=== PATIENT | female | born 1960 | race Hispanic/Latino ===

== ENCOUNTER 2016-12-01 14:06 | Observation (INO) | payer BC ==
[2016-12-01 14:13] VITALS: BMI 23.7
[2016-12-01] MEDS ORDERED: Sodium Chloride 0.9% 1,000 ML IV STA (14:37)
[2016-12-01 15:42] LABS: ADD MANUAL DIFF? NO
--- NOTE | 2016-12-01 15:46 | ED PDOC ---
Arrival/HPI - General Chief Complaint: Abdominal Pain Time Seen by Provider: 12/01/16 14:20 Historian: Patient - History of Present Illness Narrative History of Present Illness (Text): 12/01/16 14: 40 Renetta Elkins, a 56 year old female, whose past medical history includes microcytic anemia, hypertension, chronic gastritis, presents to the emergency department complaining of abdominal pain since yesterday. She also reports she has a decreased appetite and had episodes of vomiting after having Ensure. Patient states she has nausea, vomiting, diarrhea, heart burn but denies any fever or any other complaints at this time. Time/Duration: 24 hours Symptom Onset: Gradual Symptom Course: Unchanged Activities at Onset: Rest Modifying Factors (Text): none Context: Home Associated Symptoms (Text): nausea, vomiting, diarrhea Past Medical History - Provider Review Nursing Documentation Reviewed: Yes - Infectious Disease Hx of Infectious Diseases: None - Tetanus Immunization Tetanus Immunization: Unknown - Cardiac Hx Cardiac Disorders: Yes Hx Heart Murmur: Yes Hx Hypertension: Yes - Pulmonary Hx Respiratory Disorders: No - Neurological Hx Neurological Disorder: No - HEENT Hx HEENT Disorder: No - Renal Hx Renal Disorder: No - Endocrine/Metabolic Hx Endocrine Disorders: No - Hematological/Oncological Hx Blood Disorders: Yes Hx Anemia: Yes Other/Comment: hx blood transfusion - Integumentary Hx Dermatological Disorder: Yes - Musculoskeletal/Rheumatological Hx Falls: No - Gastrointestinal Hx Gastrointestinal Disorders: Yes (gastritis, fatty liver,GASTROPARESIS) Hx Gall Bladder Disease: Yes Hx Gastroesophageal Reflux: Yes Other/Comment: portal htn hepatomegaly, hemorrhoids - Genitourinary/Gynecological Hx Genitourinary Disorders: Yes Hx Urinary Tract Infection: Yes Other/Comment: total vag hysterectomy, bladder sling, ant and post rectal repair 06/14 - Psychiatric Hx Psychophysiologic Disorder: No Hx Emotional Abuse: No Hx Physical Abuse: No Hx Substance Use: No - Surgical History Hx Hysterectomy: Yes Hx Musculoskeletal Surgery: Yes Hx Orthopedic Surgery: Yes (x2) Other/Comment: laminectomy x4 - Anesthesia Hx Anesthesia: Yes Hx Anesthesia Reactions: No Hx Malignant Hyperthermia: No - Suicidal Assessment Feels Threatened In Home Enviroment: No Family/Social History - Physician Review Nursing Documentation Reviewed: Yes Family/Social History: No Known Family HX Smoking Status: Former Smoker Hx Alcohol Use: No Hx Substance Use: No Hx Substance Use Treatment: No Allergies/Home Meds Allergies/Adverse Reactions: Allergies gluten Adverse Reaction (Verified 12/01/16 14:13) PAIN methylprednisolone Adverse Reaction (Verified 12/01/16 14:13) VOMITING Home Medications: Home Meds Medication Instructions Recorded Confirmed HYDROmorphone [Dilaudid] 8 mg PO Q4 PRN 03/08/16 12/01/16 Gabapentin [Neurontin] 0 mg PO DAILY 12/01/16 12/01/16 Metoclopramide HCl [Reglan] 10 mg PO PRN PRN 12/01/16 12/01/16 Review of Systems - Physician Review All systems were reviewed & negative as marked: Yes - Review of Systems Constitutional: absent: Fevers Cardiovascular: absent: Chest Pain Gastrointestinal: Abdominal Pain, Diarrhea, Nausea, Vomiting, Appetite Changes ( decreased) Physical Exam Vital Signs Reviewed: Yes Vital Signs Temp Pulse Resp BP Pulse Ox 12/01/16 19:35 98.4 F 60 16 125/71 97 12/01/16 17:26 67 18 118/75 98 12/01/16 15:38 69 18 121/79 98 12/01/16 14:13 98.4 F 73 16 120/83 98 Temperature: Afebrile Blood Pressure: Normal Pulse: Regular Respiratory Rate: Normal Appearance: Positive for: Well-Appearing, Non-Toxic, Comfortable Pain Distress: None Mental Status: Positive for: Alert and Oriented X 3 - Systems Exam Head: Present: Atraumatic, Normocephalic Pupils: Present: PERRL Extroacular Muscles: Present: EOMI Conjunctiva: Present: Normal Mouth: Present: Moist Mucous Membranes Neck: Present: Normal Range of Motion Respiratory/Chest: Present: Clear to Auscultation, Good Air Exchange. No: Respiratory Distress, Accessory Muscle Use Cardiovascular: Present: Regular Rate and Rhythm, Normal S1, S2. No: Murmurs Abdomen: Present: Tenderness (mild epigastric), Distention (mild), Normal Bowel Sounds. No: Peritoneal Signs Upper Extremity: Present: Normal Inspection. No: Cyanosis, Edema Lower Extremity: Present: Normal Inspection. No: Edema Neurological: Present: GCS=15, CN II-XII Intact, Speech Normal Skin: Present: Warm, Dry, Normal Color. No: Rashes Psychiatric: Present: Alert, Oriented x 3, Normal Insight, Normal Concentration Medical Decision Making ED Course and Treatment: 12/01/16 14:45 Impression: 56 year old female with epigastric abdominal pain. Differential Diagnosis included but are not limited to: gastritis vs. nonspecific abdominal pain Plan: -- CT Abd/Pelvis -- Labs -- Urinalysis -- IV fluids, Toradol, Zofran and Pepcid -- Reassess and disposition Prior Visits: Notes and results from previous visits were reviewed. Patient was reported to the emergency room on 09/09/16 for evaluation of abdominal cramping, diarrhea and vomiting. Progress Notes: CT Abdomen/Pelvis Software Recruiter: Dr. Faheem Omer MD IMPRESSION: No acute findings in the abdomen or pelvis. - Lab Interpretations Lab Results: 12/01/16 15:40 12/01/16 15:40 Lab Results 12/01/16 15:40: WBC 6.6, RBC 4.36, Hgb 9.7 L, Hct 31.2 L, MCV 71.6 L, MCH 22.2 L , MCHC 31.1, RDW 17.7 H, Plt Count 358, MPV 8.4, Gran % 73.6 H, Lymph % (Auto) 17.7 L, Butts % (Auto) 6.0, Eos % (Auto) 2.1, Baso % (Auto) 0.6, Gran # 4.82, Lymph # 1.2, Butts # 0.4, Eos # 0.1, Baso # 0.04, PT 11.1, INR 1.03, APTT 27.6, Sodium 134, Potassium 4.2, Chloride 95 L, Carbon Dioxide 31, Anion Gap 12, BUN 15, Creatinine 0.8, Est GFR ( Amer) > 60, Est GFR (Non-Af Amer) > 60, Random Glucose 98, Calcium 9.7, Total Bilirubin 0.5, AST 36, ALT 25, Alkaline Phosphatase 93, Total Protein 9.5 H, Albumin 3.9, Globulin 5.6, Albumin/ Globulin Ratio 0.7 L, Lipase 34 I have reviewed the lab results: Yes - RAD Interpretation Radiology Orders: 12/01/16 16:07 ABD & PELVIS IV CONTRAST ONLY [CT] Stat - Medication Orders Current Medication Orders: Sodium Chloride (Sodium Chloride 0.9%) 1,000 mls @ 125 mls/hr IV .Q8H [place] Last Admin: 12/01/16 19:15 Dose: 125 MLS/HR eMAR Start Stop Document 12/01/16 19:15 SZA (Rec: 12/01/16 19:46 SZA [id number]) Intravenous Solution Start Date 12/01/16 Start Time 19:15 Ondansetron HCl (Zofran Inj) 4 mg IVP Q4H PRN PRN Reason: Nausea/Vomiting Pantoprazole Sodium (Protonix Inj) 40 mg IVP DAILY [place] Discontinued Medications Famotidine (Pepcid) 20 mg IVP STAT STA Stop: 12/01/16 15:57 Last Admin: 12/01/16 16:26 Dose: 20 MG IVP Administration Document 12/01/16 16:26 EQ (Rec: 12/01/16 16:26 EQ [id number]) Charges for Administration # of IVP Administrations 1 Sodium Chloride (Sodium Chloride 0.9%) 1,000 mls @ 1,000 mls/hr IV .Q1H [place]A Stop: 12/01/16 15:36 Last Admin: 12/01/16 15:02 Dose: 1,000 MLS/HR eMAR Start Stop Document 12/01/16 15:02 EQ (Rec: 12/01/16 15:02 EQ [id number]) Intravenous Solution Start Date 12/01/16 Start Time 15:02 Iohexol (Omnipaque 350 100 Ml) Confirm Administered Dose 350 mg .ROUTE .STK-MED ONE Stop: 12/01/16 16:22 Ketorolac Tromethamine (Toradol) 30 mg IVP STAT STA Stop: 12/01/16 14:38 Last Admin: 12/01/16 15:02 Dose: 30 MG IVP Administration Document 12/01/16 15:02 EQ (Rec: 12/01/16 15:02 EQ [id number]) Charges for Administration # of IVP Administrations 1 Ondansetron HCl (Zofran Inj) 4 mg IVP STAT STA Stop: 12/01/16 14:38 Last Admin: 12/01/16 15:02 Dose: 4 MG IVP Administration Document 12/01/16 15:02 EQ (Rec: 12/01/16 15:02 EQ [id number]) Charges for Administration # of IVP Administrations 1 - Scribe Statement The provider has reviewed the documentation as recorded by the Esteban Altamirano training under Tomy Montelongo All medical record entries made by the Scribe were at my direction and personally dictated by me. I have reviewed the chart and agree that the record accurately reflects my personal performance of the history, physical exam, medical decision making, and the department course for this patient. I have also personally directed, reviewed, and agree with the discharge instructions and disposition. Disposition/Present on Arrival - Present on Arrival Any Indicators Present on Arrival: No History of DVT/PE: No History of Uncontrolled Diabetes: No Urinary Catheter: No History of Decub. Ulcer: No History Surgical Site Infection Following: None - Disposition Have Diagnosis and Disposition been Completed?: Yes Diagnosis: Intractable abdominal pain Disposition: HOSPITALIZED Disposition Time: 07:00 Patient Problems: Current Active Problems Problem Status Diagnosed Anemia Acute Celiac disease/sprue Acute Colitis Acute Enterocolitis Acute Gastroenteritis Acute Hematochezia Acute Intractable abdominal pain Acute Intractable pain Acute Nondiabetic gastroparesis Acute UTI (urinary tract infection) Acute Condition: STABLE
[2016-12-01 15:52] LABS: BASO # 0.04 K/mm3 (0.0-2.0); BASO % 0.6 % (0.0-3.0); EOS # 0.1 (0.0-0.7); EOS % 2.1 % (1.5-5.0); GRAN # 4.82 (1.4-6.5); GRAN % 73.6 % (50.0-68.0); HEMATOCRIT 31.2 % (36.0-48.0); LYMPH # 1.2 (1.2-3.4); LYMPH % 17.7 % (22.0-35.0); MEAN CELL VOLUME 71.6 fL (80.0-105.0); MEAN CORPUSCULAR HEMOGLOBIN 22.2 pg (25.0-35.0); MEAN CORPUSCULAR HGB CONC 31.1 g/dl (31.0-37.0); MEAN PLATELET VOLUME 8.4 fl (7.0-11.0); MONO # 0.4 (0.1-0.6); PLATELET COUNT 358 10^3/uL (120.0-450.0); RED CELL DISTRIBUTION WIDTH 17.7 % (11.5-14.5); WHITE BLOOD COUNT 6.6 10^3/ul (4.5-11.0)
[2016-12-01 15:57] LABS: ALB/GLOB RATIO 0.7 (1.1-1.8); ALKALINE PHOSPHATASE 93 U/L (38-133); ALT/SGPT 25 U/L (7-56); AST/SGOT 36 U/L (15-39); BILIRUBIN,TOTAL 0.5 mg/dL (0.2-1.3); BLOOD UREA NITROGEN 15 mg/dL (7-21); CALCIUM 9.7 mg/dL (8.4-10.5); CARBON DIOXIDE 31 mmol/L (21-33); CHLORIDE 95 mmol/L (98-107); GFR AFRICAN-AMERICAN > 60; GLUCOSE,RANDOM 98 mg/dL (70-110); LIPASE 34 U/L (23-300); POTASSIUM 4.2 mmol/L (3.6-5.0); SODIUM 134 mmol/L (132-148); TOTAL PROTEIN 9.5 g/dL (5.8-8.3)
[2016-12-01 16:05] LABS: INR 1.03 (0.93-1.08); PARTIAL THROMBOPLASTIN TIME 27.6 Seconds (23.7-30.8)
[2016-12-01] MEDS ORDERED: Iohexol 350 MG/100 ML VIAL ONE (16:21)
--- NOTE | 2016-12-01 17:46 | CT ---
PROCEDURE: CT Abdomen and Pelvis with contrast HISTORY: abd pain/distention COMPARISON: 09/09/2016. TECHNIQUE: Contrast dose: 100 cc of Omnipaque Radiation dose: Total exam DLP = 820 mGy-cm. This CT exam was performed using one or more of the following dose reduction techniques: Automated exposure control, adjustment of the mA and/or kV according to patient size, and/or use of iterative reconstruction technique. FINDINGS: LOWER THORAX: Unremarkable. LIVER: Unremarkable. No gross lesion or ductal dilatation. GALLBLADDER AND BILE DUCTS: Cholecystectomy. PANCREAS: Unremarkable. No gross lesion or ductal dilatation. SPLEEN: Unremarkable. ADRENALS: Unremarkable. No mass. KIDNEYS AND URETERS: Unremarkable. No hydronephrosis. No solid mass. VASCULATURE: Unremarkable. No aortic aneurysm. BOWEL: Unremarkable. No obstruction. No gross mural thickening. APPENDIX: Normal appendix. PERITONEUM: Unremarkable. No free fluid. No free air. LYMPH NODES: Unremarkable. No enlarged lymph nodes. BLADDER: Unremarkable. REPRODUCTIVE: Hysterectomy. BONES: No acute fracture. Status post multilevel lumbar surgery. OTHER FINDINGS: None. IMPRESSION: No acute findings in the abdomen or pelvis.
[2016-12-01] MEDS: Sodium Chloride 0.9% 1,000 ML IV SCH (19:15)
--- NOTE | 2016-12-01 19:30 | CP.PCM.HP ---
History of Present Illness - History of Present Illness History of Present Illness: CC: abdominal pain, nausea, vomiting, diarrhea This is a 56 y/o female with hx of Celiac disease, HTN, chronic gastritis, microcytic anemia, chronic back pain s/p multiple spinal fusion, hepatic steatosis who presents with symptoms of nausea, vomiting, and diarrhea. The patient says she developed nausea and abdominal bloating and distention two days prior. She also reports three episodes of non-bloody diarrhea. Starting yesterday and today the patient reports multiple episodes of yellow vomiting without blood. She is also reporting concentrated, foul smelling urine but denies dysuria or vaginal discharge. She also reports active GERD, and chronic back pain at this time. Despite decreased PO intake the patient is hemodynamically stable and without distress. She denies chest pain, SOB, fever, chills or palpitations. PMH: HTN, systolic heart murmur, chronic gastritis, hepatic steatosis, GERD, narcotic gastroparesis, Celiac disease, chronic microcytic anemia, chronic back pain PSH: spinal fusion L3-L4, L5-S1, total vaginal hysterectomy, bladder sling, anterior and posterior rectal repair Fhx: non-contributory Social Hx: former tobacco use, occasional alcohol use. Denies illicit drug use Medications: the following is as confirmed by [facility] in [facility]: exalgo 16 mg PO TID, dilaudid 8 mg po q4 prn, neurontin 300 mg po qd, movantik 12.5 mg PO qd. allergies: gluten, methyprednisone (vomiting) Present on Admission - Present on Admission Any Indicators Present on Admission: No Review of Systems - Review of Systems All systems: reviewed and no additional remarkable complaints except - Constitutional Constitutional: absent: Chills, Fever - EENT Nose/Mouth/Throat: absent: Sore Throat - Cardiovascular Cardiovascular: absent: Chest Pain, Dyspnea - Gastrointestinal Gastrointestinal: Abdominal Pain, Diarrhea - Genitourinary Genitourinary: absent: Dysuria, Hematuria Past Patient History - Infectious Disease Hx of Infectious Diseases: None - Tetanus Immunizations Tetanus Immunization: Unknown - Past Social History Smoking Status: Former Smoker - CARDIAC Hx Cardiac Disorders: Yes Hx Heart Murmur: Yes Hx Hypertension: Yes - PULMONARY Hx Respiratory Disorders: No - NEUROLOGICAL Hx Neurological Disorder: No - HEENT Hx HEENT Problems: No - RENAL Hx Chronic Kidney Disease: No - ENDOCRINE/METABOLIC Hx Endocrine Disorders: No - HEMATOLOGICAL/ONCOLOGICAL Hx Blood Disorders: Yes Hx Anemia: Yes Other/Comment: hx blood transfusion - INTEGUMENTARY Hx Dermatological Problems: Yes - MUSCULOSKELETAL/RHEUMATOLOGICAL Hx Falls: No - GASTROINTESTINAL Hx Gastrointestinal Disorders: Yes (gastritis, fatty liver,GASTROPARESIS) Hx Gall Bladder Disease: Yes Hx Gastroesophageal Reflux: Yes Other/Comment: portal htn hepatomegaly, hemorrhoids - GENITOURINARY/GYNECOLOGICAL Hx Genitourinary Disorders: Yes Hx Urinary Tract Infection: Yes Other/Comment: total vag hysterectomy, bladder sling, ant and post rectal repair 06/14 - PSYCHIATRIC Hx Psychophysiologic Disorder: No Hx Emotional Abuse: No Hx Physical Abuse: No Hx Substance Use: No - SURGICAL HISTORY Hx Hysterectomy: Yes Hx Musculoskeletal Surgery: Yes Hx Orthopedic Surgery: Yes (x2) Other/Comment: laminectomy x4 - ANESTHESIA Hx Anesthesia: Yes Hx Anesthesia Reactions: No Hx Malignant Hyperthermia: No Meds Allergies/Adverse Reactions: Allergies Allergy/AdvReac Type Severity Reaction Status Date / Time gluten AdvReac PAIN Verified 12/01/16 14:13 methylprednisolone AdvReac VOMITING Verified 12/01/16 14:13 Physical Exam - Constitutional Appears: Non-toxic, No Acute Distress - Head Exam Head Exam: ATRAUMATIC, NORMOCEPHALIC - Eye Exam Eye Exam: EOMI, Normal appearance - ENT Exam ENT Exam: Mucous Membranes Moist, Normal External Ear Exam - Respiratory Exam Respiratory Exam: Clear to Auscultation Bilateral, NORMAL BREATHING PATTERN - Cardiovascular Exam Cardiovascular Exam: +S1, +S2, Systolic Murmur - GI/Abdominal Exam GI & Abdominal Exam: Soft, Tenderness Additional comments: negative mcburney's. Tenderness diffusely in abdomen. Distended. - Exam External exam: absent: Ecchymosis, Erythema - Extremities Exam Extremities exam: Positive for: pedal pulses present. Negative for: tenderness - Back Exam Back exam: absent: CVA tenderness (L), CVA tenderness (R) - Neurological Exam Neurological exam: Alert, Oriented x3 - Skin Skin Exam: Dry, Intact Results - Vital Signs Recent Vital Signs: Last Vital Signs Temp 98.4 F 12/01/16 14:13 Pulse 67 12/01/16 17:26 Resp 18 12/01/16 17:26 BP 118/75 12/01/16 17:26 Pulse Ox 98 12/01/16 17:26 - Labs Result Diagrams: 12/01/16 15:40 12/01/16 15:40 Labs: Laboratory Results - last 24 hr 12/01/16 15:40 WBC 6.6 RBC 4.36 Hgb 9.7 L Hct 31.2 L MCV 71.6 L MCH 22.2 L MCHC 31.1 RDW 17.7 H Plt Count 358 MPV 8.4 Gran % 73.6 H Lymph % (Auto) 17.7 L [place] % (Auto) 6.0 Eos % (Auto) 2.1 Baso % (Auto) 0.6 Gran # 4.82 Lymph # 1.2 [place] # 0.4 Eos # 0.1 Baso # 0.04 PT 11.1 INR 1.03 APTT 27.6 Sodium 134 Potassium 4.2 Chloride 95 L Carbon Dioxide 31 Anion Gap 12 BUN 15 Creatinine 0.8 Est GFR ( Amer) > 60 Est GFR (Non-Af Amer) > 60 Random Glucose 98 Calcium 9.7 Total Bilirubin 0.5 AST 36 ALT 25 Alkaline Phosphatase 93 Total Protein 9.5 H Albumin 3.9 Globulin 5.6 Albumin/Globulin Ratio 0.7 L Lipase 34 Assessment & Plan - Assessment and Plan (Free Text) Plan: 56 y/o female with hx celiac disease, HTN, chronic microcytic anemia, chronic back pain, chronic gastritis, hepatic steatosis presenting with abdominal pain, nausea, intractable vomiting and diarrhea. CT abd/pelvis with contrast is negative for positive acute findings. IV fluids started. Abdominal pain with n/v/ with abdominal distension: - NS@125 - zofran 4q4 prn - protonix 40mg IV daily foul smelling urine - UA f/u chronic back pain - Tylenol 650 q6 for mild pain -dilaudid IV 2mg q4h prn for severe pain -neurotin 300mg po QD from home medications microcytic anemia - Fe, TIBC, Ferritin pending - monitor H/H HTN - currently not hypertensive, monitor - home medications do not include anti-hypertensives hepatic steatosis - managed as outpatient - advised to avoid alcohol and avoid fatty foods Prophylaxis - protonix 40mg IV daily - SCD pt d/w Dr. Raines
[2016-12-01] MEDS ORDERED: HYDROmorphone 2 mg/ml ISec IVP PRN ×2 (20:57→21:02)
[2016-12-01 21:40] LABS: IRON 37 ug/dL (45-180)
[2016-12-02 06:16] LABS: ADD MANUAL DIFF? NO
[2016-12-02 06:22] LABS: BASO # 0.06 K/mm3 (0.0-2.0); BASO % 1.3 % (0.0-3.0); EOS # 0.2 (0.0-0.7); EOS % 5.1 % (1.5-5.0); GRAN # 2.83 (1.4-6.5); GRAN % 59.7 % (50.0-68.0); HEMATOCRIT 29.3 % (36.0-48.0); LYMPH # 1.2 (1.2-3.4); LYMPH % 25.5 % (22.0-35.0); MEAN CELL VOLUME 72.3 fL (80.0-105.0); MEAN CORPUSCULAR HEMOGLOBIN 22.5 pg (25.0-35.0); MEAN CORPUSCULAR HGB CONC 31.1 g/dl (31.0-37.0); MEAN PLATELET VOLUME 8.4 fl (7.0-11.0); MONO # 0.4 (0.1-0.6); MONO % 8.4 % (1.0-6.0); PLATELET COUNT 247 10^3/uL (120.0-450.0); RED CELL DISTRIBUTION WIDTH 17.7 % (11.5-14.5); WHITE BLOOD COUNT 4.7 10^3/ul (4.5-11.0)
[2016-12-02 06:37] LABS: ALB/GLOB RATIO 0.7 (1.1-1.8); ALKALINE PHOSPHATASE 72 U/L (38-133); ALT/SGPT 29 U/L (7-56); AST/SGOT 27 U/L (15-39); BILIRUBIN,TOTAL 0.4 mg/dL (0.2-1.3); BLOOD UREA NITROGEN 13 mg/dL (7-21); CALCIUM 8.6 mg/dL (8.4-10.5); CARBON DIOXIDE 28 mmol/L (21-33); CHLORIDE 103 mmol/L (98-107); GFR AFRICAN-AMERICAN > 60; GLUCOSE,RANDOM 93 mg/dL (70-110); POTASSIUM 4.4 mmol/L (3.6-5.0); SODIUM 138 mmol/L (132-148); TOTAL PROTEIN 7.9 g/dL (5.8-8.3)
[2016-12-02] MEDS: Sodium Chloride 0.9% 1,000 ML IV SCH ×2 (06:49→12:13)
[2016-12-02] MEDS ORDERED: Alum-Mag Hydrox-Simethicone Susp (30 mL) PO PRN (09:51)
--- NOTE | 2016-12-02 09:57 | CP.PCM.PN ---
<DellsindhuNabeel - Last Filed: 12/02/16 10:25> Subjective - Date & Time of Evaluation Date of Evaluation: 12/02/16 Time of Evaluation: 09:56 - Subjective Subjective: Medicine progress note - Nabeel Wasserman PGY1 Patient seen and examined at bedside this morning. No acute overnight events or new complaints. She reported one episode of vomiting overnight, however no diarrhea or nausea/vomiting this morning. Discussed with patient the plan for this morning including current results. Denies chest pain, palpitations, SOB. Objective - Vital Signs/Intake and Output Vital Signs (last 24 hours): Temp Pulse Resp BP Pulse Ox 97.7 F 55 L 20 119/76 98 12/02/16 07:31 12/02/16 07:31 12/02/16 07:31 12/02/16 07:31 12/02/16 07:31 Intake and Output: 12/02/16 12/02/16 06:59 18:59 Intake Total 1 Balance 1 - Medications Medications: Current Medications Acetaminophen (Tylenol 650 Mg Supp) 650 mg RC Q6H PRN PRN Reason: Fever >100.4 F Al Hydrox/Mg Hydrox/Simethicone (Maalox Plus 30 Ml) 30 ml PO Q6H PRN PRN Reason: Indigestion / Heartburn Gabapentin (Neurontin) 300 mg PO DAILY [place] PRN Reason: Protocol Hydromorphone HCl (Dilaudid) 3 mg IVP Q3 PRN PRN Reason: SEVERE PAIN [8-10] Last Admin: 12/02/16 07:51 Dose: 3 mg Sodium Chloride (Sodium Chloride 0.9%) 1,000 mls @ 125 mls/hr IV .Q8H [place] Last Admin: 12/02/16 06:49 Dose: 125 mls/hr Ondansetron HCl (Zofran Inj) 4 mg IVP Q4H PRN PRN Reason: Nausea/Vomiting Last Admin: 12/02/16 07:41 Dose: 4 mg Pantoprazole Sodium (Protonix Inj) 40 mg IVP DAILY [facility] - Labs Labs: 12/02/16 05:30 12/02/16 05:30 PT 11.1 Seconds (9.9-11.8) 12/01/16 15:40 INR 1.03 (0.93-1.08) 12/01/16 15:40 APTT 27.6 Seconds (23.7-30.8) 12/01/16 15:40 - Constitutional Appears: Well, Non-toxic, No Acute Distress - Head Exam Head Exam: ATRAUMATIC, NORMAL INSPECTION, NORMOCEPHALIC - Eye Exam Eye Exam: EOMI, PERRL. absent: Conjunctival injection, Scleral icterus - ENT Exam ENT Exam: Mucous Membranes Moist - Neck Exam Neck Exam: Normal Inspection - Respiratory Exam Respiratory Exam: Clear to Ausculation Bilateral. absent: Rales, Rhonchi, Wheezes - Cardiovascular Exam Cardiovascular Exam: RRR, +S1, +S2. absent: Bradycardia, Tachycardia, Diastolic murmur, Gallop, JVD, Rubs, Murmur - GI/Abdominal Exam GI & Abdominal Exam: Soft, Tenderness (mild epigastric), Normal Bowel Sounds. absent: Distended, Firm, Guarding, Rigid, Rebound - Extremities Exam Extremities Exam: Normal Inspection. absent: Pedal Edema - Neurological Exam Neurological Exam: Alert, Awake, CN II-XII Intact, Oriented x3 - Psychiatric Exam Psychiatric exam: Normal Affect, Normal Mood - Skin Skin Exam: Dry, Intact, Normal Color, Warm Assessment and Plan - Assessment and Plan (Free Text) Assessment: 56yo female with history of celiac disease, hypertension, iron deficiency anemia , chronic back pain, chronic gastritis and hepatic steatosis presents c/o abdominal pain associated with nausea, vomiting and diarrhea for 2-3 days prior to presentation. Plan: 1. Abdominal pain/nausea/vomiting/diarrhea -Afebrile, no leukocytosis -CT abd/pelvis reviewed; no acute findings -IVF hydration with NS @ 125cc/hr -Zofran PRN for nausea/vomiting -Protonix 40mg IV qD -Pending: Cdiff toxin/antigen, stool culture, fecal leukocytes, ova/parasites -NPO -GI consulted - Dr. Thao 2. chronic back pain -dilaudid IV 3mg q3h prn for severe pain -continue home med neurotin 300mg po QD 3. 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 Quintero 4. History of celiac disease -Dietary counseling -GI consulted - Dr. Thao 5. Prophylaxis -Protonix/SCD's Patient seen and case discussed with attending, Dr. Angulo <Landen Angulo - Last Filed: 12/29/16 10:55> Objective - Vital Signs/Intake and Output Vital Signs (last 24 hours): Temp Pulse Resp BP Pulse Ox 98.2 F 55 L 20 116/67 100 12/04/16 07:30 12/04/16 07:30 12/04/16 07:30 12/04/16 07:30 12/04/16 07:30 - Labs Labs: 12/04/16 07:00 12/04/16 07:00 PT 11.1 Seconds (9.9-11.8) 12/01/16 15:40 INR 1.03 (0.93-1.08) 12/01/16 15:40 APTT 27.6 Seconds (23.7-30.8) 12/01/16 15:40 Attending/Attestation - Attestation I have personally seen and examined this patient.: Yes I have fully participated in the care of the patient.: Yes I have reviewed all pertinent clinical information, including history, physical exam and plan: Yes Notes (Text): 12/29/16 10:55 Medial record note done by resident after patient personally seen and examined by me. I have reviewed the chart and agree that the record accurately reflects my personal evaluation, data review, and course for the patient.
--- NOTE | 2016-12-02 11:36 | CON ---
DATE: 12/02/2016 REASON FOR CONSULTATION: Anemia. The patient is a 56-year-old female well known to me from the past, but has not followed up in over 2 years, who now presents with symptoms of nausea, vomiting , as well as diarrhea; once again noted to be anemic. She was getting IV iron as an outpatient for known iron deficiency secondary to celiac disease, but has been noncompliant. She also had dysfunctional uterine bleeding at that point, which has now subsided. She is once again here for her GI symptoms, which are being managed by gastroenterology. She also complains of fatigue, also has some shortness of breath upon exertion. No other complaints. PAST MEDICAL HISTORY: As above, known for hypertension, chronic gastritis, hepatic steatosis, GERD, narcotic abuse, gastroparesis with celiac disease, chronic back pain. PAST SURGICAL HISTORY: Significant for spinal fusion of L3-L4, as well as L5- S1. Total vaginal abdominal hysterectomy, anterior and posterior rectal repair. She is currently on Exalgo (Dilaudid), Neurontin, as well as Movantik. KNOWN ALLERGIES TO PREDNISONE, WELL GLUTEN. SOCIAL HISTORY: Positive for smoking in the past. Occasional alcohol use. Denies any illicit drug use. FAMILY HISTORY: Noncontributory. REVIEW OF SYSTEMS: As per the HPI. VITALS: Reveal a temperature of 97.7, pulse of 55, respiratory rate of 20, and a blood pressure of 119/76. In general, the patient is a middle-aged female, lying in bed in no acute distress. HEAD AND NECK: Normocephalic, atraumatic. EYES: Pupils equal, round, reactive to light and accommodation. Extraocular muscles are intact. There is pallor. No icterus is noted. NECK: Supple with no adenopathy, no JVD, no thyromegaly. LUNGS: Clear to auscultation bilaterally with no rales or rhonchi. CARDIOVASCULAR: S1, S2 is heard. ABDOMINAL EXAMINATION: Distended abdomen with mild, diffuse tenderness, but no rebound or guarding. Good bowel sounds. EXTREMITIES: There is no edema. Her labs reveal a white count of 4.7, hemoglobin of 9.1, hematocrit of 29.3, MCV of 72.3, and RDW of 17.7, and a platelet count of 247. Chemistries are within normal limits. Her urine studies are also within normal limits. ASSESSMENT AND PLAN: Middle-aged female with microcytic anemia, admitted with gastrointestinal symptoms once again; currently undergoing a complete gastrointestinal workup. Start IV iron on this patient. No need for transfusion at this point. I have discussed with the patient that she will need ongoing iron therapy, as she continues to be chronically iron deficient, likely secondary to malabsorption. Will also check the patient's B12 as well as folic acid levels. May also need supplementation for those as well. She is agreeable. Thank you for the consult. We will follow. Calvin Quintero MD cc: [id number] TT: 12/02/2016 11:35:34 Confirmation # [id number] Dictation # [id number] MTDD
--- NOTE | 2016-12-02 16:12 | CON ---
DATE: 12/02/2016 The patient was seen and examined earlier today. The chart was reviewed. REQUEST FOR CONSULT: For rule out colitis. HISTORY OF PRESENT ILLNESS: This is a 56-year-old female with a past medical history of hypertension , gastroesophageal reflux disease, chronic gastritis, celiac disease, chronic anemia and gastroparesi s, who comes to the Emergency Room with complaints of nausea, vomiting, and diarrhea. The patient re ports that her symptoms started 2 days ago with complaints of abdominal bloating and distention. She denies any contributing foods; states this has been watching what she is eating. Denies any recent travel or any antibiotic use. She does complain of heartburn as well. Unable to tolerate any oral i ntake. She has not had any recent diarrheal episodes on admission and no current vomiting, but she d id have yesterday multiple episodes of yellow vomitus but no blood. Denies any dysuria. No fever or chills, shortness of breath or chest pain. The patient is well known to our service. On admission, she had a CT scan of abdomen and pelvis with contrast which was negative for any acute abdominal or pelvic findings. The patient did have a celiac panel done in 04/2016 which was negative ____. PAST MEDICAL HISTORY: As stated above is hypertension, chronic gastritis, GERD, microcytic anemia, c hronic back pain with history of multiple spinal fusions, hepatic steatosis, celiac disease, gastropa resis. PAST SURGICAL HISTORY: She had a cholecystectomy, multiple back surgeries including spinal fusion. She had a bladder sling, anterior and posterior rectal repair and hysterectomy. Her most recent endo scopy was in 05/2016 for odynophagia; found to have gastroparesis and monilial esophagitis. Brushing s were done which were negative for malignant cells but did show [place]. SOCIAL HISTORY: Former smoker, drinks alcohol socially. Denies any recreational drugs. ALLERGIES: GLUTEN, METHYLPREDNISOLONE. MEDICATIONS: Reviewed as per MAR. FAMILY HISTORY: Noncontributory at this time. REVIEW OF SYSTEMS: Systems reviewed with positive findings, see HPI. VITAL SIGNS: Temperature is 97.7, blood pressure is 119/76, pulse rate is 55, respirations are 20, 9 8 on room air. LABORATORY DATA: Today, WBC is 4.7, hemoglobin is 9.1, hematocrit is 29.3, platelets of 247. PT 11 .1, INR is 1.03, PTT 27.6. Sodium 138, K 4.4, BUN is 13, creatinine is 0.9. LFTs are within normal limits. She had a ferritin level done; it was 134. Her iron is low at 37 and TIBC is 305. Lipase i s 34. Urine hCG is negative. CT scan of abdomen and pelvis report was reviewed. No acute findings. PHYSICAL EXAMINATION: HEENT: Sclerae are anicteric. NECK: Suppler. CARDIAC: S1, S2. LUNGS: Sounds are clear. ABDOMEN: With bowel sounds. Softly distended with diffuse tenderness to mid abdomen. No rebound or guarding. No organomegaly. EXTREMITIES: Positive pulses, no edema. NEUROLOGIC: Awake, alert, and oriented. ASSESSMENT: This is a 56-year-old female with past medical history of celiac disease with negative s erology and endoscopic biopsy, has history of microcytic anemia, comes with complaints of nausea, vom iting, and diarrhea, rule out any gastroenteritis, could this be a history of gastroparesis, chronic back pain, hypertension. PLAN: Start patient on clear liquids. Can consider advancing as tolerated. Pending stool studies f or C. diff, culture, ova and parasites. Continue Protonix daily, Zofran p.r.n. She is also on IV fl uids for hydration and is getting Dilaudid for pain. Also is being followed by hematology who has st arted patient on IV iron. Thank you for this consult and for allowing us to participate in your patient's care. Will make furt her recommendations based upon patient's clinical course. The patient was seen and case discussed [facility] Dr. Thao. Lea VARGAS cc: [id number] TT: 12/02/2016 15:59:47 Confirmation # [id number] Dictation # [id number] mn
[2016-12-02 17:21] LABS: FOLATE > 20.0 ng/mL
[2016-12-03] MEDS: Sodium Chloride 0.9% 1,000 ML IV SCH (02:21)
--- NOTE | 2016-12-03 05:24 | CON ---
DATE: 12/02/2016 ADDENDUM This is an addendum to the GI consultation report dictated by Lea Mahmood APN. The patient was seen and evaluated earlier. This 56-year-old patient . Well-known to our servi ce in view of the previous multiple admissions. She does have a history of significant gastroparesis , now admitted with nausea, vomiting, and episodes of loose bowel movements. The patient also has a history of iron-deficiency anemia, a questionable history of celiac. The patient had follow up studi es done including serology and also was also negative. The patient is being followed by Dr. Jose M randall for iron-deficiency anemia. Last endoscopy she had was in 05/2015 also duodenal biopsies negative. The patient also had negative , except monilial esophagitis and gastroparesis. The p atient does have gastroparesis and episodes of vomiting. On examination, she has some mild tendernes s in the epigastric area. IMPRESSION: The differential diagnosis for the nausea, vomiting, and abdominal discomfort should include gastroen teritis secondary to the gastroparesis. The patient has also intermittent episodes of taking Reglan on and off for her gastroparesis, and the plan is to start her on a clear liquid diet and slowly adva nce as tolerating. If the patient is not able to keep the food down, then we may have to electively consider endoscopy evaluation. We will continue to closely follow up her care and suggest further ma nagement based on the clinical course. Thank you very much for allowing us to participate in the care of the patient. We will continue to c losely follow up her care and suggest further management based on the clinical course. Corrie Thao MD cc: [id number] TT: 12/03/2016 05:23:59 Confirmation # [id number] Dictation # [id number] tn
[2016-12-03 06:13] LABS: ADD MANUAL DIFF? NO
[2016-12-03 06:14] LABS: BASO # 0.04 K/mm3 (0.0-2.0); BASO % 0.9 % (0.0-3.0); EOS # 0.3 (0.0-0.7); EOS % 5.6 % (1.5-5.0); GRAN # 2.41 (1.4-6.5); GRAN % 53.6 % (50.0-68.0); LYMPH # 1.4 (1.2-3.4); LYMPH % 30.5 % (22.0-35.0); MEAN CELL VOLUME 72.3 fL (80.0-105.0); MEAN CORPUSCULAR HEMOGLOBIN 22.4 pg (25.0-35.0); MEAN PLATELET VOLUME 8.6 fl (7.0-11.0); MONO # 0.4 (0.1-0.6); MONO % 9.4 % (1.0-6.0); PLATELET COUNT 232 10^3/uL (120.0-450.0); RED CELL DISTRIBUTION WIDTH 17.7 % (11.5-14.5); WHITE BLOOD COUNT 4.5 10^3/ul (4.5-11.0)
[2016-12-03 06:26] LABS: ALB/GLOB RATIO 0.7 (1.1-1.8); ALKALINE PHOSPHATASE 68 U/L (38-133); ALT/SGPT 29 U/L (7-56); AST/SGOT 24 U/L (15-39); BILIRUBIN,TOTAL 0.4 mg/dL (0.2-1.3); BLOOD UREA NITROGEN 9 mg/dL (7-21); CALCIUM 8.7 mg/dL (8.4-10.5); CARBON DIOXIDE 25 mmol/L (21-33); CHLORIDE 107 mmol/L (98-107); GFR AFRICAN-AMERICAN > 60; GLUCOSE,RANDOM 86 mg/dL (70-110); POTASSIUM 4.1 mmol/L (3.6-5.0); SODIUM 138 mmol/L (132-148); TOTAL PROTEIN 7.6 g/dL (5.8-8.3)
--- NOTE | 2016-12-03 11:06 | CP.PCM.PN ---
<Nabeel Wasserman - Last Filed: 12/03/16 11:15> Subjective - Date & Time of Evaluation Date of Evaluation: 12/03/16 Time of Evaluation: 11:02 - Subjective Subjective: Medicine progress note - Nabeel Sharpesindhu PGY1 Patient seen and examined at bedside this morning. Patient reports continued abdominal pain and nausea, however no vomiting. States that her abdomen feels less distended and she has slowly been able to tolerate liquids. Will advance diet slowly and see if patient is able to tolerate. Otherwise, denies chest pain , palpitations, SOB. Objective - Vital Signs/Intake and Output Vital Signs (last 24 hours): Temp Pulse Resp BP Pulse Ox 97.5 F L 55 L 16 118/75 100 12/03/16 08:00 12/03/16 08:00 12/03/16 08:00 12/03/16 08:00 12/03/16 08:00 Intake and Output: 12/03/16 12/03/16 06:59 18:59 Intake Total 540 Balance 540 - Medications Medications: Current Medications Acetaminophen (Tylenol 650 Mg Supp) 650 mg RC Q6H PRN PRN Reason: Fever >100.4 F Al Hydrox/Mg Hydrox/Simethicone (Maalox Plus 30 Ml) 30 ml PO Q6H PRN PRN Reason: Indigestion / Heartburn Last Admin: 12/02/16 10:17 Dose: 30 ml Gabapentin (Neurontin) 300 mg PO DAILY [place] PRN Reason: Protocol Last Admin: 12/03/16 09:54 Dose: Not Given Hydromorphone HCl (Dilaudid) 3 mg IVP Q3 PRN PRN Reason: SEVERE PAIN [8-10] Last Admin: 12/03/16 08:11 Dose: 3 mg Sodium Chloride (Sodium Chloride 0.9%) 1,000 mls @ 125 mls/hr IV .Q8H [place] Last Admin: 12/03/16 02:21 Dose: 125 mls/hr Iron Sucrose 100 mg/ Sodium (Chloride) 105 mls @ 210 mls/hr IV DAILY [facility] Stop: 12/07/16 10:46 Last Admin: 12/03/16 09:35 Dose: 210 mls/hr Metoclopramide HCl (Reglan) 10 mg IVP [facility] Pantoprazole Sodium (Protonix Inj) 40 mg IVP DAILY [facility] Last Admin: 12/03/16 09:35 Dose: 40 mg - Labs Labs: 12/03/16 05:10 12/03/16 05:10 PT 11.1 Seconds (9.9-11.8) 12/01/16 15:40 INR 1.03 (0.93-1.08) 12/01/16 15:40 APTT 27.6 Seconds (23.7-30.8) 12/01/16 15:40 - Constitutional Appears: Well, Non-toxic, No Acute Distress - Head Exam Head Exam: ATRAUMATIC, NORMAL INSPECTION, NORMOCEPHALIC - Eye Exam Eye Exam: EOMI, PERRL - ENT Exam ENT Exam: Mucous Membranes Moist - Neck Exam Neck Exam: Normal Inspection - Respiratory Exam Respiratory Exam: Clear to Ausculation Bilateral. absent: Rales, Rhonchi, Wheezes - Cardiovascular Exam Cardiovascular Exam: RRR, +S1, +S2. absent: Tachycardia, Diastolic murmur, Gallop, JVD, Rubs, Murmur - GI/Abdominal Exam GI & Abdominal Exam: Soft, Tenderness (mild epigastric tenderness), Normal Bowel Sounds. absent: Firm, Guarding, Rigid - Neurological Exam Neurological Exam: Alert, Awake, CN II-XII Intact, Normal Gait, Oriented x3 - Psychiatric Exam Psychiatric exam: Normal Affect, Normal Mood - Skin Skin Exam: Dry, Intact, Normal Color, Warm Assessment and Plan - Assessment and Plan (Free Text) Assessment: 56yo female with history of questionable celiac disease, hypertension, iron deficiency anemia, chronic back pain, chronic gastritis and hepatic steatosis presents c/o abdominal pain associated with nausea, vomiting and diarrhea for 2- 3 days prior to presentation. Plan: 1. Abdominal pain/nausea/vomiting/diarrhea -Afebrile, no leukocytosis -CT abd/pelvis reviewed; no acute findings -IVF hydration with NS @ 125cc/hr -Reglan 10mg AC -Protonix 40mg IV qD -Pending: Cdiff toxin/antigen, stool culture, fecal leukocytes, ova/parasites -Liquid diet, will advance as tolerated as per GI recommendations -GI consulted - Dr. Thao 2. chronic back pain -dilaudid IV 3mg q3h prn for severe pain -continue home med neurotin 300mg po QD 3. 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 Quintero 4. History of questionable celiac disease -GI workup for celiac disease in the past reviewed with GI team -Inconclusive for celiac disease; further investigation as per GI recommendations 5. Prophylaxis -Protonix/SCD's Patient seen and case discussed with attending, Dr. Angulo <Landen Angulo - Last Filed: 12/29/16 10:56> Objective - Vital Signs/Intake and Output Vital Signs (last 24 hours): Temp Pulse Resp BP Pulse Ox 98.2 F 55 L 20 116/67 100 12/04/16 07:30 12/04/16 07:30 12/04/16 07:30 12/04/16 07:30 12/04/16 07:30 - Labs Labs: 12/04/16 07:00 12/04/16 07:00 PT 11.1 Seconds (9.9-11.8) 12/01/16 15:40 INR 1.03 (0.93-1.08) 12/01/16 15:40 APTT 27.6 Seconds (23.7-30.8) 12/01/16 15:40 Attending/Attestation - Attestation I have personally seen and examined this patient.: Yes I have fully participated in the care of the patient.: Yes I have reviewed all pertinent clinical information, including history, physical exam and plan: Yes Notes (Text): 12/29/16 10:55 Medial record note done by resident after patient personally seen and examined by me. I have reviewed the chart and agree that the record accurately reflects my personal evaluation, data review, and course for the patient.
--- NOTE | 2016-12-03 16:12 | PN ---
DATE: 12/03/2016 Seen and examined at the bedside earlier today. The patient complains of abdominal distention which has improved, it seems less distended. She does get some nausea, but no episodes of vomiting. No reports of any further diarrhea, no fever, chills, shortness of breath or chest pain. So far she has been able to tolerate clear liquid diet. VITAL SIGNS: Temperature is 97.5, blood pressure is 118/75, pulse 55, respirations 16, and 100% on room air. LABORATORY DATA: WBC is 4.5, H and H is 9.0, AST 29.0, platelets of 232. Sodium is 138, K 4.1, BUN is 9, creatinine 0.8. LFTs are within normal limits. PHYSICAL EXAMINATION: HEENT: Sclerae anicteric. NECK: Supple. CARDIAC: S1, S2. LUNGS: Sounds clear. ABDOMEN: With bowel sounds, soft, less distended, not really appreciate any tenderness, no rebound or guarding. ASSESSMENT: Intractable nausea, vomiting, and abdominal bloating may be secondary to gastroparesis and consider gastroenteritis. The patient has questionable history of celiac disease. The patient has had serology done in the past which was negative. The patient as noted, has history of iron deficiency anemia and is being evaluated by Dr. Quintero for iron deficiency anemia. PLAN: Stool studies pending. She has not had any episodes of diarrhea. We will advance her diet and see how she tolerates that. She is going to be started on her Reglan. She is on gastrointestinal prophylaxis of Protonix. She did have a recent endoscopy done on 05/2016 for odynophagia, found to have monilial esophagitis and gastroparesis. If patient remains symptomatic, we can consider elective endoscopy, but we will see how she tolerates her oral intake. The patient states the last thing she ate was sushi and thinks that may be the rice may have not been gluten-free. We will follow up. Case was also discussed with Dr. Angulo and biomedical equipment technician. The patient was seen and case discussed with Dr. Thao. Lea VARGAS cc: [id number] TT: 12/03/2016 16:11:47 Confirmation # [id number] Dictation # [id number] MTDD
[2016-12-04 07:31] LABS: ADD MANUAL DIFF? NO
[2016-12-04 07:35] VITALS: BP 116/67; PULSE 55; RESP 20; TEMP 98.2; O2SAT 100
[2016-12-04] MEDS: Sodium Chloride 0.9% 1,000 ML IV SCH ×2 (07:37→11:58)
[2016-12-04 07:43] LABS: BASO # 0.04 K/mm3 (0.0-2.0); BASO % 0.8 % (0.0-3.0); EOS # 0.2 (0.0-0.7); EOS % 3.9 % (1.5-5.0); GRAN # 2.84 (1.4-6.5); GRAN % 58.9 % (50.0-68.0); HEMATOCRIT 30.7 % (36.0-48.0); LYMPH # 1.3 (1.2-3.4); LYMPH % 27.3 % (22.0-35.0); MEAN CELL VOLUME 72.4 fL (80.0-105.0); MEAN CORPUSCULAR HEMOGLOBIN 22.4 pg (25.0-35.0); MEAN CORPUSCULAR HGB CONC 30.9 g/dl (31.0-37.0); MEAN PLATELET VOLUME 8.5 fl (7.0-11.0); MONO # 0.4 (0.1-0.6); MONO % 9.1 % (1.0-6.0); PLATELET COUNT 248 10^3/uL (120.0-450.0); RED CELL DISTRIBUTION WIDTH 17.8 % (11.5-14.5); WHITE BLOOD COUNT 4.8 10^3/ul (4.5-11.0)
[2016-12-04 07:49] LABS: ALB/GLOB RATIO 0.7 (1.1-1.8); ALKALINE PHOSPHATASE 67 U/L (38-133); ALT/SGPT 25 U/L (7-56); AST/SGOT 35 U/L (15-39); BILIRUBIN,TOTAL 0.4 mg/dL (0.2-1.3); BLOOD UREA NITROGEN 7 mg/dL (7-21); CALCIUM 9.3 mg/dL (8.4-10.5); CARBON DIOXIDE 29 mmol/L (21-33); CHLORIDE 104 mmol/L (95-110); GFR AFRICAN-AMERICAN > 60; GLUCOSE,RANDOM 90 mg/dL (70-110); POTASSIUM 4.8 mmol/L (3.6-5.0); SODIUM 142 mmol/L (132-148); TOTAL PROTEIN 7.9 g/dL (5.8-8.3)
--- NOTE | 2016-12-04 08:52 | CP.PCM.DIS ---
<Nabeel Wasserman - Last Filed: 12/06/16 12:58> Provider - Provider Date of Admission: 12/03/16 14:01 Attending physician: Landen Angulo MD Primary care physician: Kelvin Chavis MD Consults: Gastroenterology - Dr. Thao Time Spent in preparation of Discharge (in minutes): 30 Hospital Course - Lab Results Lab Results: Most Recent Lab Values WBC 4.8 10^3/ul (4.5-11.0) 12/04/16 07:00 RBC 4.24 10^6/uL (3.5-6.1) 12/04/16 07:00 Hgb 9.5 gm/dL (12.0-16.0) L 12/04/16 07:00 Hct 30.7 % (36.0-48.0) L 12/04/16 07:00 MCV 72.4 fL (80.0-105.0) L 12/04/16 07:00 MCH 22.4 pg (25.0-35.0) L 12/04/16 07:00 MCHC 30.9 g/dl (31.0-37.0) L 12/04/16 07:00 RDW 17.8 % (11.5-14.5) H 12/04/16 07:00 Plt Count 248 10^3/uL (120.0-450.0) 12/04/16 07:00 MPV 8.5 fl (7.0-11.0) 12/04/16 07:00 Gran % 58.9 % (50.0-68.0) 12/04/16 07:00 Lymph % (Auto) 27.3 % (22.0-35.0) 12/04/16 07:00 [place] % (Auto) 9.1 % (1.0-6.0) H 12/04/16 07:00 Eos % (Auto) 3.9 % (1.5-5.0) 12/04/16 07:00 Baso % (Auto) 0.8 % (0.0-3.0) 12/04/16 07:00 Gran # 2.84 (1.4-6.5) 12/04/16 07:00 Lymph # 1.3 (1.2-3.4) 12/04/16 07:00 [place] # 0.4 (0.1-0.6) 12/04/16 07:00 Eos # 0.2 (0.0-0.7) 12/04/16 07:00 Baso # 0.04 K/mm3 (0.0-2.0) 12/04/16 07:00 PT 11.1 Seconds (9.9-11.8) 12/01/16 15:40 INR 1.03 (0.93-1.08) 12/01/16 15:40 APTT 27.6 Seconds (23.7-30.8) 12/01/16 15:40 Sodium 142 mmol/L (132-148) 12/04/16 07:00 Potassium 4.8 mmol/L (3.6-5.0) 12/04/16 07:00 Chloride 104 mmol/L (95-110) 12/04/16 07:00 Carbon Dioxide 29 mmol/L (21-33) 12/04/16 07:00 Anion Gap 14 (10-20) 12/04/16 07:00 BUN 7 mg/dL (7-21) 12/04/16 07:00 Creatinine 0.9 mg/dL (0.5-1.4) 12/04/16 07:00 Est GFR ( Amer) > 60 12/04/16 07:00 Est GFR (Non-Af Amer) > 60 12/04/16 07:00 Random Glucose 90 mg/dL (70-110) 12/04/16 07:00 Calcium 9.3 mg/dL (8.4-10.5) 12/04/16 07:00 Iron 37 ug/dL (45-180) L 12/01/16 15:40 TIBC 305 ug/dL (265-497) 12/01/16 15:40 % Saturation 12 % (20-55) L 12/01/16 15:40 Ferritin 134.0 ng/mL 12/01/16 15:40 Total Bilirubin 0.4 mg/dL (0.2-1.3) 12/04/16 07:00 AST 35 U/L (15-39) 12/04/16 07:00 ALT 25 U/L (7-56) 12/04/16 07:00 Alkaline Phosphatase 67 U/L (38-133) 12/04/16 07:00 Total Protein 7.9 g/dL (5.8-8.3) 12/04/16 07:00 Albumin 3.3 g/dL (3.0-4.8) 12/04/16 07:00 Globulin 4.6 gm/dL 12/04/16 07:00 Albumin/Globulin Ratio 0.7 (1.1-1.8) L 12/04/16 07:00 Lipase 34 U/L (23-300) 12/01/16 15:40 Vitamin B12 529 pg/mL (239-931) 12/02/16 07:30 Folate > 20.0 ng/mL 12/02/16 07:30 Urine HCG, Qual Negative (NEGATIVE) 12/02/16 08:36 - Hospital Course Hospital Course: Patient is a 56yo female with questionable history of Celiac disease, HTN, chronic gastritis, microcytic anemia, chronic back pain s/p multiple spinal fusion, hepatic steatosis and opiod dependence who presented c/o nausea, vomiting, diarrhea for 2 days prior to presentation. The patient reported that her nausea/vomiting and abdominal distention started 2 days prior when she had eaten some sushi rice out of hunger despite being sensitive to gluten. She subsequently reported 3 episodes of non-bloody diarrhea and an inability to tolerate PO. She denied chest pain, palpitations, SOB, fever, chills, cough, focal weakness, numbness, tingling. The following workup/results were obtained during the patient's hospital course: 1. Abdominal pain/nausea/vomiting/diarrhea -Afebrile, no leukocytosis -CT abd/pelvis reviewed; no acute findings -IVF hydration with NS @ 125cc/hr -Reglan 10mg AC -Protonix 40mg IV qD -Liquid diet was started and advanced to soft low fat diet as tolerated as per GI recommendations -GI consulted - Dr. Thao 2. chronic back pain -dilaudid IV 3mg q3h prn for severe pain -continue home med neurotin 300mg po QD 3. 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 Quintero 4. History of questionable celiac disease -GI workup for celiac disease in the past reviewed with GI team -Inconclusive for celiac disease; further investigation as per GI recommendations 5. Prophylaxis -Protonix/SCD's Disposition: Throughout the patient's hospital course, her symptoms resolved gradually and she was able to tolerate soft diet without nausea, vomiting or abdominal pain. Her abdominal distention improved and she was eager to return home. The results of her hospital course were communicated to her and she was instructed to follow up with her plastic and reconstructive surgeon and primary care doctor within 1-2 weeks of discharge. She communicated understanding of the instructions and was agreeable to discharge with follow up. She was instructed to return to the emergency room should her symptoms worsen or change in quality/ severity. Discharge Exam - Head Exam Head Exam: ATRAUMATIC, NORMAL INSPECTION, NORMOCEPHALIC - Eye Exam Eye Exam: EOMI, PERRL - ENT Exam ENT Exam: Mucous Membranes Moist, Normal Exam - Neck Exam Neck exam: Normal Inspection - Respiratory Exam Respiratory Exam: Clear to PA & Lateral. absent: Rales, Rhonchi, Wheezes - Cardiovascular Exam Cardiovascular Exam: RRR, +S1, +S2. absent: Bradycardia, Tachycardia, Diastolic murmur, Gallop, JVD, Rubs, Systolic Murmur - GI/Abdominal Exam GI & Abdominal Exam: Hypoactive Bowel Sounds, Normal Bowel Sounds, Soft. absent : Distended, Firm, Guarding, Rebound, Tenderness - Extremities Exam Extremities exam: normal inspection - Neurological Exam Neurological exam: Alert, CN II-XII Intact, Normal Gait, Oriented x3 - Psychiatric Exam Psychiatric exam: Normal Affect, Normal Mood - Skin Skin Exam: Dry, Intact, Normal Color, Warm Discharge Plan - Discharge Medications Prescriptions: Metronidazole [Flagyl] 500 mg PO TID #21 tablet - Follow Up Plan Condition: STABLE Disposition: HOME/ ROUTINE Instructions: Chronic Pain (DC), Acute Nausea and Vomiting (DC), Acute Abdominal Pain (DC), Abdominal Pain (ED), Anemia (DC) Additional Instructions: 1. Follow up with your primary doctor, Dr. Chavis within 1-2 weeks of discharge. 2. Follow up with your plastic and reconstructive surgeon within 1-2 weeks of discharge. 3. Return to the emergency room should your condition worsen or change in severity/quality. Referrals: Kelvin Chavis MD [Primary Care Provider] - <Kelvin Chavis - Last Filed: 05/05/17 09:17> Provider - Provider Date of Admission: 12/01/16 17:45 Attending physician: Landen Angulo MD Primary care physician: Kelvin Chavis MD Hospital Course - Lab Results Lab Results: Most Recent Lab Values WBC 4.8 10^3/ul (4.5-11.0) 12/04/16 07:00 RBC 4.24 10^6/uL (3.5-6.1) 12/04/16 07:00 Hgb 9.5 gm/dL (12.0-16.0) L 12/04/16 07:00 Hct 30.7 % (36.0-48.0) L 12/04/16 07:00 MCV 72.4 fL (80.0-105.0) L 12/04/16 07:00 MCH 22.4 pg (25.0-35.0) L 12/04/16 07:00 MCHC 30.9 g/dl (31.0-37.0) L 12/04/16 07:00 RDW 17.8 % (11.5-14.5) H 12/04/16 07:00 Plt Count 248 10^3/uL (120.0-450.0) 12/04/16 07:00 MPV 8.5 fl (7.0-11.0) 12/04/16 07:00 Gran % 58.9 % (50.0-68.0) 12/04/16 07:00 Lymph % (Auto) 27.3 % (22.0-35.0) 12/04/16 07:00 [place] % (Auto) 9.1 % (1.0-6.0) H 12/04/16 07:00 Eos % (Auto) 3.9 % (1.5-5.0) 12/04/16 07:00 Baso % (Auto) 0.8 % (0.0-3.0) 12/04/16 07:00 Gran # 2.84 (1.4-6.5) 12/04/16 07:00 Lymph # 1.3 (1.2-3.4) 12/04/16 07:00 [place] # 0.4 (0.1-0.6) 12/04/16 07:00 Eos # 0.2 (0.0-0.7) 12/04/16 07:00 Baso # 0.04 K/mm3 (0.0-2.0) 12/04/16 07:00 PT 11.1 Seconds (9.9-11.8) 12/01/16 15:40 INR 1.03 (0.93-1.08) 12/01/16 15:40 APTT 27.6 Seconds (23.7-30.8) 12/01/16 15:40 Sodium 142 mmol/L (132-148) 12/04/16 07:00 Potassium 4.8 mmol/L (3.6-5.0) 12/04/16 07:00 Chloride 104 mmol/L (95-110) 12/04/16 07:00 Carbon Dioxide 29 mmol/L (21-33) 12/04/16 07:00 Anion Gap 14 (10-20) 12/04/16 07:00 BUN 7 mg/dL (7-21) 12/04/16 07:00 Creatinine 0.9 mg/dL (0.5-1.4) 12/04/16 07:00 Est GFR ( Amer) > 60 12/04/16 07:00 Est GFR (Non-Af Amer) > 60 12/04/16 07:00 Random Glucose 90 mg/dL (70-110) 12/04/16 07:00 Calcium 9.3 mg/dL (8.4-10.5) 12/04/16 07:00 Iron 37 ug/dL (45-180) L 12/01/16 15:40 TIBC 305 ug/dL (265-497) 12/01/16 15:40 % Saturation 12 % (20-55) L 12/01/16 15:40 Ferritin 134.0 ng/mL 12/01/16 15:40 Total Bilirubin 0.4 mg/dL (0.2-1.3) 12/04/16 07:00 AST 35 U/L (15-39) 12/04/16 07:00 ALT 25 U/L (7-56) 12/04/16 07:00 Alkaline Phosphatase 67 U/L (38-133) 12/04/16 07:00 Total Protein 7.9 g/dL (5.8-8.3) 12/04/16 07:00 Albumin 3.3 g/dL (3.0-4.8) 12/04/16 07:00 Globulin 4.6 gm/dL 12/04/16 07:00 Albumin/Globulin Ratio 0.7 (1.1-1.8) L 12/04/16 07:00 Lipase 34 U/L (23-300) 12/01/16 15:40 Vitamin B12 529 pg/mL (239-931) 12/02/16 07:30 Folate > 20.0 ng/mL 12/02/16 07:30 Urine HCG, Qual Negative (NEGATIVE) 12/02/16 08:36 Attending/Attestation - Attestation I have personally seen and examined this patient.: Yes I have fully participated in the care of the patient.: Yes I have reviewed all pertinent clinical information, including history, physical exam and plan: Yes Notes (Text): 12/24/16 09:17 Medical record note made by the resident after discussion with my direction and input after the patient was personally seen and examined by me. I have reviewed the chart and agree that the record accurately reflects by personal performance of the history, physical exam, data review, and medical decision-making, in the course for the patient. I have also personally directed the plan of care.
--- NOTE | 2016-12-04 16:33 | PN ---
DATE: 12/03/2016 ADDENDUM This is an addendum to the GI progress report dictated by Lea Mahmood NP. This patient was tolerati ng the diet. No complaints of any abdominal symptoms, significantly improved. The patient clearly g khoi a history of gluten intolerance before. The workup so far has been not decisive regarding the c eliac. We are in the process of retrieving still the HLA typing test done in the past. Also, we heaven l follow up the previous GI workup. The patient was strongly advised to follow up with Dr. Leon christy also regarding the anemia and also follow up in our office. The patient did have multiple hospital izations before. PHYSICAL EXAMINATION: ABDOMEN: Soft. There is no tenderness now at the present time. Thank you very much for allowing us to participate in the care of the patient. Corrie Thao MD cc: [id number] TT: 12/04/2016 16:32:44 Confirmation # [id number] Dictation # [id number] casandra
== END 2016-12-04 15:35 | disposition home or self-care (01) ==
LOC: ED 14:06 → ERH 17:45 → 5RNO 19:51 → INTOOBSV 12-03 14:01 → OBSVTOIN 12-03 14:01
PROVIDERS: ADMIT Internal Medicine; ATTEND Internal Medicine
DX: K52.9 Noninfective gastroenteritis and colitis, unspecified (principal); D50.9 Iron deficiency anemia, unspecified; K31.84 Gastroparesis; I10 Essential (primary) hypertension; K29.50 Unspecified chronic gastritis without bleeding; K76.0 Fatty (change of) liver, not elsewhere classified; K21.9 Gastro-esophageal reflux disease without esophagitis; K90.0 Celiac disease; R10.9 Unspecified abdominal pain; R11.2 Nausea with vomiting, unspecified; Z87.891 Personal history of nicotine dependence
CPT/HCPCS: 36415; 74177; 80053; 82607; 82728; 82746; 83540; 83550; 83690; 84703; 85025; 85610; 85730; 96361; 96365; 96366; 96375; 96376; 99285; C9113; G0378; J1170; J1756; J1885; J2405; J2765; J7040; Q9967

== ENCOUNTER 2017-06-30 19:14 | Observation (INO) | payer BC ==
[2017-06-30] MEDS ORDERED: Sodium Chloride 0.9% 1,000 ML IV STA (19:27)
[2017-06-30] MEDS ORDERED: HYDROmorphone 1 mg/ml ISec IVP STA (19:29)
--- NOTE | 2017-06-30 19:47 | ED PDOC ---
Arrival/HPI - General Time Seen by Provider: 06/30/17 19:19 Historian: Patient - History of Present Illness Narrative History of Present Illness (Text): 06/30/17 19:27 A 57 year old female, whose past medical history includes hypertension, anemia, gastritis, celiac and spinal fusion, presents to the emergency department complaining of chronic abdominal pain back pain since yesterday afternoon. Patient notes associated nausea, non-bilious non-bloody vomiting and 2 episodes of watery diarrhea. Patient denies any fever, chills, chest pain, shortness of breath or any other complaints. patient notes sick contact at work. PMD: Dr. Chavis Launch Leader: Dr. Thao Time/Duration: Other (yesterday) Symptom Course: Unchanged Quality: Other Context: Home, Work Past Medical History - Provider Review Nursing Documentation Reviewed: Yes - Infectious Disease Hx of Infectious Diseases: None - Tetanus Immunization Tetanus Immunization: Unknown - Cardiac Hx Cardiac Disorders: Yes Hx Heart Murmur: Yes Hx Hypertension: Yes - Pulmonary Hx Respiratory Disorders: No - Neurological Hx Neurological Disorder: No - HEENT Hx HEENT Disorder: No - Renal Hx Renal Disorder: No - Endocrine/Metabolic Hx Endocrine Disorders: No - Hematological/Oncological Hx Blood Disorders: Yes Hx Anemia: Yes Other/Comment: hx blood transfusion - Integumentary Hx Dermatological Disorder: Yes - Musculoskeletal/Rheumatological Hx Falls: No - Gastrointestinal Hx Gastrointestinal Disorders: Yes (gastritis,GASTROPARESIS) Hx Gall Bladder Disease: Yes Hx Gastroesophageal Reflux: Yes Other/Comment: portal htn hepatomegaly, hemorrhoids, pt denies fatty liver disease - Genitourinary/Gynecological Hx Genitourinary Disorders: Yes Hx Urinary Tract Infection: Yes Other/Comment: total vag hysterectomy, bladder sling, ant and post rectal repair 06/14 - Psychiatric Hx Psychophysiologic Disorder: No Hx Emotional Abuse: No Hx Physical Abuse: No Hx Substance Use: No - Surgical History Hx Hysterectomy: Yes Hx Musculoskeletal Surgery: Yes Hx Orthopedic Surgery: Yes (x2) Other/Comment: laminectomy x4, spinal fusion x 2 - Anesthesia Hx Anesthesia: Yes Hx Anesthesia Reactions: No Hx Malignant Hyperthermia: No - Suicidal Assessment Feels Threatened In Home Enviroment: No Family/Social History - Physician Review Nursing Documentation Reviewed: Yes Family/Social History: No Known Family HX Smoking Status: Former Smoker Hx Alcohol Use: No Hx Substance Use: No Hx Substance Use Treatment: No Allergies/Home Meds Allergies/Adverse Reactions: Allergies gluten Adverse Reaction (Verified 12/01/16 14:13) PAIN methylprednisolone Adverse Reaction (Verified 12/01/16 14:13) VOMITING Home Medications: Home Meds Medication Instructions Recorded Confirmed HYDROmorphone [Dilaudid] 8 mg PO Q4 PRN 03/08/16 12/01/16 Gabapentin [Neurontin] 0 mg PO DAILY 12/01/16 12/01/16 Metoclopramide HCl [Reglan] 10 mg PO PRN PRN 12/01/16 12/01/16 Review of Systems - Physician Review All systems were reviewed & negative as marked: Yes - Review of Systems Constitutional: absent: Fevers, Night Sweats Respiratory: absent: SOB Cardiovascular: absent: Chest Pain Gastrointestinal: Abdominal Pain, Diarrhea, Nausea, Vomiting Physical Exam Vital Signs Reviewed: Yes Vital Signs Temp Pulse Resp BP Pulse Ox 06/30/17 22:21 60 18 118/69 98 06/30/17 19:20 97.5 F L 82 18 134/84 98 Temperature: Afebrile Blood Pressure: Normal Pulse: Regular Respiratory Rate: Normal Appearance: Positive for: Ill-Appearing, Other (Actively vomiting in emergency room ) Pain Distress: None Mental Status: Positive for: Alert and Oriented X 3 - Systems Exam Head: Present: Atraumatic, Normocephalic Pupils: Present: PERRL Extroacular Muscles: Present: EOMI Conjunctiva: Present: Normal Mouth: Present: Moist Mucous Membranes. No: Normal Tounge (Dry tongue) Neck: Present: Normal Range of Motion Respiratory/Chest: Present: Clear to Auscultation, Good Air Exchange. No: Respiratory Distress, Accessory Muscle Use Cardiovascular: Present: Regular Rate and Rhythm, Normal S1, S2. No: Murmurs Abdomen: Present: Normal Bowel Sounds. No: Tenderness, Distention, Peritoneal Signs Back: Present: Paraspinal Tenderness (Lower paraspinal tenderness to palpation) Upper Extremity: Present: Normal Inspection, NORMAL PULSES. No: Cyanosis, Edema Lower Extremity: Present: Normal Inspection, NORMAL PULSES. No: Edema, CALF TENDERNESS Neurological: Present: GCS=15, CN II-XII Intact, Speech Normal Skin: Present: Warm, Dry, Normal Color. No: Rashes Psychiatric: Present: Alert, Oriented x 3, Normal Insight, Normal Concentration Medical Decision Making ED Course and Treatment: 06/30/17 19:27 Impression: A 57 year old female with chronic abdominal and back pain. Patient notes nausea , vomiting and diarrhea. Differential Diagnosis included but are not limited to: Acute on chronic abdominal pain, Chronic back pain, Dehydration Plan: -- EKG -- Labs -- Pepcid, Dilaudid, Zofran and IV fluids -- Reassess and disposition Progress Notes: EKG shows NSR at [address]-segment elevations, normal intervals, normal axis. Interpreted by me. 06/30/17 20:51 Patient improved with second dose of Dilaudid. I discussed the case with Dr. Angulo which is aware of patient's condition. Patient has been admitted to the hospital more than one for this exact presentation and she says they admit her because she can't tolerate PO fluids. She states at this point she can't tolerate PO fluids. Dr. Angulo agrees to admit to his service and Dr. Raines is covering. I made Dr. Raines aware of the case. I also handed the case over to Dr. Angulo's resident Dr. Bustamante. - Lab Interpretations Lab Results: 06/30/17 19:45 06/30/17 19:45 Lab Results 06/30/17 19:45: Sodium 141, Potassium 4.3, Chloride 100, Carbon Dioxide 32, Anion Gap 13, BUN 21, Creatinine 1.0, Est GFR ( Amer) > 60, Est GFR (Non- Af Amer) 57, Random Glucose 105, Calcium 10.8 H, Total Bilirubin 0.8, AST 33, ALT 17, Alkaline Phosphatase 93, Total Protein 10.0 H, Albumin 4.3, Globulin 5.8 , Albumin/Globulin Ratio 0.7 L, Lipase 56 06/30/17 19:45: PT 12.6 H, INR 1.15 H, APTT 29.6 06/30/17 19:45: WBC 7.7 D, RBC 4.62, Hgb 11.3 L, Hct 35.8 L, MCV 77.5 L, MCH 24.5 L, MCHC 31.6, RDW 16.4 H, Plt Count 265, MPV 8.8, Gran % 75.2 H, Lymph % ( Auto) 15.3 L, [place] % (Auto) 6.5 H, Eos % (Auto) 2.6, Baso % (Auto) 0.4, Gran # 5.81, Lymph # 1.2, [place] # 0.5, Eos # 0.2, Baso # 0.03 I have reviewed the lab results: Yes - Medication Orders Current Medication Orders: Gabapentin (Neurontin) 300 mg PO DAILY [place] PRN Reason: Protocol Hydromorphone HCl (Dilaudid) 3 mg IVP Q3 PRN PRN Reason: Pain, severe (8-10) Sodium Chloride (Sodium Chloride 0.9%) 1,000 mls @ 100 mls/hr IV .Q10H [place] Ondansetron HCl (Zofran Inj) 4 mg IVP Q4H PRN PRN Reason: Nausea/Vomiting Pantoprazole Sodium (Protonix Inj) 40 mg IVP DAILY [place] Discontinued Medications Famotidine (Pepcid) 20 mg IVP STAT STA Stop: 06/30/17 19:28 Last Admin: 06/30/17 19:49 Dose: 20 mg IVP Administration Document 06/30/17 19:49 RD (Rec: 06/30/17 19:52 RD [id number]) Charges for Administration # of IVP Administrations 1 Hydromorphone HCl (Dilaudid) 1 mg IVP STAT STA Stop: 06/30/17 19:30 Last Admin: 06/30/17 19:47 Dose: 1 mg MAR Pain Assessment Document 06/30/17 19:47 RD (Rec: 06/30/17 19:51 RD [id number]) Pain Reassessment Is this a pain reassessment? No Sleep Is patient sleeping during reassessment? No Presence of Pain Presence of Pain Yes IVP Administration Document 06/30/17 19:47 RD (Rec: 06/30/17 19:51 RD [id number]) Charges for Administration # of IVP Administrations 1 Hydromorphone HCl (Dilaudid) 2 mg IVP STAT STA Stop: 06/30/17 20:16 Last Admin: 06/30/17 20:29 Dose: 2 mg MAR Pain Assessment Document 06/30/17 20:29 RD (Rec: 06/30/17 20:30 RD [id number]) Pain Reassessment Is this a pain reassessment? Yes Sleep Is patient sleeping during reassessment? No Presence of Pain Presence of Pain Yes Description Pain Behavior Irritability IVP Administration Document 06/30/17 20:29 RD (Rec: 06/30/17 20:30 RD [id number]) Charges for Administration # of IVP Administrations 1 Sodium Chloride (Sodium Chloride 0.9%) 1,000 mls @ 1,000 mls/hr IV .Q1H STA Stop: 06/30/17 20:26 Last Admin: 06/30/17 19:52 Dose: 1,000 mls/hr eMAR Start Stop Document 06/30/17 19:52 RD (Rec: 06/30/17 19:52 RD [id number]) Intravenous Solution Start Date 06/30/17 Start Time 19:52 End Date 06/30/17 End time 20:52 Total Infusion Time 60 Ondansetron HCl (Zofran Inj) 4 mg IVP STAT STA Stop: 06/30/17 19:28 Last Admin: 06/30/17 19:45 Dose: 4 mg IVP Administration Document 06/30/17 19:45 RD (Rec: 06/30/17 19:50 RD [id number]) Charges for Administration # of IVP Administrations 1 - Scribe Statement The provider has reviewed the documentation as recorded by the Esteban Bella Provider Scribe Attestation: All medical record entries made by the Scribe were at my direction and personally dictated by me. I have reviewed the chart and agree that the record accurately reflects my personal performance of the history, physical exam, medical decision making, and the department course for this patient. I have also personally directed, reviewed, and agree with the discharge instructions and disposition. Disposition/Present on Arrival - Present on Arrival Any Indicators Present on Arrival: No History of DVT/PE: No History of Uncontrolled Diabetes: No Urinary Catheter: No History Surgical Site Infection Following: None - Disposition Have Diagnosis and Disposition been Completed?: Yes Diagnosis: Opiate dependence, Vomiting, Intractable abdominal pain Disposition: HOSPITALIZED Disposition Time: 20:51 Patient Plan: Observation Condition: [facility]
[2017-06-30 20:02] LABS: BASO # 0.03 K/mm3 (0.0-2.0); BASO % 0.4 % (0.0-3.0); EOS # 0.2 (0.0-0.7); EOS % 2.6 % (1.5-5.0); GRAN # 5.81 (1.4-6.5); GRAN % 75.2 % (50.0-68.0); HEMATOCRIT 35.8 % (36.0-48.0); LYMPH # 1.2 (1.2-3.4); LYMPH % 15.3 % (22.0-35.0); MEAN CELL VOLUME 77.5 fl (80.0-105.0); MEAN CORPUSCULAR HEMOGLOBIN 24.5 pg (25.0-35.0); MEAN CORPUSCULAR HGB CONC 31.6 g/dl (31.0-37.0); MEAN PLATELET VOLUME 8.8 fl (7.0-11.0); MONO # 0.5 (0.1-0.6); MONO % 6.5 % (1.0-6.0); RED CELL DISTRIBUTION WIDTH 16.4 % (11.5-14.5); WHITE BLOOD COUNT 7.7 10^3/ul (4.5-11.0)
[2017-06-30 20:04] LABS: ALB/GLOB RATIO 0.7 (1.1-1.8); ALKALINE PHOSPHATASE 93 U/L (38-126); ALT/SGPT 17 U/L (7-56); AST/SGOT 33 U/L (14-36); BILIRUBIN,TOTAL 0.8 mg/dL (0.2-1.3); BLOOD UREA NITROGEN 21 mg/dL (7-21); CALCIUM 10.8 mg/dL (8.4-10.5); CARBON DIOXIDE 32 mmol/L (21-33); CHLORIDE 100 mmol/L (98-107); GFR AFRICAN-AMERICAN > 60; GLUCOSE,RANDOM 105 mg/dL (70-110); LIPASE 56 U/L (23-300); POTASSIUM 4.3 mmol/L (3.6-5.0); SODIUM 141 mmol/L (132-148)
[2017-06-30 20:11] LABS: INR 1.15 (0.93-1.08); PARTIAL THROMBOPLASTIN TIME 29.6 Seconds (25.1-36.5)
[2017-06-30] MEDS ORDERED: HYDROmorphone 2 mg/ml ISec IVP STA (20:15)
[2017-06-30] MEDS: Sodium Chloride 0.9% 1,000 ML IV SCH (22:29)
--- NOTE | 2017-06-30 22:42 | CP.PCM.HP ---
History of Present Illness - History of Present Illness History of Present Illness: Patient is a 57 year old female with past medical history of chronic back pain s /p spinal fusion and laminectomy, celiac disease, chronic gastritis presents to the ED for intractable nausea and NBNB vomiting that started yesterday with chronic abdominal/back pain. Patient states that symptoms started after leaving work and she has been unable to keep food down since then. Also states that she had two episodes of watery diarrhea today. Denies eating anything out of the ordinary recently. Admits to having sick contacts at work. Patient last vomited prior to arrival, however states that she has been retching. States that nausea and vomiting is accompanied by a headache that she describes as constant in nature and is located behind both eyes. Offers no other complaints at this time. Denies dizziness, fevers, chills, cp, palpitations, sob, urinary symptoms. 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 Family Hx: Non-contributory Present on Admission - Present on Admission Any Indicators Present on Admission: No Review of Systems - Review of Systems All systems: reviewed and no additional remarkable complaints except - Constitutional Constitutional: absent: Chills, Fever - EENT Eyes: absent: Blurred Vision Ears: absent: Dizziness Nose/Mouth/Throat: absent: Nasal Congestion - Cardiovascular Cardiovascular: absent: Chest Pain, Dyspnea, Lightheadedness, Palpitations - Respiratory Respiratory: absent: Cough, Dyspnea, Wheezing - Gastrointestinal Gastrointestinal: Abdominal Pain, Diarrhea, Nausea, Vomiting. absent: Constipation, Hematemesis - Genitourinary Genitourinary: absent: Dysuria, Hematuria - Musculoskeletal Musculoskeletal: Back Pain. absent: Numbness, Tingling - Neurological Neurological: Headaches. absent: Dizziness, Numbness, Tingling, Weakness Past Patient History - Infectious Disease Hx of Infectious Diseases: None - Tetanus Immunizations Tetanus Immunization: Unknown - Past Social History Smoking Status: Former Smoker - CARDIAC Hx Cardiac Disorders: Yes Hx Heart Murmur: Yes Hx Hypertension: Yes - PULMONARY Hx Respiratory Disorders: No - NEUROLOGICAL Hx Neurological Disorder: No - HEENT Hx HEENT Problems: No - RENAL Hx Chronic Kidney Disease: No - ENDOCRINE/METABOLIC Hx Endocrine Disorders: No - HEMATOLOGICAL/ONCOLOGICAL Hx Blood Disorders: Yes Hx Anemia: Yes Other/Comment: hx blood transfusion - INTEGUMENTARY Hx Dermatological Problems: Yes - MUSCULOSKELETAL/RHEUMATOLOGICAL Hx Falls: No - GASTROINTESTINAL Hx Gastrointestinal Disorders: Yes (gastritis,GASTROPARESIS) Hx Gall Bladder Disease: Yes Hx Gastroesophageal Reflux: Yes Other/Comment: portal htn hepatomegaly, hemorrhoids, pt denies fatty liver disease - GENITOURINARY/GYNECOLOGICAL Hx Genitourinary Disorders: Yes Hx Urinary Tract Infection: Yes Other/Comment: total vag hysterectomy, bladder sling, ant and post rectal repair 06/14 - PSYCHIATRIC Hx Psychophysiologic Disorder: No Hx Emotional Abuse: No Hx Physical Abuse: No Hx Substance Use: No - SURGICAL HISTORY Hx Hysterectomy: Yes Hx Musculoskeletal Surgery: Yes Hx Orthopedic Surgery: Yes (x2) Other/Comment: laminectomy x4, spinal fusion x 2 - ANESTHESIA Hx Anesthesia: Yes Hx Anesthesia Reactions: No Hx Malignant Hyperthermia: No Meds Allergies/Adverse Reactions: Allergies Allergy/AdvReac Type Severity Reaction Status Date / Time gluten AdvReac PAIN Verified 12/01/16 14:13 methylprednisolone AdvReac VOMITING Verified 12/01/16 14:13 Physical Exam - Constitutional Appears: Toxic, No Acute Distress - Head Exam Head Exam: ATRAUMATIC, NORMAL INSPECTION - Eye Exam Eye Exam: EOMI, Normal appearance Pupil Exam: NORMAL ACCOMODATION - ENT Exam ENT Exam: Mucous Membranes Moist - Neck Exam Neck exam: Positive for: Full Rom - Respiratory Exam Respiratory Exam: Clear to Auscultation Bilateral, NORMAL BREATHING PATTERN. absent: Rales, Rhonchi, Wheezes - Cardiovascular Exam Cardiovascular Exam: REGULAR RHYTHM, +S1, +S2 - GI/Abdominal Exam GI & Abdominal Exam: Normal Bowel Sounds, Soft, Tenderness (Epigastric tenderness). absent: Guarding, Rebound, Rigid - Extremities Exam Extremities exam: Positive for: full ROM, normal inspection, pedal pulses present. Negative for: calf tenderness - Back Exam Back exam: vertebral tenderness. absent: CVA tenderness (L), CVA tenderness (R) - Neurological Exam Neurological exam: Alert, Oriented x3 - Psychiatric Exam Psychiatric exam: Normal Affect, Normal Mood - Skin Skin Exam: Dry, Normal Color, Warm Results - Vital Signs Recent Vital Signs: Last Vital Signs Temp 97.5 F L 06/30/17 19:20 Pulse 60 06/30/17 22:21 Resp 18 06/30/17 22:21 BP 118/69 06/30/17 22:21 Pulse Ox 98 06/30/17 22:21 - Labs Result Diagrams: 06/30/17 19:45 06/30/17 19:45 Assessment & Plan - Assessment and Plan (Free Text) Assessment: 57 year old female with past medical history of spinal fusion, celiac disease, gastritis presents to the ED for intractable nausea and NBNB vomiting that started yesterday. Plan: 1. Chronic Abdominal pain with nausea/vomiting and diarrhea -Stable, afebrile -CT abd/pelvis ordered -Stool studies ordered -Diet: NPO except medications -NS @ 100 cc/hr -Zofran prn nausea -Protonix 40mg IV daily -GI on consult, f/u recommendations 2. Chronic back pain -Tylenol 650 q6H for mild pain -Dilaudid IV 3mg q3h prn severe pain -Gabapentin 300mg po QD from home medications 3. Headache -Denies any history of migraine -Pain control as needed -Continue to monitor 4. History of Hypertension -Currently not hypertensive, monitor -Home medications do not include anti-hypertensives GI/DVT Prophylaxis -Protonix 40mg IV daily -SCD
[2017-07-01 04:58] VITALS: BMI 24.3
[2017-07-01] MEDS ORDERED: Barium Sulfate Susp 2.1% w/v, 2.0% w/w 450 mL Bottle PO ONE (07:24)
[2017-07-01 07:41] LABS: BASO # 0.03 K/mm3 (0.0-2.0); BASO % 0.5 % (0.0-3.0); EOS # 0.3 (0.0-0.7); EOS % 3.9 % (1.5-5.0); GRAN # 4.53 (1.4-6.5); HEMATOCRIT 30.4 % (36.0-48.0); LYMPH # 1.2 (1.2-3.4); LYMPH % 18.8 % (22.0-35.0); MEAN CELL VOLUME 78.1 fl (80.0-105.0); MEAN CORPUSCULAR HEMOGLOBIN 24.4 pg (25.0-35.0); MEAN CORPUSCULAR HGB CONC 31.3 g/dl (31.0-37.0); MEAN PLATELET VOLUME 8.6 fl (7.0-11.0); MONO # 0.4 (0.1-0.6); MONO % 5.8 % (1.0-6.0); RED CELL DISTRIBUTION WIDTH 16.3 % (11.5-14.5); WHITE BLOOD COUNT 6.4 10^3/ul (4.5-11.0)
[2017-07-01 07:54] LABS: ALB/GLOB RATIO 0.8 (1.1-1.8); ALKALINE PHOSPHATASE 71 U/L (38-126); ALT/SGPT 22 U/L (7-56); AST/SGOT 30 U/L (14-36); BILIRUBIN,TOTAL 0.7 mg/dL (0.2-1.3); BLOOD UREA NITROGEN 17 mg/dL (7-21); CALCIUM 9.3 mg/dL (8.4-10.5); CARBON DIOXIDE 28 mmol/L (21-33); CHLORIDE 107 mmol/L (98-107); GFR AFRICAN-AMERICAN > 60; GLUCOSE,RANDOM 98 mg/dL (70-110); MAGNESIUM 1.9 mg/dL (1.7-2.2); PHOSPHOROUS 3.3 mg/dL (2.5-4.5); POTASSIUM 3.9 mmol/L (3.6-5.0); SODIUM 140 mmol/L (132-148); TOTAL PROTEIN 8.2 g/dL (5.8-8.3)
[2017-07-01] MEDS: Sodium Chloride 0.9% 1,000 ML IV SCH ×2 (09:55→20:30)
[2017-07-01 11:27] LABS: PH,URINE 6.5 (4.7-8.0); URINE BILIRUBIN NEGATIVE (NEGATIVE); URINE BLOOD NEGATIVE (NEGATIVE); URINE GLUCOSE (UA) NEGATIVE (NEGATIVE); URINE KETONE NEGATIVE (NEGATIVE); URINE LEUKOCYTE ESTERASE SMALL Leu/uL (NEGATIVE); URINE PROTEIN TRACE mg/dL (<30 mg/dL); URINE UROBILINOGEN 0.2 E.U./dL (<1 E.U./dL)
[2017-07-01 11:30] LABS: URINE APPEARANCE CLEAR (CLEAR); URINE COLOR YELLOW (YELLOW)
[2017-07-01 11:33] LABS: URINE EPITHELIAL CELLS MANY /hpf (0-5); URINE RBC 0 - 2 /hpf (0-2)
[2017-07-01 11:34] LABS: URINE AMORPHOUS SEDIMENT FEW; URINE BACTERIA MANY (NEG)
--- NOTE | 2017-07-01 11:39 | CT ---
PROCEDURE: CT Abdomen and Pelvis without intravenous contrast HISTORY: Abdominal pain with N/V COMPARISON: 12/01/2016 TECHNIQUE: Without contrast.. Contrast Dose: Radiation dose: Total exam DLP = 451 mGy-cm. This CT exam was performed using one or more of the following dose reduction techniques: Automated exposure control, adjustment of the mA and/or kV according to patient size, and/or use of iterative reconstruction technique. FINDINGS: LOWER THORAX: Unremarkable. LIVER: There is hepatomegaly. The tip of the liver extends to the iliac crest. Liver measures 23.6 cm in height and 17.7 cm transversely. This is unchanged. There are no focal lesions. GALLBLADDER AND BILE DUCTS: Unremarkable. PANCREAS: Unremarkable. No gross lesion or ductal dilatation. SPLEEN: Unremarkable. ADRENALS: Unremarkable. No mass. KIDNEYS AND URETERS: Unremarkable. No hydronephrosis. No solid mass. VASCULATURE: Unremarkable. No aortic aneurysm. BOWEL: Unremarkable. No obstruction. No gross mural thickening. APPENDIX: Unremarkable. Normal appendix. PERITONEUM: Unremarkable. No free fluid. No free air. LYMPH NODES: There is bilateral inguinal adenopathy. This is unchanged. BLADDER: Unremarkable. REPRODUCTIVE: Unremarkable. BONES: No acute fracture. OTHER FINDINGS: None. IMPRESSION: No acute findings. Hepatomegaly. Inguinal adenopathy unchanged
--- NOTE | 2017-07-01 15:15 | CP.PCM.PN ---
Subjective - Date & Time of Evaluation Date of Evaluation: 07/01/17 Time of Evaluation: 07:00 - Subjective Subjective: Patient was seen and examined at bedside with no acute complaints at the moment. Patient admitted to nausea throughout the night but states that she wasn 't nauseated at the time due to recently receiving zofran. Patient states that she currently doesn't tolerate PO. Denies any episodes of diarrhea or vomiting overnight. Admits to abdominal pain and back pain. Denies headache, dizziness, shortness of breath, chest pain, weakness, fevers, chills. Objective - Vital Signs/Intake and Output Vital Signs (last 24 hours): Temp Pulse Resp BP Pulse Ox 98.1 F 66 18 100/69 97 07/01/17 08:58 07/01/17 08:58 07/01/17 08:58 07/01/17 08:58 07/01/17 08:58 Intake and Output: 07/01/17 07/01/17 06:59 18:59 Intake Total 0 Balance 0 - Medications Medications: Current Medications Acetaminophen (Tylenol 325mg Tab) 650 mg PO Q6H PRN PRN Reason: Pain, Mild (1-3) Gabapentin (Neurontin) 300 mg PO DAILY [facility] PRN Reason: Protocol Last Admin: 07/01/17 09:50 Dose: 300 mg Hydromorphone HCl (Dilaudid) 3 mg IVP Q3 PRN PRN Reason: Pain, severe (8-10) Last Admin: 07/01/17 12:11 Dose: 3 mg Sodium Chloride (Sodium Chloride 0.9%) 1,000 mls @ 100 mls/hr IV .Q10H [facility] Last Admin: 07/01/17 09:55 Dose: 100 mls/hr Metronidazole (Flagyl) 500 mg PO TID [facility] PRN Reason: Protocol Ondansetron HCl (Zofran Inj) 4 mg IVP Q4H PRN PRN Reason: Nausea/Vomiting Last Admin: 07/01/17 09:53 Dose: 4 mg Pantoprazole Sodium (Protonix Inj) 40 mg IVP DAILY [facility] Last Admin: 07/01/17 09:49 Dose: 40 mg - Labs Labs: 07/01/17 07:30 07/01/17 07:30 PT 12.6 SECONDS (9.4-12.5) H 06/30/17 19:45 INR 1.15 (0.93-1.08) H 06/30/17 19:45 APTT 29.6 Seconds (25.1-36.5) 06/30/17 19:45 - Constitutional Appears: Non-toxic, No Acute Distress - Head Exam Head Exam: ATRAUMATIC, NORMAL INSPECTION, NORMOCEPHALIC - Eye Exam Eye Exam: EOMI, Normal appearance - ENT Exam ENT Exam: Mucous Membranes Dry, Normal Exam - Neck Exam Neck Exam: Full ROM, Normal Inspection - Respiratory Exam Respiratory Exam: Clear to Ausculation Bilateral, NORMAL BREATHING PATTERN. absent: Rales, Rhonchi, Wheezes - Cardiovascular Exam Cardiovascular Exam: REGULAR RHYTHM, +S1, +S2. absent: Clicks, Gallop, Murmur - GI/Abdominal Exam GI & Abdominal Exam: Soft, Tenderness, Hypoactive Bowel Sounds. absent: Distended, Firm, Guarding, Rigid, Mass - Extremities Exam Extremities Exam: absent: Calf Tenderness, Pedal Edema, Tenderness - Back Exam Back Exam: absent: muscle spasm, rash noted - Neurological Exam Neurological Exam: Alert, Awake, CN II-XII Intact, Oriented x3 - Psychiatric Exam Psychiatric exam: Normal Affect, Normal Mood - Skin Skin Exam: Intact, Normal Color, Warm Assessment and Plan - Assessment and Plan (Free Text) Assessment: 57 year old female with past medical history of spinal fusion, celiac disease, gastritis presents to the ED for intractable nausea and NBNB vomiting that started yesterday. Plan: 1. Chronic Abdominal pain with nausea/vomiting and diarrhea -Stable, afebrile -CT abd/pelvis ordered; no changes since previous CT -Stool studies ordered; C. diff antigen positive, toxin negative -Diet: NPO except medications -NS @ 100 cc/hr -Zofran prn, Reglan daysi for nausea -Protonix 40mg IV daily 2. Chronic back pain -Tylenol 650 q6H for mild pain -Dilaudid IV 3mg q3h prn severe pain -Gabapentin 300mg po QD from home medications 3. Headache -Pain control as needed -Continue to monitor 4. C. diff antigen positive - Flagyl started - ID consulted GI/DVT Prophylaxis -Protonix 40mg IV daily -SCD
--- NOTE | 2017-07-01 16:04 | CARD ---
APPROVED REPORT EKG Measurement Heart [id number] <Conclusion> Normal sinus rhythm Low voltage QRS Borderline ECG
[2017-07-01] MEDS: Vancomycin 25 MG/ML PO SCH (23:52)
--- NOTE | 2017-07-02 05:34 | CON ---
DATE: HISTORY OF PRESENT ILLNESS: This 57-year-old patient well known to our service who had multiple admissions with a history of gastroparesis, history of iron deficiency anemia, questionable history of celiac disease, with extensive workup negative for celiac, presented at this time with nausea, vomiting, and abdominal pain. She stated this started acutely, she said few of the colleagues at work have the same problem, which started yesterday. No history of bleeding per rectum. No vomiting. No fever. OTHER PAST MEDICAL HISTORY: As above. The patient's last endoscopy was in 05/2015. Duodenal biopsy is negative. History of gastroparesis, history of C. difficile colitis before, a questionable history of celiac disease, but the patient got an extensive workup done did not prove that including HLA typing, not conclusive. History of chronic back pain, failed back surgery, chronic pain medication; status post hysterectomy; bladder surgery; also status post cholecystectomy. SOCIAL HISTORY: Ex-smoker, alcohol occasionally, socially. ALLERGIES: TO COUMADIN AND METHYLPREDNISOLONE. REVIEW OF SYSTEMS: Positive as above. PHYSICAL EXAMINATION GENERAL: The patient is lying on the bed, not in acute distress. VITAL SIGNS: Temperature 98.1, pulse 66, blood pressure 100/69, respirations 18, and O2 saturation 97%. HEENT: Atraumatic, normocephalic. NECK: Supple. HEART: S1 and S2 heard. LUNGS: Bilateral air entry present. ABDOMEN: Soft. There is no mass palpable. No tenderness. EXTREMITIES: No edema. No cyanosis. NEUROLOGIC: Alert and oriented. Moves all the extremities. LABORATORY DATA: Hemoglobin is 9.5, hematocrit is 30.4, WBC is 6.4, and platelets 216. Chemistry is essentially unremarkable. CT scan of the abdomen and pelvis was done. The patient was not able to take oral contrast, only it was done without p.o. and IV contrast, limited study. It was reported right inguinal adenopathy unchanged. Otherwise unremarkable. Stool for antigen positive and toxin negative. IMPRESSION: This is a 57-year-old patient with multiple medical issues, chronic pain medications and narcotics, history of gastroparesis, admitted with acute onset of diarrhea, vomiting and abdominal pain, clinically more suggestive of gastroenteritis, stool for Clostridium difficile antigen was positive, toxin negative. Other past medical history is significant as above. RECOMMENDATIONS: 1. Follow up of the stool studies. 2. Start on the clear liquid diet, slowly advance the diet. 3. Presently, the patient on p.o. Flagyl, continue that, if there is no significant response, we will start the patient on vancomycin. Thank you very much for allowing us to participate in the care of the patient. Corrie Thao MD
[2017-07-02 06:42] VITALS: O2SAT 98
[2017-07-02 07:28] VITALS: RESP 20
[2017-07-02] MEDS: Vancomycin 25 MG/ML PO SCH ×4 (09:35→21:18)
[2017-07-02 10:16] LABS: BASO # 0.02 K/mm3 (0.0-2.0); BASO % 0.4 % (0.0-3.0); EOS # 0.1 (0.0-0.7); EOS % 2.3 % (1.5-5.0); GRAN # 3.92 (1.4-6.5); GRAN % 74.3 % (50.0-68.0); HEMATOCRIT 32.1 % (36.0-48.0); LYMPH % 18.6 % (22.0-35.0); MEAN CELL VOLUME 77.9 fl (80.0-105.0); MEAN CORPUSCULAR HEMOGLOBIN 24.3 pg (25.0-35.0); MEAN CORPUSCULAR HGB CONC 31.2 g/dl (31.0-37.0); MONO # 0.2 (0.1-0.6); MONO % 4.4 % (1.0-6.0); RED CELL DISTRIBUTION WIDTH 15.8 % (11.5-14.5); WHITE BLOOD COUNT 5.3 10^3/ul (4.5-11.0)
[2017-07-02 10:31] LABS: ALB/GLOB RATIO 0.8 (1.1-1.8); ALKALINE PHOSPHATASE 74 U/L (38-126); ALT/SGPT 24 U/L (7-56); AST/SGOT 29 U/L (14-36); BILIRUBIN,TOTAL 0.7 mg/dL (0.2-1.3); BLOOD UREA NITROGEN 14 mg/dL (7-21); CALCIUM 9.6 mg/dL (8.4-10.5); CARBON DIOXIDE 23 mmol/L (21-33); CHLORIDE 108 mmol/L (98-107); GFR AFRICAN-AMERICAN > 60; GLUCOSE,RANDOM 90 mg/dL (70-110); SODIUM 140 mmol/L (132-148); TOTAL PROTEIN 8.5 g/dL (5.8-8.3)
[2017-07-02] MEDS: Sodium Chloride 0.9% 1,000 ML IV SCH (17:07)
[2017-07-02 17:24] VITALS: BP 111/69; PULSE 70; TEMP 98.6
--- NOTE | 2017-07-02 17:38 | CP.PCM.PN ---
Subjective - Date & Time of Evaluation Date of Evaluation: 07/02/17 Time of Evaluation: 09:20 - Subjective Subjective: Patient was seen and examined at bedside with no acute complaints. States her abdominal cramps have improved. Admits to one episode of diarrhea. Still doesn' t not have an appetite. Denies fevers, chills, shortness of breath, chest pain, dizziness, weakness, headache. Objective - Vital Signs/Intake and Output Vital Signs (last 24 hours): Temp Pulse Resp BP Pulse Ox 98.6 F 70 20 111/69 98 07/02/17 17:24 07/02/17 17:24 07/02/17 17:24 07/02/17 17:24 07/02/17 17:24 Intake and Output: 07/02/17 07/02/17 06:59 18:59 Intake Total 1200 700 Balance 1200 700 - Medications Medications: Current Medications Acetaminophen (Tylenol 325mg Tab) 650 mg PO Q6H PRN PRN Reason: Pain, Mild (1-3) Gabapentin (Neurontin) 300 mg PO DAILY [facility] PRN Reason: Protocol Last Admin: 07/02/17 09:31 Dose: 300 mg Hydromorphone HCl (Dilaudid) 3 mg IVP Q3 PRN PRN Reason: Pain, severe (8-10) Last Admin: 07/02/17 17:05 Dose: 3 mg Sodium Chloride (Sodium Chloride 0.9%) 1,000 mls @ 100 mls/hr IV .Q10H [facility] Last Admin: 07/02/17 17:07 Dose: 100 mls/hr Metoclopramide HCl (Reglan) 5 mg IVP ACHS [facility] Last Admin: 07/02/17 17:06 Dose: 5 mg Metronidazole (Flagyl) 500 mg PO TID [facility] PRN Reason: Protocol Last Admin: 07/02/17 17:06 Dose: 500 mg Ondansetron HCl (Zofran Inj) 4 mg IVP Q4H PRN PRN Reason: Nausea/Vomiting Last Admin: 07/01/17 09:53 Dose: 4 mg Pantoprazole Sodium (Protonix Inj) 40 mg IVP DAILY [facility] Last Admin: 07/02/17 09:31 Dose: 40 mg Vancomycin HCl (Vancocin 25 Mg/Ml (Oral Use)) 125 mg PO QID [facility] PRN Reason: Protocol Last Admin: 07/02/17 17:08 Dose: 125 mg - Labs Labs: 07/02/17 09:50 07/02/17 09:50 PT 12.6 SECONDS (9.4-12.5) H 06/30/17 19:45 INR 1.15 (0.93-1.08) H 06/30/17 19:45 APTT 29.6 Seconds (25.1-36.5) 06/30/17 19:45 - Constitutional Appears: Non-toxic, No Acute Distress - Head Exam Head Exam: ATRAUMATIC, NORMAL INSPECTION, NORMOCEPHALIC - Eye Exam Eye Exam: EOMI, Normal appearance Pupil Exam: NORMAL ACCOMODATION - ENT Exam ENT Exam: Mucous Membranes Dry - Neck Exam Neck Exam: Full ROM, Normal Inspection - Respiratory Exam Respiratory Exam: Clear to Ausculation Bilateral, NORMAL BREATHING PATTERN. absent: Decreased Breath Sounds, Wheezes, Respiratory Distress, Stridor - Cardiovascular Exam Cardiovascular Exam: REGULAR RHYTHM, +S1, +S2 - GI/Abdominal Exam GI & Abdominal Exam: Soft, Normal Bowel Sounds - Extremities Exam Extremities Exam: Full ROM, Normal Inspection - Back Exam Back Exam: NORMAL INSPECTION - Neurological Exam Neurological Exam: Alert, Awake, Oriented x3 - Psychiatric Exam Psychiatric exam: Normal Affect, Normal Mood - Skin Skin Exam: Normal Color, Warm Assessment and Plan - Assessment and Plan (Free Text) Assessment: 57 year old female with past medical history of spinal fusion, celiac disease, gastritis presents to the ED for intractable nausea and NBNB vomiting that started yesterday. Plan: 1. Chronic Abdominal pain with nausea/vomiting and diarrhea -Stable, afebrile -Diet: advanced from NPO to solids; patient experienced diarrhea -NS @ 100 cc/hr -Zofran prn, Reglan daysi for nausea -Protonix 40mg IV daily 2. Chronic back pain -Tylenol 650 q6H for mild pain -Continue with Dilaudid -Continue with Gabapentin 3. Headache -Pain control as needed 4. C. diff antigen positive - Flagyl started, Vancomycin added on - ID on board GI/DVT Prophylaxis -Protonix 40mg IV daily -SCD
--- NOTE | 2017-07-02 18:26 | CP.PCM.CON ---
History of Present Illness - History of Present Illness History of Present Illness: 57 year old female with PMH of celiac disease, chronic back pain with history of spinal surgery and laminectomy, HTN, GERD, History of gallbladder disease, S/ P vaginal hysterectomy came in to [facility] because of abdominal pain associated with nausea and vomiting. She denied having eaten anything unusual but did have some food at work. She was also having loose bowel movement which started about 2-3 days ago. She denies having fever or chills, no headache or dizziness no chest pain, no SOB, no dysphagia, no sore throat, no cough or colds, no dysuria. Stool for C. diff was done during this admission was positive antigen. Infectious Diseases consult is requested to further evaluate and manage. Review of Systems - Review of Systems All systems: reviewed and no additional remarkable complaints except (as per HPI ) Past Patient History - Infectious Disease Hx of Infectious Diseases: None - Tetanus Immunizations Tetanus Immunization: Unknown - Past Social History Smoking Status: Former Smoker - CARDIAC Hx Cardiac Disorders: Yes Hx Heart Murmur: Yes Hx Hypertension: Yes - PULMONARY Hx Respiratory Disorders: No - NEUROLOGICAL Hx Neurological Disorder: No - HEENT Hx HEENT Problems: No - RENAL Hx Chronic Kidney Disease: No - ENDOCRINE/METABOLIC Hx Endocrine Disorders: No - HEMATOLOGICAL/ONCOLOGICAL Hx Blood Disorders: Yes Hx Anemia: Yes Other/Comment: hx blood transfusion - INTEGUMENTARY Hx Dermatological Problems: Yes - MUSCULOSKELETAL/RHEUMATOLOGICAL Hx Musculoskeletal Disorders: Yes (extremity weakness) Hx Arthritis: Yes Hx Degenerative Joint Disease: Yes Hx Falls: No Hx Herniated Disk: Yes Hx Unsteady Gait: Yes (uses cane sometime) Other/Comment: back pain. orthopedic surgery x2 - GASTROINTESTINAL Hx Gastrointestinal Disorders: Yes (gastritis,GASTROPARESIS) Hx Gall Bladder Disease: Yes Hx Gastroesophageal Reflux: Yes Other/Comment: portal htn hepatomegaly, hemorrhoids, pt denies fatty liver disease - GENITOURINARY/GYNECOLOGICAL Hx Genitourinary Disorders: Yes Hx Urinary Tract Infection: Yes - PSYCHIATRIC Hx Substance Use: No - SURGICAL HISTORY Hx Hysterectomy: Yes - ANESTHESIA Hx Anesthesia: Yes Hx Anesthesia Reactions: No Hx Malignant Hyperthermia: No Meds Allergies/Adverse Reactions: Allergies Allergy/AdvReac Type Severity Reaction Status Date / Time gluten AdvReac PAIN Verified 12/01/16 14:13 methylprednisolone AdvReac VOMITING Verified 12/01/16 14:13 - Medications Medications: Current Medications Acetaminophen (Tylenol 325mg Tab) 650 mg PO Q6H PRN PRN Reason: Pain, Mild (1-3) Gabapentin (Neurontin) 300 mg PO DAILY [place] PRN Reason: Protocol Last Admin: 07/01/17 09:50 Dose: 300 mg Hydromorphone HCl (Dilaudid) 3 mg IVP Q3 PRN PRN Reason: Pain, severe (8-10) Last Admin: 07/01/17 21:29 Dose: 3 mg Sodium Chloride (Sodium Chloride 0.9%) 1,000 mls @ 100 mls/hr IV .Q10H [facility] Last Admin: 07/01/17 09:55 Dose: 100 mls/hr Metoclopramide HCl (Reglan) 5 mg IVP ACHS [facility] Last Admin: 07/01/17 21:25 Dose: 5 mg Metronidazole (Flagyl) 500 mg PO TID [facility] PRN Reason: Protocol Last Admin: 07/01/17 17:36 Dose: 500 mg Ondansetron HCl (Zofran Inj) 4 mg IVP Q4H PRN PRN Reason: Nausea/Vomiting Last Admin: 07/01/17 09:53 Dose: 4 mg Pantoprazole Sodium (Protonix Inj) 40 mg IVP DAILY [facility] Last Admin: 07/01/17 09:49 Dose: 40 mg Physical Exam - Constitutional Appears: Non-toxic, No Acute Distress - Head Exam Head Exam: NORMAL INSPECTION - ENT Exam ENT Exam: Mucous Membranes Moist - Neck Exam Neck exam: Negative for: Meningismus - Respiratory Exam Respiratory Exam: Decreased Breath Sounds - Cardiovascular Exam Cardiovascular Exam: +S1, +S2 - GI/Abdominal Exam GI & Abdominal Exam: Soft. absent: Tenderness Results - Vital Signs Recent Vital Signs: Last Vital Signs Temp 98.2 F 07/01/17 16:00 Pulse 62 07/01/17 16:00 Resp 20 07/01/17 16:00 BP 117/74 07/01/17 16:00 Pulse Ox 99 07/01/17 16:00 - Labs Result Diagrams: 07/02/17 09:50 07/02/17 09:50 Labs: Laboratory Results - last 24 hr 07/01/17 07/01/17 07/01/17 07:30 07:30 11:15 WBC 6.4 RBC 3.89 Hgb 9.5 L Hct 30.4 L MCV 78.1 L MCH 24.4 L MCHC 31.3 RDW 16.3 H Plt Count 216 MPV 8.6 Gran % 71.0 H Lymph % (Auto) 18.8 L [place] % (Auto) 5.8 Eos % (Auto) 3.9 Baso % (Auto) 0.5 Gran # 4.53 Lymph # 1.2 [place] # 0.4 Eos # 0.3 Baso # 0.03 Sodium 140 Potassium 3.9 Chloride 107 Carbon Dioxide 28 Anion Gap 9 L BUN 17 Creatinine 0.9 Est GFR ( Amer) > 60 Est GFR (Non-Af Amer) > 60 Random Glucose 98 Calcium 9.3 Phosphorus 3.3 Magnesium 1.9 Total Bilirubin 0.7 AST 30 ALT 22 Alkaline Phosphatase 71 Total Protein 8.2 Albumin 3.5 Globulin 4.6 Albumin/Globulin Ratio 0.8 L Urine Color Urine Appearance Urine pH Ur Specific [place] Urine Protein Urine Glucose (UA) Urine Ketones Urine Blood Urine Nitrate Urine Bilirubin Urine Urobilinogen Ur Leukocyte Esterase Urine RBC Urine WBC Ur Epithelial Cells Amorphous Sediment Urine Bacteria Urine Other Stool Leukocytes, Qual Negative 07/01/17 11:15 WBC RBC Hgb Hct MCV MCH MCHC RDW Plt Count MPV Gran % Lymph % (Auto) [place] % (Auto) Eos % (Auto) Baso % (Auto) Gran # Lymph # [place] # Eos # Baso # Sodium Potassium Chloride Carbon Dioxide Anion Gap BUN Creatinine Est GFR ( Amer) Est GFR (Non-Af Amer) Random Glucose Calcium Phosphorus Magnesium Total Bilirubin AST ALT Alkaline Phosphatase Total Protein Albumin Globulin Albumin/Globulin Ratio Urine Color Yellow Urine Appearance Clear Urine pH 6.5 Ur Specific [place] 1.020 Urine Protein Trace H Urine Glucose (UA) Negative Urine Ketones Negative Urine Blood Negative Urine Nitrate Negative Urine Bilirubin Negative Urine Urobilinogen 0.2 Ur Leukocyte Esterase Small H Urine RBC 0 - 2 Urine WBC 5 - 10 Ur Epithelial Cells Many Amorphous Sediment Few Urine Bacteria Many Urine Other Uyeast Stool Leukocytes, Qual Assessment & Plan - Assessment and Plan (Free Text) Plan: Assessment consider acute Gastroenteritis and C. diff. associated diarrhea Celiac disease chronic back pain with history of spinal surgery and laminectomy HTN GERD History of gallbladder disease S/P vaginal hysterectomy Plan started patient on PO Vancomycin; monitor clinical response GI following as well
--- NOTE | 2017-07-02 19:33 | PN ---
DATE: 07/02/2017 SUBJECTIVE: This patient was seen and evaluated earlier today. The patient is feeling much better now. Her diarrhea has slowed down and she is able to eat. Nausea is less. No vomiting. The patient feels hungry, wants to eat food. PHYSICAL EXAMINATION VITAL SIGNS: Temperature 98.1, pulse 61, blood pressure 109/74. HEENT: Atraumatic. Anicteric. NECK: Supple. HEART: S1 and S2 heard. LUNGS: Bilateral air entry present. ABDOMEN: Soft. There is no mass palpable. There is minimal tenderness present in the epigastric area. EXTREMITIES: No cyanosis. No clubbing. NEUROLOGIC: Alert, oriented. Moves all the extremities. LABORATORY DATA: Hemoglobin 10, hematocrit 32.1, WBC 5.3, platelets 211. Chemistry is essentially unremarkable. IMPRESSION: This 57-year-old patient with chronic back pain, on pain medication, gastroparesis, history of questionable celiac disease, status post complicated postop recovery from the surgery for [employer] surgery, history of chronic inguinal lymphadenopathy, admitted with nausea, vomiting, diarrhea. Clinically suspected to be like a gastroenteritis and the patient has stool for Clostridium difficile positive, antigen positive, toxin negative, but the patient is on p.o. vancomycin, clinically improving, would recommend: 1. To advance the diet. 2. Continue the p.o. Flagyl and complete the course. Regarding the lymphadenopathy, I will also discuss with the Dr. Quintero who has been following the patient for a long time for her anemia. The patient had a last endoscopy was in 06/2015. The patient had colonoscopy. We will review her previous gastrointestinal workup again, would benefit from the repeating elective colonoscopic evaluation as her last colonoscopy was a few years ago if the symptoms persists. Thank you very much for allowing us to participate in the care of the patient. Corrie Thao MD
[2017-07-03] MEDS: Sodium Chloride 0.9% 1,000 ML IV SCH (02:34)
[2017-07-03 07:01] LABS: ALB/GLOB RATIO 0.8 (1.1-1.8); ALKALINE PHOSPHATASE 63 U/L (38-126); ALT/SGPT 32 U/L (7-56); AST/SGOT 36 U/L (14-36); BILIRUBIN,TOTAL 0.4 mg/dL (0.2-1.3); BLOOD UREA NITROGEN 13 mg/dL (7-21); CALCIUM 9.1 mg/dL (8.4-10.5); CARBON DIOXIDE 25 mmol/L (21-33); CHLORIDE 110 mmol/L (95-110); GFR AFRICAN-AMERICAN > 60; GLUCOSE,RANDOM 95 mg/dL (70-110); POTASSIUM 3.7 mmol/L (3.6-5.0); SODIUM 140 mmol/L (132-148); TOTAL PROTEIN 7.5 g/dL (5.8-8.3)
[2017-07-03 07:12] LABS: BASO # 0.03 K/mm3 (0.0-2.0); BASO % 0.6 % (0.0-3.0); EOS # 0.2 (0.0-0.7); EOS % 4.5 % (1.5-5.0); GRAN # 3.48 (1.4-6.5); GRAN % 65.7 % (50.0-68.0); HEMATOCRIT 29.6 % (36.0-48.0); LYMPH # 1.3 (1.2-3.4); LYMPH % 24.5 % (22.0-35.0); MEAN CELL VOLUME 77.9 fl (80.0-105.0); MEAN CORPUSCULAR HEMOGLOBIN 23.9 pg (25.0-35.0); MEAN CORPUSCULAR HGB CONC 30.7 g/dl (31.0-37.0); MEAN PLATELET VOLUME 9.3 fl (7.0-11.0); MONO # 0.3 (0.1-0.6); MONO % 4.7 % (1.0-6.0); WHITE BLOOD COUNT 5.3 10^3/ul (4.5-11.0)
[2017-07-03] MEDS: Vancomycin 25 MG/ML PO SCH (09:57)
--- NOTE | 2017-07-03 13:53 | CP.PCM.PN ---
Subjective - Date & Time of Evaluation Date of Evaluation: 07/03/17 Time of Evaluation: 10:25 - Subjective Subjective: Comfortable, improved abdominal pain and diarrhea. No fevers overnight. Objective - Vital Signs/Intake and Output Vital Signs (last 24 hours): Temp Pulse Resp BP Pulse Ox 98.6 F 70 20 111/69 98 07/02/17 17:24 07/02/17 17:24 07/02/17 17:24 07/02/17 17:24 07/02/17 17:24 Intake and Output: 07/03/17 07/03/17 06:59 18:59 Intake Total 600 Output Total 0 Balance 600 - Medications Medications: Current Medications Acetaminophen (Tylenol 325mg Tab) 650 mg PO Q6H PRN PRN Reason: Pain, Mild (1-3) Gabapentin (Neurontin) 300 mg PO DAILY [place] PRN Reason: Protocol Last Admin: 07/02/17 09:31 Dose: 300 mg Hydromorphone HCl (Dilaudid) 3 mg IVP Q3 PRN PRN Reason: Pain, severe (8-10) Last Admin: 07/03/17 08:29 Dose: 3 mg Sodium Chloride (Sodium Chloride 0.9%) 1,000 mls @ 100 mls/hr IV .Q10H [facility] Last Admin: 07/03/17 02:34 Dose: 100 mls/hr Metronidazole (Flagyl) 500 mg in 100 mls @ 100 mls/hr IVPB Q8 [place] PRN Reason: Protocol Metoclopramide HCl (Reglan) 5 mg IVP ACHS [facility] Last Admin: 07/03/17 08:30 Dose: 5 mg Ondansetron HCl (Zofran Inj) 4 mg IVP Q4H PRN PRN Reason: Nausea/Vomiting Last Admin: 07/01/17 09:53 Dose: 4 mg Pantoprazole Sodium (Protonix Inj) 40 mg IVP DAILY [facility] Last Admin: 07/02/17 09:31 Dose: 40 mg Vancomycin HCl (Vancocin 25 Mg/Ml (Oral Use)) 125 mg PO QID [place] PRN Reason: Protocol Last Admin: 07/02/17 21:18 Dose: 125 mg - Labs Labs: 07/03/17 06:00 07/03/17 06:00 PT 12.6 SECONDS (9.4-12.5) H 06/30/17 19:45 INR 1.15 (0.93-1.08) H 06/30/17 19:45 APTT 29.6 Seconds (25.1-36.5) 06/30/17 19:45 - Constitutional Appears: Non-toxic, No Acute Distress - Head Exam Head Exam: NORMAL INSPECTION - ENT Exam ENT Exam: Mucous Membranes Moist - Neck Exam Neck Exam: absent: Meningismus - Respiratory Exam Respiratory Exam: Decreased Breath Sounds - Cardiovascular Exam Cardiovascular Exam: +S1, +S2 - GI/Abdominal Exam GI & Abdominal Exam: Soft. absent: Tenderness Assessment and Plan - Assessment and Plan (Free Text) Plan: Assessment consider acute Gastroenteritis and C. diff. associated diarrhea Celiac disease chronic back pain with history of spinal surgery and laminectomy HTN GERD History of gallbladder disease S/P vaginal hysterectomy Plan continue PO Vancomycin to complete 10 days of therapy GI following as well
[2017-07-03] MEDS ORDERED: metroNIDAZOLE IV 500 mg/100 ml 500 MG/100 ML BAG IVPB SCH (14:00)
--- NOTE | 2017-07-05 04:17 | CP.PCM.DIS ---
Provider - Provider Date of Admission: 06/30/17 20:51 Attending physician: Landen Angulo MD Primary care physician: Dr. Chavis Consults: Infectious disease: Dr. Allen Gastroenterology: Dr. Thao Time Spent in preparation of Discharge (in minutes): 45 Diagnosis - Discharge Diagnosis (1) Gastroenteritis Status: Acute Priority: High (2) Anemia Status: Chronic Priority: Medium (3) Colitis Status: Acute Priority: Medium (4) Intractable abdominal pain Status: Acute Priority: High (5) Intractable vomiting Status: Acute Priority: High (6) Nondiabetic gastroparesis Status: Acute Priority: High Hospital Course - Lab Results Lab Results: Micro Results 07/01/17 11:15 Stool Stool Culture - Final NO SALMONELLA, SHIGELLA OR CAMPYLOBACTER ISOLATED. 07/01/17 11:15 Stool Ova and Parasite Concentrate Exam - Final 07/01/17 11:15 Stool C. difficile Antigen & Toxin A,B (M - Final Most Recent Lab Values WBC 5.3 10^3/ul (4.5-11.0) 07/03/17 06:00 RBC 3.80 10^6/uL (3.5-6.1) 07/03/17 06:00 Hgb 9.1 g/dL (12.0-16.0) L 07/03/17 06:00 Hct 29.6 % (36.0-48.0) L 07/03/17 06:00 MCV 77.9 fl (80.0-105.0) L 07/03/17 06:00 MCH 23.9 pg (25.0-35.0) L 07/03/17 06:00 MCHC 30.7 g/dl (31.0-37.0) L 07/03/17 06:00 RDW 16.0 % (11.5-14.5) H 07/03/17 06:00 Plt Count 213 10^3/uL (120.0-450.0) 07/03/17 06:00 MPV 9.3 fl (7.0-11.0) 07/03/17 06:00 Gran % 65.7 % (50.0-68.0) 07/03/17 06:00 Lymph % (Auto) 24.5 % (22.0-35.0) 07/03/17 06:00 [place] % (Auto) 4.7 % (1.0-6.0) 07/03/17 06:00 Eos % (Auto) 4.5 % (1.5-5.0) 07/03/17 06:00 Baso % (Auto) 0.6 % (0.0-3.0) 07/03/17 06:00 Gran # 3.48 (1.4-6.5) 07/03/17 06:00 Lymph # 1.3 (1.2-3.4) 07/03/17 06:00 [place] # 0.3 (0.1-0.6) 07/03/17 06:00 Eos # 0.2 (0.0-0.7) 07/03/17 06:00 Baso # 0.03 K/mm3 (0.0-2.0) 07/03/17 06:00 PT 12.6 SECONDS (9.4-12.5) H 06/30/17 19:45 INR 1.15 (0.93-1.08) H 06/30/17 19:45 APTT 29.6 Seconds (25.1-36.5) 06/30/17 19:45 Sodium 140 mmol/L (132-148) 07/03/17 06:00 Potassium 3.7 mmol/L (3.6-5.0) 07/03/17 06:00 Chloride 110 mmol/L (95-110) 07/03/17 06:00 Carbon Dioxide 25 mmol/L (21-33) 07/03/17 06:00 Anion Gap 9 (10-20) L 07/03/17 06:00 BUN 13 mg/dL (7-21) 07/03/17 06:00 Creatinine 0.9 mg/dL (0.7-1.2) 07/03/17 06:00 Est GFR ( Amer) > 60 07/03/17 06:00 Est GFR (Non-Af Amer) > 60 07/03/17 06:00 Random Glucose 95 mg/dL (70-110) 07/03/17 06:00 Calcium 9.1 mg/dL (8.4-10.5) 07/03/17 06:00 Phosphorus 3.3 mg/dL (2.5-4.5) 07/01/17 07:30 Magnesium 1.9 mg/dL (1.7-2.2) 07/01/17 07:30 Total Bilirubin 0.4 mg/dL (0.2-1.3) 07/03/17 06:00 AST 36 U/L (14-36) D 07/03/17 06:00 ALT 32 U/L (7-56) 07/03/17 06:00 Alkaline Phosphatase 63 U/L (38-126) 07/03/17 06:00 Total Protein 7.5 g/dL (5.8-8.3) 07/03/17 06:00 Albumin 3.3 g/dL (3.0-4.8) 07/03/17 06:00 Globulin 4.2 gm/dL 07/03/17 06:00 Albumin/Globulin Ratio 0.8 (1.1-1.8) L 07/03/17 06:00 Lipase 56 U/L (23-300) 06/30/17 19:45 Urine Color Yellow (YELLOW) 07/01/17 11:15 Urine Appearance Clear (CLEAR) 07/01/17 11:15 Urine pH 6.5 (4.7-8.0) 07/01/17 11:15 Ur Specific [place] 1.020 (1.005-1.035) 07/01/17 11:15 Urine Protein Trace mg/dL (<30 mg/dL) H 07/01/17 11:15 Urine Glucose (UA) Negative mg/dL (NEGATIVE) 07/01/17 11:15 Urine Ketones Negative mg/dL (NEGATIVE) 07/01/17 11:15 Urine Blood Negative (NEGATIVE) 07/01/17 11:15 Urine Nitrate Negative (NEGATIVE) 07/01/17 11:15 Urine Bilirubin Negative (NEGATIVE) 07/01/17 11:15 Urine Urobilinogen 0.2 E.U./dL (<1 E.U./dL) 07/01/17 11:15 Ur Leukocyte Esterase Small [place]/uL (NEGATIVE) H 07/01/17 11:15 Urine RBC 0 - 2 /hpf (0-2) 07/01/17 11:15 Urine WBC 5 - 10 /hpf (0-6) 07/01/17 11:15 Ur Epithelial Cells Many /hpf (0-5) 07/01/17 11:15 Amorphous Sediment Few 07/01/17 11:15 Urine Bacteria Many (NEG) 07/01/17 11:15 Urine Other Uyeast 07/01/17 11:15 Stool Leukocytes, Qual Negative (NEGATIVE) 07/01/17 11:15 - Hospital Course Hospital Course: Patient is a 57 year old female with a past medical history of chronic back pain s/p spinal fusion and laminectomy, celiac disease, chronic gastritis who was admitted to [facility] for intractable nausea and vomiting. During course of hospital visit imaging was done which revealed findings that were unchanged when compared to previous imaging. Labs showed patient still had an underlying anemia for which gastroenterology was consulted. From a gastroentrology standpoint it was suggested to patient that she follow up outpatient for an elective colonoscopy. Infectious disease was consulted due to patient's stool cultures testing positive for clostridium difficile antigen; patient was started on appropriate antibiotic regimen. During hospital visit patient was also given the appropriate medical treatment for chronic pain, and intractable nausea. Patient continued to clinically improve and was cleared for discharge. Plan for discharge which included prescriptions for antibiotics to treat patient 's c. diff infection as well as nausea was discussed between attending resident and patient. Patient agreed to plan and was then discharged. Discharge Exam - Head Exam Head Exam: NORMAL INSPECTION - Eye Exam Eye Exam: EOMI, Normal appearance Pupil Exam: NORMAL ACCOMODATION - ENT Exam ENT Exam: Mucous Membranes Moist, Normal Exam - Neck Exam Neck exam: Normal Inspection - Respiratory Exam Respiratory Exam: NORMAL BREATHING PATTERN, UNREMARKABLE - Cardiovascular Exam Cardiovascular Exam: REGULAR RHYTHM, +S1, +S2 - GI/Abdominal Exam GI & Abdominal Exam: Normal Bowel Sounds, Unremarkable - Back Exam Back exam: FULL ROM - Neurological Exam Neurological exam: Alert, CN II-XII Intact, Oriented x3 - Psychiatric Exam Psychiatric exam: Normal Affect, Normal Mood - Skin Skin Exam: Normal Color, Warm Discharge Plan - Discharge Medications Prescriptions: Ciprofloxacin [Cipro] 500 mg PO Q12 7 Days #14 tab Metoclopramide HCl [Reglan] 10 mg PO TID 5 Days #15 tablet Metronidazole [Flagyl] 500 mg PO TID 8 Days #24 tab - Follow Up Plan Condition: FAIR Disposition: HOME/ ROUTINE Instructions: Chronic Pain (DC), Acute Nausea and Vomiting (DC), Acute Abdominal Pain (DC) Additional Instructions: Mrs. Elkins, thank you for letting us take care of you today. You were treated for gastritis and clostridium difficile colitis. The medical care you received aga your hospital visit was directed at your acute symptoms. If you were prescribed any medication, please fill it and take as directed. It may take several days for your symptoms to resolve. Return to the Emergency Department if your symptoms worsen, do not improve, or if you have any other problems. Please contact your primary care physician Dr. Chavis for your follow up appointment within one week. Thank you for allowing the [facility] team to be part of your care today.
== END 2017-07-03 13:14 | disposition home or self-care (01) ==
LOC: ED 19:14 → ERH 20:51 → 3RSO 22:41
PROVIDERS: ADMIT Internal Medicine; ATTEND Internal Medicine
DX: A04.72 Enterocolitis due to Clostridium difficile, not specified as recurrent (principal); G89.29 Other chronic pain; F11.20 Opioid dependence, uncomplicated; M54.9 Dorsalgia, unspecified; I10 Essential (primary) hypertension; D64.9 Anemia, unspecified; K29.50 Unspecified chronic gastritis without bleeding; K90.0 Celiac disease; K76.0 Fatty (change of) liver, not elsewhere classified; K31.84 Gastroparesis; K21.9 Gastro-esophageal reflux disease without esophagitis; R59.1 Generalized enlarged lymph nodes; K76.6 Portal hypertension; R51 Headache; Z90.710 Acquired absence of both cervix and uterus; Z98.1 Arthrodesis status; Z87.891 Personal history of nicotine dependence; Z87.440 Personal history of urinary (tract) infections; Z90.49 Acquired absence of other specified parts of digestive tract
CPT/HCPCS: 36415; 74176; 80053; 81001; 83690; 83735; 84100; 85025; 85610; 85730; 87045; 87177; 87209; 87324; 89055; 93005; 96361; 96374; 96375; 96376; 99284; C9113; G0378; J1170; J2405; J2765; J7040

== ENCOUNTER 2017-10-25 20:25 | Inpatient (IN) | payer BC ==
[2017-10-25 20:54] VITALS: BMI 24.7
--- NOTE | 2017-10-25 20:55 | ED PDOC ---
Arrival/HPI - General Time Seen by Provider: 10/25/17 20:27 Historian: Patient - History of Present Illness Narrative History of Present Illness (Text): 10/25/17 20:55 Renetta Elkins is a 57 year old female, whose past medical history includes chronic back pain s/p spinal fusion on Dilaudid, opiate dependence, chronic gastritis, gastroparesis, hypertension, anemia, questionable celiac disease, and GERD, who presents to the ED complaining of abdominal pain. Patient states or the last 2 days she has been experiencing diffuse abdominal pain with associated nausea, vomiting, and watery diarrhea. Patient reports she has been unable to her medication down and decreased PO intake secondary to vomiting. Patient denies any fever, chills, chest pain, shortness of breath, or any other complaints. Time/Duration: < week (2 days) Symptom Onset: Gradual Symptom Course: Unchanged Activities at Onset: Light Context: Home Past Medical History - Provider Review Nursing Documentation Reviewed: Yes - Infectious Disease Hx of Infectious Diseases: None - Tetanus Immunization Tetanus Immunization: Unknown - Cardiac Hx Cardiac Disorders: Yes Hx Heart Murmur: Yes Hx Hypertension: Yes - Pulmonary Hx Respiratory Disorders: No - Neurological Hx Neurological Disorder: No - HEENT Hx HEENT Disorder: No - Renal Hx Renal Disorder: No - Endocrine/Metabolic Hx Endocrine Disorders: No - Hematological/Oncological Hx Blood Disorders: Yes Hx Anemia: Yes Other/Comment: hx blood transfusion - Integumentary Hx Dermatological Disorder: Yes - Musculoskeletal/Rheumatological Hx Musculoskeletal Disorders: Yes (extremity weakness) Hx Arthritis: Yes Hx Degenerative Joint Disease: Yes Hx Falls: No Hx Herniated Disk: Yes Hx Unsteady Gait: Yes (uses cane sometime) Other/Comment: back pain. orthopedic surgery x2 - Gastrointestinal Hx Gastrointestinal Disorders: Yes (gastritis,GASTROPARESIS) Hx Gall Bladder Disease: Yes Hx Gastroesophageal Reflux: Yes Other/Comment: portal htn hepatomegaly, hemorrhoids, pt denies fatty liver disease - Genitourinary/Gynecological Hx Genitourinary Disorders: Yes Hx Urinary Tract Infection: Yes - Psychiatric Hx Substance Use: No - Surgical History Hx Hysterectomy: Yes - Anesthesia Hx Anesthesia: Yes Hx Anesthesia Reactions: No Hx Malignant Hyperthermia: No - Suicidal Assessment Feels Threatened In Home Enviroment: No Family/Social History - Physician Review Nursing Documentation Reviewed: Yes Family/Social History: Unknown Family HX Smoking Status: Former Smoker Hx Alcohol Use: No Hx Substance Use: No Hx Substance Use Treatment: No Allergies/Home Meds Allergies/Adverse Reactions: Allergies hydromorphone [From [facility]] Allergy (Verified 10/25/17 21:20) ITCHING gluten Adverse Reaction (Verified 10/25/17 21:07) PAIN methylprednisolone Adverse Reaction (Verified 10/26/17 02:50) VOMITING patient states that the reaction cam from running/pushing the medication too fast. Home Medications: Home Meds Medication Instructions Recorded Confirmed HYDROmorphone [Dilaudid] 8 mg PO Q4 PRN 03/08/16 10/25/17 Furosemide [Lasix] 40 mg PO QOTHERDAY 10/25/17 10/25/17 Valsartan [Diovan] 80 mg PO DAILY 10/25/17 10/25/17 Review of Systems - Physician Review All systems were reviewed & negative as marked: Yes - Review of Systems Constitutional: Normal. absent: Fevers Eyes: Normal ENT: Normal Respiratory: Normal. absent: SOB, Cough Cardiovascular: Normal. absent: Chest Pain Gastrointestinal: Abdominal Pain, Diarrhea, Nausea, Vomiting, Appetite Changes ( +decreased PO intake) Genitourinary Female: Normal. absent: Dysuria, Frequency, Hematuria, Urine Output Changes Musculoskeletal: Normal. absent: Back Pain, Neck Pain Skin: Normal. absent: Rash Neurological: Normal. absent: Headache, Dizziness Endocrine: Normal Hemo/Lymphatic: Normal Psychiatric: Normal Physical Exam Vital Signs Reviewed: Yes Vital Signs Temp Pulse Resp BP Pulse Ox 10/26/17 01:00 97.9 F 63 16 115/69 97 10/25/17 23:26 97.9 F 61 18 108/71 99 10/25/17 20:45 97.6 F 91 H 18 133/93 H 100 Temperature: Afebrile Blood Pressure: Normal Pulse: Regular Respiratory Rate: Normal Appearance: Positive for: Well-Appearing, Non-Toxic, Comfortable Pain Distress: None Mental Status: Positive for: Alert and Oriented X 3 - Systems Exam Head: Present: Atraumatic, Normocephalic Pupils: Present: PERRL Extroacular Muscles: Present: EOMI Conjunctiva: Present: Normal Mouth: Present: Dry Neck: Present: Normal Range of Motion. No: Meningeal Signs, MIDLINE TENDERNESS , Paraspinal Tenderness Respiratory/Chest: Present: Clear to Auscultation, Good Air Exchange. No: Respiratory Distress, Accessory Muscle Use Cardiovascular: Present: Regular Rate and Rhythm, Normal S1, S2. No: Murmurs Abdomen: Present: Tenderness (Mild diffuse abdominal tenderness), Normal Bowel Sounds. No: Distention, Peritoneal Signs Back: Present: Normal Inspection. No: CVA Tenderness, Midline Tenderness, Paraspinal Tenderness Upper Extremity: Present: Normal Inspection. No: Cyanosis, Edema Lower Extremity: Present: Normal Inspection. No: Edema Neurological: Present: GCS=15, CN II-XII Intact, Speech Normal Skin: Present: Warm, Dry, Normal Color. No: Rashes Psychiatric: Present: Alert, Oriented x 3, Normal Insight, Normal Concentration Medical Decision Making ED Course and Treatment: 10/25/17 20:55 Impression: 57 year old female complaining of diffuse abdominal pain, nausea, vomiting, diarrhea, and decreased PO intake for 2 days. Plan: -- Labs, lipase -- Urinalysis -- IV fluids -- Zofran -- Pepcid -- Dilaudid -- Reassess and disposition Prior Visits: Notes and results from previous visits were reviewed. On 06/30/2017, pt was seen in the Emergency department for chronic abdominal pain with nausea, vomiting, and watery diarrhea. Pt was admitted to the hospital for further evaluation. Progress Notes: 10/25/17 23:21 Case discussed with medical advisor front desk administrator, who is aware and agrees with plan. 10/25/17 23:[address] Khan, who is aware and agrees with plan. Accepts pt in to the hospitalist service. [facility] go to [facility] observation for gastroparesis, intractable vomiting, and dehydration. - Lab Interpretations Lab Results: 10/25/17 21:20 10/25/17 21:20 Lab Results 10/25/17 21:20: WBC 7.9 D, RBC 5.21, Hgb 12.8 D, Hct 40.6, MCV 77.9 L, MCH 24.6 L, MCHC 31.5, RDW 21.1 H, Plt Count 330, MPV 8.7 10/25/17 21:20: Sodium 139, Potassium 3.8, Chloride 99, Carbon Dioxide 22, Anion Gap 22 H, BUN 30 H, Creatinine 0.8, Est GFR ( Amer) > 60, Est GFR ( Non-Af Amer) > 60, Random Glucose 106, Calcium 11.4 H, Total Bilirubin 0.8, AST 37 H, ALT 34, Alkaline Phosphatase 97, Total Protein 10.2 H, Albumin 4.7, Globulin 5.5, Albumin/Globulin Ratio 0.9 L, Lipase 175 I have reviewed the lab results: Yes - Medication Orders Current Medication Orders: Hydromorphone HCl (Dilaudid) 3 mg IVP Q4H PRN PRN Reason: Pain, severe (8-10) Last Admin: 10/27/17 09:05 Dose: 3 mg MAR Pain Assessment Document 10/27/17 09:05 MCV (Rec: 10/27/17 09:07 MCV [id number]) Pain Reassessment Is this a pain reassessment? No Presence of Pain Presence of Pain Yes Pain Scale Used Pain Scale Used Numeric Location Pain Location Body Site Abdomen Description Description Intermittent Intensity of Pain at present 8 Pain Behavior Restlessness Aggravating Factors Changing Position Alleviating Factors/Management Medication Techniques Alleviating Factors Medication IVP Administration Document 10/27/17 09:05 MCV (Rec: 10/27/17 09:07 MCV [id number]) Charges for Administration # of IVP Administrations 1 Sodium Chloride (Sodium Chloride 0.9%) 1,000 mls @ 125 mls/hr IV .Q8H [place] Last Admin: 10/27/17 01:02 Dose: Losartan Potassium (Cozaar) 50 mg PO DAILY [place] Last Admin: 10/27/17 11:00 Dose: Not Given Non-Admin Reason: Patient Refused Ondansetron HCl (Zofran Inj) 4 mg IVP Q4H PRN PRN Reason: Nausea/Vomiting Last Admin: 10/27/17 05:08 Dose: 4 mg IVP Administration Document 10/27/17 05:08 BN (Rec: 10/27/17 05:08 BN [id number]) Charges for Administration # of IVP Administrations 1 Pantoprazole Sodium (Protonix Ec Tab) 40 mg PO ACB [place] Discontinued Medications Acetaminophen (Tylenol 325mg Tab) 650 mg PO STAT STA Stop: 10/25/17 22:51 Last Admin: 10/25/17 23:08 Dose: 650 mg MAR Pain/Vitals Document 10/25/17 23:08 OCS (Rec: 10/25/17 23:08 OCS [id number]) Pain Reassessment Is This A Pain ReAssessment? Yes Sleep Is patient sleeping during reassessment? No Presence of Pain Presence of Pain Yes Pain Scale Used Pain Scale Used Numeric Location Pain Location Body Moving Worker Description Constant Intensity 5 Scale Used Numeric Aggravating Factors ADL's Famotidine (Pepcid) 20 mg IVP STAT STA Stop: 10/25/17 21:04 Last Admin: 10/25/17 21:37 Dose: 20 mg IVP Administration Document 10/25/17 21:37 OCS (Rec: 10/25/17 21:37 OCS [id number]) Charges for Administration # of IVP Administrations 1 Hydromorphone HCl (Dilaudid) 2 mg IVP STAT STA Stop: 10/25/17 21:04 Last Admin: 10/25/17 21:35 Dose: 2 mg MAR Pain Assessment Document 10/25/17 21:35 OCS (Rec: 10/25/17 21:37 OCS [id number]) Pain Reassessment Is this a pain reassessment? No Sleep Is patient sleeping during reassessment? No Presence of Pain Presence of Pain Yes Pain Scale Used Pain Scale Used Numeric Location Pain Location Body Site Abdomen Back Description Description Constant Intensity of Pain at present 8 Pain Behavior Moaning Rubbing Site Aggravating Factors ADL's IVP Administration Document 10/25/17 21:35 OCS (Rec: 10/25/17 21:37 OCS [id number]) Charges for Administration # of IVP Administrations 1 Hydromorphone HCl (Dilaudid) 3 mg IVP Q4H PRN PRN Reason: Pain, severe (8-10) Last Admin: 10/26/17 00:22 Dose: 3 mg MAR Pain Assessment Document 10/26/17 00:22 AB (Rec: 10/26/17 00:22 AB [id number]) Pain Reassessment Is this a pain reassessment? Yes Sleep Is patient sleeping during reassessment? No Presence of Pain Presence of Pain Yes Pain Scale Used Pain Scale Used Numeric Location Pain Location Body Site Abdomen Description Description Intermittent Pain Behavior Guarding Aggravating Factors ADL's Changing Position Alleviating Factors/Management Medication Techniques Alleviating Factors Medication IVP Administration Document 10/26/17 00:22 AB (Rec: 10/26/17 00:22 AB [id number]) Charges for Administration # of IVP Administrations 1 Re-Assess: MAR Pain Assessment Document 10/26/17 01:22 BN (Rec: 10/26/17 03:40 BN [id number]) Pain Reassessment Is this a pain reassessment? Yes Presence of Pain Presence of Pain No Sodium Chloride (Sodium Chloride 0.9%) 1,000 mls @ 999 mls/hr IV .Q1H1M STA Stop: 10/25/17 22:03 Last Admin: 10/25/17 21:37 Dose: 999 mls/hr eMAR Start Stop Document 10/25/17 21:37 OCS (Rec: 10/25/17 21:38 OCS [id number]) Intravenous Solution Start Date 10/25/17 Start Time 21:38 End Date 10/25/17 End time 22:39 Total Infusion Time 61 Ondansetron HCl (Zofran Inj) 4 mg IVP ONCE ONE Stop: 10/25/17 21:04 Last Admin: 10/25/17 21:38 Dose: 4 mg IVP Administration Document 10/25/17 21:38 OCS (Rec: 10/25/17 21:38 OCS [id number]) Charges for Administration # of IVP Administrations 1 Pantoprazole Sodium (Protonix Inj) 40 mg IVP DAILY [facility] Last Admin: 10/27/17 10:56 Dose: 40 mg IVP Administration Document 10/27/17 10:56 MCV (Rec: 10/27/17 10:56 MCV [id number]) Charges for Administration # of IVP Administrations 1 - Scribe Statement The provider has reviewed the documentation as recorded by the Scribkenan Christianson All medical record entries made by the Scribkenan were at my direction and personally dictated by me. I have reviewed the chart and agree that the record accurately reflects my personal performance of the history, physical exam, medical decision making, and the department course for this patient. I have also personally directed, reviewed, and agree with the discharge instructions and disposition. Disposition/Present on Arrival - Present on Arrival Any Indicators Present on Arrival: No History of DVT/PE: No History of Uncontrolled Diabetes: No Urinary Catheter: No History Surgical Site Infection Following: None - Disposition Have Diagnosis and Disposition been Completed?: Yes Diagnosis: Intractable vomiting, Dehydration, Gastroparesis Disposition: HOSPITALIZED Disposition Time: 00:25 Condition: STABLE
[2017-10-25] MEDS ORDERED: HYDROmorphone 2 mg/ml ISec IVP STA (21:03)
[2017-10-25] MEDS ORDERED: Sodium Chloride 0.9% 1,000 ML IV STA (21:03)
[2017-10-25 21:42] LABS: HEMOGLOBIN 12.8 g/dL (12.0-16.0); MEAN CELL VOLUME 77.9 fl (80.0-105.0); MEAN CORPUSCULAR HEMOGLOBIN 24.6 pg (25.0-35.0); MEAN CORPUSCULAR HGB CONC 31.5 g/dl (31.0-37.0); MEAN PLATELET VOLUME 8.7 fl (7.0-11.0); RBC 5.21 10^6/uL (3.5-6.1); RED CELL DISTRIBUTION WIDTH 21.1 % (11.5-14.5); WHITE BLOOD COUNT 7.9 10^3/ul (4.5-11.0)
[2017-10-25 21:59] LABS: ALB/GLOB RATIO 0.9 (1.1-1.8); ALBUMIN 4.7 g/dL (3.0-4.8); ALT/SGPT 34 U/L (7-56); AST/SGOT 37 U/L (14-36); BLOOD UREA NITROGEN 30 mg/dL (7-21); CALCIUM 11.4 mg/dL (8.4-10.5); GFR AFRICAN-AMERICAN > 60; GFR NON-AFRICAN AMERICAN > 60; LIPASE 175 U/L (23-300)
--- NOTE | 2017-10-25 23:32 | CP.PCM.HP ---
<Luis E Hooker - Last Filed: 10/26/17 06:06> History of Present Illness - History of Present Illness History of Present Illness: CC: Abdominal pain HPI: 57 year old female, whose past medical history includes chronic back pain s /p spinal fusion on Dilaudid, opiate dependence, chronic gastritis, gastroparesis, hypertension, anemia, questionable celiac disease, and GERD, who presents to the ED complaining of abdominal pain. Patient reports 2 day history of abdominal pain associated with nausea and vomitting. Patient indicates she has vomtted non bilious, biliary emesis x 10 in the past 24 hours. Patient denies any blood or mucous associated with emesis. Patient inidcates her abdominal pain is mignon-umbilical and right upper quadrant discomfort. Patient indicates she takes 2 tabs of 8mg dilaudid for pain control associated with her lumbar spine and continues to express discomfort of her abdomen. She reports pain is crampy, dull pain. Reports watery, non bloody, non mucous diarrhea over the past 24 hours. Patient reports prior history of c. diff positive testing. Patient reports nausea and poor oral intake over the past 48 hours. She reports being able to occasionally tolerate liquid but unable to tolerate solids. Patient denies headache, change in vision, chest pain, shortness of breath, dysuria, hematuria, pain with defecation, sick contacts, fever and chills. 12 point ROS otherwise mentioned in HPI is benign. 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 Angulo Present on Admission - Present on Admission Any Indicators Present on Admission: No Review of Systems - Review of Systems All systems: reviewed and no additional remarkable complaints except (otherwise mentioned in HPI) Past Patient History - Infectious Disease Hx of Infectious Diseases: None - Tetanus Immunizations Tetanus Immunization: Unknown - Past Social History Smoking Status: Former Smoker Alcohol: None Drugs: Denies - CARDIAC Hx Cardiac Disorders: Yes Hx Heart Murmur: Yes Hx Hypertension: Yes - PULMONARY Hx Respiratory Disorders: No - NEUROLOGICAL Hx Neurological Disorder: No - HEENT Hx HEENT Problems: No - RENAL Hx Chronic Kidney Disease: No - ENDOCRINE/METABOLIC Hx Endocrine Disorders: No - HEMATOLOGICAL/ONCOLOGICAL Hx Blood Disorders: Yes Hx Anemia: Yes Other/Comment: hx blood transfusion - INTEGUMENTARY Hx Dermatological Problems: Yes - MUSCULOSKELETAL/RHEUMATOLOGICAL Hx Musculoskeletal Disorders: Yes (extremity weakness) Hx Arthritis: Yes Hx Degenerative Joint Disease: Yes Hx Falls: No Hx Herniated Disk: Yes Hx Unsteady Gait: Yes (uses cane sometime) Other/Comment: back pain. orthopedic surgery x2 - GASTROINTESTINAL Hx Gastrointestinal Disorders: Yes (gastritis,GASTROPARESIS) Hx Gall Bladder Disease: Yes Hx Gastroesophageal Reflux: Yes Other/Comment: portal htn hepatomegaly, hemorrhoids, pt denies fatty liver disease - GENITOURINARY/GYNECOLOGICAL Hx Genitourinary Disorders: Yes Hx Urinary Tract Infection: Yes - PSYCHIATRIC Hx Substance Use: No - SURGICAL HISTORY Hx Hysterectomy: Yes - ANESTHESIA Hx Anesthesia: Yes Hx Anesthesia Reactions: No Hx Malignant Hyperthermia: No Meds Allergies/Adverse Reactions: Allergies Allergy/AdvReac Type Severity Reaction Status Date / Time hydromorphone Allergy ITCHING Verified 10/25/17 21:20 [From Exalgo ER] gluten AdvReac PAIN Verified 10/25/17 21:07 methylprednisolone AdvReac VOMITING Verified 10/26/17 02:50 Physical Exam - Constitutional Appears: Non-toxic, No Acute Distress - Head Exam Head Exam: ATRAUMATIC, NORMAL INSPECTION, NORMOCEPHALIC - Eye Exam Eye Exam: EOMI, PERRL - ENT Exam ENT Exam: Mucous Membranes Moist, Normal Exam - Neck Exam Neck exam: Positive for: Normal Inspection. Negative for: Lymphadenopathy - Respiratory Exam Respiratory Exam: Clear to Auscultation Bilateral, NORMAL BREATHING PATTERN. absent: Rales, Rhonchi, Wheezes - Cardiovascular Exam Cardiovascular Exam: REGULAR RHYTHM, +S1, +S2. absent: Clicks, JVD, Systolic Murmur - GI/Abdominal Exam GI & Abdominal Exam: Hypoactive Bowel Sounds, Soft, Tenderness (mignon-umbilical, right upper quadrant). absent: Distended, Firm, Hernia, Rigid - Extremities Exam Extremities exam: Positive for: calf tenderness, normal inspection - Back Exam Back exam: NORMAL INSPECTION. absent: CVA tenderness (L), CVA tenderness (R), paraspinal tenderness - Neurological Exam Neurological exam: Alert, CN II-XII Intact, Normal Gait, Oriented x3 - Psychiatric Exam Psychiatric exam: Normal Affect, Normal Mood - Skin Skin Exam: Dry, Normal Color, Warm Results - Vital Signs Recent Vital Signs: Last Vital Signs Temp 97.9 F 10/25/17 23:26 Pulse 61 10/25/17 23:26 Resp 18 10/25/17 23:26 BP 108/71 10/25/17 23:26 Pulse Ox 99 10/25/17 23:26 - Labs Result Diagrams: 10/25/17 21:20 10/25/17 21:20 Labs: Laboratory Results - last 24 hr 10/25/17 10/25/17 21:20 21:20 WBC 7.9 D RBC 5.21 Hgb 12.8 D Hct 40.6 MCV 77.9 L MCH 24.6 L MCHC 31.5 RDW 21.1 H Plt Count 330 MPV 8.7 Sodium 139 Potassium 3.8 Chloride 99 Carbon Dioxide 22 Anion Gap 22 H BUN 30 H Creatinine 0.8 Est GFR ( Amer) > 60 Est GFR (Non-Af Amer) > 60 Random Glucose 106 Calcium 11.4 H Total Bilirubin 0.8 AST 37 H ALT 34 Alkaline Phosphatase 97 Total Protein 10.2 H Albumin 4.7 Globulin 5.5 Albumin/Globulin Ratio 0.9 L Lipase 175 Assessment & Plan - Assessment and Plan (Free Text) Assessment: 57 year old female, whose past medical history includes chronic back pain s/p spinal fusion on Dilaudid, opiate dependence, chronic gastritis, gastroparesis, hypertension, anemia, questionable celiac disease, and GERD, who presents to the ED complaining of 2 day history of abdominal pain. Pt evaluated in ED and found to have intractable abdominal pain with nausea and vomiting. Patient admitted for further medical evaluation and medical management. Plan: 1. Chronic abdominal pain with nausea/vomiting and diarrhea - 2 day history of abdominal pain, afebrile, no leukocytosis - RUQ US - Fecal leukocytes, C. diff stool, stool culture - Zofran - Clear liquid diet - Pain management with IV Dilaudid 3 mg Q4h - Pain management doctor [place] consulted appreciate recs 2. HTN - BP stable in ED - Losartan 50mg Daily 3. Chronic back pain - IV Dilaudid 3mg Q4H - Pain management consult - Pt reports at home takes 2 tab 8mg dilaudid BID GI/DVT ppx -pt mobile, SCD prn -Protonix 40mg IV daily Case and plan discussed with attending - Date & Time Date: 10/26/17 Time: 05:50 <Christal Khan - Last Filed: 10/26/17 07:42> Results - Vital Signs Recent Vital Signs: Last Vital Signs Temp 98.3 F 10/26/17 02:25 Pulse 64 10/26/17 02:25 Resp 20 10/26/17 02:25 BP 122/83 10/26/17 02:25 Pulse Ox 100 10/26/17 01:57 - Labs Result Diagrams: 10/25/17 21:20 10/25/17 21:20 Attending/Attestation - Attestation I have personally seen and examined this patient.: Yes I have fully participated in the care of the patient.: Yes I have reviewed all pertinent clinical information: Yes Notes (Text): 10/26/17 07:42 Agree with documentation and orders placed
[2017-10-26] MEDS ORDERED: HYDROmorphone 2 mg/ml ISec IVP PRN (00:07)
[2017-10-26] MEDS: Sodium Chloride 0.9% 1,000 ML IV SCH ×2 (02:00→21:00)
[2017-10-26 02:43] VITALS: RESP 20
[2017-10-26] MEDS: HYDROmorphone 1 mg/ml ISec IVP PRN ×5 (04:38→21:00)
--- NOTE | 2017-10-26 09:04 | US ---
HISTORY: Right upper quadrant US, evaluate COMPARISON: 06/03/2014 abdominal ultrasound TECHNIQUE: Sonographic evaluation of the abdomen. FINDINGS: LIVER: Measures 19.9 cm. Patent portal vein. Portal venous flow: Hepatopetal. Unremarkeable echogenicity of the liver parenchyma. No mass. No intrahepatic bile duct dilatation. GALLBLADDER: Status post cholecystectomy. No abnormality is seen in the gallbladder fossa. COMMON BILE DUCT: Measures 6.5 mm. No stones. No dilatation. PANCREAS: Unremarkable as visualized. No mass. No ductal dilatation. RIGHT KIDNEY: Measures 3.8 x 9.2cm. Normal echogenicity. No calculus, mass, or hydronephrosis. LEFT KIDNEY: Measures 4.7 x 9.3cm. Normal echogenicity. No calculus, mass, or hydronephrosis. SPLEEN: Normal in size and contour. No mass. AORTA: No aneurysmal dilatation. IVC: Unremarkable. OTHER FINDINGS: None. IMPRESSION: No significant or acute findings to account for/ related to the clinical presentation. No significant interval change compared to the prior examination(s).
--- NOTE | 2017-10-26 09:34 | CP.PCM.PN ---
<Robby Cullen - Last Filed: 10/26/17 09:38> Subjective - Date & Time of Evaluation Date of Evaluation: 10/26/17 Time of Evaluation: 06:00 - Subjective Subjective: Patient seen and evaluated bedside. No acute issues overnight. Patient still has some pain located in right upper and lower quadrant. Has not had diarrhea since admission, still feel nauseas. Patient denies any chest pain, nausea, vomiting, or any other complaints at this time. Objective - Vital Signs/Intake and Output Vital Signs (last 24 hours): Temp Pulse Resp BP Pulse Ox 98.4 F 103 H 20 103/71 98 10/26/17 07:48 10/26/17 07:48 10/26/17 07:48 10/26/17 07:48 10/26/17 07:48 Intake and Output: 10/26/17 10/26/17 06:59 18:59 Intake Total 620 Balance 620 - Medications Medications: Current Medications Hydromorphone HCl (Dilaudid) 3 mg IVP Q4H PRN PRN Reason: Pain, severe (8-10) Last Admin: 10/26/17 08:42 Dose: 3 mg Sodium Chloride (Sodium Chloride 0.9%) 1,000 mls @ 125 mls/hr IV .Q8H [place] Last Admin: 10/26/17 02:00 Dose: 125 mls/hr Losartan Potassium (Cozaar) 50 mg PO DAILY [facility] Ondansetron HCl (Zofran Inj) 4 mg IVP Q4H PRN PRN Reason: Nausea/Vomiting Last Admin: 10/26/17 08:41 Dose: 4 mg Pantoprazole Sodium (Protonix Inj) 40 mg IVP DAILY [facility] - Constitutional Appears: Non-toxic, No Acute Distress - Head Exam Head Exam: ATRAUMATIC, NORMAL INSPECTION, NORMOCEPHALIC - Eye Exam Eye Exam: Normal appearance - ENT Exam ENT Exam: Mucous Membranes Moist - Respiratory Exam Respiratory Exam: Clear to Ausculation Bilateral, NORMAL BREATHING PATTERN - Cardiovascular Exam Cardiovascular Exam: REGULAR RHYTHM - GI/Abdominal Exam GI & Abdominal Exam: Soft, Tenderness - Extremities Exam Extremities Exam: absent: Pedal Edema - Neurological Exam Neurological Exam: Alert, Awake, Oriented x3 Assessment and Plan - Assessment and Plan (Free Text) Assessment: 57 year old female, whose past medical history includes chronic back pain s/p spinal fusion on Dilaudid, opiate dependence, chronic gastritis, gastroparesis, hypertension, anemia, questionable celiac disease, and GERD, who presents to the ED complaining of 2 day history of abdominal pain. Pt evaluated in ED and found to have intractable abdominal pain with nausea and vomiting. Patient admitted for further medical evaluation and medical management. Plan: 1. Chronic abdominal pain with nausea/vomiting and diarrhea - 2 day history of abdominal pain, afebrile, no leukocytosis - RUQ US negative for acute pathology - Fecal leukocytes, C. diff stool, stool cultures pending will follow up - Zofran - Clear liquid diet - Pain management with IV Dilaudid 3 mg Q4h - Pain management doctor [place] consulted appreciate recs -GI consulted, buddy Thao recs 2. HTN - BP stable - Losartan 50mg Daily 3. Chronic back pain - IV Dilaudid 3mg Q4H - Pain management consult - Pt reports at home takes 2 tab 8mg dilaudid BID GI/DVT ppx -pt mobile, SCD prn -Protonix 40mg IV daily <Brittney Rice - Last Filed: 10/27/17 13:51> Objective - Vital Signs/Intake and Output Vital Signs (last 24 hours): Temp Pulse Resp BP Pulse Ox 98.4 F 69 20 106/64 96 10/27/17 07:30 10/27/17 07:30 10/27/17 07:30 10/27/17 07:30 10/27/17 07:30 - Medications Medications: Current Medications Hydromorphone HCl (Dilaudid) 3 mg IVP Q4H PRN PRN Reason: Pain, severe (8-10) Last Admin: 10/27/17 13:11 Dose: 3 mg Sodium Chloride (Sodium Chloride 0.9%) 1,000 mls @ 125 mls/hr IV .Q8H [facility] Last Admin: 10/27/17 01:02 Dose: Not Given Losartan Potassium (Cozaar) 50 mg PO DAILY [facility] Last Admin: 10/27/17 11:00 Dose: Not Given Ondansetron HCl (Zofran Inj) 4 mg IVP Q4H PRN PRN Reason: Nausea/Vomiting Last Admin: 10/27/17 05:08 Dose: 4 mg Pantoprazole Sodium (Protonix Ec Tab) 40 mg PO ACB [place] Petrolatum (Desitin Maximum Strength Topical 40% Oint) 1 gm TOP Q4H PRN PRN Reason: Rash Vancomycin HCl (Vancocin 25 Mg/Ml (Oral Use)) 250 mg PO QID [place] PRN Reason: Protocol - Labs Labs: PT 10.6 SECONDS (9.4-12.5) 10/27/17 06:45 INR 0.92 (0.93-1.08) L 10/27/17 06:45 Attending/Attestation - Attestation I have personally seen and examined this patient.: Yes I have fully participated in the care of the patient.: Yes I have reviewed all pertinent clinical information, including history, physical exam and plan: Yes Notes (Text): 10/27/17 13:27 Attending note ; Patient seen and examined with resident . Patient is a 57 year old female, whose past medical history includes chronic back pain s/p spinal fusion on Dilaudid, opiate dependence, chronic gastritis, gastroparesis, hypertension, anemia, celiac disease, and GERD is admitted with abdominal pain. Patient is currently on clear liquid diet. Complaining of epigastric right upper quadrant discomfort. Denies any fevers, chills. Abdominal ultrasound ordered. We will follow up with GI Dr. Thao. Advance diet as tolerated. Monitor for diarrhea. Continue pain management per . Upon discharge the patient will follow up with PMD . 10/27/17 13:49
[2017-10-26 12:57] LABS: URINE BILIRUBIN NEGATIVE (NEGATIVE); URINE BLOOD NEGATIVE (NEGATIVE); URINE GLUCOSE (UA) NEGATIVE (NEGATIVE); URINE LEUKOCYTE ESTERASE TRACE Leu/uL (NEGATIVE); URINE PROTEIN NEGATIVE mg/dL (<30 mg/dL); URINE UROBILINOGEN 0.2 E.U./dL (<1 E.U./dL)
[2017-10-26 13:02] LABS: URINE APPEARANCE CLEAR (CLEAR); URINE COLOR YELLOW (YELLOW)
[2017-10-26 13:23] LABS: URINE RBC 0 - 2 /hpf (0-2)
[2017-10-26 13:24] LABS: URINE AMORPHOUS SEDIMENT FEW; URINE BACTERIA MANY (NEG)
--- NOTE | 2017-10-26 22:58 | CP.PCM.CON ---
<Smith Montero - Last Filed: 10/26/17 23:00> History of Present Illness - History of Present Illness History of Present Illness: GI Consult Note - Dr. Thao 57 F with a PMHx of chronic back pain s/p spinal fusion, opiate dependence, chronic gastritis, gastroparesis, hypertension, anemia, and GERD that presented to [facility] with complaints of abdominal pain and diarrhea. Pt states that symptoms exacerbated approximately 3 days ago where she expereinced back pain that exacerbated her diffuse abdominal pain. Pt experienced an episoe of NBNB emesis. Pt noted 3-4 episodes of diarrhea no signs of bleeding. She reports pain is crampy, dull pain. Patient reports prior history of c. diff positive testing. Patient reports nausea and poor oral intake. Patient denies headache, fever, chills, chest pain, shortness of breath, dysuria, hematuria, pain with defecation, sick contacts, fever and chills. 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 Allergies: Gluten, methylprednisolone - vomiting Medications: Gabapentin 300mg daily, Dilaudid 2 tab 8mg BID prn, Exalgo 16mg TID Review of Systems - Review of Systems Review of Systems: as per HPI otherwise negative Past Patient History - Infectious Disease Hx of Infectious Diseases: None - Tetanus Immunizations Tetanus Immunization: Unknown - Past Social History Smoking Status: Former Smoker Alcohol: None Drugs: Denies - CARDIAC Hx Cardiac Disorders: Yes Hx Heart Murmur: Yes Hx Hypertension: Yes - PULMONARY Hx Respiratory Disorders: No - NEUROLOGICAL Hx Neurological Disorder: No - HEENT Hx HEENT Problems: No - RENAL Hx Chronic Kidney Disease: No - ENDOCRINE/METABOLIC Hx Endocrine Disorders: No - HEMATOLOGICAL/ONCOLOGICAL Hx Blood Disorders: Yes Hx Anemia: Yes Other/Comment: hx blood transfusion - INTEGUMENTARY Hx Dermatological Problems: Yes - MUSCULOSKELETAL/RHEUMATOLOGICAL Hx Musculoskeletal Disorders: Yes (extremity weakness) Hx Arthritis: Yes Hx Degenerative Joint Disease: Yes Hx Falls: No Hx Herniated Disk: Yes Hx Unsteady Gait: Yes (uses cane sometime) Other/Comment: back pain. orthopedic surgery x2 - GASTROINTESTINAL Hx Gastrointestinal Disorders: Yes (gastritis,GASTROPARESIS) Hx Gall Bladder Disease: Yes Hx Gastroesophageal Reflux: Yes Other/Comment: portal htn hepatomegaly, hemorrhoids, pt denies fatty liver disease - GENITOURINARY/GYNECOLOGICAL Hx Genitourinary Disorders: Yes Hx Urinary Tract Infection: Yes - PSYCHIATRIC Hx Substance Use: No - SURGICAL HISTORY Hx Hysterectomy: Yes - ANESTHESIA Hx Anesthesia: Yes Hx Anesthesia Reactions: No Hx Malignant Hyperthermia: No Meds Home Medications: Home Medication List Medication Instructions Recorded Confirmed Type Vancomycin HCl [Vancocin 125 MG 125 mg PO QID #48 capsule 10/28/17 Rx Cap] Allergies/Adverse Reactions: Allergies Allergy/AdvReac Type Severity Reaction Status Date / Time hydromorphone Allergy ITCHING Verified 10/25/17 21:20 [From Exalgo ER] gluten AdvReac PAIN Verified 10/25/17 21:07 methylprednisolone AdvReac VOMITING Verified 10/26/17 02:50 - Medications Medications: Current Medications Hydromorphone HCl (Dilaudid) 3 mg IVP Q4H PRN PRN Reason: Pain, severe (8-10) Last Admin: 10/26/17 21:00 Dose: 3 mg Sodium Chloride (Sodium Chloride 0.9%) 1,000 mls @ 125 mls/hr IV .Q8H [facility] Last Admin: 10/26/17 21:00 Dose: 125 mls/hr Losartan Potassium (Cozaar) 50 mg PO DAILY [facility] Last Admin: 10/26/17 11:00 Dose: Not Given Ondansetron HCl (Zofran Inj) 4 mg IVP Q4H PRN PRN Reason: Nausea/Vomiting Last Admin: 10/26/17 17:06 Dose: 4 mg Pantoprazole Sodium (Protonix Inj) 40 mg IVP DAILY [facility] Last Admin: 10/26/17 10:52 Dose: 40 mg Physical Exam - Constitutional Appears: No Acute Distress - Head Exam Head Exam: ATRAUMATIC, NORMAL INSPECTION, NORMOCEPHALIC - Eye Exam Eye Exam: EOMI, Normal appearance, PERRL - ENT Exam ENT Exam: Mucous Membranes Moist, Normal Exam - Respiratory Exam Respiratory Exam: Clear to Auscultation Bilateral, NORMAL BREATHING PATTERN - Cardiovascular Exam Cardiovascular Exam: REGULAR RHYTHM, +S1, +S2 - GI/Abdominal Exam GI & Abdominal Exam: Normal Bowel Sounds, Soft, Tenderness (LLQ) - Extremities Exam Extremities exam: Positive for: normal inspection - Back Exam Back exam: vertebral tenderness (thoracic spine) - Neurological Exam Neurological exam: Alert, CN II-XII Intact, Normal Gait, Oriented x3, Reflexes Normal - Psychiatric Exam Psychiatric exam: Normal Affect, Normal Mood - Skin Skin Exam: Dry, Intact, Normal Color, Warm Results - Vital Signs Recent Vital Signs: Last Vital Signs Temp 98.5 F 10/26/17 15:06 Pulse 74 10/26/17 15:06 Resp 20 10/26/17 15:06 BP 112/78 10/26/17 15:06 Pulse Ox 98 10/26/17 15:06 - Labs Result Diagrams: 10/25/17 21:20 10/25/17 21:20 Labs: Laboratory Results - last 24 hr 10/26/17 12:00 Urine Color Yellow Urine Appearance Clear Urine pH 7.0 Ur Specific [place] 1.020 Urine Protein Negative Urine Glucose (UA) Negative Urine Ketones Negative Urine Blood Negative Urine Nitrate Negative Urine Bilirubin Negative Urine Urobilinogen 0.2 Ur Leukocyte Esterase Trace H Urine RBC 0 - 2 Urine WBC 2 - 5 Ur Epithelial Cells 6 - 8 Amorphous Sediment Few Urine Bacteria Many Urine Other [facility] Assessment & Plan - Assessment and Plan (Free Text) Assessment: chronic back pain s/p spinal fusion on Dilaudid opiate dependence chronic gastritis gastroparesis hypertension anemia GERD Plan: RUQ US negative no signs of infx FU Fecal leukocytes, C. diff stool, stool cultures Zofran PRN Clear liquid diet, Advance diet as tolerated, abdomen benign on exam Pain management with IV Dilaudid 3 mg Q4h, Dr. Gibson fu continue medical management for HTN and chronic back pain GI/DVT ppx reviewed, SCDs, Protonix Discussed with Dr. Thao <Corrie Thao V - Last Filed: 10/29/17 22:42> Meds - Medications Medications: Current Medications Hydromorphone HCl (Dilaudid) 3 mg IVP Q4H PRN PRN Reason: Pain, severe (8-10) Last Admin: 10/26/17 21:00 Dose: 3 mg Sodium Chloride (Sodium Chloride 0.9%) 1,000 mls @ 125 mls/hr IV .Q8H [place] Last Admin: 10/26/17 21:00 Dose: 125 mls/hr Losartan Potassium (Cozaar) 50 mg PO DAILY [facility] Last Admin: 10/26/17 11:00 Dose: Not Given Ondansetron HCl (Zofran Inj) 4 mg IVP Q4H PRN PRN Reason: Nausea/Vomiting Last Admin: 10/26/17 17:06 Dose: 4 mg Pantoprazole Sodium (Protonix Inj) 40 mg IVP DAILY [facility] Last Admin: 10/26/17 10:52 Dose: 40 mg Results - Vital Signs Recent Vital Signs: Last Vital Signs Temp 98.5 F 10/26/17 15:06 Pulse 74 10/26/17 15:06 Resp 20 10/26/17 15:06 BP 112/78 10/26/17 15:06 Pulse Ox 98 10/26/17 15:06 - Labs Result Diagrams: 10/28/17 06:00 10/28/17 06:00 Labs: Laboratory Results - last 24 hr 10/26/17 12:00 Urine Color Yellow Urine Appearance Clear Urine pH 7.0 Ur Specific [place] 1.020 Urine Protein Negative Urine Glucose (UA) Negative Urine Ketones Negative Urine Blood Negative Urine Nitrate Negative Urine Bilirubin Negative Urine Urobilinogen 0.2 Ur Leukocyte Esterase Trace H Urine RBC 0 - 2 Urine WBC 2 - 5 Ur Epithelial Cells 6 - 8 Amorphous Sediment Few Urine Bacteria Many Urine Other [place] Attending/Attestation - Attestation I have personally seen and examined this patient.: Yes I have fully participated in the care of the patient.: Yes I have reviewed all pertinent clinical information: Yes Notes (Text): This is an addendum to GI consult report dictated by the Japanese Interpreter.The patient was seen and examined earlier. Medical records, lab studies, imagings were reviewed. Last 24 hours events reviewed. Agreed with the above treatment plan as outlined in Japanese Interpreter 's notes the with the addition of the following Admitted with episodes of vomiting diarrhea abdominal pain History of gastroparesis History of C. difficile in the past Status post cholecystectomy Sonogram reviewed normal CBD Previous GI workup reviewed On examination abdomen soft mild tenderness present [place] for stool for C. difficile 10/27/17 00:03 10/29/17 22:41
[2017-10-27] MEDS: HYDROmorphone 1 mg/ml ISec IVP PRN ×6 (01:01→21:16)
[2017-10-27] MEDS: Sodium Chloride 0.9% 1,000 ML IV SCH ×3 (01:02→14:28)
[2017-10-27 07:40] LABS: INR 0.92 (0.93-1.08); PROTHROMBIN TIME 10.6 SECONDS (9.4-12.5)
[2017-10-27 07:52] LABS: ALB/GLOB RATIO 0.9 (1.1-1.8); ALBUMIN 3.4 g/dL (3.0-4.8); ALT/SGPT 22 U/L (7-56); AST/SGOT 24 U/L (14-36); BLOOD UREA NITROGEN 25 mg/dL (7-21); CALCIUM 9.5 mg/dL (8.4-10.5); GFR AFRICAN-AMERICAN > 60; GFR NON-AFRICAN AMERICAN > 60
[2017-10-27 08:27] LABS: BASO # 0.07 K/mm3 (0.0-2.0); BASO % 1.5 % (0.0-3.0); EOS # 0.3 (0.0-0.7); EOS % 5.3 % (1.5-5.0); GRAN # 2.45 (1.4-6.5); LYMPH # 1.6 (1.2-3.4); LYMPH % 32.9 % (22.0-35.0); MEAN CELL VOLUME 82.4 fl (80.0-105.0); MEAN CORPUSCULAR HEMOGLOBIN 24.3 pg (25.0-35.0); MEAN CORPUSCULAR HGB CONC 29.5 g/dl (31.0-37.0); MEAN PLATELET VOLUME 9.2 fl (7.0-11.0); MONO # 0.4 (0.1-0.6); MONO % 8.3 % (1.0-6.0); RBC 4.03 10^6/uL (3.5-6.1); RED CELL DISTRIBUTION WIDTH 21.2 % (11.5-14.5); WHITE BLOOD COUNT 4.7 10^3/ul (4.5-11.0)
[2017-10-27 08:31] LABS: HEMOGLOBIN 9.8 g/dL (12.0-16.0)
--- NOTE | 2017-10-27 12:34 | CP.PCM.PN ---
<Robby Cullen - Last Filed: 10/27/17 12:48> Subjective - Date & Time of Evaluation Date of Evaluation: 10/27/17 Time of Evaluation: 06:00 - Subjective Subjective: Patient seen and evaluated bedside. No acute issues overnight, patient states she wants to advance her diet, she still has some abdominal pain. She denies any nausea or vomiting, no additional complaints at this time. Objective - Vital Signs/Intake and Output Vital Signs (last 24 hours): Temp Pulse Resp BP Pulse Ox 98.4 F 69 20 106/64 96 10/27/17 07:30 10/27/17 07:30 10/27/17 07:30 10/27/17 07:30 10/27/17 07:30 - Medications Medications: Current Medications Hydromorphone HCl (Dilaudid) 3 mg IVP Q4H PRN PRN Reason: Pain, severe (8-10) Last Admin: 10/27/17 09:05 Dose: 3 mg Sodium Chloride (Sodium Chloride 0.9%) 1,000 mls @ 125 mls/hr IV .Q8H [facility] Last Admin: 10/27/17 01:02 Dose: Not Given Losartan Potassium (Cozaar) 50 mg PO DAILY [facility] Last Admin: 10/27/17 11:00 Dose: Not Given Ondansetron HCl (Zofran Inj) 4 mg IVP Q4H PRN PRN Reason: Nausea/Vomiting Last Admin: 10/27/17 05:08 Dose: 4 mg Pantoprazole Sodium (Protonix Ec Tab) 40 mg PO ACB [facility] - Labs Labs: PT 10.6 SECONDS (9.4-12.5) 10/27/17 06:45 INR 0.92 (0.93-1.08) L 10/27/17 06:45 - Constitutional Appears: Non-toxic, No Acute Distress - Head Exam Head Exam: NORMAL INSPECTION, NORMOCEPHALIC - Eye Exam Eye Exam: EOMI - ENT Exam ENT Exam: Mucous Membranes Moist - Neck Exam Neck Exam: absent: Lymphadenopathy - Respiratory Exam Respiratory Exam: Clear to Ausculation Bilateral, NORMAL BREATHING PATTERN - Cardiovascular Exam Cardiovascular Exam: REGULAR RHYTHM - GI/Abdominal Exam GI & Abdominal Exam: Soft. absent: Tenderness - Extremities Exam Extremities Exam: absent: Pedal Edema - Neurological Exam Neurological Exam: Alert, Awake, Oriented x3 Assessment and Plan - Assessment and Plan (Free Text) Plan: 1. Chronic abdominal pain with nausea/vomiting and diarrhea - afebrile, no leukocytosis - RUQ US negative for acute pathology - Fecal leukocytes, C. diff stool, stool cultures pending will follow up - Zofran - diet advanced as tolerated - Pain management with IV Dilaudid 3 mg Q4h - Pain management doctor [place] consulted appreciate recs - GI consulted, Keesha, follow recs 2. HTN - BP stable - Losartan 50mg Daily 3. Chronic back pain - IV Dilaudid 3mg Q4H - Pain management consult - Pt reports at home takes 2 tab 8mg dilaudid BID GI/DVT ppx -pt mobile, SCD prn -Protonix 40mg IV daily <Brittney Rice - Last Filed: 10/27/17 13:58> Objective - Vital Signs/Intake and Output Vital Signs (last 24 hours): Temp Pulse Resp BP Pulse Ox 98.4 F 69 20 106/64 96 10/27/17 07:30 10/27/17 07:30 10/27/17 07:30 10/27/17 07:30 10/27/17 07:30 - Medications Medications: Current Medications Hydromorphone HCl (Dilaudid) 3 mg IVP Q4H PRN PRN Reason: Pain, severe (8-10) Last Admin: 10/27/17 13:11 Dose: 3 mg Sodium Chloride (Sodium Chloride 0.9%) 1,000 mls @ 125 mls/hr IV .Q8H [facility] Last Admin: 10/27/17 01:02 Dose: Not Given Losartan Potassium (Cozaar) 50 mg PO DAILY [facility] Last Admin: 10/27/17 11:00 Dose: Not Given Ondansetron HCl (Zofran Inj) 4 mg IVP Q4H PRN PRN Reason: Nausea/Vomiting Last Admin: 10/27/17 05:08 Dose: 4 mg Pantoprazole Sodium (Protonix Ec Tab) 40 mg PO ACB [facility] Petrolatum (Desitin Maximum Strength Topical 40% Oint) 1 gm TOP Q4H PRN PRN Reason: Rash Vancomycin HCl (Vancocin 25 Mg/Ml (Oral Use)) 250 mg PO QID [place] PRN Reason: Protocol - Labs Labs: PT 10.6 SECONDS (9.4-12.5) 10/27/17 06:45 INR 0.92 (0.93-1.08) L 10/27/17 06:45 Attending/Attestation - Attestation I have personally seen and examined this patient.: Yes I have fully participated in the care of the patient.: Yes I have reviewed all pertinent clinical information, including history, physical exam and plan: Yes Notes (Text): 10/27/17 13:56 Attending note; Patient seen and examined with resident . Patient is a 57 year old female, whose past medical history includes chronic back pain s/p spinal fusion on Dilaudid, opiate dependence, chronic gastritis, gastroparesis, hypertension, anemia, celiac disease, and GERD is admitted with abdominal pain. Abdominal pain is improving slowly. Complaining of diarrhea/loose stool this morning. Stool for C. difficile antigen is positive on toxin is negative. Started on by mouth vancomycin. Case discussed with GI in detail. Patient is currently on clear liquid diet. Advance as tolerated . Anemia; chronic. Admission hemoglobin was elevated secondary to dehydration. Denies any fevers, chills. Abdominal ultrasound is negative for any acute findings. LFTs normal. Monitor for diarrhea. Continue pain management per . Upon discharge the patient will follow up with PMD .
[2017-10-27] MEDS ORDERED: Zinc Oxide Topical 40% Oint (Desitin) TOP PRN (12:47)
[2017-10-27] MEDS: Vancomycin 25 MG/ML PO SCH ×3 (14:24→21:17)
[2017-10-28 01:06] VITALS: PULSE 69
[2017-10-28] MEDS: HYDROmorphone 1 mg/ml ISec IVP PRN ×3 (01:19→09:10)
[2017-10-28] MEDS: Sodium Chloride 0.9% 1,000 ML IV SCH (04:22)
--- NOTE | 2017-10-28 04:49 | PN ---
DATE: 10/27/2017 SUBJECTIVE: This patient was seen and evaluated earlier today. Feels better now. The diarrhea has slowed down and the abdominal discomfort has slightly improved. Patient is tolerating the diet. PHYSICAL EXAMINATION: VITAL SIGNS: Temperature is 98.4, blood pressure 106/64, respirations 20, O2 saturation 96%. HEENT: Atraumatic. Anicteric. NECK: Supple. HEART: S1 and S2 heard. LUNGS: Bilateral air entry present. ABDOMEN: Soft. There is no mass palpable. There is mild tenderness present in the epigastric area and also in the left lower quadrant area. EXTREMITIES: No cyanosis. No clubbing. NEUROLOGIC: Alert, oriented. Moves all the extremities. LABORATORY DATA: Hemoglobin 9.8, hematocrit 33.2, WBC 4.7, platelets 202. Chemistry showed albumin has come down to 3.4 from 4.7. IMPRESSION: 1. This 57-year-old patient is admitted with abdominal pain, diarrhea clinically, no vomiting. Patient has a history of stool for Clostridium difficile is antigen positive. Patient is now started on vancomycin. 2. She has a history of gastroparesis. 3. She has anemia, drop in blood count. This could be dilutional. There is also a drop in albumin present. RECOMMENDATIONS: Would recommend, 1. Repeat the CBC, most likely the cause for the drop in hemoglobin is probably due to dilutional. We will repeat the CBC in the a.m. Will discontinue the IV fluids. 2. Continue the p.o. vancomycin. 3. History of chronic back pain. Part of the symptom, the right-sided discomfort srback could be due to radiculopathy. Patient is on chronic pain medication. 4. Advance the diet. 5 Complete the p.o. vancomycin for 10 to 14 days. 6. Patient would benefit from elective colonoscopy evaluation. The same was discussed with the patient at length, understood. Thank you very much for allowing us to participate in the care of the patient. Corrie Thao MD [facility]
[2017-10-28 06:44] LABS: BASO # 0.03 K/mm3 (0.0-2.0); BASO % 0.6 % (0.0-3.0); EOS # 0.2 (0.0-0.7); EOS % 4.5 % (1.5-5.0); GRAN # 3.31 (1.4-6.5); HEMOGLOBIN 9.7 g/dL (12.0-16.0); LYMPH # 1.4 (1.2-3.4); LYMPH % 26.1 % (22.0-35.0); MEAN CELL VOLUME 81.7 fl (80.0-105.0); MEAN CORPUSCULAR HGB CONC 29.3 g/dl (31.0-37.0); MEAN PLATELET VOLUME 8.7 fl (7.0-11.0); MONO # 0.4 (0.1-0.6); MONO % 6.8 % (1.0-6.0); RBC 4.05 10^6/uL (3.5-6.1); RED CELL DISTRIBUTION WIDTH 20.4 % (11.5-14.5); WHITE BLOOD COUNT 5.3 10^3/ul (4.5-11.0)
[2017-10-28 07:12] LABS: ALB/GLOB RATIO 0.8 (1.1-1.8); ALBUMIN 3.6 g/dL (3.0-4.8); ALT/SGPT 24 U/L (7-56); AST/SGOT 31 U/L (14-36); BLOOD UREA NITROGEN 24 mg/dL (7-21); CALCIUM 9.8 mg/dL (8.4-10.5); GFR AFRICAN-AMERICAN > 60; GFR NON-AFRICAN AMERICAN 57
[2017-10-28] MEDS ORDERED: Pantoprazole 40 mg EC Tab PO SCH (07:30)
[2017-10-28 08:01] VITALS: BP 119/80; TEMP 98.6; O2SAT 100
--- NOTE | 2017-10-28 08:46 | CP.PCM.DIS ---
<AlyseRobby - Last Filed: 10/30/17 14:20> Provider - Provider Date of Admission: 10/27/17 11:38 Attending physician: Brittney Rice MD Primary care physician: Landen Angulo MD Consults: GI: Keesha Pain Management: Paige Time Spent in preparation of Discharge (in minutes): 75 Hospital Course - Lab Results Lab Results: Most Recent Lab Values WBC 5.3 10^3/ul (4.5-11.0) 10/28/17 06:00 RBC 4.05 10^6/uL (3.5-6.1) 10/28/17 06:00 Hgb 9.7 g/dL (12.0-16.0) L 10/28/17 06:00 Hct 33.1 % (36.0-48.0) L 10/28/17 06:00 MCV 81.7 fl (80.0-105.0) 10/28/17 06:00 MCH 24.0 pg (25.0-35.0) L 10/28/17 06:00 MCHC 29.3 g/dl (31.0-37.0) L 10/28/17 06:00 RDW 20.4 % (11.5-14.5) H 10/28/17 06:00 Plt Count 214 10^3/uL (120.0-450.0) 10/28/17 06:00 MPV 8.7 fl (7.0-11.0) 10/28/17 06:00 Gran % 62.0 % (50.0-68.0) 10/28/17 06:00 Lymph % (Auto) 26.1 % (22.0-35.0) 10/28/17 06:00 Hendricks % (Auto) 6.8 % (1.0-6.0) H 10/28/17 06:00 Eos % (Auto) 4.5 % (1.5-5.0) 10/28/17 06:00 Baso % (Auto) 0.6 % (0.0-3.0) 10/28/17 06:00 Gran # 3.31 (1.4-6.5) 10/28/17 06:00 Lymph # (Auto) 1.4 (1.2-3.4) 10/28/17 06:00 Hendricks # (Auto) 0.4 (0.1-0.6) 10/28/17 06:00 Eos # (Auto) 0.2 (0.0-0.7) 10/28/17 06:00 Baso # (Auto) 0.03 K/mm3 (0.0-2.0) 10/28/17 06:00 PT 10.6 SECONDS (9.4-12.5) 10/27/17 06:45 INR 0.92 (0.93-1.08) L 10/27/17 06:45 Sodium 139 mmol/L (132-148) 10/28/17 06:00 Potassium 4.3 mmol/L (3.6-5.0) 10/28/17 06:00 Chloride 107 mmol/L (98-107) 10/28/17 06:00 Carbon Dioxide 24 mmol/L (21-33) 10/28/17 06:00 Anion Gap 13 (10-20) 10/28/17 06:00 BUN 24 mg/dL (7-21) H 10/28/17 06:00 Creatinine 1.0 mg/dl (0.7-1.2) 10/28/17 06:00 Est GFR ( Amer) > 60 10/28/17 06:00 Est GFR (Non-Af Amer) 57 10/28/17 06:00 Random Glucose 136 mg/dL (70-110) H 10/28/17 06:00 Calcium 9.8 mg/dL (8.4-10.5) 10/28/17 06:00 Total Bilirubin 0.2 mg/dL (0.2-1.3) 10/28/17 06:00 AST 31 U/L (14-36) 10/28/17 06:00 ALT 24 U/L (7-56) 10/28/17 06:00 Alkaline Phosphatase 94 U/L (38-126) 10/28/17 06:00 Total Protein 7.8 g/dL (5.8-8.3) 10/28/17 06:00 Albumin 3.6 g/dL (3.0-4.8) 10/28/17 06:00 Globulin 4.3 gm/dL 10/28/17 06:00 Albumin/Globulin Ratio 0.8 (1.1-1.8) L 10/28/17 06:00 Lipase 175 U/L (23-300) 10/25/17 21:20 Urine Color Yellow (YELLOW) 10/26/17 12:00 Urine Appearance Clear (CLEAR) 10/26/17 12:00 Urine pH 7.0 (4.7-8.0) 10/26/17 12:00 Ur Specific [place] 1.020 (1.005-1.035) 10/26/17 12:00 Urine Protein Negative mg/dL (<30 mg/dL) 10/26/17 12:00 Urine Glucose (UA) Negative mg/dL (NEGATIVE) 10/26/17 12:00 Urine Ketones Negative mg/dL (NEGATIVE) 10/26/17 12:00 Urine Blood Negative (NEGATIVE) 10/26/17 12:00 Urine Nitrate Negative (NEGATIVE) 10/26/17 12:00 Urine Bilirubin Negative (NEGATIVE) 10/26/17 12:00 Urine Urobilinogen 0.2 E.U./dL (<1 E.U./dL) 10/26/17 12:00 Ur Leukocyte Esterase Trace [place]/uL (NEGATIVE) H 10/26/17 12:00 Urine RBC 0 - 2 /hpf (0-2) 10/26/17 12:00 Urine WBC 2 - 5 /hpf (0-6) 10/26/17 12:00 Ur Epithelial Cells 6 - 8 /hpf (0-5) 10/26/17 12:00 Amorphous Sediment Few 10/26/17 12:00 Urine Bacteria Many (NEG) 10/26/17 12:00 Urine Other Uyeast 10/26/17 12:00 Stool Leukocytes, Qual Negative (NEGATIVE) 10/27/17 09:20 - Hospital Course Hospital Course: 57 year old female, whose past medical history includes chronic back pain s/p spinal fusion on Dilaudid, opiate dependence, chronic gastritis, gastroparesis, hypertension, anemia, questionable celiac disease, and GERD, presented to the ED complaining of 2 day history of abdominal pain. Pt evaluated in ED and found to have intractable abdominal pain with nausea and vomiting. Patient was admitted for further medical evaluation and medical management. Patient was found to be afebrile, no leukocytosis. RUQ was done and negative for acute pathology. Patient was started on Zofran, pain medication and GI was consulted. She was started on vancomycin for history of positive c diff antigen. C diff was repeated and patient was to continue the vancomycin. Her diet was advanced as tolerated and discharged home. She was told to follow up with GI as outpatient for possible colonoscopy and to continue the vancomycin for 14 days. Patient agreed and understood plan. Discharge Exam - Head Exam Head Exam: NORMAL INSPECTION, NORMOCEPHALIC - Eye Exam Eye Exam: Normal appearance - Respiratory Exam Respiratory Exam: Clear to PA & Lateral, NORMAL BREATHING PATTERN - Cardiovascular Exam Cardiovascular Exam: REGULAR RHYTHM - GI/Abdominal Exam GI & Abdominal Exam: Normal Bowel Sounds, Tenderness - Neurological Exam Neurological exam: Alert, CN II-XII Intact, Normal Gait, Oriented x3 Discharge Plan - Discharge Medications Prescriptions: Vancomycin HCl [Vancocin 125 MG Cap] 125 mg PO QID #48 capsule - Follow Up Plan Condition: STABLE Disposition: HOME/ ROUTINE Instructions: Antibiotic-Associated Diarrhea (C. difficile Infection) Referrals: Landen Angulo MD [Primary Care Provider] - <Brittney Rice - Last Filed: 10/30/17 18:21> Provider - Provider Date of Admission: 10/27/17 11:38 Attending physician: Brittney Rice MD Primary care physician: Landen Angulo MD Hospital Course - Lab Results Lab Results: Most Recent Lab Values WBC 5.3 10^3/ul (4.5-11.0) 10/28/17 06:00 RBC 4.05 10^6/uL (3.5-6.1) 10/28/17 06:00 Hgb 9.7 g/dL (12.0-16.0) L 10/28/17 06:00 Hct 33.1 % (36.0-48.0) L 10/28/17 06:00 MCV 81.7 fl (80.0-105.0) 10/28/17 06:00 MCH 24.0 pg (25.0-35.0) L 10/28/17 06:00 MCHC 29.3 g/dl (31.0-37.0) L 10/28/17 06:00 RDW 20.4 % (11.5-14.5) H 10/28/17 06:00 Plt Count 214 10^3/uL (120.0-450.0) 10/28/17 06:00 MPV 8.7 fl (7.0-11.0) 10/28/17 06:00 Gran % 62.0 % (50.0-68.0) 10/28/17 06:00 Lymph % (Auto) 26.1 % (22.0-35.0) 10/28/17 06:00 Hendricks % (Auto) 6.8 % (1.0-6.0) H 10/28/17 06:00 Eos % (Auto) 4.5 % (1.5-5.0) 10/28/17 06:00 Baso % (Auto) 0.6 % (0.0-3.0) 10/28/17 06:00 Gran # 3.31 (1.4-6.5) 10/28/17 06:00 Lymph # (Auto) 1.4 (1.2-3.4) 10/28/17 06:00 Hendricks # (Auto) 0.4 (0.1-0.6) 10/28/17 06:00 Eos # (Auto) 0.2 (0.0-0.7) 10/28/17 06:00 Baso # (Auto) 0.03 K/mm3 (0.0-2.0) 10/28/17 06:00 PT 10.6 SECONDS (9.4-12.5) 10/27/17 06:45 INR 0.92 (0.93-1.08) L 10/27/17 06:45 Sodium 139 mmol/L (132-148) 10/28/17 06:00 Potassium 4.3 mmol/L (3.6-5.0) 10/28/17 06:00 Chloride 107 mmol/L (98-107) 10/28/17 06:00 Carbon Dioxide 24 mmol/L (21-33) 10/28/17 06:00 Anion Gap 13 (10-20) 10/28/17 06:00 BUN 24 mg/dL (7-21) H 10/28/17 06:00 Creatinine 1.0 mg/dl (0.7-1.2) 10/28/17 06:00 Est GFR ( Amer) > 60 10/28/17 06:00 Est GFR (Non-Af Amer) 57 10/28/17 06:00 Random Glucose 136 mg/dL (70-110) H 10/28/17 06:00 Calcium 9.8 mg/dL (8.4-10.5) 10/28/17 06:00 Total Bilirubin 0.2 mg/dL (0.2-1.3) 10/28/17 06:00 AST 31 U/L (14-36) 10/28/17 06:00 ALT 24 U/L (7-56) 10/28/17 06:00 Alkaline Phosphatase 94 U/L (38-126) 10/28/17 06:00 Total Protein 7.8 g/dL (5.8-8.3) 10/28/17 06:00 Albumin 3.6 g/dL (3.0-4.8) 10/28/17 06:00 Globulin 4.3 gm/dL 10/28/17 06:00 Albumin/Globulin Ratio 0.8 (1.1-1.8) L 10/28/17 06:00 Lipase 175 U/L (23-300) 10/25/17 21:20 Urine Color Yellow (YELLOW) 10/26/17 12:00 Urine Appearance Clear (CLEAR) 10/26/17 12:00 Urine pH 7.0 (4.7-8.0) 10/26/17 12:00 Ur Specific [place] 1.020 (1.005-1.035) 10/26/17 12:00 Urine Protein Negative mg/dL (<30 mg/dL) 10/26/17 12:00 Urine Glucose (UA) Negative mg/dL (NEGATIVE) 10/26/17 12:00 Urine Ketones Negative mg/dL (NEGATIVE) 10/26/17 12:00 Urine Blood Negative (NEGATIVE) 10/26/17 12:00 Urine Nitrate Negative (NEGATIVE) 10/26/17 12:00 Urine Bilirubin Negative (NEGATIVE) 10/26/17 12:00 Urine Urobilinogen 0.2 E.U./dL (<1 E.U./dL) 10/26/17 12:00 Ur Leukocyte Esterase Trace [place]/uL (NEGATIVE) H 10/26/17 12:00 Urine RBC 0 - 2 /hpf (0-2) 10/26/17 12:00 Urine WBC 2 - 5 /hpf (0-6) 10/26/17 12:00 Ur Epithelial Cells 6 - 8 /hpf (0-5) 10/26/17 12:00 Amorphous Sediment Few 10/26/17 12:00 Urine Bacteria Many (NEG) 10/26/17 12:00 Urine Other Uyeast 10/26/17 12:00 Stool Leukocytes, Qual Negative (NEGATIVE) 10/27/17 09:20 Attending/Attestation - Attestation I have personally seen and examined this patient.: Yes I have fully participated in the care of the patient.: Yes I have reviewed all pertinent clinical information, including history, physical exam and plan: Yes Notes (Text): 10/30/17 18:20 Attending note; Patient seen and examined with resident. Patient is a 57 year old female, whose past medical history includes chronic back pain s/p spinal fusion on Dilaudid, opiate dependence, chronic gastritis, gastroparesis, hypertension, anemia, celiac disease, and GERD is admitted with abdominal pain. Abdominal pain is improving slowly. Complaining of diarrhea/loose stool this morning. Stool for C. difficile antigen is positive on toxin is negative. Started on po vancomycin. Case discussed with GI in detail. Patient is currently on clear liquid diet. Advanced as tolerated Denies any fevers, chills. Abdominal ultrasound is negative for any acute findings. LFTs normal. Monitor for diarrhea. Continue pain management per . GI evaluation appreciated. Patient will be discharged home today with close follow up with PMD and GI. Upon discharge the patient will follow up with PMD .
[2017-10-28] MEDS: Vancomycin 25 MG/ML PO SCH (09:09)
== END 2017-10-28 10:13 | disposition home or self-care (01) | DRG 373 ==
LOC: ED 20:25 → ERH 10-26 00:23 → 5RNO 10-26 01:57 → OBSVTOIN 10-27 11:38
PROVIDERS: ADMIT Internal Medicine; ATTEND Internal Medicine
DX: A04.72 Enterocolitis due to Clostridium difficile, not specified as recurrent (principal); K31.84 Gastroparesis; K90.0 Celiac disease; D64.9 Anemia, unspecified; M54.10 Radiculopathy, site unspecified; E86.0 Dehydration; I10 Essential (primary) hypertension; K29.50 Unspecified chronic gastritis without bleeding; K21.9 Gastro-esophageal reflux disease without esophagitis; G89.29 Other chronic pain; Z87.891 Personal history of nicotine dependence; Z98.1 Arthrodesis status; Z79.891 Long term (current) use of opiate analgesic

== ENCOUNTER 2018-02-13 12:19 | Observation (INO) | payer BC ==
[2018-02-13 12:20] VITALS: BMI 24.7
[2018-02-13] MEDS ORDERED: HYDROmorphone 0.5 mg/0.5 ml ISec IVP STA ×2 (13:40→19:03)
--- NOTE | 2018-02-13 13:43 | ED PDOC ---
Arrival/HPI - General Chief Complaint: GI Problem Time Seen by Provider: 02/13/18 13:11 Historian: Patient - History of Present Illness Narrative History of Present Illness (Text): 02/13/18 13:41 58 year old female, with past medical history of chronic back pain s/p spinal fusion on Dilaudid, opiate dependence, chronic gastritis, gastroparesis, hypertension, anemia, questionable celiac disease, and GERD, presents to the Emergency department complaining of epigastric discomfort associated with nausea and vomiting since 2 days. Patient informs non-radiating pain rated 8/10 in severity associated with decreased appetite and 2 episodes of vomiting since onset. Additionally, patient informs feeling bloated, diarrhea and mild headache. Patient denies any fever, chills, hematemesis, dysuria, urinary output changes, changes in bowel movement, hematochezia, chest pain, shortness of breath or any other complaints. Time/Duration: < week (2 days) Symptom Onset: Gradual Symptom Course: Unchanged Quality: Aching Severity Level: 8 Activities at Onset: Light Context: Home Past Medical History - Provider Review Nursing Documentation Reviewed: Yes - Infectious Disease Hx of Infectious Diseases: None - Tetanus Immunization Tetanus Immunization: Unknown - Cardiac Hx Cardiac Disorders: Yes Hx Heart Murmur: Yes Hx Hypertension: Yes - Pulmonary Hx Respiratory Disorders: No - Neurological Hx Neurological Disorder: No - HEENT Hx HEENT Disorder: No - Renal Hx Renal Disorder: No - Endocrine/Metabolic Hx Endocrine Disorders: No - Hematological/Oncological Hx Blood Disorders: Yes Hx Anemia: Yes Other/Comment: hx blood transfusion - Integumentary Hx Dermatological Disorder: Yes - Musculoskeletal/Rheumatological Hx Musculoskeletal Disorders: Yes (extremity weakness) Hx Arthritis: Yes Hx Degenerative Joint Disease: Yes Hx Falls: No Hx Herniated Disk: Yes Hx Unsteady Gait: Yes (uses cane sometime) Other/Comment: back pain. orthopedic surgery x2 - Gastrointestinal Hx Gastrointestinal Disorders: Yes (gastritis,GASTROPARESIS) Hx Gall Bladder Disease: Yes Hx Gastroesophageal Reflux: Yes Other/Comment: portal htn hepatomegaly, hemorrhoids, pt denies fatty liver disease, celiac sensitivity - Genitourinary/Gynecological Hx Genitourinary Disorders: Yes Hx Urinary Tract Infection: Yes - Psychiatric Hx Psychophysiologic Disorder: No Hx Emotional Abuse: No Hx Physical Abuse: No Hx Substance Use: No - Surgical History Hx Cholecystectomy: Yes Hx Hysterectomy: Yes - Anesthesia Hx Anesthesia: Yes Hx Anesthesia Reactions: No Hx Malignant Hyperthermia: No - Suicidal Assessment Feels Threatened In Home Enviroment: No Family/Social History - Physician Review Nursing Documentation Reviewed: Yes Family/Social History: No Known Family HX Smoking Status: Former Smoker Hx Alcohol Use: No Hx Substance Use: No Hx Substance Use Treatment: No Allergies/Home Meds Allergies/Adverse Reactions: Allergies gluten Adverse Reaction (Verified 02/13/18 12:58) PAIN methylprednisolone Adverse Reaction (Verified 02/13/18 12:58) VOMITING patient states that the reaction cam from running/pushing the medication too fast. Home Medications: Home Meds Medication Instructions Recorded Confirmed HYDROmorphone [Dilaudid] 8 mg PO Q4 PRN 03/08/16 02/13/18 Valsartan [Diovan] 80 mg PO DAILY 10/25/17 02/13/18 Gabapentin [Neurontin] 300 mg PO DAILY 02/13/18 02/13/18 Hydromorphone HCl [Exalgo] 32 mg PO DAILY 02/13/18 02/13/18 Review of Systems - Physician Review All systems were reviewed & negative as marked: Yes - Review of Systems Constitutional: absent: Fevers Respiratory: absent: SOB Cardiovascular: absent: Chest Pain Gastrointestinal: Abdominal Pain, Diarrhea, Nausea, Vomiting, Appetite Changes. absent: Hematochezia, Hematemesis Genitourinary Female: absent: Dysuria, Urine Output Changes Neurological: Headache Physical Exam - Physical Exam Narrative Physical Exam (Text): 02/13/18 14:04 Gen: VS reviewed, alert, well developed, well nourished, nontoxic, mild to moderate distress secondary to nausea ENT: normal pharynx Eye: EOMI, PERRL Neck: no JVD, supple, no adenopathy CV: regular rate, regular rhythm, no rubs,no murmur, no gallops, S1, S2, pulses equal and strong Pulm: no distress, clear to auscultation, no wheeze, no rhonchi, breath sounds equal, no rales Abd: soft, epigastric tenderness with some guarding, no rebound, no rigidity, normal bowel sounds Ext: no edema Skin: good color, no rash, no cyanosis Psych: responds appropriately to questions, normal affect Neuro: oriented x3, CN2-12 intact grossly, motor intact, sensation intact Vital Signs Reviewed: Yes Vital Signs Temp Pulse Resp BP Pulse Ox 02/13/18 16:43 80 18 127/89 98 02/13/18 12:20 98.2 F 89 18 127/87 100 Temperature: Afebrile Blood Pressure: Normal Pulse: Regular Respiratory Rate: Normal Appearance: Positive for: Well-Appearing, Non-Toxic, Comfortable Pain Distress: Mild Mental Status: Positive for: Alert and Oriented X 3 Medical Decision Making ED Course and Treatment: 02/13/18 14:05 Impression: 58 year old female presents to the Emergency department for epigastric discomfort associated with nausea, vomiting, diarrhea and headache. Plan: -- CT of Abdomen/Pelvis -- IV Fluids -- Zofran -- Dilaudid -- Labs -- Reassess and disposition Prior Visits: Notes and results from previous visits were reviewed. Progress Notes: 02/13/18 15:45 CT of Abdomen/Pelvis reviewed by radiologist, shows: No Acute pathologies. 02/13/18 15:48 re-eval, CT unremarkable, patient states still in pain and is requesting further pain medication 02/13/18 16:20 Discussed case with hospitalist preschool paraprofessional, who is aware and agrees with Emergency department management, accepts patient for further observation of intractable pain, nausea, vomiting and dehydration. ddx including but not limited to opioid withdrawal, narcotic bowel syndrome 02/13/18 21:41 - Lab Interpretations Lab Results: 02/13/18 13:55 02/13/18 13:55 Lab Results 02/13/18 13:55: Sodium 140, Potassium 4.2, Chloride 103, Carbon Dioxide 27, Anion Gap 14, BUN 33 H, Creatinine 0.7, Est GFR ( Amer) > 60, Est GFR ( Non-Af Amer) > 60, Random Glucose 103, Calcium 9.7, Total Bilirubin 0.3, AST 43 H D, ALT 23, Alkaline Phosphatase 106, Total Protein 9.0 H, Albumin 4.0, Globulin 5.0, Albumin/Globulin Ratio 0.8 L, Lipase 32 02/13/18 13:55: WBC 10.1 D, RBC 3.75, Hgb 8.7 L, Hct 27.8 L, MCV 74.1 L D, MCH 23.2 L, MCHC 31.3, RDW 16.3 H, Plt Count 276, MPV 8.8, Gran % 86.9 H, Lymph % ( Auto) 8.4 L, [place] % (Auto) 3.7, Eos % (Auto) 0.8 L, Baso % (Auto) 0.2, Gran # 8.78 H, Lymph # (Auto) 0.9 L, [place] # (Auto) 0.4, Eos # (Auto) 0.1, Baso # (Auto ) 0.02 - RAD Interpretation Radiology Orders: 02/13/18 13:40 ABDOMEN & PELVIS [ABD & PELVIS IV CONTRAST ONLY] [CT] Stat - Medication Orders Current Medication Orders: Hydromorphone HCl (Dilaudid) 3 mg IVP Q3H PRN PRN Reason: Pain, severe (8-10) Sodium Chloride (Sodium Chloride 0.9%) 1,000 mls @ 150 mls/hr IV .Q6H40M [place] Last Admin: 02/13/18 17:18 Dose: 150 mls/hr eMAR Start Stop Document 02/13/18 17:18 GMD (Rec: 02/13/18 17:18 GMD [id number]) Intravenous Solution Start Date 02/13/18 Start Time 17:18 Metoclopramide HCl (Reglan) 10 mg IVP ACHS [place] Pantoprazole Sodium (Protonix Inj) 40 mg IVP DAILY [place] Discontinued Medications Hydromorphone HCl (Dilaudid) 1 mg IVP STAT STA Stop: 02/13/18 13:41 Last Admin: 02/13/18 13:58 Dose: 1 mg [place] Pain Assessment Document 02/13/18 13:58 GMD (Rec: 02/13/18 13:58 GMD [id number]) Pain Reassessment Is this a pain reassessment? No Presence of Pain Presence of Pain Yes IVP Administration Document 02/13/18 13:58 GMD (Rec: 02/13/18 13:58 GMD [id number]) Charges for Administration # of IVP Administrations 1 Hydromorphone HCl (Dilaudid) 1.5 mg IVP Q4 PRN PRN Reason: Pain, severe (8-10) Last Admin: 02/13/18 17:18 Dose: 1.5 mg MAR Pain Assessment Document 02/13/18 17:18 GMD (Rec: 02/13/18 17:18 GMD [id number]) Pain Reassessment Is this a pain reassessment? No IVP Administration Document 02/13/18 17:18 GMD (Rec: 02/13/18 17:18 GMD [id number]) Charges for Administration # of IVP Administrations 3 Hydromorphone HCl (Dilaudid) 1.5 mg IVP STAT [place]A Stop: 02/13/18 19:04 Last Admin: 02/13/18 19:20 Dose: 1.5 mg MAR Pain Assessment Document 02/13/18 19:20 EP (Rec: 02/13/18 19:20 EP [facility] [id number]) Pain Reassessment Is this a pain reassessment? No Sleep Is patient sleeping during reassessment? No Presence of Pain Presence of Pain Yes Pain Scale Used Pain Scale Used Numeric Location Pain Location Body Site Back Description Description Intermittent Intensity of Pain at present 10 IVP Administration Document 02/13/18 19:20 EP (Rec: 02/13/18 19:20 EP [facility] [id number]) Charges for Administration # of IVP Administrations 1 Re-Assess: MAR Pain Assessment Document 02/13/18 20:20 KP (Rec: 02/13/18 21:26 [id number] Pain Reassessment Is this a pain reassessment? Yes Sleep Is patient sleeping during reassessment? Yes Sodium Chloride (Sodium Chloride 0.9%) 1,000 mls @ 100 mls/hr IV .Q10H [place] Last Admin: 02/13/18 13:57 Dose: 100 mls/hr eMAR Start Stop Document 02/13/18 13:57 GMD (Rec: 02/13/18 13:57 GMD [id number]) Intravenous Solution Start Date 02/13/18 Start Time 13:57 Ketorolac Tromethamine (Toradol) 30 mg IVP STAT [place]A Stop: 02/13/18 15:48 Last Admin: 02/13/18 16:07 Dose: Not Given Non-Admin Reason: Patient Refused - Scribe Statement The provider has reviewed the documentation as recorded by the Scribe Laquita Whitmore. All medical record entries made by the Scribe were at my direction and personally dictated by me. I have reviewed the chart and agree that the record accurately reflects my personal performance of the history, physical exam, medical decision making, and the department course for this patient. I have also personally directed, reviewed, and agree with the discharge instructions and disposition. Disposition/Present on Arrival - Present on Arrival Any Indicators Present on Arrival: No History of DVT/PE: No History of Uncontrolled Diabetes: No Urinary Catheter: No History of Decub. Ulcer: No History Surgical Site Infection Following: None - Disposition Have Diagnosis and Disposition been Completed?: Yes Diagnosis: Intractable abdominal pain Disposition: HOSPITALIZED Disposition Time: 21:42 Condition: GOOD
[2018-02-13] MEDS ORDERED: Sodium Chloride 0.9% 1,000 ML IV SCH (13:45)
[2018-02-13 14:16] LABS: ALB/GLOB RATIO 0.8 (1.1-1.8); BLOOD UREA NITROGEN 33 mg/dL (7-21); CALCIUM 9.7 mg/dL (8.4-10.5); GFR AFRICAN-AMERICAN > 60; GFR NON-AFRICAN AMERICAN > 60
[2018-02-13 14:17] LABS: ALT/SGPT 23 U/L (7-56); AST/SGOT 43 U/L (14-36); BASO # 0.02 K/mm3 (0.0-2.0); BASO % 0.2 % (0.0-3.0); EOS # 0.1 (0.0-0.7); EOS % 0.8 % (1.5-5.0); GRAN # 8.78 (1.4-6.5); GRAN % 86.9 % (50.0-68.0); HEMOGLOBIN 8.7 g/dL (12.0-16.0); LIPASE 32 U/L (23-300); LYMPH # 0.9 (1.2-3.4); LYMPH % 8.4 % (22.0-35.0); MEAN CELL VOLUME 74.1 fl (80.0-105.0); MEAN CORPUSCULAR HEMOGLOBIN 23.2 pg (25.0-35.0); MEAN CORPUSCULAR HGB CONC 31.3 g/dl (31.0-37.0); MEAN PLATELET VOLUME 8.8 fl (7.0-11.0); MONO # 0.4 (0.1-0.6); MONO % 3.7 % (1.0-6.0); RBC 3.75 10^6/uL (3.5-6.1); RED CELL DISTRIBUTION WIDTH 16.3 % (11.5-14.5); WHITE BLOOD COUNT 10.1 10^3/ul (4.5-11.0)
[2018-02-13] MEDS ORDERED: Iohexol 350 MG/100 ML VIAL ONE (14:29)
--- NOTE | 2018-02-13 15:13 | CT ---
PROCEDURE: CT Abdomen and Pelvis without intravenous contrast HISTORY: diffuse pain COMPARISON: None. TECHNIQUE: Technique. Contrast dose: Radiation dose: Total exam DLP = mGy-cm. This CT exam was performed using one or more of the following dose reduction techniques: Automated exposure control, adjustment of the mA and/or kV according to patient size, and/or use of iterative reconstruction technique. FINDINGS: LOWER THORAX: Unremarkable. LIVER: Unremarkable. No gross lesion or ductal dilatation. GALLBLADDER AND BILE DUCTS: Unremarkable. PANCREAS: Unremarkable. No gross lesion or ductal dilatation. SPLEEN: Unremarkable. ADRENALS: Unremarkable. No mass. KIDNEYS AND URETERS: 2.2 centimeter left lower pole renal cyst. . No hydronephrosis. No solid mass. VASCULATURE: Unremarkable. No aortic aneurysm. BOWEL: Unremarkable. No obstruction. No gross mural thickening. APPENDIX: Unremarkable. Normal appendix. PERITONEUM: Unremarkable. No free fluid. No free air. LYMPH NODES: Unremarkable. No enlarged lymph nodes. BLADDER: Unremarkable. REPRODUCTIVE: Unremarkable. BONES: Status post lumbar surgery. OTHER FINDINGS: Fat containing umbilical hernia. IMPRESSION: No acute pathology.
--- NOTE | 2018-02-13 16:45 | CP.PCM.HP ---
<Luis E Hooker - Last Filed: 02/13/18 17:40> History of Present Illness - History of Present Illness History of Present Illness: H&P IM progress note for Hospitalist Service CC: intractable abdominal pain, nausea, vomiting HPI: 58 year old female, whose past medical history includes chronic back pain s /p spinal fusion on Dilaudid, opiate dependence, chronic gastritis, gastroparesis, hypertension, anemia, questionable celiac disease, and GERD, who presents to the ED complaining of abdominal pain for 2 days. Patient admits to nausea, vomiting and diarrhea for the past 24 hours Report non-billious non- bloody vomit x 2 in the past 24 hours and watery to loose diarrhea. Patient reports previous C.difficile infection and chronic positive testing to toxin. Patient indicates poor oral intake both liquids and solids for the past 2 days. She denies headache, chest pain, shortness of breath, focal deficit, dizziness, trauma. Associated symptoms include weakness and fatigue. ED course: Patient given IV dilaudid 1 mg IVP with some resolution of pain, IVF , Ab/Pelvis CT showing stool, left lower pole of kidney with simple cyst 2.2 cm , and fat containing umbilical hernia. Patient vitals noted to be stable while in ED. 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 Angulo Present on Admission - Present on Admission Any Indicators Present on Admission: No Review of Systems - Review of Systems All systems: reviewed and no additional remarkable complaints except (as mentioned in HPI) Past Patient History - Infectious Disease Hx of Infectious Diseases: None - Tetanus Immunizations Tetanus Immunization: Unknown - Past Social History Smoking Status: Former Smoker Alcohol: None Drugs: Denies - CARDIAC Hx Cardiac Disorders: Yes Hx Heart Murmur: Yes Hx Hypertension: Yes - PULMONARY Hx Respiratory Disorders: No - NEUROLOGICAL Hx Neurological Disorder: No - HEENT Hx HEENT Problems: No - RENAL Hx Chronic Kidney Disease: No - ENDOCRINE/METABOLIC Hx Endocrine Disorders: No - HEMATOLOGICAL/ONCOLOGICAL Hx Blood Disorders: Yes Hx Anemia: Yes Other/Comment: hx blood transfusion - INTEGUMENTARY Hx Dermatological Problems: Yes - MUSCULOSKELETAL/RHEUMATOLOGICAL Hx Musculoskeletal Disorders: Yes (extremity weakness) Hx Arthritis: Yes Hx Degenerative Joint Disease: Yes Hx Falls: No Hx Herniated Disk: Yes Hx Unsteady Gait: Yes (uses cane sometime) Other/Comment: back pain. orthopedic surgery x2 - GASTROINTESTINAL Hx Gastrointestinal Disorders: Yes (gastritis,GASTROPARESIS) Hx Gall Bladder Disease: Yes Hx Gastroesophageal Reflux: Yes Other/Comment: portal htn hepatomegaly, hemorrhoids, pt denies fatty liver disease, celiac sensitivity - GENITOURINARY/GYNECOLOGICAL Hx Genitourinary Disorders: Yes Hx Urinary Tract Infection: Yes - PSYCHIATRIC Hx Psychophysiologic Disorder: No Hx Emotional Abuse: No Hx Physical Abuse: No Hx Substance Use: No - SURGICAL HISTORY Hx Cholecystectomy: Yes Hx Hysterectomy: Yes - ANESTHESIA Hx Anesthesia: Yes Hx Anesthesia Reactions: No Hx Malignant Hyperthermia: No Meds Allergies/Adverse Reactions: Allergies Allergy/AdvReac Type Severity Reaction Status Date / Time gluten AdvReac PAIN Verified 02/13/18 12:58 methylprednisolone AdvReac VOMITING Verified 02/13/18 12:58 Physical Exam - Constitutional Appears: Non-toxic - Head Exam Head Exam: ATRAUMATIC, NORMAL INSPECTION, NORMOCEPHALIC - Eye Exam Eye Exam: EOMI, PERRL - ENT Exam ENT Exam: Mucous Membranes Dry - Neck Exam Neck exam: Positive for: Full Rom - Respiratory Exam Respiratory Exam: Clear to Auscultation Bilateral, NORMAL BREATHING PATTERN - Cardiovascular Exam Cardiovascular Exam: REGULAR RHYTHM, +S1, +S2 - GI/Abdominal Exam GI & Abdominal Exam: Distended, Guarding, Normal Bowel Sounds, Soft, Tenderness (mid epigastric, as well as RUQ and LUQ). absent: Diminished Bowel Sounds, Pulsatile Mass, Rebound, Rigid - Extremities Exam Extremities exam: Positive for: normal capillary refill, pedal pulses present. Negative for: calf tenderness - Back Exam Back exam: paraspinal tenderness - Neurological Exam Neurological exam: Alert, Oriented x3 Additional comments: Motor and sensory grossly intact, patient ambulates with assistance of cane - Psychiatric Exam Psychiatric exam: Normal Affect, Normal Mood - Skin Skin Exam: Dry, Warm Results - Vital Signs Recent Vital Signs: Last Vital Signs Temp 98.2 F 02/13/18 12:20 Pulse 80 02/13/18 16:43 Resp 18 02/13/18 16:43 BP 127/89 02/13/18 16:43 Pulse Ox 98 02/13/18 16:43 - Labs Result Diagrams: 02/13/18 13:55 02/13/18 13:55 Labs: Laboratory Results - last 24 hr 02/13/18 02/13/18 13:55 13:55 WBC 10.1 D RBC 3.75 Hgb 8.7 L Hct 27.8 L MCV 74.1 L D MCH 23.2 L MCHC 31.3 RDW 16.3 H Plt Count 276 MPV 8.8 Gran % 86.9 H Lymph % (Auto) 8.4 L [place] % (Auto) 3.7 Eos % (Auto) 0.8 L Baso % (Auto) 0.2 Gran # 8.78 H Lymph # (Auto) 0.9 L [place] # (Auto) 0.4 Eos # (Auto) 0.1 Baso # (Auto) 0.02 Sodium 140 Potassium 4.2 Chloride 103 Carbon Dioxide 27 Anion Gap 14 BUN 33 H Creatinine 0.7 Est GFR ( Amer) > 60 Est GFR (Non-Af Amer) > 60 Random Glucose 103 Calcium 9.7 Total Bilirubin 0.3 AST 43 H D ALT 23 Alkaline Phosphatase 106 Total Protein 9.0 H Albumin 4.0 Globulin 5.0 Albumin/Globulin Ratio 0.8 L Lipase 32 Assessment & Plan - Assessment and Plan (Free Text) Assessment: 57 year old female, whose past medical history includes chronic back pain s/p spinal fusion on Dilaudid, opiate dependence, chronic gastritis, gastroparesis, hypertension, anemia, questionable celiac disease, and GERD, who presented to the ED complaining of abdominal pain for 2 days. Patient to be admitted for intractable nausea/vomiting and abdominal pain. Plan: 1. Chronic abdominal pain with nausea/vomiting and diarrhea - 2 day history of abdominal pain, afebrile, no leukocytosis - ab/pelvis CT: Signs of stool, no active disease - Fecal leukocytes, C. diff stool, stool culture - Reglan - Clear liquid diet advance as tolerated - Pain management with IV Dilaudid 1.5 mg Q4h - Gastroenterology consulted, appreciate recs 2. Chronic back pain - IV Dilaudid 1.5mg Q4H - Pt reports at home takes 1 tab 8mg dilaudid Q4H - Gabapentin 300mg Daily GI/ DVT ppx Protonix Lovenox Case and plan discussed with attending - Date & Time Date: 02/13/18 Time: 17:40 <Michele Spencer - Last Filed: 02/16/18 17:02> Results - Vital Signs Recent Vital Signs: Last Vital Signs Temp 98 F 02/15/18 06:00 Pulse 75 02/15/18 06:00 Resp 18 02/15/18 06:00 BP 107/67 02/15/18 06:00 Pulse Ox 99 02/15/18 06:00 - Labs Result Diagrams: 02/15/18 06:30 02/15/18 06:30 Attending/Attestation - Attestation I have personally seen and examined this patient.: Yes I have fully participated in the care of the patient.: Yes I have reviewed all pertinent clinical information: Yes Notes (Text): 02/16/18 17:00 Medical record note made by the resident after discussion with my direction and input after the patient was personally seen and examined by me. I have reviewed the chart and agree that the record accurately reflects by personal performance of the history, physical exam, data review, and medical decision-making, in the course for the patient. I have also personally directed the plan of care. 58 year old female with a PMH of chronic back pain, s/p spinal fusion on Dilaudid, chronic gastritis, gastroparesis, Anemia, and questionable Celiac Disease, chronic abdominal pain on high dose of dilauded follow with was admitted with worsening abdominal pain,Abdominal examination is benign, has constipation on CT scan, we will start patient on liquid diet, laxative, . We will get GI evaluation.,
[2018-02-13] MEDS ORDERED: HYDROmorphone 1 mg/ml ISec IVP PRN (16:46)
[2018-02-13] MEDS ORDERED: HYDROmorphone 0.5 mg/0.5 ml ISec IVP PRN (16:56)
[2018-02-13] MEDS: Sodium Chloride 0.9% 1,000 ML IV SCH (17:18)
[2018-02-13] MEDS: HYDROmorphone 0.5 mg/0.5 ml ISec IVP PRN (22:22)
[2018-02-14] MEDS: HYDROmorphone 0.5 mg/0.5 ml ISec IVP PRN ×8 (01:26→23:03)
[2018-02-14] MEDS: Sodium Chloride 0.9% 1,000 ML IV SCH ×2 (03:12→06:13)
[2018-02-14 07:01] LABS: BASO # 0.02 K/mm3 (0.0-2.0); BASO % 0.3 % (0.0-3.0); EOS # 0.3 (0.0-0.7); EOS % 3.9 % (1.5-5.0); GRAN # 4.82 (1.4-6.5); GRAN % 75.4 % (50.0-68.0); HEMOGLOBIN 8.1 g/dL (12.0-16.0); MEAN CELL VOLUME 74.9 fl (80.0-105.0); MEAN CORPUSCULAR HEMOGLOBIN 22.6 pg (25.0-35.0); MEAN CORPUSCULAR HGB CONC 30.1 g/dl (31.0-37.0); MEAN PLATELET VOLUME 8.7 fl (7.0-11.0); MONO # 0.3 (0.1-0.6); MONO % 4.4 % (1.0-6.0); RBC 3.59 10^6/uL (3.5-6.1); RED CELL DISTRIBUTION WIDTH 16.6 % (11.5-14.5); WHITE BLOOD COUNT 6.4 10^3/ul (4.5-11.0)
[2018-02-14 07:08] LABS: ALB/GLOB RATIO 0.7 (1.1-1.8); ALBUMIN 3.4 g/dL (3.0-4.8); ALT/SGPT 20 U/L (7-56); AST/SGOT 28 U/L (14-36); BLOOD UREA NITROGEN 19 mg/dL (7-21); CALCIUM 8.9 mg/dL (8.4-10.5); GFR AFRICAN-AMERICAN > 60; GFR NON-AFRICAN AMERICAN > 60
--- NOTE | 2018-02-14 07:23 | CP.PCM.PN ---
<Ammon Cordoba - Last Filed: 02/14/18 14:56> Subjective - Date & Time of Evaluation Date of Evaluation: 02/14/18 Time of Evaluation: 07:18 - Subjective Subjective: Medicine Progress Note Patient seen and examined at bedside this AM. Abdominal pain, significantly improved. Distention as decreased. BM x3 after suppository. Denies chest pain, shortness of breath, nausea, vomiting, diarrhea. Objective - Vital Signs/Intake and Output Vital Signs (last 24 hours): Temp Pulse Resp BP Pulse Ox 97.9 F 75 18 112/74 99 02/13/18 22:46 02/13/18 22:46 02/13/18 22:46 02/13/18 22:46 02/13/18 22:46 Intake and Output: 02/14/18 02/14/18 06:59 18:59 Intake Total 0 Balance 0 - Medications Medications: Current Medications Hydromorphone HCl (Dilaudid) 3 mg IVP Q3H PRN PRN Reason: Pain, severe (8-10) Last Admin: 02/14/18 04:25 Dose: 3 mg Sodium Chloride (Sodium Chloride 0.9%) 1,000 mls @ 150 mls/hr IV .Q6H40M [facility] Last Admin: 02/14/18 06:13 Dose: 150 mls/hr Metoclopramide HCl (Reglan) 10 mg IVP ACHS [facility] Last Admin: 02/13/18 21:38 Dose: 10 mg Pantoprazole Sodium (Protonix Inj) 40 mg IVP DAILY [facility] - Labs Labs: 02/14/18 06:47 02/14/18 06:47 - Constitutional Appears: Non-toxic, No Acute Distress - Head Exam Head Exam: ATRAUMATIC - Eye Exam Eye Exam: EOMI. absent: Scleral icterus - ENT Exam ENT Exam: Mucous Membranes Moist - Respiratory Exam Respiratory Exam: NORMAL BREATHING PATTERN. absent: Accessory Muscle Use, Respiratory Distress - Cardiovascular Exam Cardiovascular Exam: +S1, +S2. absent: Bradycardia, Tachycardia - GI/Abdominal Exam GI & Abdominal Exam: Distended, Soft. absent: Firm, Guarding, Rigid, Tenderness - Neurological Exam Neurological Exam: Alert, Awake, Oriented x3 - Skin Skin Exam: Intact, Warm Assessment and Plan - Assessment and Plan (Free Text) Assessment: 57F pmhx of chronic back pain s/p spianl fusion, current on dilaudid, opiate dependence, chronic gastritis, gastroparesis, HTN, anema, GERD, ? celiac, admitted for severe abdominal pain w/ associated nasuea & vomiting for [address] of ABD&Pelvis shows no acute pathology. Rectum distended with stool Plan: Chronic abdominal pain with nausea/vomiting and diarrhea - 2 day history of abdominal pain, afebrile, no leukocytosis - ab/pelvis CT: Signs of stool, no active disease - Fecal leukocytes, C. diff stool, stool culture - Reglan - advance to gluten free diet - Pain management with IV Dilaudid 1.5 mg Q4h - Gastroenterology consulted, all appreciate recs - Relistor x1 - dulcolax suppository; large BM after administration Chronic back pain - IV Dilaudid 1.5mg Q4H - Pt reports at home takes 1 tab 8mg dilaudid Q4H - Gabapentin 300mg Daily PPX: Protonix Lovenox <Michele Spencer - Last Filed: 02/16/18 17:03> Objective - Vital Signs/Intake and Output Vital Signs (last 24 hours): Temp Pulse Resp BP Pulse Ox 98 F 75 18 107/67 99 02/15/18 06:00 02/15/18 06:00 02/15/18 06:00 02/15/18 06:00 02/15/18 06:00 - Labs Labs: 02/15/18 06:30 02/15/18 06:30 Attending/Attestation - Attestation I have personally seen and examined this patient.: Yes I have fully participated in the care of the patient.: Yes I have reviewed all pertinent clinical information, including history, physical exam and plan: Yes Notes (Text): 02/16/18 17:03 Medical record note made by the resident after discussion with my direction and input after the patient was personally seen and examined by me. I have reviewed the chart and agree that the record accurately reflects by personal performance of the history, physical exam, data review, and medical decision-making, in the course for the patient. I have also personally directed the plan of care.
--- NOTE | 2018-02-14 10:01 | CP.PCM.DIS ---
Provider - Provider Date of Admission: 02/13/18 18:11 Attending physician: Michele Spencer MD Primary care physician: Landen Angulo MD Time Spent in preparation of Discharge (in minutes): 45 Hospital Course - Lab Results Lab Results: Most Recent Lab Values WBC 6.4 10^3/ul (4.5-11.0) D 02/14/18 06:47 RBC 3.59 10^6/uL (3.5-6.1) 02/14/18 06:47 Hgb 8.1 g/dL (12.0-16.0) L 02/14/18 06:47 Hct 26.9 % (36.0-48.0) L 02/14/18 06:47 MCV 74.9 fl (80.0-105.0) L 02/14/18 06:47 MCH 22.6 pg (25.0-35.0) L 02/14/18 06:47 MCHC 30.1 g/dl (31.0-37.0) L 02/14/18 06:47 RDW 16.6 % (11.5-14.5) H 02/14/18 06:47 Plt Count 227 10^3/uL (120.0-450.0) 02/14/18 06:47 MPV 8.7 fl (7.0-11.0) 02/14/18 06:47 Gran % 75.4 % (50.0-68.0) H 02/14/18 06:47 Lymph % (Auto) 16.0 % (22.0-35.0) L 02/14/18 06:47 [place] % (Auto) 4.4 % (1.0-6.0) 02/14/18 06:47 Eos % (Auto) 3.9 % (1.5-5.0) 02/14/18 06:47 Baso % (Auto) 0.3 % (0.0-3.0) 02/14/18 06:47 Gran # 4.82 (1.4-6.5) 02/14/18 06:47 Lymph # (Auto) 1.0 (1.2-3.4) L 02/14/18 06:47 [place] # (Auto) 0.3 (0.1-0.6) 02/14/18 06:47 Eos # (Auto) 0.3 (0.0-0.7) 02/14/18 06:47 Baso # (Auto) 0.02 K/mm3 (0.0-2.0) 02/14/18 06:47 Sodium 142 mmol/L (132-148) 02/14/18 06:47 Potassium 4.3 mmol/L (3.6-5.0) 02/14/18 06:47 Chloride 106 mmol/L (98-107) 02/14/18 06:47 Carbon Dioxide 27 mmol/L (21-33) 02/14/18 06:47 Anion Gap 14 (10-20) 02/14/18 06:47 BUN 19 mg/dL (7-21) 02/14/18 06:47 Creatinine 0.7 mg/dl (0.7-1.2) 02/14/18 06:47 Est GFR ( Amer) > 60 02/14/18 06:47 Est GFR (Non-Af Amer) > 60 02/14/18 06:47 Random Glucose 99 mg/dL (70-110) 02/14/18 06:47 Calcium 8.9 mg/dL (8.4-10.5) 02/14/18 06:47 Total Bilirubin 0.3 mg/dL (0.2-1.3) 02/14/18 06:47 AST 28 U/L (14-36) 02/14/18 06:47 ALT 20 U/L (7-56) 02/14/18 06:47 Alkaline Phosphatase 87 U/L (38-126) 02/14/18 06:47 Total Protein 8.1 g/dL (5.8-8.3) 02/14/18 06:47 Albumin 3.4 g/dL (3.0-4.8) 02/14/18 06:47 Globulin 4.6 gm/dL 02/14/18 06:47 Albumin/Globulin Ratio 0.7 (1.1-1.8) L 02/14/18 06:47 Lipase 32 U/L (23-300) 02/13/18 13:55 - Hospital Course Hospital Course: 58 year old female, whose past medical history includes chronic back pain s/p spinal fusion on Dilaudid, opiate dependence, chronic gastritis, gastroparesis, hypertension, anemia, questionable celiac disease, and GERD, who presents to the ED complaining of abdominal pain for 2 days. Patient admits to nausea, vomiting and diarrhea for the past 24 hours Report non-billious non-bloody vomit x 2 in the past 24 hours and watery to loose diarrhea. Patient reports previous C.difficile infection and chronic positive testing to toxin. Patient indicates poor oral intake both liquids and solids for the past 2 days. During hospital course patient received CT scan of ABD and pelvis which showed now active pathologic diseases. Rectum is dilated with stool. Patient was started on bowel regiment and given dulcolax AL. Gastroenterology was consulted. As this this an ongoing disease process recommend follow up as an outpatient for colonoscopy. Discharge Exam - Head Exam Head Exam: ATRAUMATIC, NORMAL INSPECTION, NORMOCEPHALIC - Eye Exam Eye Exam: EOMI. absent: Scleral icterus - ENT Exam ENT Exam: Mucous Membranes Moist - Respiratory Exam Respiratory Exam: NORMAL BREATHING PATTERN. absent: Accessory Muscle Use, Respiratory Distress - Cardiovascular Exam Cardiovascular Exam: +S1, +S2. absent: Bradycardia, Tachycardia - GI/Abdominal Exam GI & Abdominal Exam: Distended, Soft. absent: Rigid, Tenderness - Extremities Exam Extremities exam: normal inspection - Neurological Exam Neurological exam: Alert, Oriented x3 - Skin Skin Exam: Intact, Warm Discharge Plan - Follow Up Plan Condition: GOOD Disposition: HOME/ ROUTINE Referrals: Landen Angulo MD [Primary Care Provider] - Corrie Thao MD [Medical Doctor] -
[2018-02-14] MEDS: POLYETHYLENE GLYCOL 3350 17 GM/Dose PACKET PO SCH (10:47)
--- NOTE | 2018-02-14 11:14 | CP.PCM.CON ---
<Lea Mahmood - Last Filed: 02/14/18 14:59> History of Present Illness - History of Present Illness History of Present Illness: Seen and examined at bedside, chart reviewed. Request for GI consult is for N/V/D HPI: This is a 58 year old female with a PMH of chronic back pain, s/p spinal fusion on Dilaudid, chronic gastritis, gastroparesis, Anemia, and questionable Celiac Disease, and hypertension came to the ER for complaints of abdominal pain for the past 2 days as well as nausea,vomiting, and bloating. Patient states that she did not have a BM for two days and when this occurs she start Reglan and takes suppositories. She was at work when she vomited, no hematemesis. She does c/o of bloating which is better today, no BM since admission, she complained of diarrhea, no reports of bleeding. She did have recent antibiotics for presumed cellulites on her left foot which is now appears to resolve, she completed Augmentin last week. On admission she had ct scan A&P with IV contrast that was negative for acute findings in the bowel but stool in rectum, see full report. Noted to have fat containing hernia. Patient on Gluten free diet, does not have big appetite, takes Ensure supplements, no weight loss, occasional acid reflux, and takes TUMS prn. PMH: HTN, heart murmur, chronic gastritis, hepatic steatosis, GERD, narcotic gastroparesis, celiac's disease as per patient, labs and BX negative, anemia, and chronic back pain, SHX: Cholecystectomy, Multiple Back Surgeries including spinal fusion, hysterectomy, bladder sling, ant and post rectal repair, EGD 05/2016 found to have a normal duodenal , ? gastroparesis, and monilial esophagitis Social history: Former smoker, drinks alcohol socially denies any recreational drugs Allergies: Coumadin and methylprednisolone, and Gluten Medications: reviewed as per OCT FHX: noncontributory at this time ROS: systems systems reviewed with positive finding see HPI Past Patient History - Infectious Disease Hx of Infectious Diseases: None - Tetanus Immunizations Tetanus Immunization: Unknown - Past Social History Smoking Status: Former Smoker - CARDIAC Hx Cardiac Disorders: Yes Hx Heart Murmur: Yes Hx Hypertension: Yes - PULMONARY Hx Respiratory Disorders: No - NEUROLOGICAL Hx Neurological Disorder: No - HEENT Hx HEENT Problems: No - RENAL Hx Chronic Kidney Disease: No - ENDOCRINE/METABOLIC Hx Endocrine Disorders: No - HEMATOLOGICAL/ONCOLOGICAL Hx Blood Disorders: Yes Hx Anemia: Yes Other/Comment: hx blood transfusion - INTEGUMENTARY Hx Dermatological Problems: Yes - MUSCULOSKELETAL/RHEUMATOLOGICAL Hx Musculoskeletal Disorders: Yes (extremity weakness) Hx Arthritis: Yes Hx Degenerative Joint Disease: Yes Hx Falls: No Hx Herniated Disk: Yes Hx Unsteady Gait: Yes (uses cane sometime) Other/Comment: back pain. orthopedic surgery x2 - GASTROINTESTINAL Hx Gastrointestinal Disorders: Yes (gastritis,GASTROPARESIS) Hx Gall Bladder Disease: Yes Hx Gastroesophageal Reflux: Yes Other/Comment: portal htn hepatomegaly, hemorrhoids, pt denies fatty liver disease, celiac sensitivity - GENITOURINARY/GYNECOLOGICAL Hx Genitourinary Disorders: Yes Hx Urinary Tract Infection: Yes - PSYCHIATRIC Hx Psychophysiologic Disorder: No Hx Emotional Abuse: No Hx Physical Abuse: No Hx Substance Use: No - SURGICAL HISTORY Hx Cholecystectomy: Yes Hx Hysterectomy: Yes - ANESTHESIA Hx Anesthesia: Yes Hx Anesthesia Reactions: No Hx Malignant Hyperthermia: No Meds Allergies/Adverse Reactions: Allergies Allergy/AdvReac Type Severity Reaction Status Date / Time gluten AdvReac PAIN Verified 02/13/18 12:58 methylprednisolone AdvReac VOMITING Verified 02/13/18 12:58 - Medications Medications: Current Medications Gabapentin (Neurontin) 300 mg PO DAILY [place] PRN Reason: Protocol Hydromorphone HCl (Dilaudid) 3 mg IVP Q3H PRN PRN Reason: Pain, severe (8-10) Last Admin: 02/14/18 07:43 Dose: 3 mg Sodium Chloride (Sodium Chloride 0.9%) 1,000 mls @ 150 mls/hr IV .Q6H40M [place] Last Admin: 02/14/18 06:13 Dose: 150 mls/hr Losartan Potassium (Cozaar) 50 mg PO DAILY [place] Metoclopramide HCl (Reglan) 10 mg IVP ACHS [facility] Last Admin: 02/14/18 07:42 Dose: 10 mg Pantoprazole Sodium (Protonix Inj) 40 mg IVP DAILY [facility] Polyethylene Glycol (Miralax) 17 gm PO BID [facility] Physical Exam - Constitutional Appears: No Acute Distress - Head Exam Head Exam: NORMOCEPHALIC - Eye Exam Eye Exam: Normal appearance. absent: Scleral icterus - ENT Exam ENT Exam: Mucous Membranes Moist - Neck Exam Neck exam: Positive for: Normal Inspection - Respiratory Exam Respiratory Exam: NORMAL BREATHING PATTERN. absent: Respiratory Distress - Cardiovascular Exam Cardiovascular Exam: +S1, +S2 - GI/Abdominal Exam GI & Abdominal Exam: Normal Bowel Sounds, Soft, Tenderness (epigastric but diffuse). absent: Guarding, Rebound - Extremities Exam Extremities exam: Positive for: pedal pulses present. Negative for: calf tenderness, pedal edema - Neurological Exam Neurological exam: Alert, Oriented x3 - Skin Skin Exam: Dry, Warm Results - Vital Signs Recent Vital Signs: Last Vital Signs Temp 98 F 02/14/18 06:00 Pulse 72 02/14/18 06:00 Resp 20 02/14/18 06:00 BP 104/68 02/14/18 06:00 Pulse Ox 100 02/14/18 06:00 - Labs Result Diagrams: 02/14/18 06:47 02/14/18 06:47 Labs: Laboratory Results - last 24 hr 02/14/18 02/14/18 06:47 06:47 WBC 6.4 D RBC 3.59 Hgb 8.1 L Hct 26.9 L MCV 74.9 L MCH 22.6 L MCHC 30.1 L RDW 16.6 H Plt Count 227 MPV 8.7 Gran % 75.4 H Lymph % (Auto) 16.0 L [place] % (Auto) 4.4 Eos % (Auto) 3.9 Baso % (Auto) 0.3 Gran # 4.82 Lymph # (Auto) 1.0 L [place] # (Auto) 0.3 Eos # (Auto) 0.3 Baso # (Auto) 0.02 Sodium 142 Potassium 4.3 Chloride 106 Carbon Dioxide 27 Anion Gap 14 BUN 19 Creatinine 0.7 Est GFR ( Amer) > 60 Est GFR (Non-Af Amer) > 60 Random Glucose 99 Calcium 8.9 Total Bilirubin 0.3 AST 28 ALT 20 Alkaline Phosphatase 87 Total Protein 8.1 Albumin 3.4 Globulin 4.6 Albumin/Globulin Ratio 0.7 L Assessment & Plan - Assessment and Plan (Free Text) Assessment: ASSESSMENT: Abdominal Pain Diarrhea, r/o Cdiff h/o antibiotcs use Constipation Chronic Back pain Celiac Disease Gastropatesis GERD Chronic Anemia PLAN: consider start clear liquid diet and advance as tolerated, gluten free PPI on Miralax pain mgt. continue PPI stool cdiff on Reglan, recommend short courses, extraprymidial effects monitor H/H Thank you for this consult and for allowing us to participate in your patient care, further recommendation based upon clinical course. Seen and examined with Dr. Thao. <Corrie Thao V - Last Filed: 02/14/18 23:37> Meds - Medications Medications: Current Medications Gabapentin (Neurontin) 300 mg PO DAILY [place] PRN Reason: Protocol Last Admin: 02/14/18 10:46 Dose: 300 mg Hydromorphone HCl (Dilaudid) 3 mg IVP Q3H PRN PRN Reason: Pain, severe (8-10) Last Admin: 02/14/18 23:03 Dose: 3 mg Sodium Chloride (Sodium Chloride 0.9%) 1,000 mls @ 150 mls/hr IV .Q6H40M [facility] Last Admin: 02/14/18 06:13 Dose: 150 mls/hr Losartan Potassium (Cozaar) 50 mg PO DAILY [facility] Last Admin: 02/14/18 10:46 Dose: 50 mg Metoclopramide HCl (Reglan) 10 mg IVP ACHS [facility] Last Admin: 02/14/18 21:56 Dose: 10 mg Pantoprazole Sodium (Protonix Inj) 40 mg IVP DAILY [facility] Last Admin: 02/14/18 10:46 Dose: 40 mg Polyethylene Glycol (Miralax) 17 gm PO BID [facility] Last Admin: 02/14/18 10:47 Dose: 17 gm Results - Vital Signs Recent Vital Signs: Last Vital Signs Temp 98.2 F 02/14/18 14:00 Pulse 75 02/14/18 14:00 Resp 20 02/14/18 14:00 BP 121/84 02/14/18 14:00 Pulse Ox 99 02/14/18 14:00 - Labs Result Diagrams: 02/14/18 06:47 02/14/18 06:47 Labs: Laboratory Results - last 24 hr 02/14/18 02/14/18 06:47 06:47 WBC 6.4 D RBC 3.59 Hgb 8.1 L Hct 26.9 L MCV 74.9 L MCH 22.6 L MCHC 30.1 L RDW 16.6 H Plt Count 227 MPV 8.7 Gran % 75.4 H Lymph % (Auto) 16.0 L [place] % (Auto) 4.4 Eos % (Auto) 3.9 Baso % (Auto) 0.3 Gran # 4.82 Lymph # (Auto) 1.0 L [place] # (Auto) 0.3 Eos # (Auto) 0.3 Baso # (Auto) 0.02 Sodium 142 Potassium 4.3 Chloride 106 Carbon Dioxide 27 Anion Gap 14 BUN 19 Creatinine 0.7 Est GFR ( Amer) > 60 Est GFR (Non-Af Amer) > 60 Random Glucose 99 Calcium 8.9 Total Bilirubin 0.3 AST 28 ALT 20 Alkaline Phosphatase 87 Total Protein 8.1 Albumin 3.4 Globulin 4.6 Albumin/Globulin Ratio 0.7 L Attending/Attestation - Attestation I have personally seen and examined this patient.: Yes I have fully participated in the care of the patient.: Yes I have reviewed all pertinent clinical information: Yes Notes (Text): This is an addendum to GI consult report dictated by the Copywriting Intern.The patient was seen and examined earlier. Medical records, lab studies, imagings were reviewed. Last 24 hours events reviewed. Agreed with the above treatment plan as outlined in Copywriting Intern 's notes the with the addition of the following 02/14/18 23:37
[2018-02-15] MEDS: Sodium Chloride 0.9% 1,000 ML IV SCH ×2 (00:07→01:57)
[2018-02-15] MEDS: HYDROmorphone 0.5 mg/0.5 ml ISec IVP PRN ×4 (02:13→11:16)
[2018-02-15 06:58] LABS: BASO # 0.03 K/mm3 (0.0-2.0); BASO % 0.4 % (0.0-3.0); EOS # 0.3 (0.0-0.7); EOS % 3.8 % (1.5-5.0); GRAN # 5.96 (1.4-6.5); GRAN % 74.9 % (50.0-68.0); HEMOGLOBIN 8.3 g/dL (12.0-16.0); LYMPH # 1.3 (1.2-3.4); MEAN CELL VOLUME 74.9 fl (80.0-105.0); MEAN CORPUSCULAR HEMOGLOBIN 22.4 pg (25.0-35.0); MEAN CORPUSCULAR HGB CONC 29.9 g/dl (31.0-37.0); MEAN PLATELET VOLUME 8.8 fl (7.0-11.0); MONO # 0.4 (0.1-0.6); MONO % 4.9 % (1.0-6.0); RBC 3.71 10^6/uL (3.5-6.1); RED CELL DISTRIBUTION WIDTH 16.4 % (11.5-14.5)
[2018-02-15 07:20] LABS: ALB/GLOB RATIO 0.7 (1.1-1.8); ALBUMIN 3.4 g/dL (3.0-4.8); ALT/SGPT 20 U/L (7-56); AST/SGOT 39 U/L (14-36); BLOOD UREA NITROGEN 16 mg/dL (7-21); CALCIUM 9.3 mg/dL (8.4-10.5); GFR AFRICAN-AMERICAN > 60; GFR NON-AFRICAN AMERICAN > 60
[2018-02-15 08:16] VITALS: BP 107/67; PULSE 75; RESP 18; TEMP 98; O2SAT 99
[2018-02-15] MEDS: POLYETHYLENE GLYCOL 3350 17 GM/Dose PACKET PO SCH (10:20)
--- NOTE | 2018-02-15 10:59 | CP.PCM.PN ---
Subjective - Date & Time of Evaluation Date of Evaluation: 02/15/18 Time of Evaluation: 09:25 - Subjective Subjective: S&E at bedside, chart reviewed. Reports feeling much better. Had 2 large BM, no bleeding and tolerating oral intake. No N/V, abdominal bloating better as well as abdominal pain. No new complaints. Objective - Vital Signs/Intake and Output Vital Signs (last 24 hours): Temp Pulse Resp BP Pulse Ox 98 F 75 18 107/67 99 02/15/18 06:00 02/15/18 06:00 02/15/18 06:00 02/15/18 06:00 02/15/18 06:00 Intake and Output: 02/15/18 02/15/18 06:59 18:59 Intake Total 720 720 Balance 720 720 - Medications Medications: Current Medications Gabapentin (Neurontin) 300 mg PO DAILY [facility] PRN Reason: Protocol Last Admin: 02/15/18 10:20 Dose: 300 mg Hydromorphone HCl (Dilaudid) 3 mg IVP Q3H PRN PRN Reason: Pain, severe (8-10) Last Admin: 02/15/18 08:17 Dose: 3 mg Sodium Chloride (Sodium Chloride 0.9%) 1,000 mls @ 150 mls/hr IV .Q6H40M [facility] Last Admin: 02/15/18 01:57 Dose: Not Given Losartan Potassium (Cozaar) 50 mg PO DAILY [facility] Last Admin: 02/15/18 10:20 Dose: 50 mg Metoclopramide HCl (Reglan) 10 mg IVP ACHS [facility] Last Admin: 02/15/18 08:17 Dose: 10 mg Pantoprazole Sodium (Protonix Inj) 40 mg IVP DAILY [facility] Last Admin: 02/15/18 10:20 Dose: 40 mg Polyethylene Glycol (Miralax) 17 gm PO BID [facility] Last Admin: 02/15/18 10:20 Dose: 17 gm - Labs Labs: 02/15/18 06:30 02/15/18 06:30 - Constitutional Appears: No Acute Distress - Head Exam Head Exam: NORMOCEPHALIC - Eye Exam Eye Exam: Normal appearance. absent: Scleral icterus - ENT Exam ENT Exam: Mucous Membranes Moist - Neck Exam Neck Exam: Normal Inspection - Respiratory Exam Respiratory Exam: NORMAL BREATHING PATTERN. absent: Respiratory Distress - Cardiovascular Exam Cardiovascular Exam: +S1, +S2 - GI/Abdominal Exam GI & Abdominal Exam: Soft, Normal Bowel Sounds. absent: Guarding, Tenderness, Organomegaly, Rebound - Extremities Exam Extremities Exam: Normal Capillary Refill. absent: Calf Tenderness, Pedal Edema - Neurological Exam Neurological Exam: Alert, Awake, Oriented x3 - Skin Skin Exam: Dry, Warm Assessment and Plan - Assessment and Plan (Free Text) Assessment: ASSESSMENT: Abdominal Pain, improved Resolved Diarrhea, r/o Cdiff h/o antibiotics use Resolved Constipation Chronic Back pain Celiac Disease Gastropatesis GERD Chronic Anemia PLAN: continue gluten free PPI on Miralax pain mgt. continue PPI stool cdiff on Reglan, recommend short courses,tardive dyskinesia monitor H/H Seen and examined with Dr. Thao.
--- NOTE | 2018-02-15 11:33 | CP.PCM.DIS ---
<Luis E Hooker - Last Filed: 02/15/18 13:07> Provider - Provider Date of Admission: 02/13/18 18:11 Attending physician: Michele Spencer MD Primary care physician: Landen Angulo MD Consults: GI: Dr. Thao Time Spent in preparation of Discharge (in minutes): 40 Diagnosis - Discharge Diagnosis (1) Intractable abdominal pain Status: Resolved Priority: High (2) Celiac disease/sprue Status: Chronic (3) Dehydration Status: Acute (4) Opiate dependence Status: Chronic Hospital Course - Lab Results Lab Results: Most Recent Lab Values WBC 8.0 10^3/ul (4.5-11.0) D 02/15/18 06:30 RBC 3.71 10^6/uL (3.5-6.1) 02/15/18 06:30 Hgb 8.3 g/dL (12.0-16.0) L 02/15/18 06:30 Hct 27.8 % (36.0-48.0) L 02/15/18 06:30 MCV 74.9 fl (80.0-105.0) L 02/15/18 06:30 MCH 22.4 pg (25.0-35.0) L 02/15/18 06:30 MCHC 29.9 g/dl (31.0-37.0) L 02/15/18 06:30 RDW 16.4 % (11.5-14.5) H 02/15/18 06:30 Plt Count 239 10^3/uL (120.0-450.0) 02/15/18 06:30 MPV 8.8 fl (7.0-11.0) 02/15/18 06:30 Gran % 74.9 % (50.0-68.0) H 02/15/18 06:30 Lymph % (Auto) 16.0 % (22.0-35.0) L 02/15/18 06:30 [place] % (Auto) 4.9 % (1.0-6.0) 02/15/18 06:30 Eos % (Auto) 3.8 % (1.5-5.0) 02/15/18 06:30 Baso % (Auto) 0.4 % (0.0-3.0) 02/15/18 06:30 Gran # 5.96 (1.4-6.5) 02/15/18 06:30 Lymph # (Auto) 1.3 (1.2-3.4) 02/15/18 06:30 [place] # (Auto) 0.4 (0.1-0.6) 02/15/18 06:30 Eos # (Auto) 0.3 (0.0-0.7) 02/15/18 06:30 Baso # (Auto) 0.03 K/mm3 (0.0-2.0) 02/15/18 06:30 Sodium 143 mmol/L (132-148) 02/15/18 06:30 Potassium 4.9 mmol/L (3.6-5.0) 02/15/18 06:30 Chloride 106 mmol/L (98-107) 02/15/18 06:30 Carbon Dioxide 26 mmol/L (21-33) 02/15/18 06:30 Anion Gap 15 (10-20) 02/15/18 06:30 BUN 16 mg/dL (7-21) 02/15/18 06:30 Creatinine 0.8 mg/dl (0.7-1.2) 02/15/18 06:30 Est GFR ( Amer) > 60 02/15/18 06:30 Est GFR (Non-Af Amer) > 60 02/15/18 06:30 Random Glucose 103 mg/dL (70-110) 02/15/18 06:30 Calcium 9.3 mg/dL (8.4-10.5) 02/15/18 06:30 Total Bilirubin 0.3 mg/dL (0.2-1.3) 02/15/18 06:30 AST 39 U/L (14-36) H D 02/15/18 06:30 ALT 20 U/L (7-56) 02/15/18 06:30 Alkaline Phosphatase 87 U/L (38-126) 02/15/18 06:30 Total Protein 7.9 g/dL (5.8-8.3) 02/15/18 06:30 Albumin 3.4 g/dL (3.0-4.8) 02/15/18 06:30 Globulin 4.5 gm/dL 02/15/18 06:30 Albumin/Globulin Ratio 0.7 (1.1-1.8) L 02/15/18 06:30 Lipase 32 U/L (23-300) 02/13/18 13:55 - Hospital Course Hospital Course: 58 year old female, whose past medical history includes chronic back pain s/p spinal fusion on Dilaudid, opiate dependence, chronic gastritis, gastroparesis, hypertension, anemia, questionable celiac disease, and GERD, who presented to the ED complaining of abdominal pain for 2 days. Patient was evaluate din ED with abdominal pelvis CT which showed no acute pathology but significant amounts of stool. Patient was placed on IV fluids, given IV anti-nausea medication, and placed on clear liquid diet as tolerated. Patient was placed on increased dose of IV narcotic medication for control of pain symptoms. GI was consulted and evalauted the patient with recommendations for short course of reglan, continue miralax. Patient was given colace suppository with successful bowel movements. Patient reported improved distention of abdomen as well as discomfort after bowel movements. Discharge planning including outpatient follow up, medication reconciliation and symptoms to monitor or be aware of were discussed with patient. Patient was in understanding, agreeable and able to comprehend instructions. For full details please see full chart. - Date & Time of H&P Date of H&P: 02/13/18 Time of H&P: 16:45 Discharge Exam - Head Exam Head Exam: ATRAUMATIC, NORMAL INSPECTION, NORMOCEPHALIC - Eye Exam Eye Exam: EOMI Pupil Exam: PERRL - Neck Exam Neck exam: Full Rom - Respiratory Exam Respiratory Exam: Clear to PA & Lateral, UNREMARKABLE - Cardiovascular Exam Cardiovascular Exam: REGULAR RHYTHM, +S1, +S2 - GI/Abdominal Exam GI & Abdominal Exam: Normal Bowel Sounds, Soft. absent: Tenderness - Extremities Exam Extremities exam: normal capillary refill, pedal pulses present - Neurological Exam Neurological exam: Alert, CN II-XII Intact, Normal Gait, Oriented x3 - Psychiatric Exam Psychiatric exam: Normal Affect, Normal Mood - Skin Skin Exam: Dry, Warm Discharge Plan - Follow Up Plan Condition: GOOD Disposition: HOME/ ROUTINE Instructions: Fecal Impaction, Constipation, Adult (DC), Acute Abdomen (Belly Pain), Adult (DC), Chronic Pain, Preventing Falls Additional Instructions: Follow up with Dr. Thao GI doctor after follow up visit. recommend daily colace while on opiate medications for back pain. Follow up with Pain management physician as an outpatient Referrals: Landen Angulo MD [Primary Care Provider] - Corrie Thao MD [Medical Doctor] - <Allan Burgos - Last Filed: 02/15/18 13:53> Provider - Provider Date of Admission: 02/13/18 18:11 Attending physician: Michele Spencer MD Primary care physician: Landen Angulo MD Hospital Course - Lab Results Lab Results: Most Recent Lab Values WBC 8.0 10^3/ul (4.5-11.0) D 02/15/18 06:30 RBC 3.71 10^6/uL (3.5-6.1) 02/15/18 06:30 Hgb 8.3 g/dL (12.0-16.0) L 02/15/18 06:30 Hct 27.8 % (36.0-48.0) L 02/15/18 06:30 MCV 74.9 fl (80.0-105.0) L 02/15/18 06:30 MCH 22.4 pg (25.0-35.0) L 02/15/18 06:30 MCHC 29.9 g/dl (31.0-37.0) L 02/15/18 06:30 RDW 16.4 % (11.5-14.5) H 02/15/18 06:30 Plt Count 239 10^3/uL (120.0-450.0) 02/15/18 06:30 MPV 8.8 fl (7.0-11.0) 02/15/18 06:30 Gran % 74.9 % (50.0-68.0) H 02/15/18 06:30 Lymph % (Auto) 16.0 % (22.0-35.0) L 02/15/18 06:30 [place] % (Auto) 4.9 % (1.0-6.0) 02/15/18 06:30 Eos % (Auto) 3.8 % (1.5-5.0) 02/15/18 06:30 Baso % (Auto) 0.4 % (0.0-3.0) 02/15/18 06:30 Gran # 5.96 (1.4-6.5) 02/15/18 06:30 Lymph # (Auto) 1.3 (1.2-3.4) 02/15/18 06:30 [place] # (Auto) 0.4 (0.1-0.6) 02/15/18 06:30 Eos # (Auto) 0.3 (0.0-0.7) 02/15/18 06:30 Baso # (Auto) 0.03 K/mm3 (0.0-2.0) 02/15/18 06:30 Sodium 143 mmol/L (132-148) 02/15/18 06:30 Potassium 4.9 mmol/L (3.6-5.0) 02/15/18 06:30 Chloride 106 mmol/L (98-107) 02/15/18 06:30 Carbon Dioxide 26 mmol/L (21-33) 02/15/18 06:30 Anion Gap 15 (10-20) 02/15/18 06:30 BUN 16 mg/dL (7-21) 02/15/18 06:30 Creatinine 0.8 mg/dl (0.7-1.2) 02/15/18 06:30 Est GFR ( Amer) > 60 02/15/18 06:30 Est GFR (Non-Af Amer) > 60 02/15/18 06:30 Random Glucose 103 mg/dL (70-110) 02/15/18 06:30 Calcium 9.3 mg/dL (8.4-10.5) 02/15/18 06:30 Total Bilirubin 0.3 mg/dL (0.2-1.3) 02/15/18 06:30 AST 39 U/L (14-36) H D 02/15/18 06:30 ALT 20 U/L (7-56) 02/15/18 06:30 Alkaline Phosphatase 87 U/L (38-126) 02/15/18 06:30 Total Protein 7.9 g/dL (5.8-8.3) 02/15/18 06:30 Albumin 3.4 g/dL (3.0-4.8) 02/15/18 06:30 Globulin 4.5 gm/dL 02/15/18 06:30 Albumin/Globulin Ratio 0.7 (1.1-1.8) L 02/15/18 06:30 Lipase 32 U/L (23-300) 02/13/18 13:55 Attending/Attestation - Attestation I have personally seen and examined this patient.: Yes I have fully participated in the care of the patient.: Yes I have reviewed all pertinent clinical information, including history, physical exam and plan: Yes Notes (Text): 02/15/18 13:49 58 year old female with past medical history of chronic back pain s/p spinal fusion on dilaudid, opiate dependence, gastroparesis, and hypertension who presented with complaint of abdominal pain, nausea and vomiting. CT abd/pelvis showed no acute findings except stool. She was started on iv fluids and antiemetics. Her diet was advanced as tolerated. She was seen by GI. She was given reglan, miralax and relistor. Her abdominal symptoms improved and she was having bowel movements. Patient is discharged home to follow up with her pmd. Follow up with GI and pain management. Allan Burgos MD Hospitalist.
[2018-02-16] MEDS ORDERED: Pantoprazole 40 mg EC Tab PO SCH (07:30)
== END 2018-02-15 14:26 | disposition home or self-care (01) ==
LOC: ED 12:19 → ERH 16:18 → UNDOADMOB 18:11 → 5RNO 18:35 → ERH 18:35 → UNDODISOB 02-15 14:26
PROVIDERS: ADMIT Internal Medicine; ATTEND Internal Medicine
DX: K90.0 Celiac disease (principal); K90.1 Tropical sprue; E86.0 Dehydration; F11.20 Opioid dependence, uncomplicated; B37.81 Candidal esophagitis; D64.9 Anemia, unspecified; G89.29 Other chronic pain; I10 Essential (primary) hypertension; K21.9 Gastro-esophageal reflux disease without esophagitis; K29.50 Unspecified chronic gastritis without bleeding; K31.84 Gastroparesis; K76.6 Portal hypertension; M54.9 Dorsalgia, unspecified; Z87.440 Personal history of urinary (tract) infections; Z87.891 Personal history of nicotine dependence; Z90.49 Acquired absence of other specified parts of digestive tract; Z90.710 Acquired absence of both cervix and uterus; Z98.1 Arthrodesis status; Z88.8 Allergy status to other drugs, medicaments and biological substances; Z91.018 Allergy to other foods; K76.0 Fatty (change of) liver, not elsewhere classified
CPT/HCPCS: 36415; 74177; 80053; 83690; 85025; 96374; 96375; 96376; 99285; C9113; G0378; J1170; J2765; J7030; Q9967

== ENCOUNTER 2018-03-15 10:33 | Inpatient (IN) | payer BC ==
--- NOTE | 2018-03-15 11:09 | ED PDOC ---
Arrival/HPI - General Time Seen by Provider: 03/15/18 10:46 Historian: Patient - History of Present Illness Narrative History of Present Illness (Text): 03/15/18 58 yo female with PMHx of chronic back pain s/p fusion, HTN, chronic gastritis, narcotic gastroparesis, anemia, celiac disease, hepatic steatosis, GERD, BIBA for evaluation of cold sx for past 3 days associated with nasal congestion, sore throat, bodyaches, chills, Pt admits, was seen byt PMD 3 days ago, received Rx: Augment " unable to swallow anything because my throat hurts". Pt reports, developed epigastric pain, few episodes of " mucous" vomiting since today AM. Otherwise, pt denies fever, chills, headache, dizziness, CP, SOB, dyspnea, diaphoresis, wheezing, palpitation, hematemesis, melena, diarrhea, back pain, UTI sx. AT the time of evaluation, appears in painful discomfort. 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 Past Medical History - Infectious Disease Hx of Infectious Diseases: None - Tetanus Immunization Tetanus Immunization: Unknown - Cardiac Hx Cardiac Disorders: Yes Hx Heart Murmur: Yes Hx Hypertension: Yes - Pulmonary Hx Respiratory Disorders: No - Neurological Hx Neurological Disorder: No - HEENT Hx HEENT Disorder: No - Renal Hx Renal Disorder: No - Endocrine/Metabolic Hx Endocrine Disorders: No - Hematological/Oncological Hx Blood Disorders: Yes Hx Anemia: Yes Other/Comment: hx blood transfusion - Integumentary Hx Dermatological Disorder: Yes - Musculoskeletal/Rheumatological Hx Musculoskeletal Disorders: Yes (extremity weakness) Hx Arthritis: Yes Hx Degenerative Joint Disease: Yes Hx Falls: No Hx Herniated Disk: Yes Hx Unsteady Gait: Yes (uses cane sometime) Other/Comment: back pain. orthopedic surgery x2 - Gastrointestinal Hx Gastrointestinal Disorders: Yes (gastritis,GASTROPARESIS) Hx Gall Bladder Disease: Yes Hx Gastroesophageal Reflux: Yes Other/Comment: portal htn hepatomegaly, hemorrhoids, pt denies fatty liver disease, celiac sensitivity - Genitourinary/Gynecological Hx Genitourinary Disorders: Yes Hx Urinary Tract Infection: Yes - Psychiatric Hx Psychophysiologic Disorder: No Hx Emotional Abuse: No Hx Physical Abuse: No Hx Substance Use: No - Surgical History Hx Cholecystectomy: Yes Hx Hysterectomy: Yes - Anesthesia Hx Anesthesia: Yes Hx Anesthesia Reactions: No Hx Malignant Hyperthermia: No - Suicidal Assessment Feels Threatened In Home Enviroment: No Family/Social History Family/Social History: No Known Family HX Smoking Status: Former Smoker Hx Alcohol Use: No Hx Substance Use: No Hx Substance Use Treatment: No Allergies/Home Meds Allergies/Adverse Reactions: Allergies gluten Adverse Reaction (Verified 03/15/18 14:33) PAIN Home Medications: Home Meds Medication Instructions Recorded Confirmed HYDROmorphone [Dilaudid] 8 mg PO Q4 PRN 03/08/16 03/15/18 Hydromorphone HCl [Exalgo] 16 mg PO TID 02/13/18 03/15/18 Amoxicillin/Clavulanate [Augmentin 1 tab PO BID 03/15/18 03/15/18 875 MG-125 MG Tab] Physical Exam Vital Signs Temp Pulse Resp BP Pulse Ox 03/15/18 14:18 98.2 F 84 19 100/58 L 100 03/15/18 14:09 98.2 F 87 18 97/58 L 100 03/15/18 12:50 98.2 F 82 18 94/54 L 100 03/15/18 10:33 98.3 F 90 18 100/58 L 99 Medical Decision Making ED Course and Treatment: 03/15/18 13:10 Ptw as OBS in ED for 3 hours and remained unchanged. Blood work review, abnormal. Case discussed with pt's PMD and admission arranged to hospitalist. - Lab Interpretations Lab Results: 03/15/18 12:00 03/15/18 12:00 Lab Results 03/15/18 13:00: Urine Opiates Screen Positive H, Urine Methadone Screen Negative , Ur Barbiturates Screen Negative, Ur Phencyclidine Scrn Negative, Ur Amphetamines Screen Negative, U Benzodiazepines Scrn Negative, U Oth Cocaine Metabols Negative, U Cannabinoids Screen Negative 03/15/18 13:00: Urine Color Yellow, Urine Appearance Clear, Urine pH 6.0, Ur Specific [place] 1.020, Urine Protein 30 H, Urine Glucose (UA) Negative, Urine Ketones 40 H, Urine Blood Negative, Urine Nitrate Negative, Urine Bilirubin Negative, Urine Urobilinogen 0.2, Ur Leukocyte Esterase Negative, Urine RBC 0 - 2, Urine WBC 0 - 2, Ur Epithelial Cells Many, Urine Bacteria Few, Urine Other Uyeast 03/15/18 12:00: Sodium 139, Potassium 3.4 L, Chloride 100, Carbon Dioxide 17 L, Anion Gap 26 H, BUN 42 H, Creatinine 1.1, Est GFR ( Amer) > 60, Est GFR ( Non-Af Amer) 51, Random Glucose 89, Calcium 9.7, Total Bilirubin 0.4, AST 70 H D , ALT 14, Alkaline Phosphatase 107, Lactate Dehydrogenase 348, Total Creatine Kinase 362 H, CK-MB (CK-2) 1.4, CK-MB (CK-2) % Cancelled, Troponin I < 0.01, Total Protein 8.5 H, Albumin 3.6, Globulin 5.0, Albumin/Globulin Ratio 0.7 L, Amylase 69, Lipase 62 03/15/18 12:00: PT 14.7 H, INR 1.27 H, APTT 31.4 03/15/18 12:00: WBC 18.8 H D, RBC 3.85, Hgb 8.6 L, Hct 27.5 L, MCV 71.4 L D, MCH 22.3 L, MCHC 31.3, RDW 16.8 H, Plt Count 355, MPV 8.0, Gran % 90.6 H, Lymph % (Auto) 5.2 L, [place] % (Auto) 3.7, Eos % (Auto) 0.3 L, Baso % (Auto) 0.2, Gran # 17.01 H, Lymph # (Auto) 1.0 L, [place] # (Auto) 0.7 H, Eos # (Auto) 0.1, Baso # ( Auto) 0.03, Neutrophils % (Manual) 87 H, Lymphocytes % (Manual) 7 L, Monocytes % (Manual) 5, Eosinophils % (Manual) 1 Interpretation: Abnormal lab values - EKG Interpretation EKG Interpretation (Text): 03/15/18 12:58 SR@96/min, NAD, prolong QT, no acute T wave or ST-T changes. Interpreted by ED Physician: Yes - Medication Orders Current Medication Orders: Discontinued Medications Sodium Chloride (Sodium Chloride 0.9%) 1,000 mls @ 999 mls/hr IV .Q1H1M STA Stop: 03/15/18 12:41 Last Admin: 03/15/18 11:52 Dose: 999 mls/hr eMAR Start Stop Document 03/15/18 11:52 LA (Rec: 03/15/18 11:52 LA [id number]) Intravenous Solution Start Date 03/15/18 Start Time 11:52 End Date 03/15/18 End time 12:53 Total Infusion Time 61 Ceftriaxone Sodium (Rocephin 2 Gm Ivpb) 2 gm in 100 mls @ 100 mls/hr IVPB STAT STA PRN Reason: Protocol Stop: 03/15/18 13:56 Last Admin: 03/15/18 13:29 Dose: 100 mls/hr eMAR Start Stop Document 03/15/18 13:29 LA (Rec: 03/15/18 13:29 LA [id number]) Intravenous Solution Start Date 03/15/18 Start Time 13:29 End Date 03/15/18 End time 14:29 Total Infusion Time 60 Sodium Chloride (Sodium Chloride 0.9%) 1,000 mls @ 999 mls/hr IV .Q1H1M STA Stop: 03/15/18 13:59 Last Admin: 03/15/18 13:18 Dose: 999 mls/hr eMAR Start Stop Document 03/15/18 13:18 LA (Rec: 03/15/18 13:18 LA [id number]) Intravenous Solution Start Date 03/15/18 Start Time 13:18 End Date 03/15/18 End time 14:19 Total Infusion Time 61 Methylprednisolone (Solu-Medrol) 80 mg IVP STAT STA Stop: 03/15/18 11:42 Last Admin: 03/15/18 11:53 Dose: 80 mg IVP Administration Document 03/15/18 11:53 LA (Rec: 03/15/18 11:53 LA [id number]) Charges for Administration # of IVP Administrations 1 Morphine Sulfate (Morphine) 4 mg IVP STAT STA Stop: 03/15/18 11:42 Last Admin: 03/15/18 11:52 Dose: 4 mg MAR Pain Assessment Document 03/15/18 11:52 LA (Rec: 03/15/18 11:53 LA [id number]) Pain Reassessment Is this a pain reassessment? No Sleep Is patient sleeping during reassessment? No Pain Scale Used Pain Scale Used Numeric Location Pain Location Body Site Generalized Description Description Constant Intensity of Pain at present 7 IVP Administration Document 03/15/18 11:52 LA (Rec: 03/15/18 11:53 LA [id number]) Charges for Administration # of IVP Administrations 1 Re-Assess: MAR Pain Assessment Document 03/15/18 12:52 LA (Rec: 03/15/18 13:29 LA [id number]) Pain Reassessment Is this a pain reassessment? Yes Sleep Is patient sleeping during reassessment? Yes Morphine Sulfate (Morphine) 4 mg IVP STAT STA Stop: 03/15/18 14:09 Last Admin: 03/15/18 14:12 Dose: 4 mg MAR Pain Assessment Document 03/15/18 14:12 LA (Rec: 03/15/18 14:13 LA [id number]) Pain Reassessment Is this a pain reassessment? No Sleep Is patient sleeping during reassessment? No Presence of Pain Presence of Pain Yes Location Pain Location Body Site Throat Generalized Description Intensity of Pain at present 6 Pain Behavior Guarding IVP Administration Document 03/15/18 14:12 LA (Rec: 03/15/18 14:13 LA [id number]) Charges for Administration # of IVP Administrations 1 Ondansetron HCl (Zofran Inj) 4 mg IVP STAT STA Stop: 03/15/18 11:42 Last Admin: 03/15/18 11:52 Dose: 4 mg IVP Administration Document 03/15/18 11:52 LA (Rec: 03/15/18 11:52 LA [id number]) Charges for Administration # of IVP Administrations 1 Disposition/Present on Arrival - Present on Arrival Any Indicators Present on Arrival: No History of DVT/PE: No History of Uncontrolled Diabetes: No Urinary Catheter: No History Surgical Site Infection Following: None - Disposition Have Diagnosis and Disposition been Completed?: Yes Diagnosis: Opiate dependence, Dehydration Disposition: HOSPITALIZED Disposition Time: 13:23 Patient Plan: Admission Patient Problems: Current Active Problems Problem Status Onset Opiate dependence Chronic Dehydration Acute Condition: STABLE
[2018-03-15] MEDS ORDERED: Morphine 4 mg/ml ISec IVP STA ×2 (11:41→14:08)
[2018-03-15] MEDS ORDERED: Sodium Chloride 0.9% 1,000 ML IV STA ×2 (11:41→12:59)
[2018-03-15 12:26] LABS: BASO # 0.03 K/mm3 (0.0-2.0); BASO % 0.2 % (0.0-3.0); EOS # 0.1 (0.0-0.7); EOS % 0.3 % (1.5-5.0); GRAN # 17.01 (1.4-6.5); GRAN % 90.6 % (50.0-68.0); HEMOGLOBIN 8.6 g/dL (12.0-16.0); LYMPH % 5.2 % (22.0-35.0); MEAN CELL VOLUME 71.4 fl (80.0-105.0); MEAN CORPUSCULAR HEMOGLOBIN 22.3 pg (25.0-35.0); MEAN CORPUSCULAR HGB CONC 31.3 g/dl (31.0-37.0); MONO # 0.7 (0.1-0.6); MONO % 3.7 % (1.0-6.0); PLATELET COUNT 355 10^3/uL (120.0-450.0); RBC 3.85 10^6/uL (3.5-6.1); RED CELL DISTRIBUTION WIDTH 16.8 % (11.5-14.5); WHITE BLOOD COUNT 18.8 10^3/ul (4.5-11.0)
[2018-03-15 12:31] LABS: INR 1.27 (0.93-1.08); PARTIAL THROMBOPLASTIN TIME 31.4 Seconds (25.1-36.5); PROTHROMBIN TIME 14.7 SECONDS (9.4-12.5)
[2018-03-15 12:36] LABS: ALB/GLOB RATIO 0.7 (1.1-1.8); ALBUMIN 3.6 g/dL (3.0-4.8); ALT/SGPT 14 U/L (7-56); AMYLASE 69 U/L (35-125); AST/SGOT 70 U/L (14-36); BLOOD UREA NITROGEN 42 mg/dL (7-21); CALCIUM 9.7 mg/dL (8.4-10.5); GFR AFRICAN-AMERICAN > 60; GFR NON-AFRICAN AMERICAN 51; LIPASE 62 U/L (23-300)
[2018-03-15 12:43] VITALS: BMI 23.7
[2018-03-15 12:43] LABS: TROPONIN I < 0.01 ng/mL
[2018-03-15 12:48] LABS: CK-MB 1.4 ng/mL (0.0-3.6)
[2018-03-15 12:56] LABS: EOSINOPHIL 1 % (0.0-3.0); LYMPHOCYTE 7 % (22.0-35.0); MONOCYTE 5 % (1.0-6.0); NEUTROPHIL 87 % (50.0-70.0)
[2018-03-15] MEDS ORDERED: cefTRIAXone 2 GM IN NS 2 GM/100 ML BAG IVPB STA (12:57)
[2018-03-15 13:24] LABS: URINE BILIRUBIN NEGATIVE (NEGATIVE); URINE BLOOD NEGATIVE (NEGATIVE); URINE GLUCOSE (UA) NEGATIVE (NEGATIVE); URINE LEUKOCYTE ESTERASE NEGATIVE Leu/uL (NEGATIVE); URINE PROTEIN 30 mg/dL (<30 mg/dL); URINE UROBILINOGEN 0.2 E.U./dL (<1 E.U./dL)
[2018-03-15 13:26] LABS: URINE APPEARANCE CLEAR (CLEAR); URINE COLOR YELLOW (YELLOW)
[2018-03-15 13:36] LABS: BARBITURATES, UR NEGATIVE (NEGATIVE); BENZODIAZEPINES, UR NEGATIVE (NEGATIVE); OPIATES, UR POSITIVE (NEGATIVE); PHENCYCLIDINE, UR NEGATIVE (NEGATIVE)
[2018-03-15 13:39] LABS: VENOUS BLOOD GAS BASE EXCESS -10.3 mmol/L (0.0-2.0); VENOUS BLOOD GAS PO2 55 mm/Hg (30-55); VENOUS BLOOD PH 7.27 (7.32-7.43)
[2018-03-15 13:40] LABS: URINE BACTERIA FEW (NEG); URINE EPITHELIAL CELLS MANY /hpf (0-5); URINE RBC 0 - 2 /hpf (0-2); URINE WBC 0 - 2 /hpf (0-6)
--- NOTE | 2018-03-15 15:58 | CP.PCM.HP ---
<Owen Rider - Last Filed: 03/15/18 17:16> History of Present Illness - History of Present Illness History of Present Illness: Owen Rider DO PGY 1, Academic Dean Medicine History and Physical 58-year-old female with a past medical history of chronic back pain status post lumbar fusion, hypertension, chronic gastritis, narcotic gastroparesis, anemia, celiac disease, hepatic steatosis, who was brought in by ambulance for complaints of a sore throat for the past 3 days. Patient states that she was eating some sushi and felt that it got stuck in the back of her throat and afterwards felt that she may have either breathing in or something else and had some pain in the throat. Patient saw her PMD and was given amoxicillin pills for the sore throat without much improvement. Patient states that she was not even able to swallow the pills for some days given the throat pain and then had multiple episodes of emesis which he attributes to not being able to take her medications which include hydromorphone for chronic pain. Patient at this time denies any fevers, chills, current nausea, recent vomiting, headache, or otherwise. Patient does admit to some chest discomfort. Patient has not had any productive sputum or other pulmonary complaints. Of note, patient does note that she has been around her son who has been sick with a sore throat also recently. PMD: Dr. 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 Present on Admission - Present on Admission Any Indicators Present on Admission: No Review of Systems - Constitutional Constitutional: As Per HPI, Anorexia, Fatigue, Malaise. absent: Chills, Daytime Sleepiness, Excessive Sweating, Fever, Frequent Falls, Headache, Increased Appetite, Lethargy, Night Sweats, Snoring, Sleep Apnea, Weight Gain, Weight Loss, Weakness, Other - EENT Eyes: absent: As Per HPI, Blind Spots, Blurred Vision, Change in Vision, Decreased Night Vision, Diplopia, Discharge, Dry Eye, Exophthalmos, Floaters, Irritation, Itchy Eyes, Loss of Peripheral Vision, Pain, Photophobia, Requires Corrective Lenses, Sees Flashes, Spots in Vision, Tunnel Vision, Other Visual Disturbances, Loss of Vision, Other Ears: absent: As Per HPI, Decreased Hearing, Ear Discharge, Ear Pain, Tinnitus, Abnormal Hearing, Disequilibrium, Dizziness, Other Nose/Mouth/Throat: Nasal Congestion, Nasal Discharge, Dry Mouth, Dysphagia, Sore Throat. absent: As Per HPI, Epistaxis, Nasal Obstruction, Nasal Trauma, Nose Pain, Post Nasal Drip, Sinus Pain, Sinus Pressure, Bleeding Gums, Change in Voice, Dental Pain, Halitosis, Hoarsness, Lip Swelling, Mouth Lesions, Mouth Pain, Odynophagia, Throat Swelling, Tongue Swelling, Facial Pain, Neck Pain, Neck Mass, Other - Respiratory Respiratory: absent: As Per HPI, Cough, Dyspnea, Hemoptysis, Dyspnea on Exertion , Wheezing, Snoring, Stridor, Pain on Inspiration, Chest Congestion, Excessive Mucous Production, Change in Mucous Color, Pain with Coughing, Other Past Patient History - Infectious Disease Hx of Infectious Diseases: None - Tetanus Immunizations Tetanus Immunization: Unknown - Past Social History Smoking Status: Former Smoker - CARDIAC Hx Cardiac Disorders: Yes Hx Heart Murmur: Yes Hx Hypertension: Yes - PULMONARY Hx Respiratory Disorders: No - NEUROLOGICAL Hx Neurological Disorder: No - HEENT Hx HEENT Problems: No - RENAL Hx Chronic Kidney Disease: No - ENDOCRINE/METABOLIC Hx Endocrine Disorders: No - HEMATOLOGICAL/ONCOLOGICAL Hx Blood Disorders: Yes Hx Anemia: Yes Other/Comment: hx blood transfusion - INTEGUMENTARY Hx Dermatological Problems: Yes - MUSCULOSKELETAL/RHEUMATOLOGICAL Hx Musculoskeletal Disorders: Yes (extremity weakness) Hx Arthritis: Yes Hx Degenerative Joint Disease: Yes Hx Falls: No Hx Herniated Disk: Yes Hx Unsteady Gait: Yes (uses cane sometime) Other/Comment: back pain. orthopedic surgery x2 - GASTROINTESTINAL Hx Gastrointestinal Disorders: Yes (gastritis,GASTROPARESIS) Hx Gall Bladder Disease: Yes Hx Gastroesophageal Reflux: Yes Other/Comment: portal htn hepatomegaly, hemorrhoids, pt denies fatty liver disease, celiac sensitivity - GENITOURINARY/GYNECOLOGICAL Hx Genitourinary Disorders: Yes Hx Urinary Tract Infection: Yes - PSYCHIATRIC Hx Psychophysiologic Disorder: No Hx Emotional Abuse: No Hx Physical Abuse: No Hx Substance Use: No - SURGICAL HISTORY Hx Cholecystectomy: Yes Hx Hysterectomy: Yes - ANESTHESIA Hx Anesthesia: Yes Hx Anesthesia Reactions: No Hx Malignant Hyperthermia: No Meds Allergies/Adverse Reactions: Allergies Allergy/AdvReac Type Severity Reaction Status Date / Time gluten AdvReac PAIN Verified 03/15/18 14:33 Physical Exam - Constitutional Appears: Non-toxic, No Acute Distress - Head Exam Head Exam: ATRAUMATIC, NORMAL INSPECTION, NORMOCEPHALIC - Eye Exam Eye Exam: EOMI, Normal appearance, PERRL - ENT Exam ENT Exam: Mucous Membranes Moist Additional comments: Erythematous throat, no exudates present - Neck Exam Neck exam: Positive for: Full Rom, Tenderness Additional comments: No lymphadenopathy, tenderness with palpation b/l in distribution of anterior scalenes, no thyromegaly - Respiratory Exam Respiratory Exam: Clear to Auscultation Bilateral, NORMAL BREATHING PATTERN - Cardiovascular Exam Cardiovascular Exam: REGULAR RHYTHM, +S1, +S2 - GI/Abdominal Exam GI & Abdominal Exam: Normal Bowel Sounds, Soft - Extremities Exam Extremities exam: Positive for: full ROM, normal capillary refill, normal inspection, pedal pulses present - Back Exam Back exam: FULL ROM, NORMAL INSPECTION - Neurological Exam Neurological exam: Alert, CN II-XII Intact, Oriented x3 - Psychiatric Exam Psychiatric exam: Normal Affect, Normal Mood - Skin Skin Exam: Dry, Intact, Normal Color, Warm Results - Vital Signs Recent Vital Signs: Last Vital Signs Temp 98.2 F 03/15/18 14:18 Pulse 84 03/15/18 14:18 Resp 19 03/15/18 14:18 BP 100/58 L 03/15/18 14:18 Pulse Ox 100 03/15/18 14:18 - Labs Result Diagrams: 03/15/18 12:00 03/15/18 12:00 Labs: Laboratory Results - last 24 hr 03/15/18 13:25 pO2 55 VBG pH 7.27 L VBG pCO2 34.0 L VBG HCO3 15.6 L VBG O2 Sat (Calc) 90.5 H VBG Base Excess -10.3 L Assessment & Plan - Assessment and Plan (Free Text) Assessment: 58-year-old female with a past medical history of chronic back pain status post lumbar fusion, hypertension, chronic gastritis, narcotic gastroparesis, anemia, celiac disease, hepatic steatosis, who was brought in by ambulance for complaints of a sore throat for the past 3 days. R/o infectious etiology. Plan: Odynophagia R/o infectious etiology Leukocytosis on admission, pt afebrile, vitals stable IVF NS @ 100 cc/hr S/p 2 g rocephin in ED Will start tomorrow 1 g rocephin IVPB daily Lidocaine 2% viscous q 6 h PRN sore throat CXR pending CT neck soft tissue ordered to r/o peritonsillar abscess Continue to monitor pt's clinical status Abnormal VBG/Low bicarb/Elevated anion gap Likely 2/2 dehydration, electrolyte abnormalities U/a showed protein and ketones on admission ABG pending Pt appears comfortable on exam, no respiratory distress Continue to monitor clinically Hx chronic pain Pt to c/w home meds, verified by pharmacy Dilaudid 1 mg q 4 h prn moderate pain Dilaudid 2 mg q 8 h prn severe pain Hx HTN C/w home med lasix 20 mg daily Pt seen, examined with, and plan discussed with Dr. Spencer, attending. Owen Rider DO PGY-1, Academic Dean <Michele Spencer - Last Filed: 03/17/18 08:01> Results - Vital Signs Recent Vital Signs: Last Vital Signs Temp 98 F 03/17/18 06:00 Pulse 69 03/17/18 06:00 Resp 20 03/17/18 06:00 BP 99/64 L 03/17/18 06:00 Pulse Ox 98 03/17/18 06:00 - Labs Result Diagrams: 03/17/18 06:30 03/17/18 06:30 Labs: Laboratory Results - last 24 hr 03/16/18 03/16/18 03/17/18 08:00 08:00 06:30 WBC 16.4 H 8.6 D RBC 3.83 3.30 L Hgb 8.3 L 7.3 L Hct 27.1 L 23.7 L MCV 70.8 L 71.8 L MCH 21.7 L 22.1 L MCHC 30.6 L 30.8 L RDW 16.9 H 17.2 H Plt Count 353 334 MPV 8.1 8.0 Gran % 88.3 H 82.6 H Lymph % (Auto) 7.3 L 12.7 L [place] % (Auto) 4.3 3.7 Eos % (Auto) 0.0 L 0.9 L Baso % (Auto) 0.1 0.1 Gran # 14.47 H 7.07 H Lymph # (Auto) 1.2 1.1 L [place] # (Auto) 0.7 H 0.3 Eos # (Auto) 0.0 0.1 Baso # (Auto) 0.01 0.01 Sodium 141 Potassium 3.5 L Chloride 108 H Carbon Dioxide 17 L Anion Gap 20 BUN 35 H Creatinine 0.9 Est GFR ( Amer) > 60 Est GFR (Non-Af Amer) > 60 Random Glucose 99 Calcium 9.3 Phosphorus 3.3 Magnesium 2.2 Total Bilirubin 0.3 AST 45 H D ALT 17 Alkaline Phosphatase 98 Total Protein 8.1 Albumin 3.3 Globulin 4.8 Albumin/Globulin Ratio 0.7 L 03/17/18 06:30 WBC RBC Hgb Hct MCV MCH MCHC RDW Plt Count MPV Gran % Lymph % (Auto) [place] % (Auto) Eos % (Auto) Baso % (Auto) Gran # Lymph # (Auto) [place] # (Auto) Eos # (Auto) Baso # (Auto) Sodium 142 Potassium 4.0 Chloride 112 H Carbon Dioxide 21 Anion Gap 13 BUN 29 H Creatinine 0.8 Est GFR ( Amer) > 60 Est GFR (Non-Af Amer) > 60 Random Glucose 92 Calcium 9.4 Phosphorus 1.8 L Magnesium 2.0 Total Bilirubin 0.1 L AST 37 H ALT 22 Alkaline Phosphatase 73 Total Protein 6.9 Albumin 2.7 L Globulin 4.2 Albumin/Globulin Ratio 0.6 L Attending/Attestation - Attestation I have personally seen and examined this patient.: Yes I have fully participated in the care of the patient.: Yes I have reviewed all pertinent clinical information: Yes Notes (Text): 03/17/18 07:55 Medical record note made by the resident after discussion with my direction and input after the patient was personally seen and examined by me. I have reviewed the chart and agree that the record accurately reflects by personal performance of the history, physical exam, data review, and medical decision-making, in the course for the patient. I have also personally directed the plan of care. 58 year old female with a PMH of chronic back pain, s/p spinal fusion , chronic gastritis, gastroparesis, Anemia, and questionable Celiac Disease, chronic abdominal pain on high dose of dilauded follow with is admitted with H/O difficulty in swallowing, odynophagia, decrease oral intake due to painful swallowing.Patient physical examination is unremarkable, there is no congestion of posterior pharangeal wall, the air way is patent.She does has leukocytosis. Due to neck pain, will get CT scan of neck, will continue IV hydration and IV Rocephin.We will follow cultures.We will start patient on clear liquid diet. Management plan was discussed in detail with patient. Education was provided.
[2018-03-15] MEDS ORDERED: Lidocaine 2% Viscous 100 ml PO PRN (16:22)
[2018-03-15] MEDS ORDERED: HYDROmorphone 2 mg/ml ISec IVP PRN (16:27)
[2018-03-15] MEDS ORDERED: HYDROmorphone 1 mg/ml ISec IVP PRN ×2 (16:28→21:07)
--- NOTE | 2018-03-15 17:36 | RAD ---
Date of service: 03/15/2018 HISTORY: odynophagia COMPARISON: Chest radiograph dated 09/09/2016. TECHNIQUE: Chest PA and lateral FINDINGS: LUNGS: No active pulmonary disease. PLEURA: No significant pleural effusion identified. No pneumothorax apparent. CARDIOVASCULAR: Cardiomediastinal silhouette stably enlarged. OSSEOUS STRUCTURES: Unchanged. VISUALIZED UPPER ABDOMEN: Normal. OTHER FINDINGS: None. IMPRESSION: No active disease.
--- NOTE | 2018-03-15 17:55 | CT ---
Date of service: 03/15/2018 PROCEDURE: CT NECK WITHOUT CONTRAST HISTORY: odynophagia COMPARISON: None. TECHNIQUE: CT of the neck without intravenous contrast. Coronal and sagittal reformats generated. Radiation dose: DLP 428.57 mGy-cm This CT exam was performed using one or more of the following dose reduction techniques: Automated exposure control, adjustment of the mA and/or kV according to patient size, and/or use of iterative reconstruction technique. FINDINGS: NASOPHARYNX: Within normal limits. SUPRAHYOID NECK: There is no radiopaque foreign body in the oropharynx, oral cavity, parapharyngeal space and retropharyngeal space. No prevertebral soft tissue thickening or fluid. No airway obstruction. INFRAHYOID NECK: The larynx, hypopharynx, and supraglottic space are grossly normal in appearance. Vocal cords intact. No airway obstruction MASS: No bulky mass. GLANDS: Parotid and submandibular glands unremarkable. Normal size thyroid gland, without nodule. LYMPH NODES: Normal. No lymphadenopathy. CERVICAL SPINE: No fracture or focal lesion. Mild degenerative disc disease at C5-6 and C6-7. OTHER FINDINGS: The visualized lungs are clear. There is a well-circumscribed low-attenuation nodule in the upper pole of the left thyroid lobe. IMPRESSION: 1. No evidence for radiopaque foreign body, airway obstruction or prevertebral soft tissue swelling/read toe pharyngeal fluid collection. 2. Solitary low-density nodule in the upper pole of the left thyroid lobe. A dedicated thyroid ultrasound on a nonemergent basis is recommended for complete evaluation of the thyroid gland.
--- NOTE | 2018-03-15 18:34 | CARD ---
APPROVED REPORT Date of service: 03/15/2018 EKG Measurement Heart [id number] <Conclusion> Normal sinus rhythm Nonspecific ST abnormality Prolonged QT Abnormal ECG
[2018-03-15] MEDS ORDERED: Pneumococcal 23-Valent Vaccine IM ONE (19:12)
[2018-03-15] MEDS: HYDROmorphone 2 mg/ml ISec IVP PRN (22:12)
[2018-03-16] MEDS: HYDROmorphone 2 mg/ml ISec IVP PRN ×8 (01:26→23:30)
[2018-03-16] MEDS: Sodium Chloride 0.9% 1,000 ML IV SCH ×3 (01:27→17:32)
[2018-03-16] MEDS ORDERED: Potassium Chloride 40 mEq/30 ml LIQ UD PO ONE (07:19)
[2018-03-16 08:23] LABS: BASO # 0.01 K/mm3 (0.0-2.0); BASO % 0.1 % (0.0-3.0); GRAN # 14.47 (1.4-6.5); GRAN % 88.3 % (50.0-68.0); HEMOGLOBIN 8.3 g/dL (12.0-16.0); LYMPH # 1.2 (1.2-3.4); LYMPH % 7.3 % (22.0-35.0); MEAN CELL VOLUME 70.8 fl (80.0-105.0); MEAN CORPUSCULAR HEMOGLOBIN 21.7 pg (25.0-35.0); MEAN CORPUSCULAR HGB CONC 30.6 g/dl (31.0-37.0); MEAN PLATELET VOLUME 8.1 fl (7.0-11.0); MONO # 0.7 (0.1-0.6); MONO % 4.3 % (1.0-6.0); RBC 3.83 10^6/uL (3.5-6.1); RED CELL DISTRIBUTION WIDTH 16.9 % (11.5-14.5); WHITE BLOOD COUNT 16.4 10^3/ul (4.5-11.0)
[2018-03-16 08:30] LABS: ALB/GLOB RATIO 0.7 (1.1-1.8); ALBUMIN 3.3 g/dL (3.0-4.8); ALT/SGPT 17 U/L (7-56); AST/SGOT 45 U/L (14-36); BLOOD UREA NITROGEN 35 mg/dL (7-21); CALCIUM 9.3 mg/dL (8.4-10.5); GFR AFRICAN-AMERICAN > 60; GFR NON-AFRICAN AMERICAN > 60
[2018-03-16] MEDS: cefTRIAXone 1 gm 1 GM/100 ML BAG IVPB SCH (09:57)
--- NOTE | 2018-03-16 14:09 | CP.PCM.PN ---
<Owen Rider - Last Filed: 03/16/18 15:05> Subjective - Date & Time of Evaluation Date of Evaluation: 03/16/18 Time of Evaluation: 09:45 - Subjective Subjective: Owen Rider DO PGY-1, [employer] Medicine Progress Note Pt seen and examined at bedside. States she is currently in pain all over her body. Pt states that the dilaudid doses she was prescribed overnight did not help, and per report, Dr. Angulo agreed to have pt on 2 mg dilaudid q 3 h for pain. Pt states that this changed dose overnight did not help her pain either, and states she wants more dilaudid. In terms of odynophagia, pt states that her throat still hurts, but she feels better from yesterday. She is still unable to swallow food and luqids including water, and states that the lidocaine washes do not help with her throat pain. Pt requested Cepacol lozenges to help with her throat pain. Objective - Vital Signs/Intake and Output Vital Signs (last 24 hours): Temp Pulse Resp BP Pulse Ox 97.8 F 72 20 95/58 L 96 03/16/18 06:00 03/16/18 06:00 03/16/18 06:00 03/16/18 06:00 03/16/18 06:00 Intake and Output: 03/16/18 03/16/18 06:59 18:59 Intake Total 180 Balance 180 - Medications Medications: Current Medications Benzocaine/Menthol (Cepacol Sore Throat) 1 jono MT Q2H PRN PRN Reason: Sore Throat Furosemide (Lasix) 20 mg IVP DAILY [facility] Last Admin: 03/16/18 09:57 Dose: Not Given Hydromorphone HCl (Dilaudid) 3 mg IVP Q3H PRN PRN Reason: Pain, moderate (4-7) Ceftriaxone Sodium (Rocephin 1 Gram Ivpb) 1 gm in 100 mls @ 100 mls/hr IVPB DAILY [facility] PRN Reason: Protocol Last Admin: 03/16/18 09:57 Dose: 100 mls/hr Sodium Chloride (Sodium Chloride 0.9%) 1,000 mls @ 150 mls/hr IV .Q6H40M [facility] - Labs Labs: 03/16/18 08:00 03/16/18 08:00 PT 14.7 SECONDS (9.4-12.5) H 03/15/18 12:00 INR 1.27 (0.93-1.08) H 03/15/18 12:00 APTT 31.4 Seconds (25.1-36.5) 03/15/18 12:00 - Constitutional Appears: Non-toxic, No Acute Distress - Head Exam Head Exam: ATRAUMATIC, NORMAL INSPECTION, NORMOCEPHALIC - Eye Exam Eye Exam: EOMI, Normal appearance, PERRL - ENT Exam ENT Exam: Mucous Membranes Moist, Normal Oropharynx Additional comments: No erythema appreciated - Neck Exam Neck Exam: Full ROM, Normal Inspection - Respiratory Exam Respiratory Exam: Clear to Ausculation Bilateral, NORMAL BREATHING PATTERN - Cardiovascular Exam Cardiovascular Exam: REGULAR RHYTHM, +S1, +S2 - GI/Abdominal Exam GI & Abdominal Exam: Soft, Normal Bowel Sounds - Extremities Exam Extremities Exam: Full ROM, Normal Capillary Refill, Normal Inspection - Back Exam Back Exam: NORMAL INSPECTION Additional comments: Full ROM limited due to pt's chronic condition - Neurological Exam Neurological Exam: Alert, Awake, CN II-XII Intact, Oriented x3 - Psychiatric Exam Psychiatric exam: Normal Affect, Normal Mood - Skin Skin Exam: Dry, Intact, Normal Color, Warm Assessment and Plan - Assessment and Plan (Free Text) Assessment: 58-year-old female with a past medical history of chronic back pain status post lumbar fusion, hypertension, chronic gastritis, narcotic gastroparesis, anemia, celiac disease, hepatic steatosis, who was brought in by ambulance for complaints of a sore throat for the past 3 days. R/o infectious etiology. R/o GI etiology for odynophagia. Plan: Odynophagia R/o infectious etiology Leukocytosis on admission trending down this am, pt afebrile, vitals stable IVF NS @ 100 cc/hr C/w rocephin 1 g IVPB daily (day #2) Cepacol prn for sore throat CXR: no evidence of acute pulmonary disease CT neck soft tissue: no evidence for radiopaque foreign body, airway obstruction , or prevertebral soft tissue swelling/read toe pharyngeal fluid collection; solitary low density nodule in upper pole of L thyroid lobe. Pt instructed to f/u with PCP as outpatient for thyroid ultrasound GI consulted, recs appreciated Continue to monitor pt's clinical status Anion-gap metabolic acidosis/metabolic acidosis Likely 2/2 dehydration, electrolyte abnormalities, opioid dependence U/a showed protein and ketones on admission Pt appears comfortable on exam, no respiratory distress Continue to monitor clinically, trend BMP Hx chronic pain 3 mg dilaudid q 3 h prn Pain management consulted, recs appreciated F/u PT recs Hx HTN C/w home med lasix 20 mg daily Pt seen, examined with, and plan discussed with Dr. Spencer, attending. Owen Rider DO PGY-1, [employer] Operator Pager #[phone] <Michele Spencer - Last Filed: 03/17/18 08:05> Objective - Vital Signs/Intake and Output Vital Signs (last 24 hours): Temp Pulse Resp BP Pulse Ox 98 F 69 20 99/64 L 98 03/17/18 06:00 03/17/18 06:00 03/17/18 06:00 03/17/18 06:00 03/17/18 06:00 Intake and Output: 03/17/18 03/17/18 06:59 18:59 Intake Total 600 Balance 600 - Medications Medications: Current Medications Benzocaine/Menthol (Cepacol Sore Throat) 1 jono MT Q2H PRN PRN Reason: Sore Throat Last Admin: 03/16/18 20:40 Dose: 1 jono Furosemide (Lasix) 20 mg IVP DAILY [facility] Last Admin: 03/16/18 09:57 Dose: Not Given Hydromorphone HCl (Dilaudid) 3 mg IVP Q3H PRN PRN Reason: Pain, moderate (4-7) Last Admin: 03/17/18 05:58 Dose: 3 mg Ceftriaxone Sodium (Rocephin 1 Gram Ivpb) 1 gm in 100 mls @ 100 mls/hr IVPB DAILY [facility] PRN Reason: Protocol Last Admin: 03/16/18 09:57 Dose: 100 mls/hr Sodium Chloride (Sodium Chloride 0.9%) 1,000 mls @ 150 mls/hr IV .Q6H40M [facility] Last Admin: 03/17/18 06:04 Dose: 150 mls/hr - Labs Labs: 03/17/18 06:30 03/17/18 06:30 PT 14.7 SECONDS (9.4-12.5) H 03/15/18 12:00 INR 1.27 (0.93-1.08) H 03/15/18 12:00 APTT 31.4 Seconds (25.1-36.5) 03/15/18 12:00 Attending/Attestation - Attestation I have personally seen and examined this patient.: Yes I have fully participated in the care of the patient.: Yes I have reviewed all pertinent clinical information, including history, physical exam and plan: Yes Notes (Text): 03/17/18 08:02 Medical record note made by the resident after discussion with my direction and input after the patient was personally seen and examined by me. I have reviewed the chart and agree that the record accurately reflects by personal performance of the history, physical exam, data review, and medical decision-making, in the course for the patient. I have also personally directed the plan of care. Patient is feeling better, still c/o difficulty in swallowing.CT scan of neck is unremarkable for acute pathology, has thyroid nodule, will need out patient thyroid USG. She is afebrile, Leukocytosis is improving.We will get GI evaluation.
[2018-03-16] MEDS: Benzocaine/Menthol (Cepacol) Lozenge MT PRN ×2 (17:35→20:40)
--- NOTE | 2018-03-16 18:58 | CARD ---
APPROVED REPORT Date of service: 03/16/2018 EKG Measurement Heart [id number] <Conclusion> Normal sinus rhythm with sinus arrhythmia Normal ECG
[2018-03-17] MEDS: HYDROmorphone 2 mg/ml ISec IVP PRN ×7 (02:37→21:34)
[2018-03-17] MEDS: Sodium Chloride 0.9% 1,000 ML IV SCH ×3 (06:04→18:35)
[2018-03-17 07:04] LABS: ALB/GLOB RATIO 0.6 (1.1-1.8); ALBUMIN 2.7 g/dL (3.0-4.8); ALT/SGPT 22 U/L (7-56); AST/SGOT 37 U/L (14-36); BLOOD UREA NITROGEN 29 mg/dL (7-21); CALCIUM 9.4 mg/dL (8.4-10.5); GFR AFRICAN-AMERICAN > 60; GFR NON-AFRICAN AMERICAN > 60
[2018-03-17 07:09] LABS: BASO # 0.01 K/mm3 (0.0-2.0); BASO % 0.1 % (0.0-3.0); EOS # 0.1 (0.0-0.7); EOS % 0.9 % (1.5-5.0); GRAN # 7.07 (1.4-6.5); GRAN % 82.6 % (50.0-68.0); HEMOGLOBIN 7.3 g/dL (12.0-16.0); LYMPH # 1.1 (1.2-3.4); LYMPH % 12.7 % (22.0-35.0); MEAN CELL VOLUME 71.8 fl (80.0-105.0); MEAN CORPUSCULAR HEMOGLOBIN 22.1 pg (25.0-35.0); MEAN CORPUSCULAR HGB CONC 30.8 g/dl (31.0-37.0); MONO # 0.3 (0.1-0.6); MONO % 3.7 % (1.0-6.0); RBC 3.3 10^6/uL (3.5-6.1); RED CELL DISTRIBUTION WIDTH 17.2 % (11.5-14.5); WHITE BLOOD COUNT 8.6 10^3/ul (4.5-11.0)
[2018-03-17] MEDS: cefTRIAXone 1 gm 1 GM/100 ML BAG IVPB SCH (09:23)
--- NOTE | 2018-03-17 10:20 | CP.PCM.CON ---
<Yonathan Figueroa - Last Filed: 03/17/18 14:10> History of Present Illness - History of Present Illness History of Present Illness: GI Consult Note for PEDRITO Jones PGY-3 This is a 58 yo F with PMH of chronic back pain status post lumbar fusion, hypertension, chronic gastritis, narcotic gastroparesis, anemia, celiac disease , and hepatic steatosis who presented to [facility] with 3 day complaint of odynophagia. GI consulted for the odynophagia. Reports initially started as sore throat, went to PMD and was given prescription for amoxicillin, but was unable to take due to the soreness. Now reports only able to tolerate thickened liquids, otherwise unable to tolerate food or liquids. Initially reported sensation of food stuck in chest, now unable to swallow at all. Remembers similar symptoms approx 2 yrs ago, at which time she underwent EGD and was found to have esophageal candidiasis; however, this time she denies any oral candidiasis, having intentionally looked for it. Denies any fevers, chills, nausea, emesis, diarrhea, melena, chest pain , shortness of breath, dysuria, hematuria. Primary complaint is sore throat. All other ROS in 12-system review negative. 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 Angulo Review of Systems - Review of Systems All systems: reviewed and no additional remarkable complaints except (as per HPI ) Past Patient History - Infectious Disease Hx of Infectious Diseases: None - Tetanus Immunizations Tetanus Immunization: Unknown - Past Social History Smoking Status: Former Smoker - CARDIAC Hx Cardiac Disorders: Yes Hx Heart Murmur: Yes Hx Hypertension: Yes - PULMONARY Hx Respiratory Disorders: Yes (USED TO SMOKE. QUIT 25 YRS AGO) - NEUROLOGICAL Hx Neurological Disorder: No - HEENT Hx HEENT Problems: No - RENAL Hx Chronic Kidney Disease: No - ENDOCRINE/METABOLIC Hx Endocrine Disorders: No - HEMATOLOGICAL/ONCOLOGICAL Hx Blood Disorders: Yes Hx Anemia: Yes Other/Comment: hx blood transfusion - INTEGUMENTARY Hx Dermatological Problems: Yes - MUSCULOSKELETAL/RHEUMATOLOGICAL Hx Musculoskeletal Disorders: Yes (extremity weakness) Hx Arthritis: Yes Hx Degenerative Joint Disease: Yes Hx Falls: No Hx Herniated Disk: Yes Hx Unsteady Gait: Yes (uses cane sometime) Other/Comment: back pain. orthopedic surgery x2 - GASTROINTESTINAL Hx Gastrointestinal Disorders: Yes (gastritis,GASTROPARESIS) Hx Gall Bladder Disease: Yes Hx Gastroesophageal Reflux: Yes Other/Comment: portal htn hepatomegaly, hemorrhoids, pt denies fatty liver disease, celiac sensitivity - GENITOURINARY/GYNECOLOGICAL Hx Genitourinary Disorders: Yes Hx Urinary Tract Infection: Yes - PSYCHIATRIC Hx Psychophysiologic Disorder: No Hx Emotional Abuse: No Hx Physical Abuse: No Hx Substance Use: Yes (OPIATE DEPENDENCE) - SURGICAL HISTORY Hx Cholecystectomy: Yes Hx Hysterectomy: Yes - ANESTHESIA Hx Anesthesia: Yes Hx Anesthesia Reactions: No Hx Malignant Hyperthermia: No Meds Allergies/Adverse Reactions: Allergies Allergy/AdvReac Type Severity Reaction Status Date / Time gluten AdvReac PAIN Verified 03/15/18 14:33 - Medications Medications: Current Medications Benzocaine/Menthol (Cepacol Sore Throat) 1 jono MT Q2H PRN PRN Reason: Sore Throat Last Admin: 03/16/18 20:40 Dose: 1 jono Furosemide (Lasix) 20 mg IVP DAILY [facility] Last Admin: 03/17/18 09:26 Dose: Not Given Hydromorphone HCl (Dilaudid) 3 mg IVP Q3H PRN PRN Reason: Pain, moderate (4-7) Last Admin: 03/17/18 09:24 Dose: 3 mg Ceftriaxone Sodium (Rocephin 1 Gram Ivpb) 1 gm in 100 mls @ 100 mls/hr IVPB DAILY [facility] PRN Reason: Protocol Last Admin: 03/17/18 09:23 Dose: 100 mls/hr Sodium Chloride (Sodium Chloride 0.9%) 1,000 mls @ 150 mls/hr IV .Q6H40M [facility] Last Admin: 03/17/18 09:26 Dose: 150 mls/hr Potassium Phos/Sodium Phos (Neutra-Phos) 1 pkt PO TID [facility] Physical Exam - Constitutional Appears: Non-toxic, No Acute Distress - Head Exam Head Exam: ATRAUMATIC, NORMAL INSPECTION, NORMOCEPHALIC - Eye Exam Eye Exam: EOMI, Normal appearance. absent: Conjunctival injection, Scleral icterus Pupil Exam: absent: Irregular - ENT Exam ENT Exam: Mucous Membranes Moist (but just was drinking thickened liquids prior to exam) - Neck Exam Neck exam: Positive for: Full Rom. Negative for: Lymphadenopathy, Thyromegaly - Respiratory Exam Respiratory Exam: Clear to Auscultation Bilateral, NORMAL BREATHING PATTERN. absent: Rales, Rhonchi, Wheezes - Cardiovascular Exam Cardiovascular Exam: REGULAR RHYTHM, RRR, +S1, +S2. absent: Bradycardia, Tachycardia, Irregular Rhythm, JVD, +S4 - GI/Abdominal Exam GI & Abdominal Exam: Normal Bowel Sounds, Soft. absent: Diminished Bowel Sounds , Distended, Firm, Hyperactive Bowel Sounds, Rigid, Tenderness - Extremities Exam Extremities exam: Positive for: normal inspection. Negative for: joint swelling , pedal edema - Neurological Exam Additional comments: awake and alert, following all commands appropriately, moving all extremities spontaneously - Psychiatric Exam Psychiatric exam: Normal Affect, Normal Mood - Skin Skin Exam: Dry, Intact, Normal Color, Warm Results - Vital Signs Recent Vital Signs: Last Vital Signs Temp 98 F 03/17/18 06:00 Pulse 69 03/17/18 06:00 Resp 20 03/17/18 06:00 BP 99/64 L 03/17/18 06:00 Pulse Ox 98 03/17/18 06:00 - Labs Result Diagrams: 03/17/18 11:25 03/17/18 06:30 Labs: Laboratory Results - last 24 hr 03/17/18 03/17/18 06:30 06:30 WBC 8.6 D RBC 3.30 L Hgb 7.3 L Hct 23.7 L MCV 71.8 L MCH 22.1 L MCHC 30.8 L RDW 17.2 H Plt Count 334 MPV 8.0 Gran % 82.6 H Lymph % (Auto) 12.7 L Luna % (Auto) 3.7 Eos % (Auto) 0.9 L Baso % (Auto) 0.1 Gran # 7.07 H Lymph # (Auto) 1.1 L Luna # (Auto) 0.3 Eos # (Auto) 0.1 Baso # (Auto) 0.01 Sodium 142 Potassium 4.0 Chloride 112 H Carbon Dioxide 21 Anion Gap 13 BUN 29 H Creatinine 0.8 Est GFR ( Amer) > 60 Est GFR (Non-Af Amer) > 60 Random Glucose 92 Calcium 9.4 Phosphorus 1.8 L Magnesium 2.0 Total Bilirubin 0.1 L AST 37 H ALT 22 Alkaline Phosphatase 73 Total Protein 6.9 Albumin 2.7 L Globulin 4.2 Albumin/Globulin Ratio 0.6 L Assessment & Plan - Assessment and Plan (Free Text) Assessment: This is a 58 yo F with PMH of chronic back pain status post lumbar fusion, hypertension, chronic gastritis, narcotic gastroparesis, anemia, celiac disease , and hepatic steatosis who presented to [facility] with 3 day complaint of odynophagia. GI consulted for the odynophagia. Plan: Ddx: odynophagia 2/2 sore throat, infectious causes vs structural, unlikely neurological -given acute onset, related to onset of sore throat, and lack of other gross neurological symptoms, less likely neuro in nature -primary team working up for infectious causes, throat culture ordered but still uncollected -CT neck/soft tissue negative for foreign body or soft-tissue swelling -Offered patient endoscopy to assess, especially in light of prior esophageal candidiasis, but patient refusing, will empirically cover with nystatin swish and swallow, liquid carafate, and Protonix IV BID -pt reports only being able to tolerate thickened liquids at time of exam, agree with pureed and thickened liquid diet -will continue to follow, can consider EGD if patient changes her mind Patient seen, reviewed, and discussed with attending, Dr. Thao. <Corrie Thao V - Last Filed: 03/18/18 00:45> Meds - Medications Medications: Current Medications Benzocaine/Menthol (Cepacol Sore Throat) 1 jono MT Q2H PRN PRN Reason: Sore Throat Last Admin: 03/17/18 18:25 Dose: 1 jono Furosemide (Lasix) 20 mg IVP DAILY [facility] Last Admin: 03/17/18 09:26 Dose: Not Given Hydromorphone HCl (Dilaudid) 3 mg IVP Q3H PRN PRN Reason: Pain, moderate (4-7) Last Admin: 03/18/18 00:25 Dose: 3 mg Ceftriaxone Sodium (Rocephin 1 Gram Ivpb) 1 gm in 100 mls @ 100 mls/hr IVPB DAILY [facility] PRN Reason: Protocol Last Admin: 03/17/18 09:23 Dose: 100 mls/hr Sodium Chloride (Sodium Chloride 0.9%) 1,000 mls @ 150 mls/hr IV .Q6H40M [facility] Last Admin: 03/17/18 18:35 Dose: Not Given Nystatin (Nystatin Oral Susp) 5 ml PO QID [facility] Last Admin: 03/17/18 21:37 Dose: 5 ml Pantoprazole Sodium (Protonix Inj) 40 mg IVP Q12 [facility] Last Admin: 03/17/18 21:37 Dose: 40 mg Potassium Phos/Sodium Phos (Neutra-Phos) 1 pkt PO TID [facility] Last Admin: 03/17/18 18:26 Dose: 1 pkt Sucralfate (Carafate Oral Susp) 1 gm PO QID [facility] Last Admin: 03/17/18 21:34 Dose: 1 gm Results - Vital Signs Recent Vital Signs: Last Vital Signs Temp 98.6 F 03/17/18 22:00 Pulse 84 03/17/18 22:00 Resp 20 03/17/18 22:00 BP 118/73 03/17/18 22:00 Pulse Ox 99 03/17/18 22:00 - Labs Result Diagrams: 03/17/18 11:25 03/17/18 06:30 Labs: Laboratory Results - last 24 hr 03/17/18 03/17/18 03/17/18 06:30 06:30 11:25 WBC 8.6 D 9.8 RBC 3.30 L 3.59 Hgb 7.3 L 7.9 L Hct 23.7 L 25.7 L MCV 71.8 L 71.6 L MCH 22.1 L 22.0 L MCHC 30.8 L 30.7 L RDW 17.2 H 16.9 H Plt Count 334 317 MPV 8.0 7.8 Gran % 82.6 H 83.0 H Lymph % (Auto) 12.7 L 11.6 L Luna % (Auto) 3.7 4.1 Eos % (Auto) 0.9 L 1.2 L Baso % (Auto) 0.1 0.1 Gran # 7.07 H 8.16 H Lymph # (Auto) 1.1 L 1.1 L Luna # (Auto) 0.3 0.4 Eos # (Auto) 0.1 0.1 Baso # (Auto) 0.01 0.01 Sodium 142 Potassium 4.0 Chloride 112 H Carbon Dioxide 21 Anion Gap 13 BUN 29 H Creatinine 0.8 Est GFR ( Amer) > 60 Est GFR (Non-Af Amer) > 60 Random Glucose 92 Calcium 9.4 Phosphorus 1.8 L Magnesium 2.0 Total Bilirubin 0.1 L AST 37 H ALT 22 Alkaline Phosphatase 73 Total Protein 6.9 Albumin 2.7 L Globulin 4.2 Albumin/Globulin Ratio 0.6 L Attending/Attestation - Attestation I have personally seen and examined this patient.: Yes I have fully participated in the care of the patient.: Yes I have reviewed all pertinent clinical information: Yes Notes (Text): This is an addendum to GI consult report dictated by the Fishing Game Warden.The patient was seen and examined earlier. Medical records, lab studies, imagings were reviewed. Last 24 hours events reviewed. Agreed with the above treatment plan as outlined in Fishing Game Warden 's notes the with the addition of the following 03/18/18 00:44
[2018-03-17 11:38] LABS: BASO # 0.01 K/mm3 (0.0-2.0); BASO % 0.1 % (0.0-3.0); EOS # 0.1 (0.0-0.7); EOS % 1.2 % (1.5-5.0); GRAN # 8.16 (1.4-6.5); HEMOGLOBIN 7.9 g/dL (12.0-16.0); LYMPH # 1.1 (1.2-3.4); LYMPH % 11.6 % (22.0-35.0); MEAN CELL VOLUME 71.6 fl (80.0-105.0); MEAN CORPUSCULAR HGB CONC 30.7 g/dl (31.0-37.0); MEAN PLATELET VOLUME 7.8 fl (7.0-11.0); MONO # 0.4 (0.1-0.6); MONO % 4.1 % (1.0-6.0); RBC 3.59 10^6/uL (3.5-6.1); RED CELL DISTRIBUTION WIDTH 16.9 % (11.5-14.5); WHITE BLOOD COUNT 9.8 10^3/ul (4.5-11.0)
[2018-03-17] MEDS: Potassium & Sodium Phosphate PO SCH ×3 (12:26→18:26)
--- NOTE | 2018-03-17 13:34 | CP.PCM.PN ---
<Rahul Lind - Last Filed: 03/17/18 13:28> Subjective - Date & Time of Evaluation Date of Evaluation: 03/17/18 Time of Evaluation: 07:30 - Subjective Subjective: Medicine progress note for Dr. Tj Lind, PGY - 2, IM Patient seen and examined at bedside. No acute overnight events. Patient's pain is now well controlled, and she states her odynophagia improving. Objective - Vital Signs/Intake and Output Vital Signs (last 24 hours): Temp Pulse Resp BP Pulse Ox 98 F 69 20 99/64 L 98 03/17/18 06:00 03/17/18 06:00 03/17/18 06:00 03/17/18 06:00 03/17/18 06:00 Intake and Output: 03/17/18 03/17/18 06:59 18:59 Intake Total 600 Balance 600 - Medications Medications: Current Medications Benzocaine/Menthol (Cepacol Sore Throat) 1 jono MT Q2H PRN PRN Reason: Sore Throat Last Admin: 03/16/18 20:40 Dose: 1 jono Furosemide (Lasix) 20 mg IVP DAILY [facility] Last Admin: 03/17/18 09:26 Dose: Not Given Hydromorphone HCl (Dilaudid) 3 mg IVP Q3H PRN PRN Reason: Pain, moderate (4-7) Last Admin: 03/17/18 12:26 Dose: 3 mg Ceftriaxone Sodium (Rocephin 1 Gram Ivpb) 1 gm in 100 mls @ 100 mls/hr IVPB DAILY [facility] PRN Reason: Protocol Last Admin: 03/17/18 09:23 Dose: 100 mls/hr Sodium Chloride (Sodium Chloride 0.9%) 1,000 mls @ 150 mls/hr IV .Q6H40M [facility] Last Admin: 03/17/18 09:26 Dose: 150 mls/hr Nystatin (Nystatin Oral Susp) 5 ml PO QID [facility] Potassium Phos/Sodium Phos (Neutra-Phos) 1 pkt PO TID [facility] Last Admin: 03/17/18 12:26 Dose: 1 pkt - Labs Labs: 03/17/18 11:25 03/17/18 06:30 PT 14.7 SECONDS (9.4-12.5) H 03/15/18 12:00 INR 1.27 (0.93-1.08) H 03/15/18 12:00 APTT 31.4 Seconds (25.1-36.5) 03/15/18 12:00 - Constitutional Appears: Well - Head Exam Head Exam: ATRAUMATIC, NORMAL INSPECTION, NORMOCEPHALIC - Eye Exam Eye Exam: EOMI, Normal appearance, PERRL Pupil Exam: NORMAL ACCOMODATION, PERRL - ENT Exam ENT Exam: Mucous Membranes Moist, Normal Exam - Neck Exam Neck Exam: Full ROM, Normal Inspection. absent: Lymphadenopathy - Respiratory Exam Respiratory Exam: Clear to Ausculation Bilateral, NORMAL BREATHING PATTERN - Cardiovascular Exam Cardiovascular Exam: REGULAR RHYTHM, +S1, +S2. absent: Murmur - GI/Abdominal Exam GI & Abdominal Exam: Soft, Normal Bowel Sounds. absent: Tenderness - Extremities Exam Extremities Exam: Full ROM, Normal Capillary Refill, Normal Inspection. absent : Joint Swelling, Pedal Edema - Back Exam Back Exam: NORMAL INSPECTION - Neurological Exam Neurological Exam: Alert, Awake, CN II-XII Intact, Normal Gait, Oriented x3 - Psychiatric Exam Psychiatric exam: Normal Affect, Normal Mood - Skin Skin Exam: Dry, Intact, Normal Color, Warm Assessment and Plan - Assessment and Plan (Free Text) Assessment: 58-year-old female with a pertinent medical history of chronic back pain status post lumbar fusion, hypertension, celiac disease, who was brought in by ambulance for complaints of a sore throat for the past 3 days. Leukocytosis on admission has resolved, vitals are stable with no SIRS criteria. CT neck soft tissue showed no etiology for acute odynophagia, but showed low density nodule in thyroid. Odynophagia IVF NS @ 100 cc/hr C/w rocephin 1 g IVPB daily (day #3) Cepacol prn for sore throat GI consulted - recommended EGD, but patient vehemently refusing Advance diet to soft Anion-gap metabolic acidosis/metabolic acidosis Likely 2/2 dehydration, electrolyte abnormalities, opioid dependence U/a showed protein and ketones on admission Pt appears comfortable on exam, no respiratory distress Continue to monitor clinically, trend BMP Hx Anemia, likely 2/2 ACD VS Nutrition Deficiency 2/2 Celiac Dz - Acute drop in hgb has resolved with recent CBC - Patient should get outpatient work up for Thalassemia given iron studies Hx chronic pain 3 mg dilaudid q 3 h prn Pain management consulted, recs appreciated F/u PT recs Hx Celiac Dz - Gluten free diet Hx HTN C/w home med lasix 20 mg daily Pt seen, examined with, and plan discussed with Dr. Spencer, attending. <Michele Spencer - Last Filed: 03/18/18 14:08> Objective - Vital Signs/Intake and Output Vital Signs (last 24 hours): Temp Pulse Resp BP Pulse Ox 98.2 F 84 18 114/70 97 03/18/18 06:00 03/18/18 06:00 03/18/18 06:00 03/18/18 06:00 03/18/18 06:00 Intake and Output: 03/18/18 03/18/18 06:59 18:59 Intake Total 720 Balance 720 - Labs Labs: 03/18/18 06:30 03/18/18 06:30 PT 14.7 SECONDS (9.4-12.5) H 03/15/18 12:00 INR 1.27 (0.93-1.08) H 03/15/18 12:00 APTT 31.4 Seconds (25.1-36.5) 03/15/18 12:00 Attending/Attestation - Attestation I have personally seen and examined this patient.: Yes I have fully participated in the care of the patient.: Yes I have reviewed all pertinent clinical information, including history, physical exam and plan: Yes Notes (Text): 03/18/18 14:05 Medical record note made by the resident after discussion with my direction and input after the patient was personally seen and examined by me. I have reviewed the chart and agree that the record accurately reflects by personal performance of the history, physical exam, data review, and medical decision-making, in the course for the patient. I have also personally directed the plan of care. 58 year old female with a PMH of chronic back pain, s/p spinal fusion , chronic gastritis, gastroparesis, Anemia, and questionable Celiac Disease, chronic abdominal pain on high dose of dilauded follow with was admitted with H/O difficulty in swallowing, odynophagia, decrease oral intake due to painful swallowing.Patient physical examination is unremarkable, there is no congestion of posterior pharyngeal wall, the air way is patent.CT scan of neck is unremarkable.Patient has refused EGD.Symptoms are improving.WBC is back to normal.She is tolerating clear liquid diet.We will advance to full liquid diet. Microcytic hyochromic anemia is chronic, heaven start on iron . Management plan was discussed in detail with patient. Education was provided. 03/18/18 14:08
[2018-03-17] MEDS: Nystatin 100,000 Units/ml Oral Susp 5 ml UD PO SCH ×3 (15:19→21:37)
[2018-03-17] MEDS: Benzocaine/Menthol (Cepacol) Lozenge MT PRN (18:25)
[2018-03-17] MEDS: Sucralfate 1 gm/10 ml Oral Susp UD PO SCH ×2 (18:26→21:34)
[2018-03-17 22:07] VITALS: PULSE 84
[2018-03-18] MEDS: HYDROmorphone 2 mg/ml ISec IVP PRN ×5 (00:25→12:35)
[2018-03-18 07:24] LABS: BASO # 0.02 K/mm3 (0.0-2.0); BASO % 0.2 % (0.0-3.0); EOS # 0.2 (0.0-0.7); EOS % 2.2 % (1.5-5.0); GRAN # 7.55 (1.4-6.5); HEMOGLOBIN 7.9 g/dL (12.0-16.0); LYMPH % 11.3 % (22.0-35.0); MEAN CELL VOLUME 71.2 fl (80.0-105.0); MEAN CORPUSCULAR HEMOGLOBIN 21.7 pg (25.0-35.0); MEAN CORPUSCULAR HGB CONC 30.5 g/dl (31.0-37.0); MEAN PLATELET VOLUME 8.4 fl (7.0-11.0); MONO # 0.3 (0.1-0.6); MONO % 3.3 % (1.0-6.0); RBC 3.64 10^6/uL (3.5-6.1); WHITE BLOOD COUNT 9.1 10^3/ul (4.5-11.0)
[2018-03-18 07:45] LABS: ALB/GLOB RATIO 0.7 (1.1-1.8); ALBUMIN 2.8 g/dL (3.0-4.8); ALT/SGPT 23 U/L (7-56); AST/SGOT 32 U/L (14-36); BLOOD UREA NITROGEN 15 mg/dL (7-21); CALCIUM 8.9 mg/dL (8.4-10.5); GFR AFRICAN-AMERICAN > 60; GFR NON-AFRICAN AMERICAN > 60
[2018-03-18 08:04] VITALS: BP 114/70; RESP 18; TEMP 98.2; O2SAT 97
[2018-03-18] MEDS: Sucralfate 1 gm/10 ml Oral Susp UD PO SCH (09:34)
[2018-03-18] MEDS: Potassium & Sodium Phosphate PO SCH (09:34)
[2018-03-18] MEDS: cefTRIAXone 1 gm 1 GM/100 ML BAG IVPB SCH (09:35)
[2018-03-18] MEDS: Nystatin 100,000 Units/ml Oral Susp 5 ml UD PO SCH (09:48)
[2018-03-18] MEDS ORDERED: Potassium Chloride 40 mEq/30 ml LIQ UD PO ONE ×2 (13:07→14:07)
--- NOTE | 2018-03-18 13:31 | CP.PCM.PN ---
<Sonny Nick - Last Filed: 03/18/18 13:32> Subjective - Date & Time of Evaluation Date of Evaluation: 03/18/18 Time of Evaluation: 07:40 - Subjective Subjective: PGY5 GI Follow-up Pt seen and examined bedside Denies any abd pain throat pain improved Denies any fever, chills or diaphoresis ROS: 12 point ROS conducted, neg other than above Objective - Vital Signs/Intake and Output Vital Signs (last 24 hours): Temp Pulse Resp BP Pulse Ox 98.2 F 84 18 114/70 97 03/18/18 06:00 03/18/18 06:00 03/18/18 06:00 03/18/18 06:00 03/18/18 06:00 Intake and Output: 03/18/18 03/18/18 06:59 18:59 Intake Total 720 Balance 720 - Medications Medications: Current Medications Benzocaine/Menthol (Cepacol Sore Throat) 1 jono MT Q2H PRN PRN Reason: Sore Throat Last Admin: 03/17/18 18:25 Dose: 1 jono Furosemide (Lasix) 20 mg IVP DAILY [facility] Last Admin: 03/18/18 09:49 Dose: Not Given Sodium Chloride (Sodium Chloride 0.9%) 1,000 mls @ 150 mls/hr IV .Q6H40M [facility] Last Admin: 03/17/18 18:35 Dose: Not Given Nystatin (Nystatin Oral Susp) 5 ml PO QID [facility] Last Admin: 03/18/18 09:48 Dose: 5 ml Pantoprazole Sodium (Protonix Inj) 40 mg IVP Q12 [facility] Last Admin: 03/18/18 09:35 Dose: 40 mg Potassium Chloride (Potassium Chloride Oral Soln) 40 meq PO ONCE ONE Stop: 03/18/18 14:08 Potassium Phos/Sodium Phos (Neutra-Phos) 1 pkt PO TID [facility] Last Admin: 03/18/18 09:34 Dose: 1 pkt Sucralfate (Carafate Oral Susp) 1 gm PO QID [facility] Last Admin: 03/18/18 09:34 Dose: 1 gm - Labs Labs: 03/18/18 06:30 03/18/18 06:30 PT 14.7 SECONDS (9.4-12.5) H 03/15/18 12:00 INR 1.27 (0.93-1.08) H 03/15/18 12:00 APTT 31.4 Seconds (25.1-36.5) 03/15/18 12:00 - Constitutional Appears: Well, No Acute Distress - Head Exam Head Exam: ATRAUMATIC, NORMOCEPHALIC - Eye Exam Eye Exam: Normal appearance Pupil Exam: NORMAL ACCOMODATION - ENT Exam ENT Exam: Mucous Membranes Moist, Normal Exam - Neck Exam Neck Exam: Normal Inspection - Respiratory Exam Respiratory Exam: Clear to Ausculation Bilateral, NORMAL BREATHING PATTERN. absent: Rales, Rhonchi, Wheezes, Respiratory Distress - Cardiovascular Exam Cardiovascular Exam: REGULAR RHYTHM, +S1, +S2 - GI/Abdominal Exam GI & Abdominal Exam: Soft, Normal Bowel Sounds. absent: Firm, Guarding, Rigid, Tenderness, Mass, Organomegaly, Rebound - Extremities Exam Extremities Exam: absent: Joint Swelling, Pedal Edema - Neurological Exam Neurological Exam: Alert, Awake, Oriented x3 - Psychiatric Exam Psychiatric exam: Normal Affect, Normal Mood - Skin Skin Exam: Dry, Intact, Normal Color, Warm Assessment and Plan - Assessment and Plan (Free Text) Assessment: This is a 58 yo F with PMH of chronic back pain status post lumbar fusion, hypertension, chronic gastritis, narcotic gastroparesis, anemia, celiac disease , and hepatic steatosis who presented to [facility] with 3 day complaint of odynophagia. Odynophagia 2/2 pharyngitis Microcytic anemia likely 2/2 iron def Plan: -given acute onset, related to onset of sore throat, -CT neck/soft tissue negative for foreign body or soft-tissue swelling -Offered patient endoscopy to assess, especially in light of prior esophageal candidiasis, but patient refusing, will empirically cover with nystatin swish and swallow, liquid carafate, and Protonix IV BID -advance diet as tolerated -recommend colonoscopy and EGD for anemia, but pt refused -recommend outpt endoscoptic eval -continue IV venofer Patient seen, reviewed, and discussed with attending, Dr. Thao. <Corrie Thao V - Last Filed: 03/18/18 21:41> Objective - Vital Signs/Intake and Output Vital Signs (last 24 hours): Temp Pulse Resp BP Pulse Ox 98.2 F 84 18 114/70 97 03/18/18 06:00 03/18/18 06:00 03/18/18 06:00 03/18/18 06:00 03/18/18 06:00 - Labs Labs: 03/18/18 06:30 03/18/18 06:30 PT 14.7 SECONDS (9.4-12.5) H 03/15/18 12:00 INR 1.27 (0.93-1.08) H 03/15/18 12:00 APTT 31.4 Seconds (25.1-36.5) 03/15/18 12:00 Attending/Attestation - Attestation I have personally seen and examined this patient.: Yes I have fully participated in the care of the patient.: Yes I have reviewed all pertinent clinical information, including history, physical exam and plan: Yes Notes (Text): This is an addendum to GI progress report dictated by the GI Fellow.The patient was seen and examined earlier. Medical records, lab studies, imagings were reviewed. Last 24 hours events reviewed. Agreed with the above treatment plan as outlined in GI Fellow 's notes the with the addition of the following patient was tolerating liquid diet points out mainly discomfort in the throat No complaints of retroster History of iron deficiency anemia and recent drop in blood co hemoglobin stable Supplement potassium Need EGD and colonoscopy to further evaluate discussed with the patient at length but refused endoscopy now Advised to follow up for the outpatient evaluation advised to follow-up with her store protection specialist 03/18/18 21:37
--- NOTE | 2018-03-18 16:19 | CP.PCM.DIS ---
<Owen Rider - Last Filed: 03/18/18 16:12> Provider - Provider Date of Admission: 03/15/18 13:20 Attending physician: Michele Spencer MD Primary care physician: Landen Angulo MD Consults: VASYL Thao Time Spent in preparation of Discharge (in minutes): 45 Hospital Course - Lab Results Lab Results: Micro Results 03/15/18 13:25 Blood Blood Culture - Preliminary NO GROWTH AFTER 3 DAYS Most Recent Lab Values WBC 9.1 10^3/ul (4.5-11.0) 03/18/18 06:30 RBC 3.64 10^6/uL (3.5-6.1) 03/18/18 06:30 Hgb 7.9 g/dL (12.0-16.0) L 03/18/18 06:30 Hct 25.9 % (36.0-48.0) L 03/18/18 06:30 MCV 71.2 fl (80.0-105.0) L 03/18/18 06:30 MCH 21.7 pg (25.0-35.0) L 03/18/18 06:30 MCHC 30.5 g/dl (31.0-37.0) L 03/18/18 06:30 RDW 17.0 % (11.5-14.5) H 03/18/18 06:30 Plt Count 329 10^3/uL (120.0-450.0) 03/18/18 06:30 MPV 8.4 fl (7.0-11.0) 03/18/18 06:30 Gran % 83.0 % (50.0-68.0) H 03/18/18 06:30 Lymph % (Auto) 11.3 % (22.0-35.0) L 03/18/18 06:30 [place] % (Auto) 3.3 % (1.0-6.0) 03/18/18 06:30 Eos % (Auto) 2.2 % (1.5-5.0) 03/18/18 06:30 Baso % (Auto) 0.2 % (0.0-3.0) 03/18/18 06:30 Gran # 7.55 (1.4-6.5) H 03/18/18 06:30 Lymph # (Auto) 1.0 (1.2-3.4) L 03/18/18 06:30 [place] # (Auto) 0.3 (0.1-0.6) 03/18/18 06:30 Eos # (Auto) 0.2 (0.0-0.7) 03/18/18 06:30 Baso # (Auto) 0.02 K/mm3 (0.0-2.0) 03/18/18 06:30 Neutrophils % (Manual) 87 % (50.0-70.0) H 03/15/18 12:00 Lymphocytes % (Manual) 7 % (22.0-35.0) L 03/15/18 12:00 Monocytes % (Manual) 5 % (1.0-6.0) 03/15/18 12:00 Eosinophils % (Manual) 1 % (0.0-3.0) 03/15/18 12:00 PT 14.7 SECONDS (9.4-12.5) H 03/15/18 12:00 INR 1.27 (0.93-1.08) H 03/15/18 12:00 APTT 31.4 Seconds (25.1-36.5) 03/15/18 12:00 pO2 55 mm/Hg (30-55) 03/15/18 13:25 VBG pH 7.27 (7.32-7.43) L 03/15/18 13:25 VBG pCO2 34.0 (40-60) L 03/15/18 13:25 VBG HCO3 15.6 mmol/l (21-28) L 03/15/18 13:25 VBG O2 Sat (Calc) 90.5 % (40-65) H 03/15/18 13:25 VBG Base Excess -10.3 mmol/L (0.0-2.0) L 03/15/18 13:25 Sodium 139 mmol/L (132-148) 03/18/18 06:30 Potassium 3.0 mmol/L (3.6-5.0) L 03/18/18 06:30 Chloride 108 mmol/L (98-107) H 03/18/18 06:30 Carbon Dioxide 22 mmol/L (21-33) 03/18/18 06:30 Anion Gap 12 (10-20) 03/18/18 06:30 BUN 15 mg/dL (7-21) 03/18/18 06:30 Creatinine 0.7 mg/dl (0.7-1.2) 03/18/18 06:30 Est GFR ( Amer) > 60 03/18/18 06:30 Est GFR (Non-Af Amer) > 60 03/18/18 06:30 Random Glucose 92 mg/dL (70-110) 03/18/18 06:30 Calcium 8.9 mg/dL (8.4-10.5) 03/18/18 06:30 Phosphorus 2.2 mg/dL (2.5-4.5) L 03/18/18 06:30 Magnesium 1.7 mg/dL (1.7-2.2) 03/18/18 06:30 Total Bilirubin 0.4 mg/dL (0.2-1.3) 03/18/18 06:30 AST 32 U/L (14-36) 03/18/18 06:30 ALT 23 U/L (7-56) 03/18/18 06:30 Alkaline Phosphatase 72 U/L (38-126) 03/18/18 06:30 Lactate Dehydrogenase 348 U/L (333-699) 03/15/18 12:00 Total Creatine Kinase 362 U/L (35-230) H 03/15/18 12:00 CK-MB (CK-2) 1.4 ng/mL (0.0-3.6) 03/15/18 12:00 CK-MB (CK-2) % Cancelled 03/15/18 12:00 Troponin I < 0.01 ng/mL 03/15/18 12:00 Total Protein 6.9 g/dL (5.8-8.3) 03/18/18 06:30 Albumin 2.8 g/dL (3.0-4.8) L 03/18/18 06:30 Globulin 4.1 gm/dL 03/18/18 06:30 Albumin/Globulin Ratio 0.7 (1.1-1.8) L 03/18/18 06:30 Amylase 69 U/L (35-125) 03/15/18 12:00 Lipase 62 U/L (23-300) 03/15/18 12:00 Urine Color Yellow (YELLOW) 03/15/18 13:00 Urine Appearance Clear (CLEAR) 03/15/18 13:00 Urine pH 6.0 (4.7-8.0) 03/15/18 13:00 Ur Specific [place] 1.020 (1.005-1.035) 03/15/18 13:00 Urine Protein 30 mg/dL (<30 mg/dL) H 03/15/18 13:00 Urine Glucose (UA) Negative mg/dL (NEGATIVE) 03/15/18 13:00 Urine Ketones 40 mg/dL (NEGATIVE) H 03/15/18 13:00 Urine Blood Negative (NEGATIVE) 03/15/18 13:00 Urine Nitrate Negative (NEGATIVE) 03/15/18 13:00 Urine Bilirubin Negative (NEGATIVE) 03/15/18 13:00 Urine Urobilinogen 0.2 E.U./dL (<1 E.U./dL) 03/15/18 13:00 Ur Leukocyte Esterase Negative Kiana/uL (NEGATIVE) 03/15/18 13:00 Urine RBC 0 - 2 /hpf (0-2) 03/15/18 13:00 Urine WBC 0 - 2 /hpf (0-6) 03/15/18 13:00 Ur Epithelial Cells Many /hpf (0-5) 03/15/18 13:00 Urine Bacteria Few (NEG) 03/15/18 13:00 Urine Other Uyeast 03/15/18 13:00 Urine Opiates Screen Positive (NEGATIVE) H 03/15/18 13:00 Urine Methadone Screen Negative (NEGATIVE) 03/15/18 13:00 Ur Barbiturates Screen Negative (NEGATIVE) 03/15/18 13:00 Ur Phencyclidine Scrn Negative (NEGATIVE) 03/15/18 13:00 Ur Amphetamines Screen Negative (NEGATIVE) 03/15/18 13:00 U Benzodiazepines Scrn Negative (NEGATIVE) 03/15/18 13:00 U Oth Cocaine Metabols Negative (NEGATIVE) 03/15/18 13:00 U Cannabinoids Screen Negative (NEGATIVE) 03/15/18 13:00 - Hospital Course Hospital Course: Owen Rider DO PGY-1, Forest Fire Specialist Supervisor Medicine Discharge Summary This is a 58-year-old female with a past medical history of chronic back pain status post lumbar fusion, hypertension, chronic gastritis, narcotic gastroparesis, anemia, celiac disease, hepatic steatosis, who was brought in by ambulance on 03/16/18 for complaints of a sore throat for the past 3 days. Patient stated that she was eating some sushi and felt that it got stuck in the back of her throat and afterwards felt that she may have either breathing in or something else and had some pain in the throat. Patient saw her PMD and was given amoxicillin pills for the sore throat without much improvement. Patient stated that she was not even able to swallow the pills for some days given the throat pain and then had multiple episodes of emesis which he attributes to not being able to take her medications which include hydromorphone for chronic pain. Patient at that time time denied any fevers, chills, current nausea, recent vomiting, headache, or otherwise. Patient did admit to some chest discomfort. Patient had not had any productive sputum or other pulmonary complaints. Of note, patient did note that she has been around her son who has been sick with a sore throat also recently. In ED, pt was given IVF, started on rocephin daily for broad spectrum coverage. Lab work revealed leukocytosis, elevated anion-gap metabolic acidosis/metabolic alkalosis (likely 2/2 dehydration and opioid dependence). CT soft tissue neck demonstrated no abscess , but revealed thyroid nodule; pt was instructed to follow-up outpatient with thyroid ultrasound. CXR demonstrated no consolidation. Pt was placed on home pain medications for management of chronic back pain s/p lumbar fusion. GI was consulted (Dr. Thao), who recommended endoscopy for further eval of odynophagia, but pt refused. Pt was advanced to liquid diet, tolerated well, and instructed on day of discharge (03/18/18) to start soft diet on Tuesday. Pt was discharged on protonix and nystatin byron'n as per GI, and also was instructed to resume her home medications, and to follow-up with Dr. Thao within 1-2 weeks of discharge. Pt also had normocytic, normochromic anemia on lab work-up, likely chronic in comparison to prior hospital visits, and was instructed to follow up with her primary Heme/Onc Dr. Quintero within 1-2 weeks of discharge. Pt was also instructed to follow-up with her pain management doctor, and follow-up with Dr. Angulo, her PCP. All questions and concerns were addressed with pt, and she is agreeable to plan. Discharge Exam - Head Exam Head Exam: ATRAUMATIC, NORMOCEPHALIC - Eye Exam Eye Exam: EOMI, Normal appearance, PERRL - ENT Exam ENT Exam: Mucous Membranes Moist, Normal Oropharynx - Neck Exam Neck exam: Full Rom, Normal Inspection - Respiratory Exam Respiratory Exam: Clear to PA & Lateral, NORMAL BREATHING PATTERN, UNREMARKABLE - Cardiovascular Exam Cardiovascular Exam: REGULAR RHYTHM, +S1, +S2 - GI/Abdominal Exam GI & Abdominal Exam: Normal Bowel Sounds, Soft, Unremarkable - Extremities Exam Extremities exam: full ROM, normal inspection, pedal pulses present - Back Exam Back exam: NORMAL INSPECTION - Neurological Exam Neurological exam: Alert, CN II-XII Intact, Normal Gait, Oriented x3, Reflexes Normal - Psychiatric Exam Psychiatric exam: Normal Affect, Normal Mood - Skin Skin Exam: Dry, Intact, Normal Color, Warm Discharge Plan - Discharge Medications Prescriptions: Docusate Sodium [Colace] 100 mg PO BID 7 Days #14 capsule Ferrous Sulfate 325 mg PO BID 14 Days #28 tablet Furosemide [Lasix] 20 mg PO DAILY 14 Days #14 tablet Nystatin [Nystatin Oral Susp] 5 ml PO QID 7 Days #28 dada Pantoprazole Sodium [Protonix] 40 mg PO DAILY 14 Days #14 tab - Follow Up Plan Condition: STABLE Disposition: HOME/ ROUTINE Instructions: Dysphagia, Prescription Drug Misuse, Normocytic Normochromic Anemia, Dehydration (DC), Dehydration (GEN) Additional Instructions: Please follow up with your PMD (Dr. Angulo) within 3-5 days of discharge. Please follow up with Dr. Quintero (Heme/Onc) within 1-2 weeks of discharge. Please follow up with Dr. Thao (GI) within 1-2 weeks of discharge. Please follow up with you pain management doctor within 1 week of discharge. Please follow up with an outpatient ultrasound of your thyroid gland within 2 weeks. Please take new medications as prescribed: Ferrous sulfate, Colace, Nystatin, Protonix Please resume your home medications as prescribed. Continue with liquid diet; resume soft diet this Tuesday03/20/18. Should symptoms recur or worsen, please call your primary care physician or report to your nearest emergency department. Referrals: Landen Angulo MD [Primary Care Provider] - Calvin Quintero MD [Staff Provider] - Corrie Thao MD [Medical Doctor] - <Michele Spencer - Last Filed: 03/19/18 11:25> Provider - Provider Date of Admission: 03/15/18 13:20 Attending physician: Michele Spencer MD Primary care physician: Landen Angulo MD Hospital Course - Lab Results Lab Results: Micro Results 03/15/18 13:25 Blood Blood Culture - Preliminary NO GROWTH AFTER 3 DAYS Most Recent Lab Values WBC 9.1 10^3/ul (4.5-11.0) 03/18/18 06:30 RBC 3.64 10^6/uL (3.5-6.1) 03/18/18 06:30 Hgb 7.9 g/dL (12.0-16.0) L 03/18/18 06:30 Hct 25.9 % (36.0-48.0) L 03/18/18 06:30 MCV 71.2 fl (80.0-105.0) L 03/18/18 06:30 MCH 21.7 pg (25.0-35.0) L 03/18/18 06:30 MCHC 30.5 g/dl (31.0-37.0) L 03/18/18 06:30 RDW 17.0 % (11.5-14.5) H 03/18/18 06:30 Plt Count 329 10^3/uL (120.0-450.0) 03/18/18 06:30 MPV 8.4 fl (7.0-11.0) 03/18/18 06:30 Gran % 83.0 % (50.0-68.0) H 03/18/18 06:30 Lymph % (Auto) 11.3 % (22.0-35.0) L 03/18/18 06:30 [place] % (Auto) 3.3 % (1.0-6.0) 03/18/18 06:30 Eos % (Auto) 2.2 % (1.5-5.0) 03/18/18 06:30 Baso % (Auto) 0.2 % (0.0-3.0) 03/18/18 06:30 Gran # 7.55 (1.4-6.5) H 03/18/18 06:30 Lymph # (Auto) 1.0 (1.2-3.4) L 03/18/18 06:30 [place] # (Auto) 0.3 (0.1-0.6) 03/18/18 06:30 Eos # (Auto) 0.2 (0.0-0.7) 03/18/18 06:30 Baso # (Auto) 0.02 K/mm3 (0.0-2.0) 03/18/18 06:30 Neutrophils % (Manual) 87 % (50.0-70.0) H 03/15/18 12:00 Lymphocytes % (Manual) 7 % (22.0-35.0) L 03/15/18 12:00 Monocytes % (Manual) 5 % (1.0-6.0) 03/15/18 12:00 Eosinophils % (Manual) 1 % (0.0-3.0) 03/15/18 12:00 PT 14.7 SECONDS (9.4-12.5) H 03/15/18 12:00 INR 1.27 (0.93-1.08) H 03/15/18 12:00 APTT 31.4 Seconds (25.1-36.5) 03/15/18 12:00 pO2 55 mm/Hg (30-55) 03/15/18 13:25 VBG pH 7.27 (7.32-7.43) L 03/15/18 13:25 VBG pCO2 34.0 (40-60) L 03/15/18 13:25 VBG HCO3 15.6 mmol/l (21-28) L 03/15/18 13:25 VBG O2 Sat (Calc) 90.5 % (40-65) H 03/15/18 13:25 VBG Base Excess -10.3 mmol/L (0.0-2.0) L 03/15/18 13:25 Sodium 139 mmol/L (132-148) 03/18/18 06:30 Potassium 3.0 mmol/L (3.6-5.0) L 03/18/18 06:30 Chloride 108 mmol/L (98-107) H 03/18/18 06:30 Carbon Dioxide 22 mmol/L (21-33) 03/18/18 06:30 Anion Gap 12 (10-20) 03/18/18 06:30 BUN 15 mg/dL (7-21) 03/18/18 06:30 Creatinine 0.7 mg/dl (0.7-1.2) 03/18/18 06:30 Est GFR ( Amer) > 60 03/18/18 06:30 Est GFR (Non-Af Amer) > 60 03/18/18 06:30 Random Glucose 92 mg/dL (70-110) 03/18/18 06:30 Calcium 8.9 mg/dL (8.4-10.5) 03/18/18 06:30 Phosphorus 2.2 mg/dL (2.5-4.5) L 03/18/18 06:30 Magnesium 1.7 mg/dL (1.7-2.2) 03/18/18 06:30 Total Bilirubin 0.4 mg/dL (0.2-1.3) 03/18/18 06:30 AST 32 U/L (14-36) 03/18/18 06:30 ALT 23 U/L (7-56) 03/18/18 06:30 Alkaline Phosphatase 72 U/L (38-126) 03/18/18 06:30 Lactate Dehydrogenase 348 U/L (333-699) 03/15/18 12:00 Total Creatine Kinase 362 U/L (35-230) H 03/15/18 12:00 CK-MB (CK-2) 1.4 ng/mL (0.0-3.6) 03/15/18 12:00 CK-MB (CK-2) % Cancelled 03/15/18 12:00 Troponin I < 0.01 ng/mL 03/15/18 12:00 Total Protein 6.9 g/dL (5.8-8.3) 03/18/18 06:30 Albumin 2.8 g/dL (3.0-4.8) L 03/18/18 06:30 Globulin 4.1 gm/dL 03/18/18 06:30 Albumin/Globulin Ratio 0.7 (1.1-1.8) L 03/18/18 06:30 Amylase 69 U/L (35-125) 03/15/18 12:00 Lipase 62 U/L (23-300) 03/15/18 12:00 Urine Color Yellow (YELLOW) 03/15/18 13:00 Urine Appearance Clear (CLEAR) 03/15/18 13:00 Urine pH 6.0 (4.7-8.0) 03/15/18 13:00 Ur Specific [place] 1.020 (1.005-1.035) 03/15/18 13:00 Urine Protein 30 mg/dL (<30 mg/dL) H 03/15/18 13:00 Urine Glucose (UA) Negative mg/dL (NEGATIVE) 03/15/18 13:00 Urine Ketones 40 mg/dL (NEGATIVE) H 03/15/18 13:00 Urine Blood Negative (NEGATIVE) 03/15/18 13:00 Urine Nitrate Negative (NEGATIVE) 03/15/18 13:00 Urine Bilirubin Negative (NEGATIVE) 03/15/18 13:00 Urine Urobilinogen 0.2 E.U./dL (<1 E.U./dL) 03/15/18 13:00 Ur Leukocyte Esterase Negative Kiana/uL (NEGATIVE) 03/15/18 13:00 Urine RBC 0 - 2 /hpf (0-2) 03/15/18 13:00 Urine WBC 0 - 2 /hpf (0-6) 03/15/18 13:00 Ur Epithelial Cells Many /hpf (0-5) 03/15/18 13:00 Urine Bacteria Few (NEG) 03/15/18 13:00 Urine Other Uyeast 03/15/18 13:00 Urine Opiates Screen Positive (NEGATIVE) H 03/15/18 13:00 Urine Methadone Screen Negative (NEGATIVE) 03/15/18 13:00 Ur Barbiturates Screen Negative (NEGATIVE) 03/15/18 13:00 Ur Phencyclidine Scrn Negative (NEGATIVE) 03/15/18 13:00 Ur Amphetamines Screen Negative (NEGATIVE) 03/15/18 13:00 U Benzodiazepines Scrn Negative (NEGATIVE) 03/15/18 13:00 U Oth Cocaine Metabols Negative (NEGATIVE) 03/15/18 13:00 U Cannabinoids Screen Negative (NEGATIVE) 03/15/18 13:00 Attending/Attestation - Attestation I have personally seen and examined this patient.: Yes I have fully participated in the care of the patient.: Yes I have reviewed all pertinent clinical information, including history, physical exam and plan: Yes Notes (Text): 03/19/18 11:22 Medical record note made by the resident after discussion with my direction and input after the patient was personally seen and examined by me. I have reviewed the chart and agree that the record accurately reflects by personal performance of the history, physical exam, data review, and medical decision-making, in the course for the patient. I have also personally directed the plan of care. 58 year old female with a PMH of chronic back pain, s/p spinal fusion , chronic gastritis, gastroparesis, Anemia, and questionable Celiac Disease, chronic abdominal pain on high dose of dilauded follow with was admitted with H/O difficulty in swallowing, odynophagia, decrease oral intake due to painful swallowing.Patient physical examination was unremarkable, there was no congestion of posterior pharyngeal wall. CT scan of neck is unremarkable.Patient has refused EGD.Symptoms are improving.WBC is back to normal.She is tolerating liquid diet. Microcytic hyochromic anemia is chronic,on iron supplement, will need EGD and Colonoscopy as out patient. Patient will follow up with GI and Hematology. Management plan was discussed in detail with patient. Education was provided.
== END 2018-03-18 13:51 | disposition home or self-care (01) | DRG 641 ==
LOC: ED 10:33 → ERH 13:20 → 5RNO 16:02
PROVIDERS: ADMIT Internal Medicine; ATTEND Internal Medicine
DX: E86.0 Dehydration (principal); F11.20 Opioid dependence, uncomplicated; K76.6 Portal hypertension; J02.9 Acute pharyngitis, unspecified; R13.10 Dysphagia, unspecified; K31.84 Gastroparesis; K29.50 Unspecified chronic gastritis without bleeding; D50.9 Iron deficiency anemia, unspecified; M54.9 Dorsalgia, unspecified; E04.1 Nontoxic single thyroid nodule; E87.4 Mixed disorder of acid-base balance; K90.0 Celiac disease; G89.29 Other chronic pain; I10 Essential (primary) hypertension; K21.9 Gastro-esophageal reflux disease without esophagitis; M19.90 Unspecified osteoarthritis, unspecified site; K76.0 Fatty (change of) liver, not elsewhere classified; Z98.1 Arthrodesis status; Z87.891 Personal history of nicotine dependence; Z87.440 Personal history of urinary (tract) infections

== ENCOUNTER 2018-06-12 00:17 | Observation (INO) | payer BC ==
--- NOTE | 2018-06-12 00:32 | ED PDOC ---
Arrival/HPI - General Chief Complaint: Abdominal Pain Time Seen by Provider: 06/12/18 00:18 Historian: Patient - History of Present Illness Narrative History of Present Illness (Text): 06/12/18 00:28 Renetta Elkins is a 58 year old female, whose past medical history includes chronic back pain s/p spinal fusion, opiate dependence, chronic gastritis, gastroparesis, hypertension, anemia, questionable celiac disease, and GERD, who presents to the ED complaining of abdominal pain. Patient states she has been experiencing abdominal cramping with associated nausea, multiple episodes of vomiting, and diarrhea for the past 3 days. Patient denies any fever, chills, chest pain, shortness of breath, urinary symptoms, back pain, neck pain, headache, dizziness, or any other complaints. Time/Duration: < week Symptom Onset: Gradual Symptom Course: Unchanged Quality: Cramping Activities at Onset: Light Context: Home Past Medical History - Provider Review Nursing Documentation Reviewed: Yes - Infectious Disease Hx of Infectious Diseases: None - Tetanus Immunization Tetanus Immunization: Unknown - Cardiac Hx Cardiac Disorders: Yes Hx Heart Murmur: Yes Hx Hypertension: Yes - Pulmonary Hx Respiratory Disorders: Yes (USED TO SMOKE. QUIT 25 YRS AGO) - Neurological Hx Neurological Disorder: No - HEENT Hx HEENT Disorder: No - Renal Hx Renal Disorder: No - Endocrine/Metabolic Hx Endocrine Disorders: No - Hematological/Oncological Hx Blood Disorders: Yes Hx Anemia: Yes Other/Comment: hx blood transfusion - Integumentary Hx Dermatological Disorder: Yes - Musculoskeletal/Rheumatological Hx Musculoskeletal Disorders: Yes (extremity weakness) Hx Arthritis: Yes Hx Degenerative Joint Disease: Yes Hx Falls: No Hx Herniated Disk: Yes Hx Unsteady Gait: Yes (uses cane sometime) Other/Comment: back pain. orthopedic surgery x2 - Gastrointestinal Hx Gastrointestinal Disorders: Yes (gastritis,GASTROPARESIS) Hx Gall Bladder Disease: Yes Hx Gastroesophageal Reflux: Yes Other/Comment: portal htn hepatomegaly, hemorrhoids, pt denies fatty liver disease, celiac sensitivity - Genitourinary/Gynecological Hx Genitourinary Disorders: Yes Hx Urinary Tract Infection: Yes - Psychiatric Hx Psychophysiologic Disorder: No Hx Emotional Abuse: No Hx Physical Abuse: No Hx Substance Use: Yes (OPIATE DEPENDENCE) - Surgical History Hx Cholecystectomy: Yes Hx Hysterectomy: Yes - Anesthesia Hx Anesthesia: Yes Hx Anesthesia Reactions: No Hx Malignant Hyperthermia: No - Suicidal Assessment Feels Threatened In Home Enviroment: No Family/Social History - Physician Review Nursing Documentation Reviewed: Yes Family/Social History: Unknown Family HX Smoking Status: Former Smoker Hx Alcohol Use: No Hx Substance Use: Yes (OPIATE DEPENDENCE) Hx Substance Use Treatment: No Allergies/Home Meds Allergies/Adverse Reactions: Allergies gluten Adverse Reaction (Verified 06/12/18 00:23) PAIN Home Medications: Home Meds Medication Instructions Recorded Confirmed HYDROmorphone [Dilaudid] 8 mg PO Q4 PRN 03/08/16 03/15/18 Hydromorphone HCl [Exalgo] 16 mg PO TID 02/13/18 03/15/18 Review of Systems - Physician Review All systems were reviewed & negative as marked: Yes - Review of Systems Constitutional: Other (+chills). absent: Fevers Eyes: Normal ENT: Normal Respiratory: Normal. absent: SOB, Cough Cardiovascular: Normal. absent: Chest Pain Gastrointestinal: Abdominal Pain, Diarrhea, Nausea, Vomiting Genitourinary Female: Normal. absent: Dysuria, Frequency, Hematuria, Urine Output Changes Musculoskeletal: Normal. absent: Back Pain, Neck Pain Skin: Normal. absent: Rash Neurological: Normal. absent: Headache, Dizziness Endocrine: Normal Hemo/Lymphatic: Normal Psychiatric: Normal Physical Exam Vital Signs Reviewed: Yes Vital Signs Pulse Resp BP Pulse Ox 06/12/18 00:25 88 18 136/112 H 100 Temperature: Afebrile Blood Pressure: Normal Pulse: Regular Respiratory Rate: Normal Appearance: Positive for: Well-Appearing, Non-Toxic, Comfortable Pain Distress: None Mental Status: Positive for: Alert and Oriented X 3 - Systems Exam Head: Present: Atraumatic, Normocephalic Pupils: Present: PERRL Extroacular Muscles: Present: EOMI Conjunctiva: Present: Normal Mouth: Present: Moist Mucous Membranes Neck: Present: Normal Range of Motion Respiratory/Chest: Present: Clear to Auscultation, Good Air Exchange. No: Respiratory Distress, Accessory Muscle Use Cardiovascular: Present: Regular Rate and Rhythm, Normal S1, S2. No: Murmurs Abdomen: No: Tenderness, Distention, Peritoneal Signs Back: Present: Normal Inspection Upper Extremity: Present: Normal Inspection. No: Cyanosis, Edema Lower Extremity: Present: Normal Inspection. No: Edema Neurological: Present: GCS=15, CN II-XII Intact, Speech Normal Skin: Present: Warm, Dry, Normal Color. No: Rashes Psychiatric: Present: Alert, Oriented x 3, Normal Insight, Normal Concentration Medical Decision Making ED Course and Treatment: 06/12/18 00:28 Impression: 58 year old female c/o abdominal cramping, nausea, vomiting, and diarrhea for 3 days. Plan: -- EKG -- Chest X-ray -- Labs, lipase -- Morphine -- Zofran -- Pepcid -- Reassess and disposition Prior Visits: Notes and results from previous visits were reviewed. On 03/15/2018, pt was seen in the Emergency department for sore throat, body aches, chills, and epigastric pain. Pt was admitted to the hospital for further evaluation. Progress Notes: Reviewed EKG, NSR at 84 bpm. Non-specific ST/T wave changes. 06/12/18 01:37 Chest X-ray reviewed, shows no acute processes. 06/12/18 03:36 CT Abdomen and Pelvis reviewed, shows: The liver is moderately enlarged without mass or defect. There is mild biliary ductal dilatation. The spleen is moderately enlarged. The gallbladder is surgically absent. The pancreas is of normal contour and attenuation characteristics. There is no evidence of adrenal mass. Both kidneys demonstrate prompt and equal nephrograms. The kidneys are normal in size, shape and configuration. There is no evidence of renal or ureteral mass. No renal or ureteral calculi are identified. There is no hydroureter or hydronephrosis. No evidence for appendicitis. There is no bowel wall thickening. No evidence for small or large bowel obstruction. There is no evidence of abdominal ascites or lymphadenopathy. There is no evidence of intrinsic or extrinsic bladder mass. There is no pelvic ascites or lymphadenopathy. Images of the lung bases show no evidence of pleural or parenchymal mass. There are no pleural effusions. The bony structures are free of lytic or blastic lesions. Prior laminectomies. Unchanged. Subcutaneous fat thickening and stranding with multifocal small pockets of them containing air densities more on the right. IMPRESSION: Moderate constipation. Associated ileus. Bilateral subcutaneous fat stranding. Bilateral subcutaneous free fluid of the proximal thighs laterally. Associated fluid/gas containing pockets. Findings can be secondary to recent intervention and/or infection. Thank you for your kind referral of this patient. Electronically signed on Jun 12, 2018 3:34:41 AM EDT by: José Luis Fuenz M.D., Certified by ABR, MSK, Neuroradiology 06/12/18 03:39 Case discussed with medical investigator computer system validation specialist, who is aware and agrees with plan. 06/12/18 03:[address] Flynn, who is aware and agrees with plan. Accepts pt in to hospitalist service. Pt will go to [facility] observation for abdominal pain, intractable vomiting, and gastroparesis. - Lab Interpretations I have reviewed the lab results: Yes - RAD Interpretation Rib Trim Separator: ED Physician, Radiologist - EKG Interpretation Interpreted by ED Physician: Yes Type: 12 lead EKG - Scribe Statement The provider has reviewed the documentation as recorded by the Scribkenan Christianson Provider Scribe Attestation: All medical record entries made by the Scribe were at my direction and personally dictated by me. I have reviewed the chart and agree that the record accurately reflects my personal performance of the history, physical exam, medical decision making, and the department course for this patient. I have also personally directed, reviewed, and agree with the discharge instructions and disposition. Disposition/Present on Arrival - Present on Arrival Any Indicators Present on Arrival: No History of DVT/PE: No History of Uncontrolled Diabetes: No Urinary Catheter: No History of Decub. Ulcer: No History Surgical Site Infection Following: None - Disposition Have Diagnosis and Disposition been Completed?: Yes Diagnosis: Intractable vomiting, Gastroparesis, Intractable pain Disposition: HOSPITALIZED Disposition Time: 03:39 Patient Problems: Current Active Problems Problem Status Onset Gastroparesis Acute Intractable pain Acute Intractable vomiting Acute Condition: STABLE Referrals: Landen Angulo MD [Primary Care Provider] - Follow up with primary Forms: [employer] (Kyr[place]z)
[2018-06-12] MEDS ORDERED: Morphine 4 mg/ml ISec IVP STA ×2 (00:37→02:30)
[2018-06-12] MEDS ORDERED: Sodium Chloride 0.9% 1,000 ML IV STA (00:38)
[2018-06-12 00:53] LABS: MEAN CORPUSCULAR HEMOGLOBIN 22.8 pg (25.0-35.0); MEAN CORPUSCULAR HGB CONC 30.4 g/dl (31.0-37.0); MEAN PLATELET VOLUME 8.7 fl (7.0-11.0); RBC 3.95 10^6/uL (3.5-6.1); RED CELL DISTRIBUTION WIDTH 19.1 % (11.5-14.5); WHITE BLOOD COUNT 7.1 10^3/ul (4.5-11.0)
[2018-06-12 00:55] LABS: MEAN CELL VOLUME 74.9 fl (80.0-105.0)
[2018-06-12 01:00] LABS: ALB/GLOB RATIO 0.7 (1.1-1.8); ALBUMIN 3.5 g/dL (3.0-4.8); ALT/SGPT 25 U/L (7-56); AST/SGOT 35 U/L (14-36); BLOOD UREA NITROGEN 14 mg/dL (7-21); CALCIUM 9.6 mg/dL (8.4-10.5); GFR NON-AFRICAN AMERICAN > 60; LIPASE 39 U/L (23-300)
[2018-06-12] MEDS ORDERED: DiphenhydrAMINE 50 mg/ml Inj IVP ONE (02:30)
[2018-06-12] MEDS ORDERED: Iohexol 350 MG/100 ML VIAL ONE (02:38)
[2018-06-12] MEDS ORDERED: Sodium Chloride 0.9% 1,000 ML IV SCH ×2 (04:00→04:10)
[2018-06-12] MEDS ORDERED: HYDROmorphone 1 mg/ml ISec IVP PRN (04:21)
--- NOTE | 2018-06-12 04:49 | CP.PCM.HP ---
<Dylan Nick - Last Filed: 06/12/18 05:13> History of Present Illness - History of Present Illness History of Present Illness: Dylan Nick DO PGY1 - Internal Medicine Resaw Operator - Medicine H&P CC: Abd pain, n/v, diarrhea 58F w/a PMH of chronic back pain status post lumbar fusion, hypertension, chronic gastritis, narcotic gastroparesis, anemia, celiac sensitivity, hepatic steatosis; Presented to [facility] ED on 06/12 w/ complaints of abd pain, nausea, vomiting, and diarrhea x3 days. Patient reports on Tuesday she had gone out for dinner and begin experiencing nausea immediately after her meal. She started that throughout the day she had a diffuse crampy abdominal pain w/ associated nausea. She reports numerous episodes of NBNB vomitus as well as Non bloody, non greasy/fatty diarrhea. She did report others around her have been experiencing similar symptoms of nausea/vomiting and diarrhea. Of note she states she does take PO opiate and reglan at home however has been unable to tolerate PO medications for the past two days. Patient did however report taking amoxicillin 2-3 weeks ago for sore throat. Remainder of 12 system ROS is negative. 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 QUIT 25 YRS AGO) - NEUROLOGICAL Hx Neurological Disorder: No - HEENT Hx HEENT Problems: No - RENAL Hx Chronic Kidney Disease: No - ENDOCRINE/METABOLIC Hx Endocrine Disorders: No - HEMATOLOGICAL/ONCOLOGICAL Hx Blood Disorders: Yes Hx Anemia: Yes Other/Comment: hx blood transfusion - INTEGUMENTARY Hx Dermatological Problems: Yes - MUSCULOSKELETAL/RHEUMATOLOGICAL Hx Musculoskeletal Disorders: Yes (extremity weakness) Hx Arthritis: Yes Hx Degenerative Joint Disease: Yes Hx Falls: No Hx Herniated Disk: Yes Hx Unsteady Gait: Yes (uses cane sometime) Other/Comment: back pain. orthopedic surgery x2 - GASTROINTESTINAL Hx Gastrointestinal Disorders: Yes (gastritis,GASTROPARESIS) Hx Gall Bladder Disease: Yes Hx Gastroesophageal Reflux: Yes Other/Comment: portal htn hepatomegaly, hemorrhoids, pt denies fatty liver disease, celiac sensitivity - GENITOURINARY/GYNECOLOGICAL Hx Genitourinary Disorders: Yes Hx Urinary Tract Infection: Yes - PSYCHIATRIC Hx Psychophysiologic Disorder: No Hx Emotional Abuse: No Hx Physical Abuse: No Hx Substance Use: Yes (OPIATE DEPENDENCE) - SURGICAL HISTORY Hx Cholecystectomy: Yes Hx Hysterectomy: Yes - ANESTHESIA Hx Anesthesia: Yes Hx Anesthesia Reactions: No Hx Malignant Hyperthermia: No Meds Allergies/Adverse Reactions: Allergies Allergy/AdvReac Type Severity Reaction Status Date / Time gluten AdvReac PAIN Verified 06/12/18 00:23 Physical Exam - Constitutional Appears: Well, Non-toxic, No Acute Distress - Head Exam Head Exam: ATRAUMATIC, NORMAL INSPECTION, NORMOCEPHALIC - Eye Exam Eye Exam: EOMI, Normal appearance, PERRL - ENT Exam ENT Exam: Mucous Membranes Moist, Normal Exam - Respiratory Exam Respiratory Exam: Clear to Auscultation Bilateral, NORMAL BREATHING PATTERN. absent: Rales, Rhonchi, Wheezes - Cardiovascular Exam Cardiovascular Exam: RRR, +S1, +S2, Systolic Murmur - GI/Abdominal Exam GI & Abdominal Exam: Hyperactive Bowel Sounds, Soft. absent: Tenderness - Extremities Exam Extremities exam: Positive for: pedal pulses present. Negative for: pedal edema - Back Exam Back exam: absent: CVA tenderness (L), CVA tenderness (R) - Neurological Exam Neurological exam: Alert, CN II-XII Intact, Oriented x3 - Psychiatric Exam Psychiatric exam: Normal Affect, Normal Mood - Skin Skin Exam: Dry, Intact, Normal Color, Warm Results - Vital Signs Recent Vital Signs: Last Vital Signs Temp 97.9 F 06/12/18 00:32 Pulse 74 06/12/18 02:00 Resp 17 06/12/18 02:00 BP 122/77 06/12/18 02:00 Pulse Ox 100 06/12/18 02:00 - Labs Result Diagrams: 06/12/18 00:39 06/12/18 00:39 Labs: Laboratory Results - last 24 hr 06/12/18 06/12/18 00:39 00:39 WBC 7.1 D RBC 3.95 Hgb 9.0 L Hct 29.6 L MCV 74.9 L D MCH 22.8 L MCHC 30.4 L RDW 19.1 H Plt Count 175 MPV 8.7 Sodium 139 Potassium 4.3 Chloride 106 Carbon Dioxide 25 Anion Gap 12 BUN 14 Creatinine 0.9 Est GFR ( Amer) > 60 Est GFR (Non-Af Amer) > 60 Random Glucose 100 Calcium 9.6 Total Bilirubin 0.3 AST 35 ALT 25 Alkaline Phosphatase 104 Total Protein 8.3 Albumin 3.5 Globulin 4.8 Albumin/Globulin Ratio 0.7 L Lipase 39 Assessment & Plan - Assessment and Plan (Free Text) Assessment: 58F w/a PMH of chronic back pain status post lumbar fusion, hypertension, chronic gastritis, narcotic gastroparesis, anemia, celiac sensitivity, hepatic steatosis; Presented to [facility] ED on 06/12 w/ complaints of abd pain, nausea, vomiting, and diarrhea x3 days. Admitted for management and work up of GI symptoms. Abd pain, N/V Diarrhea: Most likely viral gastroenteritis vs cdiff vs opiate withdrawal NPO IVF - NS 150 cc/hr Reglan 10mg IVP ACHS PRN Zofran 4mg IVP Q6H PRN CDiff studies Stool culture + O&P Stool Electrolytes GI Consulted, Appreciate reccs Anemia: Hb 9 + Micrcocytic PMH Fe Def anemia Will restart ferosol once patient can tolerate PO Hx Chronic Back Pain: Dilaudid 1 Q6H PRN PPX: DVT: Heparin 500 SC Q12 GI: Protonix 40 IVP QD DISPO: Patient is admitted to obs for management and workup of GI symptoms Pt. is to follow up with PMD Dr. Angulo upon discharge Patient was seen, examined, and discussed w/ attending physician Nader Strickland DO PGY1 - Internal Medicine Resaw Operator - Pager [phone] <Nader Flynn - Last Filed: 06/12/18 19:18> Results - Vital Signs Recent Vital Signs: Last Vital Signs Temp 97.4 F L 06/12/18 14:00 Pulse 70 06/12/18 14:00 Resp 18 06/12/18 16:02 BP 111/75 06/12/18 14:00 Pulse Ox 98 06/12/18 14:00 - Labs Result Diagrams: 06/12/18 00:39 06/12/18 00:39 Labs: Laboratory Results - last 24 hr 06/12/18 06/12/18 06/12/18 00:39 00:39 05:22 WBC 7.1 D RBC 3.95 Hgb 9.0 L Hct 29.6 L MCV 74.9 L D MCH 22.8 L MCHC 30.4 L RDW 19.1 H Plt Count 175 MPV 8.7 Sodium 139 Potassium 4.3 Chloride 106 Carbon Dioxide 25 Anion Gap 12 BUN 14 Creatinine 0.9 Est GFR ( Amer) > 60 Est GFR (Non-Af Amer) > 60 Random Glucose 100 Calcium 9.6 Iron TIBC % Saturation Transferrin Ferritin Total Bilirubin 0.3 AST 35 ALT 25 Alkaline Phosphatase 104 Troponin I Total Protein 8.3 Albumin 3.5 Globulin 4.8 Albumin/Globulin Ratio 0.7 L Lipase 39 Influenza Typ A,B (EIA) Negative for flu a/b 06/12/18 06/12/18 06/12/18 07:00 07:00 07:00 WBC RBC Hgb Hct MCV MCH MCHC RDW Plt Count MPV Sodium Potassium Chloride Carbon Dioxide Anion Gap BUN Creatinine Est GFR ( Amer) Est GFR (Non-Af Amer) Random Glucose Calcium Iron 37 L TIBC 264 L % Saturation 14 L Transferrin 182.69 L Ferritin 224.0 Total Bilirubin AST ALT Alkaline Phosphatase Troponin I Total Protein Albumin Globulin Albumin/Globulin Ratio Lipase Influenza Typ A,B (EIA) 06/12/18 07:15 WBC RBC Hgb Hct MCV MCH MCHC RDW Plt Count MPV Sodium Potassium Chloride Carbon Dioxide Anion Gap BUN Creatinine Est GFR ( Amer) Est GFR (Non-Af Amer) Random Glucose Calcium Iron TIBC % Saturation Transferrin Ferritin Total Bilirubin AST ALT Alkaline Phosphatase Troponin I < 0.01 Total Protein Albumin Globulin Albumin/Globulin Ratio Lipase Influenza Typ A,B (EIA) Attending/Attestation - Attestation I have personally seen and examined this patient.: Yes I have fully participated in the care of the patient.: Yes I have reviewed all pertinent clinical information: Yes
[2018-06-12] MEDS: Sodium Chloride 0.9% 1,000 ML IV SCH ×3 (04:50→17:12)
[2018-06-12] MEDS: HYDROmorphone 2 mg/ml ISec IVP PRN ×4 (08:54→21:07)
--- NOTE | 2018-06-12 09:28 | CP.PCM.CON ---
<Tapan Simmons - Last Filed: 06/12/18 12:11> History of Present Illness - History of Present Illness History of Present Illness: PGY-2 GI consult note for Dr Thao Mrs Elkins is a 58F w/a PMHx of gluten sensitivity, chronic back pain status post lumbar fusion, hypertension, chronic gastritis, narcotic gastroparesis, anemia, hepatic steatosis, who presented to the ED for epigastric abdominal pain, nausea, diarrhea, and vomiting. She states that she had a dessert (which was supposed to be gluten free and non-flour containing) Tuesday night (3 nights ago) and immediately began having abdominal discomfort. The next day the abdominal discomfort persisted and the following day she began having nausea, vomiting and diarrhea. She had 8 episodes of non-bloody diarrhea within the last 24 hours. 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 absent: Constipation - Genitourinary Genitourinary: absent: Dysuria - Musculoskeletal Musculoskeletal: Back Pain - Integumentary Integumentary: absent: Bleeding Lesions Past Patient History - Infectious Disease Hx of Infectious Diseases: None - Tetanus Immunizations Tetanus Immunization: Unknown - Past Social History Smoking Status: Former Smoker - CARDIAC Hx Cardiac Disorders: Yes Hx Heart Murmur: Yes Hx Hypertension: Yes - PULMONARY Hx Respiratory Disorders: Yes (USED TO SMOKE. QUIT 25 YRS AGO) - NEUROLOGICAL Hx Neurological Disorder: No - HEENT Hx HEENT Problems: No - RENAL Hx Chronic Kidney Disease: No - ENDOCRINE/METABOLIC Hx Endocrine Disorders: No - HEMATOLOGICAL/ONCOLOGICAL Hx Blood Disorders: Yes Hx Anemia: Yes Other/Comment: hx blood transfusion - INTEGUMENTARY Hx Dermatological Problems: Yes - MUSCULOSKELETAL/RHEUMATOLOGICAL Hx Musculoskeletal Disorders: Yes (extremity weakness) Hx Arthritis: Yes Hx Degenerative Joint Disease: Yes Hx Falls: No Hx Herniated Disk: Yes Hx Unsteady Gait: Yes (uses cane sometime) Other/Comment: back pain. orthopedic surgery x2 - GASTROINTESTINAL Hx Gastrointestinal Disorders: Yes (gastritis,GASTROPARESIS) Hx Gall Bladder Disease: Yes Hx Gastroesophageal Reflux: Yes Other/Comment: portal htn hepatomegaly, hemorrhoids, pt denies fatty liver disease, celiac sensitivity - GENITOURINARY/GYNECOLOGICAL Hx Genitourinary Disorders: Yes Hx Urinary Tract Infection: Yes - PSYCHIATRIC Hx Psychophysiologic Disorder: No Hx Emotional Abuse: No Hx Physical Abuse: No Hx Substance Use: Yes (OPIATE DEPENDENCE) - SURGICAL HISTORY Hx Cholecystectomy: Yes Hx Hysterectomy: Yes - ANESTHESIA Hx Anesthesia: Yes Hx Anesthesia Reactions: No Hx Malignant Hyperthermia: No Meds Allergies/Adverse Reactions: Allergies Allergy/AdvReac Type Severity Reaction Status Date / Time gluten AdvReac PAIN Verified 06/12/18 00:23 - Medications Medications: Current Medications Heparin Sodium (Porcine) (Heparin) 5,000 units SC Q8 [facility]; Protocol Hydromorphone HCl (Dilaudid) 4 mg IVP Q4H PRN PRN Reason: Pain, severe (8-10) Last Admin: 06/12/18 08:54 Dose: 4 mg Sodium Chloride (Sodium Chloride 0.9%) 1,000 mls @ 150 mls/hr IV .Q6H40M [facility] Last Admin: 06/12/18 04:50 Dose: 150 mls/hr Metoclopramide HCl (Reglan) 10 mg IVP ACHS PRN PRN Reason: Nausea/Vomiting Ondansetron HCl (Zofran Inj) 4 mg IVP Q6H PRN PRN Reason: Nausea/Vomiting Pantoprazole Sodium (Protonix Inj) 40 mg IVP DAILY [facility] Physical Exam - Constitutional Appears: Well, No Acute Distress - Head Exam Head Exam: ATRAUMATIC, NORMAL INSPECTION - Eye Exam Eye Exam: EOMI, PERRL - ENT Exam ENT Exam: Mucous Membranes Moist - Respiratory Exam Respiratory Exam: Clear to Auscultation Bilateral. absent: Rales, Rhonchi, Wheezes - Cardiovascular Exam Cardiovascular Exam: REGULAR RHYTHM, +S1, +S2. absent: Tachycardia, JVD, Systolic Murmur - GI/Abdominal Exam GI & Abdominal Exam: Hyperactive Bowel Sounds, Soft. absent: Distended, Firm, Guarding, Hernia, Tenderness - Extremities Exam Extremities exam: Positive for: normal inspection. Negative for: calf tenderness - Neurological Exam Neurological exam: Alert, Oriented x3 - Psychiatric Exam Psychiatric exam: Normal Affect, Normal Mood - Skin Skin Exam: Normal Color, Warm Results - Vital Signs Recent Vital Signs: Last Vital Signs Temp 97.3 F L 06/12/18 06:00 Pulse 72 06/12/18 06:00 Resp 16 06/12/18 06:00 BP 133/81 06/12/18 06:00 Pulse Ox 100 06/12/18 06:00 - Labs Result Diagrams: 06/12/18 00:39 06/12/18 00:39 Labs: Laboratory Results - last 24 hr 06/12/18 06/12/18 06/12/18 00:39 00:39 05:22 WBC 7.1 D RBC 3.95 Hgb 9.0 L Hct 29.6 L MCV 74.9 L D MCH 22.8 L MCHC 30.4 L RDW 19.1 H Plt Count 175 MPV 8.7 Sodium 139 Potassium 4.3 Chloride 106 Carbon Dioxide 25 Anion Gap 12 BUN 14 Creatinine 0.9 Est GFR ( Amer) > 60 Est GFR (Non-Af Amer) > 60 Random Glucose 100 Calcium 9.6 Total Bilirubin 0.3 AST 35 ALT 25 Alkaline Phosphatase 104 Troponin I Total Protein 8.3 Albumin 3.5 Globulin 4.8 Albumin/Globulin Ratio 0.7 L Lipase 39 Influenza Typ A,B (EIA) Negative for flu a/b 06/12/18 07:15 WBC RBC Hgb Hct MCV MCH MCHC RDW Plt Count MPV Sodium Potassium Chloride Carbon Dioxide Anion Gap BUN Creatinine Est GFR ( Amer) Est GFR (Non-Af Amer) Random Glucose Calcium Total Bilirubin AST ALT Alkaline Phosphatase Troponin I < 0.01 Total Protein Albumin Globulin Albumin/Globulin Ratio Lipase Influenza Typ A,B (EIA) Assessment & Plan - Assessment and Plan (Free Text) Plan: 58F w/a PMHx of gluten sensitivity, chronic back pain status post lumbar fusion, hypertension, chronic gastritis, narcotic gastroparesis, anemia, hepatic steatosis who presented w/ complaints of abd pain, nausea, vomiting, and diarrhea x3 days that began suddenly after eating a dessert: Enterocolitis 2/2 Gluten Sensitivity -symptoms likely due to flour containing/gluten containing dessert; also w/ hx of previous flare-ups after ingestion of foods; -CT abd/pelvis w/ iv contrast: * Findings in the right francois colon and small bowel common the appropriate clinical setting mild enterocolitis. -advanced to clear liquid diet -recommend outpatient colonoscopy (patient states she had colonoscopy 2 years ago but no records found; hx of multiple EGDs) -F/U stool studies Fecal Impaction -likely due to chronic opioid use for back pain -CT abd/pelvis w/ iv contrast: * Constipation and fecal impaction. -consider fleet enema Case discussed with Dr Thao. <Corrie Thao V - Last Filed: 06/12/18 23:37> Meds - Medications Medications: Current Medications Heparin Sodium (Porcine) (Heparin) 5,000 units SC Q8 [facility]; Protocol Last Admin: 06/12/18 21:14 Dose: Not Given Hydromorphone HCl (Dilaudid) 4 mg IVP Q4H PRN PRN Reason: Pain, severe (8-10) Last Admin: 06/12/18 21:07 Dose: 4 mg Sodium Chloride (Sodium Chloride 0.9%) 1,000 mls @ 100 mls/hr IV .Q10H [place] Last Admin: 06/12/18 17:12 Dose: 100 mls/hr Ondansetron HCl (Zofran Inj) 4 mg IVP Q6H PRN PRN Reason: Nausea/Vomiting Pantoprazole Sodium (Protonix Inj) 40 mg IVP DAILY [facility] Last Admin: 06/12/18 12:56 Dose: 40 mg Polyethylene Glycol (Miralax) 17 gm PO BID [facility] Results - Vital Signs Recent Vital Signs: Last Vital Signs Temp 98.1 F 06/12/18 22:53 Pulse 68 06/12/18 22:53 Resp 19 06/12/18 22:53 BP 106/63 06/12/18 22:53 Pulse Ox 99 06/12/18 22:53 - Labs Result Diagrams: 06/12/18 00:39 06/12/18 00:39 Labs: Laboratory Results - last 24 hr 06/12/18 06/12/18 06/12/18 00:39 00:39 05:22 WBC 7.1 D RBC 3.95 Hgb 9.0 L Hct 29.6 L MCV 74.9 L D MCH 22.8 L MCHC 30.4 L RDW 19.1 H Plt Count 175 MPV 8.7 Sodium 139 Potassium 4.3 Chloride 106 Carbon Dioxide 25 Anion Gap 12 BUN 14 Creatinine 0.9 Est GFR ( Amer) > 60 Est GFR (Non-Af Amer) > 60 Random Glucose 100 Calcium 9.6 Iron TIBC % Saturation Transferrin Ferritin Total Bilirubin 0.3 AST 35 ALT 25 Alkaline Phosphatase 104 Troponin I Total Protein 8.3 Albumin 3.5 Globulin 4.8 Albumin/Globulin Ratio 0.7 L Lipase 39 Influenza Typ A,B (EIA) Negative for flu a/b 06/12/18 06/12/18 06/12/18 07:00 07:00 07:00 WBC RBC Hgb Hct MCV MCH MCHC RDW Plt Count MPV Sodium Potassium Chloride Carbon Dioxide Anion Gap BUN Creatinine Est GFR ( Amer) Est GFR (Non-Af Amer) Random Glucose Calcium Iron 37 L TIBC 264 L % Saturation 14 L Transferrin 182.69 L Ferritin 224.0 Total Bilirubin AST ALT Alkaline Phosphatase Troponin I Total Protein Albumin Globulin Albumin/Globulin Ratio Lipase Influenza Typ A,B (EIA) 06/12/18 07:15 WBC RBC Hgb Hct MCV MCH MCHC RDW Plt Count MPV Sodium Potassium Chloride Carbon Dioxide Anion Gap BUN Creatinine Est GFR ( Amer) Est GFR (Non-Af Amer) Random Glucose Calcium Iron TIBC % Saturation Transferrin Ferritin Total Bilirubin AST ALT Alkaline Phosphatase Troponin I < 0.01 Total Protein Albumin Globulin Albumin/Globulin Ratio Lipase Influenza Typ A,B (EIA) Attending/Attestation - Attestation I have personally seen and examined this patient.: Yes I have fully participated in the care of the patient.: Yes I have reviewed all pertinent clinical information: Yes Notes (Text): This is an addendum to GI consult report dictated by the Urogynecology Physician.The patient was seen and evaluated earlier. Medical records, lab studies, imagings were reviewed. Last 24 hours events reviewed. Agreed with the above treatment plan as outlined in Urogynecology Physician 's notes with the addition of the following Ct scan was reviewed Admitted with episodes of diarrhea However CT reviewed fecal impaction Questionable thinking of the right colon History of gluten sensitivity History of anemia Was being followed by Dr. Leon Pena clear liquid diet Colonoscopy as an outpatient 06/12/18 23:36
--- NOTE | 2018-06-12 09:33 | RAD ---
Date of service: 06/12/2018 HISTORY: Abdominal pain COMPARISON: 03/15/2018 FINDINGS: LUNGS: No active pulmonary disease. PLEURA: No significant pleural effusion identified, no pneumothorax apparent. CARDIOVASCULAR: No atherosclerotic calcification present No radiographic findings to suggest acute or significant cardiovascular disease. OSSEOUS STRUCTURES: No significant abnormalities. VISUALIZED UPPER ABDOMEN: Normal. OTHER FINDINGS: None. IMPRESSION: No active disease. No significant interval change compared to the prior examination(s).
--- NOTE | 2018-06-12 09:59 | CARD ---
APPROVED REPORT Date of service: 06/12/2018 EKG Measurement Heart [id number] <Conclusion> Normal sinus rhythm Normal ECG
--- NOTE | 2018-06-12 10:18 | CT ---
Date of service: 06/12/2018 PROCEDURE: CT Abdomen and Pelvis with contrast HISTORY: abdominal pain COMPARISON: 09/09/2016, 02/13/2018. CT abdomen and pelvis TECHNIQUE: Intravenous contrast dose: 100 cc Omnipaque 350 Radiation dose: Total exam DLP = 467.45 mGy-cm. This CT exam was performed using one or more of the following dose reduction techniques: Automated exposure control, adjustment of the mA and/or kV according to patient size, and/or use of iterative reconstruction technique. FINDINGS: LOWER THORAX: Unremarkable. LIVER: Hepatomegaly. Hepatic steatosis. No focal masses. No intrahepatic bile duct dilatation or perihepatic ascites. Prominent portal venous system without evidence of portal vein thrombosis. This includes abdominal and in particular left upper quadrant venous varicosities. GALLBLADDER AND BILE DUCTS: Status post cholecystectomy. No abnormality is seen in the gallbladder fossa. PANCREAS: Unremarkable. No gross lesion or ductal dilatation. SPLEEN: Stable splenomegaly. Orthogonal measurements 9 x 14.8 cm. ADRENALS: Unremarkable. No mass. KIDNEYS AND URETERS: Unremarkable. No hydronephrosis. No solid mass. Incidental finding(s): Stable cyst left kidney 1.5 x 2.3 cm. VASCULATURE: Unremarkable. No aortic aneurysm. No atherosclerotic calcification or mural plaque present. BOWEL: Fecal impaction, constipation. Right francois colon is fluid filled as is small bowel. In the appropriate clinical setting this could represent mild enterocolitis. APPENDIX: Normal appendix. PERITONEUM: Unremarkable. No free fluid. No free air. LYMPH NODES: Stable inguinal lymphadenopathy. BLADDER: Unremarkable. REPRODUCTIVE: Unremarkable. BONES: No acute fracture. Stable postoperative changes lumbar laminectomy and fusion. OTHER FINDINGS: Stable findings in the flanks and gluteal regions likely injection granuloma. IMPRESSION: Constipation and fecal impaction. Findings in the right francois colon and small bowel common the appropriate clinical setting mild enterocolitis. Stable hepatosplenomegaly. Stable benign and incidental findings. Concordant results (preliminary interpretation) provided by [employer]. Procedure Completed: 02:54 Preliminary Report: Dictated and Authenticated: 03:41. Final Interpretation: 10:14.
[2018-06-12 11:29] LABS: IRON 37 ug/dL (45-180)
[2018-06-12 11:38] LABS: % IRON SATURATION 14 % (20-55); TOTAL IRON BINDING CAPACITY 264 ug/dL (265-497)
--- NOTE | 2018-06-12 15:22 | CP.PCM.HP ---
History of Present Illness - History of Present Illness History of Present Illness: PGY-1 Medicine Progress Note for Dr. Moser Patient seen and examined at bedside, in no acute distress. No acute overnight events reported. Patient continues to endorse intermittent diffuse abdominal cramping, nausea, but no vomiting. Also endorses back pain, chronic in nature. No other acute complaints at this time. Denies fevers/chills, headaches, dizziness, changes in vision, chest pain, palpitations, sob, cough, abdominal pain, n/v/d/c, dysuria, or changes in stool. Past Patient History - Infectious Disease Hx of Infectious Diseases: None - Tetanus Immunizations Tetanus Immunization: Unknown - Past Social History Smoking Status: Former Smoker - CARDIAC Hx Cardiac Disorders: Yes Hx Heart Murmur: Yes Hx Hypertension: Yes - PULMONARY Hx Respiratory Disorders: Yes (USED TO SMOKE. QUIT 25 YRS AGO) - NEUROLOGICAL Hx Neurological Disorder: No - HEENT Hx HEENT Problems: No - RENAL Hx Chronic Kidney Disease: No - ENDOCRINE/METABOLIC Hx Endocrine Disorders: No - HEMATOLOGICAL/ONCOLOGICAL Hx Blood Disorders: Yes Hx Anemia: Yes Other/Comment: hx blood transfusion - INTEGUMENTARY Hx Dermatological Problems: Yes - MUSCULOSKELETAL/RHEUMATOLOGICAL Hx Musculoskeletal Disorders: Yes (extremity weakness) Hx Arthritis: Yes Hx Degenerative Joint Disease: Yes Hx Falls: No Hx Herniated Disk: Yes Hx Unsteady Gait: Yes (uses cane sometime) Other/Comment: back pain. orthopedic surgery x2 - GASTROINTESTINAL Hx Gastrointestinal Disorders: Yes (gastritis,GASTROPARESIS) Hx Gall Bladder Disease: Yes Hx Gastroesophageal Reflux: Yes Other/Comment: portal htn hepatomegaly, hemorrhoids, pt denies fatty liver disease, celiac sensitivity - GENITOURINARY/GYNECOLOGICAL Hx Genitourinary Disorders: Yes Hx Urinary Tract Infection: Yes - PSYCHIATRIC Hx Psychophysiologic Disorder: No Hx Emotional Abuse: No Hx Physical Abuse: No Hx Substance Use: Yes (OPIATE DEPENDENCE) - SURGICAL HISTORY Hx Cholecystectomy: Yes Hx Hysterectomy: Yes - ANESTHESIA Hx Anesthesia: Yes Hx Anesthesia Reactions: No Hx Malignant Hyperthermia: No Meds Allergies/Adverse Reactions: Allergies Allergy/AdvReac Type Severity Reaction Status Date / Time gluten AdvReac PAIN Verified 06/12/18 00:23 Results - Vital Signs Recent Vital Signs: Last Vital Signs Temp 97.4 F L 06/12/18 14:00 Pulse 70 06/12/18 14:00 Resp 18 06/12/18 14:00 BP 111/75 06/12/18 14:00 Pulse Ox 98 06/12/18 14:00 - Labs Result Diagrams: 06/12/18 00:39 06/12/18 00:39 Labs: Laboratory Results - last 24 hr 06/12/18 06/12/18 06/12/18 00:39 00:39 05:22 WBC 7.1 D RBC 3.95 Hgb 9.0 L Hct 29.6 L MCV 74.9 L D MCH 22.8 L MCHC 30.4 L RDW 19.1 H Plt Count 175 MPV 8.7 Sodium 139 Potassium 4.3 Chloride 106 Carbon Dioxide 25 Anion Gap 12 BUN 14 Creatinine 0.9 Est GFR ( Amer) > 60 Est GFR (Non-Af Amer) > 60 Random Glucose 100 Calcium 9.6 Iron TIBC % Saturation Total Bilirubin 0.3 AST 35 ALT 25 Alkaline Phosphatase 104 Troponin I Total Protein 8.3 Albumin 3.5 Globulin 4.8 Albumin/Globulin Ratio 0.7 L Lipase 39 Influenza Typ A,B (EIA) Negative for flu a/b 06/12/18 06/12/18 07:00 07:15 WBC RBC Hgb Hct MCV MCH MCHC RDW Plt Count MPV Sodium Potassium Chloride Carbon Dioxide Anion Gap BUN Creatinine Est GFR ( Amer) Est GFR (Non-Af Amer) Random Glucose Calcium Iron 37 L TIBC 264 L % Saturation 14 L Total Bilirubin AST ALT Alkaline Phosphatase Troponin I < 0.01 Total Protein Albumin Globulin Albumin/Globulin Ratio Lipase Influenza Typ A,B (EIA)
--- NOTE | 2018-06-12 15:45 | CP.PCM.PN ---
Subjective - Date & Time of Evaluation Date of Evaluation: 06/12/18 Time of Evaluation: 08:30 - Subjective Subjective: PGY-1 Medicine Progress Note for Dr. Moser Patient seen and examined at bedside, in no acute distress. No acute overnight events reported. Patient continues to endorse intermittent diffuse abdominal cramping, nausea, but no vomiting. Also endorses back pain, chronic in nature. No other acute complaints at this time. Denies fevers/chills, headaches, dizziness, changes in vision, chest pain, palpitations, sob, cough, abdominal pain, n/v/d/c, dysuria, or changes in stool Objective - Vital Signs/Intake and Output Vital Signs (last 24 hours): Temp Pulse Resp BP Pulse Ox 97.4 F L 70 18 111/75 98 06/12/18 14:00 06/12/18 14:00 06/12/18 14:00 06/12/18 14:00 06/12/18 14:00 - Medications Medications: Current Medications Heparin Sodium (Porcine) (Heparin) 5,000 units SC Q8 [facility]; Protocol Hydromorphone HCl (Dilaudid) 4 mg IVP Q4H PRN PRN Reason: Pain, severe (8-10) Last Admin: 06/12/18 12:56 Dose: 4 mg Sodium Chloride (Sodium Chloride 0.9%) 1,000 mls @ 150 mls/hr IV .Q6H40M [facility] Last Admin: 06/12/18 04:50 Dose: 150 mls/hr Ondansetron HCl (Zofran Inj) 4 mg IVP Q6H PRN PRN Reason: Nausea/Vomiting Pantoprazole Sodium (Protonix Inj) 40 mg IVP DAILY [facility] Last Admin: 06/12/18 12:56 Dose: 40 mg - Labs Labs: 06/12/18 00:39 06/12/18 00:39 - Constitutional Appears: Non-toxic, No Acute Distress - Head Exam Head Exam: ATRAUMATIC, NORMAL INSPECTION, NORMOCEPHALIC - Eye Exam Eye Exam: EOMI, Normal appearance, PERRL Pupil Exam: NORMAL ACCOMODATION - ENT Exam ENT Exam: Mucous Membranes Moist, Normal Exam - Neck Exam Neck Exam: Full ROM, Normal Inspection - Respiratory Exam Respiratory Exam: Clear to Ausculation Bilateral, NORMAL BREATHING PATTERN. absent: Rales, Rhonchi, Wheezes, Respiratory Distress - Cardiovascular Exam Cardiovascular Exam: REGULAR RHYTHM, +S1, +S2 - GI/Abdominal Exam GI & Abdominal Exam: Soft, Hyperactive Bowel Sounds. absent: Distended, Firm, Guarding, Rigid, Tenderness - Extremities Exam Extremities Exam: Full ROM, Normal Capillary Refill, Normal Inspection. absent: Calf Tenderness, Joint Swelling, Pedal Edema, Tenderness - Back Exam Back Exam: NORMAL INSPECTION - Neurological Exam Neurological Exam: Alert, Awake, Oriented x3 - Psychiatric Exam Psychiatric exam: Normal Affect, Normal Mood - Skin Skin Exam: Dry, Intact, Normal Color, Warm Assessment and Plan - Assessment and Plan (Free Text) Assessment: 58 F with PMHx of gluten sensitivity, chronic back pain s/p lumbar fusion, HTN chronic gastritis, narcotic gastroparesis, anemia, hepatic steatosis presenting with pain, nausea, vomiting, and diarrhea x3 days. Plan: Abdominal pain, n/v likely 2/2 Enterocolitis 2/2 Gluten Sensitivity --pt afebrile, no leukocytosis noted --f/u stool culture + O&P --stool electrolytes --f/u C diff studies --diet advanced to clear liquid; continue to advance as tolerated --GI recs (Dr. Thao) appreciated -symptoms likely due to flour containing/gluten containing dessert; also w/ hx of previous flare-ups after ingestion of foods -CT abd/pelvis w/ iv contrast: Findings in the right francois colon and small bowel common the appropriate clinical setting mild enterocolitis. -recommend outpatient colonscopy (patient states she had colonoscopy 2 years ago but no records found; hx of multiple EGDs) -f/u stool studies -consider fleet enema for constipation/fecal impaction seen on CT abd/pelvis with IV contrast; likely 2/2 chronic opioid use for back pain Anemia --Hb 9+ Microcytic --pt has PMHx of Fe deficient anemia --Restart ferosol once patient can tolerate PO Hx Chronic Back Pain Dilaudid 1 Q6H PRN PPX, Diet, Disposition --DVT: Heparin 500 SC Q12 --GI: Protonix 40 IVP QD --Diet: clear liquid --Dispo: likely d/c tomorrow Case discussed with Dr. Shanti Durand DO, PGY-1
[2018-06-12 16:45] VITALS: BMI 25.4
[2018-06-12] MEDS ORDERED: Influenza Vaccine 60 mcg/0.5 mL SYR (4YR UP) IM ONE (16:46)
[2018-06-13] MEDS: HYDROmorphone 2 mg/ml ISec IVP PRN ×5 (01:09→21:50)
[2018-06-13 06:41] LABS: BASO # 0.01 K/mm3 (0.0-2.0); BASO % 0.2 % (0.0-3.0); EOS # 0.3 (0.0-0.7); EOS % 4.9 % (1.5-5.0); GRAN # 4.12 (1.4-6.5); GRAN % 69.3 % (50.0-68.0); HEMOGLOBIN 8.1 g/dL (12.0-16.0); LYMPH # 1.1 (1.2-3.4); LYMPH % 19.2 % (22.0-35.0); MEAN CELL VOLUME 74.9 fl (80.0-105.0); MEAN CORPUSCULAR HEMOGLOBIN 22.3 pg (25.0-35.0); MEAN CORPUSCULAR HGB CONC 29.8 g/dl (31.0-37.0); MEAN PLATELET VOLUME 8.6 fl (7.0-11.0); MONO # 0.4 (0.1-0.6); MONO % 6.4 % (1.0-6.0); RBC 3.63 10^6/uL (3.5-6.1); RED CELL DISTRIBUTION WIDTH 18.9 % (11.5-14.5); WHITE BLOOD COUNT 5.9 10^3/ul (4.5-11.0)
[2018-06-13 07:22] LABS: ALB/GLOB RATIO 0.8 (1.1-1.8); ALT/SGPT 23 U/L (7-56); AST/SGOT 26 U/L (14-36); BLOOD UREA NITROGEN 8 mg/dL (7-21); GFR NON-AFRICAN AMERICAN > 60
[2018-06-13] MEDS: Sodium Chloride 0.9% 1,000 ML IV SCH ×2 (10:12→21:49)
[2018-06-13] MEDS: POLYETHYLENE GLYCOL 3350 17 GM/Dose PACKET PO SCH (10:14)
--- NOTE | 2018-06-13 12:06 | CP.PCM.PN ---
<Tapan Simmons - Last Filed: 06/13/18 12:02> Subjective - Date & Time of Evaluation Date of Evaluation: 06/13/18 Time of Evaluation: 12:02 - Subjective Subjective: PGY-[address] note for Dr Thao Patient had abdominal pain overnight and was given dilaudid 4mg ivp. This morning she still complained of abdominal discomfort. She had multiple episodes of soft bowel movement after her dulcolax suppository yesterday. Overall she stated she is not feeling great - still has nausea and still can't tolerate diet. Afraid that if she gets discharged she'll return quickly for dehydration. Objective - Vital Signs/Intake and Output Vital Signs (last 24 hours): Temp Pulse Resp BP Pulse Ox 97.9 F 66 20 110/63 95 06/13/18 08:58 06/13/18 08:58 06/13/18 08:58 06/13/18 08:58 06/13/18 08:58 Intake and Output: 06/13/18 06/13/18 06:59 18:59 Intake Total 1200 Balance 1200 - Medications Medications: Current Medications Heparin Sodium (Porcine) (Heparin) 5,000 units SC Q8 [facility]; Protocol Last Admin: 06/13/18 08:28 Dose: Not Given Hydromorphone HCl (Dilaudid) 6 mg PO Q4H PRN PRN Reason: Pain, moderate (4-7) Sodium Chloride (Sodium Chloride 0.9%) 1,000 mls @ 100 mls/hr IV .Q10H [facility] Last Admin: 06/13/18 10:12 Dose: 100 mls/hr Ondansetron HCl (Zofran Inj) 4 mg IVP Q6H PRN PRN Reason: Nausea/Vomiting Last Admin: 06/13/18 08:22 Dose: 4 mg Pantoprazole Sodium (Protonix Inj) 40 mg IVP DAILY [facility] Last Admin: 06/13/18 10:12 Dose: 40 mg Polyethylene Glycol (Miralax) 17 gm PO BID [facility] Last Admin: 06/13/18 10:14 Dose: Not Given - Labs Labs: 06/13/18 06:10 06/13/18 06:10 - Additional Findings Additional findings: - Constitutional Appears: Well, No Acute Distress - Head Exam Head Exam: ATRAUMATIC, NORMAL INSPECTION - Eye Exam Eye Exam: EOMI, PERRL - ENT Exam ENT Exam: Mucous Membranes Moist - Respiratory Exam Respiratory Exam: Clear to Auscultation Bilateral. absent: Rales, Rhonchi, Wheezes - Cardiovascular Exam Cardiovascular Exam: REGULAR RHYTHM, +S1, +S2. absent: Tachycardia, JVD, Systolic Murmur - GI/Abdominal Exam GI & Abdominal Exam: Hyperactive Bowel Sounds, Soft. absent: Distended, Firm, Guarding, Hernia, Tenderness - Extremities Exam Extremities exam: Positive for: normal inspection. Negative for: calf tenderness - Neurological Exam Neurological exam: Alert, Oriented x3 - Psychiatric Exam Psychiatric exam: Normal Affect, Normal Mood - Skin Skin Exam: Normal Color, Warm Assessment and Plan - Assessment and Plan (Free Text) Plan: 58F w/a PMHx of gluten sensitivity, chronic back pain status post lumbar fusion, hypertension, chronic gastritis, narcotic gastroparesis, anemia, hepatic steatosis who presented w/ complaints of abd pain, nausea, vomiting, and diarrhea x3 days prior to arrival that began suddenly after eating a dessert: Enterocolitis 2/2 Gluten Sensitivity -symptoms likely due to flour containing/gluten containing dessert; also w/ hx of previous flare-ups after ingestion of foods; -CT abd/pelvis w/ iv contrast: * Findings in the right francois colon and small bowel common the appropriate clinical setting mild enterocolitis. -continue with clear liquid diet - however patient not tolerating diet - still with nausea -recommend outpatient colonoscopy (patient states she had colonoscopy 2 years ago but no records found; hx of multiple EGDs) -F/U stool studies Fecal Impaction -likely due to chronic opioid use for back pain -CT abd/pelvis w/ iv contrast: * Constipation and fecal impaction. -received dulcolax 10mg rc yesterday -will administer 1 more dose of dulcolax 10mg rc today (patient still can't tolerate po) residential: patient will need a colonoscopy outpatient - this was discussed with the patient. Case discussed with Dr Thao. <Corrie Thao V - Last Filed: 06/13/18 23:58> Objective - Vital Signs/Intake and Output Vital Signs (last 24 hours): Temp Pulse Resp BP Pulse Ox 99.1 F 73 18 112/70 98 06/13/18 22:59 06/13/18 22:59 06/13/18 22:59 06/13/18 22:59 06/13/18 22:59 Intake and Output: 06/13/18 06/14/18 18:59 06:59 Intake Total 480 Balance 480 - Medications Medications: Current Medications Heparin Sodium (Porcine) (Heparin) 5,000 units SC Q8 [facility]; Protocol Last Admin: 06/13/18 14:13 Dose: Not Given Hydromorphone HCl (Dilaudid) 4 mg IVP Q4 PRN PRN Reason: Pain, severe (8-10) Last Admin: 06/13/18 21:50 Dose: 4 mg Sodium Chloride (Sodium Chloride 0.9%) 1,000 mls @ 100 mls/hr IV .Q10H [facility] Last Admin: 06/13/18 21:49 Dose: 100 mls/hr Ondansetron HCl (Zofran Inj) 4 mg IVP Q6H PRN PRN Reason: Nausea/Vomiting Last Admin: 06/13/18 13:43 Dose: 4 mg Pantoprazole Sodium (Protonix Inj) 40 mg IVP DAILY [facility] Last Admin: 06/13/18 10:12 Dose: 40 mg Polyethylene Glycol (Miralax) 17 gm PO BID [facility] Last Admin: 06/13/18 10:14 Dose: Not Given - Labs Labs: 06/13/18 06:10 06/13/18 06:10 Attending/Attestation - Attestation I have personally seen and examined this patient.: Yes I have fully participated in the care of the patient.: Yes I have reviewed all pertinent clinical information, including history, physical exam and plan: Yes Notes (Text): This is an addendum to GI followup report dictated by the Gas [employer] Rep[employer]r. The patient was seen and evaluated earlier. Medical records, lab studies, imagings were reviewed. Last 24 hours events reviewed. Agreed with the above treatment plan as outlined in [employer] 's notes with the addition of the following 06/13/18 23:58
[2018-06-13] MEDS ORDERED: HYDROmorphone 2 mg/ml ISec IVP ONE (14:00)
--- NOTE | 2018-06-13 14:03 | CP.PCM.PN ---
Addendum entered and electronically signed by Yousuf Durand DO 06/13/18 14:10: Nurse notified me that patient was upset and crying about Dilaudid being changed to 6 mg PO. Per nurse, patient states it will not control her pain appropriately. She is also afraid that if she is discharged, she will become dehydrated and return to ED as she is not able to tolerate her clear liquid diet. I spoke to the patient, who reiterated the above. Her lunch tray was left untouched by bedside, pt states the smell alone makes her nauseous. Patient states she had 1 episode of "clear" vomiting this morning when brushing her teeth, which she did not mention when we last spoke earlier this AM. When I asked her about it, she states she forgot to mention. Nurse states she did not s ee any vomiting this morning. I spoke at length about pt's course and goals. She is amenable to discharge tomorrow if she continues tolerating her Thick It tonight. Patient to be placed on Dilaudid 4 mg IV for pain, per Dr. Burgos for time being. Original Note: <Yousuf Durand - Last Filed: 06/13/18 14:10> Subjective - Date & Time of Evaluation Date of Evaluation: 06/13/18 Time of Evaluation: 08:50 - Subjective Subjective: PGY-1 Medicine Progress Note for Dr. Burgos Patient seen and examined at bedside this AM. No acute events reported overnight. She continues to endorse back pain, chronic in nature. She also endorses intermittent abdominal cramps as well as nausea. Denies any vomiting this morning. She states is unable to tolerate the clear liquid diet, requests Thick It which she better tolerates. Pt states she had small BM today after her dulcolax treatment. No other acute complaints at this time. Denies fevers/chills, headaches, dizziness, changes in vision, chest pain, palpitations, sob, cough, abdominal pain, vomiting, diarrhea, dysuria, or changes in stool. Objective - Vital Signs/Intake and Output Vital Signs (last 24 hours): Temp Pulse Resp BP Pulse Ox 97.9 F 66 20 110/63 95 06/13/18 08:58 06/13/18 08:58 06/13/18 08:58 06/13/18 08:58 06/13/18 08:58 Intake and Output: 06/13/18 06/13/18 06:59 18:59 Intake Total 1200 Balance 1200 - Medications Medications: Current Medications Heparin Sodium (Porcine) (Heparin) 5,000 units SC Q8 [facility]; Protocol Last Admin: 06/13/18 08:28 Dose: Not Given Hydromorphone HCl (Dilaudid) 4 mg IVP Q4H PRN PRN Reason: Pain, severe (8-10) Hydromorphone HCl (Dilaudid) 4 mg IVP ONCE ONE Stop: 06/13/18 14:01 Sodium Chloride (Sodium Chloride 0.9%) 1,000 mls @ 100 mls/hr IV .Q10H [facility] Last Admin: 06/13/18 10:12 Dose: 100 mls/hr Ondansetron HCl (Zofran Inj) 4 mg IVP Q6H PRN PRN Reason: Nausea/Vomiting Last Admin: 06/13/18 13:43 Dose: 4 mg Pantoprazole Sodium (Protonix Inj) 40 mg IVP DAILY [facility] Last Admin: 06/13/18 10:12 Dose: 40 mg Polyethylene Glycol (Miralax) 17 gm PO BID [facility] Last Admin: 06/13/18 10:14 Dose: Not Given - Labs Labs: 06/13/18 06:10 06/13/18 06:10 - Constitutional Appears: Non-toxic, No Acute Distress - Head Exam Head Exam: ATRAUMATIC, NORMAL INSPECTION, NORMOCEPHALIC - Eye Exam Eye Exam: EOMI, Normal appearance, PERRL Pupil Exam: NORMAL ACCOMODATION - ENT Exam ENT Exam: Mucous Membranes Moist, Normal Exam - Neck Exam Neck Exam: Full ROM, Normal Inspection - Respiratory Exam Respiratory Exam: Clear to Ausculation Bilateral, NORMAL BREATHING PATTERN. absent: Rales, Rhonchi, Wheezes, Respiratory Distress - Cardiovascular Exam Cardiovascular Exam: REGULAR RHYTHM, +S1, +S2 - GI/Abdominal Exam GI & Abdominal Exam: Soft, Hyperactive Bowel Sounds, Normal Bowel Sounds. absent: Distended, Firm, Guarding, Tenderness, Organomegaly - Extremities Exam Extremities Exam: Full ROM, Normal Capillary Refill, Normal Inspection. absent: Calf Tenderness, Joint Swelling, Tenderness - Back Exam Back Exam: NORMAL INSPECTION - Neurological Exam Neurological Exam: Alert, Awake, Oriented x3 - Psychiatric Exam Psychiatric exam: Normal Affect, Normal Mood - Skin Skin Exam: Dry, Intact, Normal Color, Warm Assessment and Plan - Assessment and Plan (Free Text) Assessment: 58F w/a PMHx of gluten sensitivity, chronic back pain status post lumbar fusion, hypertension, chronic gastritis, narcotic gastroparesis, anemia, hepatic steatosis who presented w/ complaints of abd pain, nausea, vomiting, and diarrhea x3 days prior to arrival that began suddenly after eating a dessert. Plan: Abdominal pain, n/v likely 2/2 Enterocolitis 2/2 Gluten Sensitivity --pt afebrile, no leukocytosis noted --f/u stool culture + O&P --stool electrolytes --f/u C diff studies --diet advanced to clear liquid; continue to advance as tolerated --GI recs (Dr. Thao) appreciated -symptoms likely due to flour containing/gluten containing dessert; also w/ hx of previous flare-ups after ingestion of foods -CT abd/pelvis w/ iv contrast: Findings in the right francois colon and small bowel common the appropriate clinical setting mild enterocolitis. -recommend outpatient colonscopy (patient states she had colonoscopy 2 years ago but no records found; hx of multiple EGDs) -f/u stool studies -consider fleet enema for constipation/fecal impaction seen on CT abd/pelvis with IV contrast; likely 2/2 chronic opioid use for back pain Anemia --Hb 9+ Microcytic --pt has PMHx of Fe deficient anemia --Restart ferosol once patient can tolerate PO Hx Chronic Back Pain -switch to Dilaudid 6 mg PO q4 PRN PPX, Diet, Disposition --DVT: Heparin 500 SC Q12 --GI: Protonix 40 IVP QD --Diet: clear liquid --Dispo: Per plan discussed with Dr. Burgos, we will monitor to see if pt gradually tolerates PO as she has not had any vomiting since Tuesday. Pt to be switched to PO dilaudid for pain, assess whether pt is able to tolerate. Continue to monitor for BM. Possible d/c late afternoon or tomorrow. Case discussed with Dr. Aubrey Durand DO, PGY-1 <Allan Burgos - Last Filed: 06/13/18 16:30> Objective - Vital Signs/Intake and Output Vital Signs (last 24 hours): Temp Pulse Resp BP Pulse Ox 97.9 F 66 20 110/63 95 06/13/18 08:58 06/13/18 08:58 06/13/18 08:58 06/13/18 08:58 06/13/18 08:58 Intake and Output: 06/13/18 06/13/18 06:59 18:59 Intake Total 1200 Balance 1200 - Medications Medications: Current Medications Heparin Sodium (Porcine) (Heparin) 5,000 units SC Q8 [facility]; Protocol Last Admin: 06/13/18 14:13 Dose: Not Given Hydromorphone HCl (Dilaudid) 4 mg IVP Q4 PRN PRN Reason: Pain, severe (8-10) Sodium Chloride (Sodium Chloride 0.9%) 1,000 mls @ 100 mls/hr IV .Q10H [facility] Last Admin: 06/13/18 10:12 Dose: 100 mls/hr Ondansetron HCl (Zofran Inj) 4 mg IVP Q6H PRN PRN Reason: Nausea/Vomiting Last Admin: 06/13/18 13:43 Dose: 4 mg Pantoprazole Sodium (Protonix Inj) 40 mg IVP DAILY [facility] Last Admin: 06/13/18 10:12 Dose: 40 mg Polyethylene Glycol (Miralax) 17 gm PO BID [facility] Last Admin: 06/13/18 10:14 Dose: Not Given - Labs Labs: 06/13/18 06:10 06/13/18 06:10 Attending/Attestation - Attestation I have personally seen and examined this patient.: Yes I have fully participated in the care of the patient.: Yes I have reviewed all pertinent clinical information, including history, physical exam and plan: Yes Notes (Text): 06/13/18 16:18 58 year old female with past medical history of chronic back pain s/p lumbar fusion on chronic high dose opiates, chronic gastritis, gastroparesis and gluten sensitivity who presented with complaint of abdominal cramps and nausea/vomiting. CT scan showed mild enterocolitis and fecal impaction. 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 GI is following; recommended outpatient colonoscopy. Patient is on miralax bid. She received dulcolax yesterday and again today; will monitor for response. Patient states her appetite is poor secondary to nausea. Continue with liquid diet for now and advance as tolerated. D/c planning possible tomorrow if patient is tolerating po. Allan Burgos MD Hospitalist.
[2018-06-13 23:00] VITALS: BP 112/70; PULSE 73; RESP 18; TEMP 99.1; O2SAT 98
[2018-06-14] MEDS: HYDROmorphone 2 mg/ml ISec IVP PRN ×3 (02:00→10:07)
[2018-06-14 07:32] LABS: BASO # 0.03 K/mm3 (0.0-2.0); BASO % 0.5 % (0.0-3.0); EOS # 0.3 (0.0-0.7); EOS % 5.5 % (1.5-5.0); GRAN # 4.28 (1.4-6.5); GRAN % 69.3 % (50.0-68.0); HEMOGLOBIN 8.3 g/dL (12.0-16.0); LYMPH # 1.2 (1.2-3.4); LYMPH % 18.9 % (22.0-35.0); MEAN CELL VOLUME 74.4 fl (80.0-105.0); MEAN CORPUSCULAR HEMOGLOBIN 22.4 pg (25.0-35.0); MEAN CORPUSCULAR HGB CONC 30.1 g/dl (31.0-37.0); MONO # 0.4 (0.1-0.6); MONO % 5.8 % (1.0-6.0); RBC 3.71 10^6/uL (3.5-6.1); RED CELL DISTRIBUTION WIDTH 18.6 % (11.5-14.5); WHITE BLOOD COUNT 6.2 10^3/ul (4.5-11.0)
[2018-06-14 07:34] LABS: ALB/GLOB RATIO 0.7 (1.1-1.8); ALT/SGPT 21 U/L (7-56); AST/SGOT 24 U/L (14-36); BLOOD UREA NITROGEN 7 mg/dL (7-21); CALCIUM 8.7 mg/dL (8.4-10.5); GFR NON-AFRICAN AMERICAN > 60
[2018-06-14] MEDS: POLYETHYLENE GLYCOL 3350 17 GM/Dose PACKET PO SCH (10:07)
--- NOTE | 2018-06-14 11:24 | CP.PCM.DIS ---
<JakjustinanaYousuf - Last Filed: 06/14/18 15:54> Provider - Provider Date of Admission: 06/13/18 13:49 Attending physician: Allan Burgos MD Primary care physician: Landen Angulo MD Time Spent in preparation of Discharge (in minutes): 40 Hospital Course - Lab Results Lab Results: Most Recent Lab Values WBC 6.2 10^3/ul (4.5-11.0) 06/14/18 07:00 RBC 3.71 10^6/uL (3.5-6.1) 06/14/18 07:00 Hgb 8.3 g/dL (12.0-16.0) L 06/14/18 07:00 Hct 27.6 % (36.0-48.0) L 06/14/18 07:00 MCV 74.4 fl (80.0-105.0) L 06/14/18 07:00 MCH 22.4 pg (25.0-35.0) L 06/14/18 07:00 MCHC 30.1 g/dl (31.0-37.0) L 06/14/18 07:00 RDW 18.6 % (11.5-14.5) H 06/14/18 07:00 Plt Count 158 10^3/uL (120.0-450.0) 06/14/18 07:00 MPV 9.0 fl (7.0-11.0) 06/14/18 07:00 Gran % 69.3 % (50.0-68.0) H 06/14/18 07:00 Lymph % (Auto) 18.9 % (22.0-35.0) L 06/14/18 07:00 [place] % (Auto) 5.8 % (1.0-6.0) 06/14/18 07:00 Eos % (Auto) 5.5 % (1.5-5.0) H 06/14/18 07:00 Baso % (Auto) 0.5 % (0.0-3.0) 06/14/18 07:00 Gran # 4.28 (1.4-6.5) 06/14/18 07:00 Lymph # (Auto) 1.2 (1.2-3.4) 06/14/18 07:00 [place] # (Auto) 0.4 (0.1-0.6) 06/14/18 07:00 Eos # (Auto) 0.3 (0.0-0.7) 06/14/18 07:00 Baso # (Auto) 0.03 K/mm3 (0.0-2.0) 06/14/18 07:00 Sodium 138 mmol/L (132-148) 06/14/18 07:00 Potassium 3.6 mmol/L (3.6-5.0) 06/14/18 07:00 Chloride 107 mmol/L (98-107) 06/14/18 07:00 Carbon Dioxide 24 mmol/L (21-33) 06/14/18 07:00 Anion Gap 10 (10-20) 06/14/18 07:00 BUN 7 mg/dL (7-21) 06/14/18 07:00 Creatinine 0.8 mg/dl (0.7-1.2) 06/14/18 07:00 Est GFR ( Amer) > 60 06/14/18 07:00 Est GFR (Non-Af Amer) > 60 06/14/18 07:00 Random Glucose 99 mg/dL (70-110) 06/14/18 07:00 Calcium 8.7 mg/dL (8.4-10.5) 06/14/18 07:00 Phosphorus 3.7 mg/dL (2.5-4.5) 06/13/18 06:10 Magnesium 1.7 mg/dL (1.7-2.2) 06/13/18 06:10 Iron 37 ug/dL (45-180) L 06/12/18 07:00 TIBC 264 ug/dL (265-497) L 06/12/18 07:00 % Saturation 14 % (20-55) L 06/12/18 07:00 Transferrin 182.69 mg/dL (206-381) L 06/12/18 07:00 Ferritin 224.0 ng/mL 06/12/18 07:00 Total Bilirubin 0.2 mg/dL (0.2-1.3) 06/14/18 07:00 AST 24 U/L (14-36) 06/14/18 07:00 ALT 21 U/L (7-56) 06/14/18 07:00 Alkaline Phosphatase 88 U/L (38-126) 06/14/18 07:00 Troponin I < 0.01 ng/mL 06/12/18 07:15 Total Protein 7.2 g/dL (5.8-8.3) 06/14/18 07:00 Albumin 3.0 g/dL (3.0-4.8) 06/14/18 07:00 Globulin 4.1 gm/dL 06/14/18 07:00 Albumin/Globulin Ratio 0.7 (1.1-1.8) L 06/14/18 07:00 Lipase 39 U/L (23-300) 06/12/18 00:39 Influenza Typ A,B (EIA) Negative for flu a/b (NEGATIVE) 06/12/18 05:22 - Hospital Course Hospital Course: HPI: Ms Elkins is a 58 year old female with a past medical history of chronic back pain status post lumbar fusion, hypertension, chronic gastritis, gastroparesis likely secondary to chronic opioid use, anemia, celiac sensitivity, hepatic steatosis who presented to [facility] ED on 06/12 with complaints of abdominal pain, nausea, vomiting, and diarrhea for 3 days. Patient reports on Tuesday she had gone out for dinner and begin experiencing nausea immediately after her meal. She started that throughout the day she had a diffuse crampy abdominal pain with associated nausea. She reports numerous episodes of non- bloody, non-bilious vomiting as well as non-bloody, non-fatty diarrhea. She did report others around her have been experiencing similar symptoms of nausea/vomiting and diarrhea. Of note she states she does take PO opiate and reglan at home; however, she has been unable to tolerate PO medications for the past two days. Patient did however report taking amoxicillin 2-3 weeks ago for sore throat. Remainder of 12 system ROS is negative. During the course of admission, chest XRR was obtained and demonstrated no acute findings. Patient was given Reglan and Zofran for symptomatic relief. CT abdomen/pelvis showed fecal impaction, findings in right francois-colon and small bowel common the appropriate clinical setting mild enterocolitis, stable hepatosplenomegaly, stable benign incidental findings. GI was consulted and recommended outpatient follow-up on stool studies, fleet enema for constipation, and outpatient colonoscopy. Patients diet was advanced and tolerated. Patient cleared for discharge home. Patient is medically stable for discharge to home as per Dr. Burgos. Patient to continue all home medications as currently prescribed. Patient states she has all medications at home and does not need any refills upon discharge. Patient instructed to follow up with her primary care provider within 1 week of discharge for continued care. 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 Reviewed all medications with patient, and she understands instructions. Patient understands and agrees with discharge plan. The following is a summary of hospital course. For further detail, please refer to patient's EMR. - Date & Time of H&P Date of H&P: 06/14/18 Time of H&P: 11:15 Discharge Exam - Head Exam Head Exam: ATRAUMATIC, NORMAL INSPECTION, NORMOCEPHALIC - Eye Exam Eye Exam: EOMI, Normal appearance, PERRL Pupil Exam: NORMAL ACCOMODATION - ENT Exam ENT Exam: Mucous Membranes Moist, Normal Exam - Neck Exam Neck exam: Full Rom, Normal Inspection - Respiratory Exam Respiratory Exam: Clear to PA & Lateral, NORMAL BREATHING PATTERN, UNREMARKABLE. absent: Rales, Rhonchi, Wheezes, Respiratory Distress, Stridor - Cardiovascular Exam Cardiovascular Exam: REGULAR RHYTHM, +S1, +S2 - GI/Abdominal Exam GI & Abdominal Exam: Normal Bowel Sounds, Soft, Unremarkable. absent: Distended, Firm, Guarding, Hernia, Mass, Tenderness - Extremities Exam Extremities exam: normal capillary refill, normal inspection, pedal pulses present - Back Exam Back exam: NORMAL INSPECTION - Neurological Exam Neurological exam: Alert, CN II-XII Intact, Normal Gait, Oriented x3 - Psychiatric Exam Psychiatric exam: Normal Affect, Normal Mood - Skin Skin Exam: Dry, Intact, Normal Color, Warm Discharge Plan - Follow Up Plan Condition: STABLE Disposition: HOME/ ROUTINE Instructions: Acute Abdomen (Belly Pain), Adult (DC), Nausea and Vomiting, Adult (DC), Gastroparesis (Delayed Gastric Emptying) (DC) Additional Instructions: Patient is medically stable for discharge to home, per Dr. Burgos. Patient is instructed to continue home medications, as prescribed. Patient states she has all meds at home and does not need scripts upon discharge. Please follow up with your primary care provider within a week of discharge for continued care. Please follow up with your pain management doctor for continued treatment of chr onic back. Referrals: Landen Angulo MD [Primary Care Provider] - <Allan Burgos - Last Filed: 06/15/18 13:08> Provider - Provider Date of Admission: 06/12/18 03:39 Attending physician: Allan Burgos MD Primary care physician: Landen Angulo MD Hospital Course - Lab Results Lab Results: Micro Results 06/13/18 18:42 Stool Ova and Parasite Concentrate Exam - Final 06/13/18 18:42 Stool C. difficile Antigen & Toxins A,B - Final Most Recent Lab Values WBC 6.2 10^3/ul (4.5-11.0) 06/14/18 07:00 RBC 3.71 10^6/uL (3.5-6.1) 06/14/18 07:00 Hgb 8.3 g/dL (12.0-16.0) L 06/14/18 07:00 Hct 27.6 % (36.0-48.0) L 06/14/18 07:00 MCV 74.4 fl (80.0-105.0) L 06/14/18 07:00 MCH 22.4 pg (25.0-35.0) L 06/14/18 07:00 MCHC 30.1 g/dl (31.0-37.0) L 06/14/18 07:00 RDW 18.6 % (11.5-14.5) H 06/14/18 07:00 Plt Count 158 10^3/uL (120.0-450.0) 06/14/18 07:00 MPV 9.0 fl (7.0-11.0) 06/14/18 07:00 Gran % 69.3 % (50.0-68.0) H 06/14/18 07:00 Lymph % (Auto) 18.9 % (22.0-35.0) L 06/14/18 07:00 [place] % (Auto) 5.8 % (1.0-6.0) 06/14/18 07:00 Eos % (Auto) 5.5 % (1.5-5.0) H 06/14/18 07:00 Baso % (Auto) 0.5 % (0.0-3.0) 06/14/18 07:00 Gran # 4.28 (1.4-6.5) 06/14/18 07:00 Lymph # (Auto) 1.2 (1.2-3.4) 06/14/18 07:00 [place] # (Auto) 0.4 (0.1-0.6) 06/14/18 07:00 Eos # (Auto) 0.3 (0.0-0.7) 06/14/18 07:00 Baso # (Auto) 0.03 K/mm3 (0.0-2.0) 06/14/18 07:00 Sodium 138 mmol/L (132-148) 06/14/18 07:00 Potassium 3.6 mmol/L (3.6-5.0) 06/14/18 07:00 Chloride 107 mmol/L (98-107) 06/14/18 07:00 Carbon Dioxide 24 mmol/L (21-33) 06/14/18 07:00 Anion Gap 10 (10-20) 06/14/18 07:00 BUN 7 mg/dL (7-21) 06/14/18 07:00 Creatinine 0.8 mg/dl (0.7-1.2) 06/14/18 07:00 Est GFR ( Amer) > 60 06/14/18 07:00 Est GFR (Non-Af Amer) > 60 06/14/18 07:00 Random Glucose 99 mg/dL (70-110) 06/14/18 07:00 Calcium 8.7 mg/dL (8.4-10.5) 06/14/18 07:00 Phosphorus 3.7 mg/dL (2.5-4.5) 06/13/18 06:10 Magnesium 1.7 mg/dL (1.7-2.2) 06/13/18 06:10 Iron 37 ug/dL (45-180) L 06/12/18 07:00 TIBC 264 ug/dL (265-497) L 06/12/18 07:00 % Saturation 14 % (20-55) L 06/12/18 07:00 Transferrin 182.69 mg/dL (206-381) L 06/12/18 07:00 Ferritin 224.0 ng/mL 06/12/18 07:00 Total Bilirubin 0.2 mg/dL (0.2-1.3) 06/14/18 07:00 AST 24 U/L (14-36) 06/14/18 07:00 ALT 21 U/L (7-56) 06/14/18 07:00 Alkaline Phosphatase 88 U/L (38-126) 06/14/18 07:00 Troponin I < 0.01 ng/mL 06/12/18 07:15 Total Protein 7.2 g/dL (5.8-8.3) 06/14/18 07:00 Albumin 3.0 g/dL (3.0-4.8) 06/14/18 07:00 Globulin 4.1 gm/dL 06/14/18 07:00 Albumin/Globulin Ratio 0.7 (1.1-1.8) L 06/14/18 07:00 Lipase 39 U/L (23-300) 06/12/18 00:39 Influenza Typ A,B (EIA) Negative for flu a/b (NEGATIVE) 06/12/18 05:22 Attending/Attestation - Attestation I have personally seen and examined this patient.: Yes I have fully participated in the care of the patient.: Yes I have reviewed all pertinent clinical information, including history, physical exam and plan: Yes Notes (Text): 06/14/18 58 year old female with past medical history of chronic back pain s/p lumbar fusion on chronic high dose opiates, chronic gastritis, gastroparesis and gluten sensitivity who presented with complaint of abdominal cramps and nausea/vomiting. CT scan showed mild enterocolitis and fecal impaction. She was on chronic high dose narcotics; counselled on risks of opioid dependency and to follow up with pain management and pmd to taper medications. She was seen by GI and started on dulcolax with improvement of symptoms. She was discharged today to follow up with pmd and GI. After discharge stool study came back with CDif +ag and -toxin. Will call patient and discuss with GI based on her symptoms if to start po vanco or flagyl. Allan Burgos MD Hospitalist.
== END 2018-06-14 12:15 | disposition home or self-care (01) ==
LOC: ED 00:17 → ERH 03:39 → 5RNO 05:30 → INTOOBSV 06-13 13:49 → OBSVTOIN 06-13 13:49
PROVIDERS: ADMIT Internal Medicine; ATTEND Internal Medicine
DX: K31.84 Gastroparesis (principal); T40.695A Adverse effect of other narcotics, initial encounter; G89.29 Other chronic pain; I10 Essential (primary) hypertension; K29.50 Unspecified chronic gastritis without bleeding; F11.20 Opioid dependence, uncomplicated; D64.9 Anemia, unspecified; K56.41 Fecal impaction; K21.9 Gastro-esophageal reflux disease without esophagitis; K76.0 Fatty (change of) liver, not elsewhere classified; K76.6 Portal hypertension; Z98.1 Arthrodesis status; Z87.891 Personal history of nicotine dependence; Z90.710 Acquired absence of both cervix and uterus; Z90.49 Acquired absence of other specified parts of digestive tract
CPT/HCPCS: 36415; 71045; 74177; 80053; 82438; 82728; 83690; 83735; 84100; 84302; 84311; 84466; 84484; 85025; 85027; 87177; 87209; 87324; 87804; 93005; 96374; 96375; 96376; 99285; C9113; G0378; J1170; J2270; J2405; J2765; J7030; Q9967

== ENCOUNTER 2018-07-25 17:24 | Inpatient (IN) | payer BC ==
[2018-07-25] MEDS ORDERED: Sodium Chloride 0.9% 1,000 ML IV STA (18:26)
--- NOTE | 2018-07-25 18:28 | ED PDOC ---
Arrival/HPI - General Chief Complaint: Abdominal Pain Time Seen by Provider: 07/25/18 18:20 Historian: Patient, Spouse, Family (Son) - History of Present Illness Narrative History of Present Illness (Text): 58 y/o female with PMH of HTN, gastroparesis, chronic back pain, cholecystectomy presents to the ED c/o upper abdominal pain, nausea, vomiting, and diarrhea x 2.5 days. Patient reports >10 episodes of non-bloody diarrhea and non-bloody vomiting per day. Last BM just prior to arrival, loose brown stool. Abdominal pain is sharp and located epigastrically. Associated anorexia and inability to tolerate PO. Patient takes dilaudid daily for her chronic pain, but has been unable to take the medication secondary to vomiting. Denies fevers, chills, chest pain, diaphoresis, palpitations, SOB, urinary symptoms, or any other co mplaints. GI: Dr. Thao Pain management: Dr. Gibson PMD: Dr. Angulo Past Medical History - Provider Review Nursing Documentation Reviewed: Yes - Infectious Disease Hx of Infectious Diseases: None - Tetanus Immunization Tetanus Immunization: Unknown - Cardiac Hx Hypertension: Yes - Pulmonary Hx Respiratory Disorders: Yes (USED TO SMOKE. QUIT 25 YRS AGO) - Neurological Hx Neurological Disorder: No - HEENT Hx HEENT Disorder: No - Renal Hx Renal Disorder: No - Endocrine/Metabolic Hx Endocrine Disorders: No - Hematological/Oncological Hx Blood Disorders: Yes Hx Anemia: Yes Other/Comment: hx blood transfusion - Integumentary Hx Dermatological Disorder: Yes - Musculoskeletal/Rheumatological Hx Arthritis: Yes Hx Falls: No - Gastrointestinal Other/Comment: celiac diseae - Genitourinary/Gynecological Hx Urinary Tract Infection: Yes - Psychiatric Hx Substance Use: No - Surgical History Hx Cholecystectomy: Yes Hx Hysterectomy: Yes - Anesthesia Hx Anesthesia: Yes Hx Anesthesia Reactions: No Hx Malignant Hyperthermia: No - Suicidal Assessment Feels Threatened In Home Enviroment: No Family/Social History - Physician Review Nursing Documentation Reviewed: Yes Family/Social History: No Known Family HX Smoking Status: Never Smoked Hx Alcohol Use: No Hx Substance Use: No Hx Substance Use Treatment: No Allergies/Home Meds Allergies/Adverse Reactions: Allergies gluten Adverse Reaction (Verified 07/25/18 18:53) PAIN Home Medications: Home Meds Medication Instructions Recorded Confirmed HYDROmorphone [Dilaudid] 8 mg PO Q4 PRN 03/08/16 07/25/18 Hydromorphone HCl [Exalgo] 16 mg PO TID 02/13/18 07/25/18 Review of Systems - Physician Review All systems were reviewed & negative as marked: Yes - Review of Systems Constitutional: Normal. absent: Fevers Eyes: Normal. absent: Vision Changes ENT: Normal. absent: Sinus Congestion Respiratory: Normal. absent: SOB, Cough Cardiovascular: Normal. absent: Chest Pain, Palpitations Gastrointestinal: Abdominal Pain, Diarrhea, Nausea, Vomiting, Anorexia, Food Intolerance Genitourinary Female: Normal. absent: Dysuria, Frequency, Vaginal Bleeding, Vaginal Discharge Musculoskeletal: Back Pain (per baseline). absent: Arthralgias Skin: Normal. absent: Rash, Skin Lesions Neurological: Normal. absent: Headache, Dizziness Endocrine: Normal. absent: Diaphoresis Hemo/Lymphatic: Normal Psychiatric: Normal Physical Exam Vital Signs Reviewed: Yes Temperature: Afebrile Blood Pressure: Normal Pulse: Regular Respiratory Rate: Normal Appearance: Positive for: Non-Toxic, Uncomfortable Pain Distress: Mild Mental Status: Positive for: Alert and Oriented X 3 - Systems Exam Head: Present: Atraumatic, Normocephalic Pupils: Present: PERRL Extroacular Muscles: Present: EOMI Conjunctiva: Present: Normal Mouth: Present: Moist Mucous Membranes Neck: Present: Normal Range of Motion Respiratory/Chest: Present: Clear to Auscultation, Good Air Exchange. No: Respiratory Distress, Accessory Muscle Use Cardiovascular: Present: Regular Rate and Rhythm, Normal S1, S2. No: Murmurs Abdomen: Present: Tenderness (RUQ, Epigastric, LUQ), Normal Bowel Sounds, Guarding. No: Distention, Rovsing's Sign Present, Mass/Organomegaly Back: Present: Normal Inspection Upper Extremity: Present: Normal Inspection. No: Cyanosis, Edema Lower Extremity: Present: Normal Inspection. No: Edema Neurological: Present: GCS=15, CN II-XII Intact, Speech Normal Skin: Present: Warm, Dry, Normal Color. No: Rashes Psychiatric: Present: Alert, Oriented x 3, Normal Insight, Normal Concentration Medical Decision Making ED Course and Treatment: Initial Plan: * CBC, CMP, Lipase * Troponin * IVF * Pepcid * Zofran * IVF * CT Abd/Pelvis with IV contrast * EKG 20:[address] Angulo, who recommends MANUFACT[employer]ING [employer] ESTIMATOR pump on admission to hospital. Made aware of lab results and preliminary diagnosis of pancreatitis. Patient continues to c/o pain, will order Morphine 4mg 20:[address] Thao, who is familiar with patient and her history. Re commends abdominal ultrasound over CT scan with IV contrast, as well as NPO status and hydration with IVF at 100cc/hr. Will continue to re-eval for necessity of CT scan. Cancelled CT Abd/Pelvis, will get abdominal ultrasound first. 21:[address] Khan and medical tech, who accept patient for admission to remote telemetry. Recommends blood cultures, IV Flagyl, IV Rocephin. Patient sleeping comfortably in stretcher with stable vital signs at this time. Pending Xray, Ultrasound. - Lab Interpretations Lab Results: 07/25/18 18:26 07/25/18 18:26 Lab Results 07/25/18 18:26: Sodium 140, Potassium 3.0 L, Chloride 98, Carbon Dioxide 30, Anion Gap 15, BUN 24 H, Creatinine 1.2, Est GFR ( Amer) 56, Est GFR (Non- Af Amer) 46, Random Glucose 138 H, Calcium 10.0, Magnesium 2.3 H, Total Bilirubin 0.5, AST 28, ALT 12, Alkaline Phosphatase 147 H D, Troponin I < 0.01, Total Protein 9.9 H, Albumin 4.0, Globulin 5.9, Albumin/Globulin Ratio 0.7 L, Lipase 1255 H 07/25/18 18:26: PT 15.1 H, INR 1.32, APTT 29.3 07/25/18 18:26: WBC 16.1 H, RBC 4.78, Hgb 10.8 L D, Hct 34.7 L, MCV 72.6 L, MCH 22.6 L, MCHC 31.1, RDW 17.9 H, Plt Count 483 H, MPV 8.0, Gran % 92.4 H, Lymph % (Auto) 5.3 L, Day % (Auto) 2.1, Eos % (Auto) 0.1 L, Baso % (Auto) 0.1, Gran # 14.85 H, Lymph # (Auto) 0.9 L, Day # (Auto) 0.3, Eos # (Auto) 0.0, Baso # (Auto) 0.01, Neutrophils % (Manual) 92 H, Lymphocytes % (Manual) 7 L, Monocytes % (Manual) 1 I have reviewed the lab results: Yes Interpretation: Abnormal lab values - EKG Interpretation EKG Interpretation (Text): Rate 84; NSR; QT prolongation; No STEMI Read by ED attending Dr. Bowman Interpreted by ED Physician: Yes Type: 12 lead EKG Comparison: Com.w/previous EKG Disposition/Present on Arrival - Present on Arrival Any Indicators Present on Arrival: No History of DVT/PE: No History of Uncontrolled Diabetes: No Urinary Catheter: No History of Decub. Ulcer: No History Surgical Site Infection Following: None - Disposition Have Diagnosis and Disposition been Completed?: Yes Diagnosis: Pancreatitis, Hypokalemia, Intractable pain Disposition: HOME/ ROUTINE Disposition Time: 21:00 Patient Problems: Current Active Problems Problem Status Onset Pancreatitis Acute Hypokalemia Acute Intractable pain Acute Condition: STABLE
[2018-07-25 19:16] LABS: BASO # 0.01 K/mm3 (0.0-2.0); BASO % 0.1 % (0.0-3.0); EOS % 0.1 % (1.5-5.0); GRAN # 14.85 (1.4-6.5); GRAN % 92.4 % (50.0-68.0); HEMOGLOBIN 10.8 g/dL (12.0-16.0); LYMPH # 0.9 (1.2-3.4); LYMPH % 5.3 % (22.0-35.0); MEAN CELL VOLUME 72.6 fl (80.0-105.0); MEAN CORPUSCULAR HEMOGLOBIN 22.6 pg (25.0-35.0); MEAN CORPUSCULAR HGB CONC 31.1 g/dl (31.0-37.0); MONO # 0.3 (0.1-0.6); MONO % 2.1 % (1.0-6.0); PLATELET COUNT 483 10^3/uL (120.0-450.0); RBC 4.78 10^6/uL (3.5-6.1); RED CELL DISTRIBUTION WIDTH 17.9 % (11.5-14.5); WHITE BLOOD COUNT 16.1 10^3/uL (4.5-11.0)
[2018-07-25 19:25] LABS: INR 1.32; PARTIAL THROMBOPLASTIN TIME 29.3 Seconds (25.1-36.5); PROTHROMBIN TIME 15.1 SECONDS (9.4-12.5)
[2018-07-25 19:32] LABS: LYMPHOCYTE 7 % (22.0-35.0); MONOCYTE 1 % (1.0-6.0); NEUTROPHIL 92 % (50.0-70.0)
[2018-07-25 19:55] LABS: ALB/GLOB RATIO 0.7 (1.1-1.8); ALT/SGPT 12 U/L (7-56); AST/SGOT 28 U/L (14-36); BLOOD UREA NITROGEN 24 mg/dL (7-21); GFR NON-AFRICAN AMERICAN 46
[2018-07-25 20:03] LABS: LIPASE 1255 U/L (23-300)
[2018-07-25 20:06] LABS: TROPONIN I < 0.01 ng/mL
[2018-07-25] MEDS ORDERED: Morphine 4 mg/ml ISec IVP STA (20:16)
[2018-07-25] MEDS ORDERED: Potassium Chloride 20 mEq ER Tab PO STA (20:28)
[2018-07-25] MEDS ORDERED: Sodium Chloride 0.9% 1,000 ML IV SCH (20:30)
[2018-07-25] MEDS ORDERED: metroNIDAZOLE IV 500 mg/100 ml 500 MG/100 ML BAG IVPB STA (20:53)
[2018-07-25] MEDS ORDERED: cefTRIAXone 1 gm 1 GM/100 ML BAG IVPB STA (20:53)
--- NOTE | 2018-07-26 | CP.PCM.HP ---
<Gabe Membreno - Last Filed: 07/26/18 03:45> History of Present Illness - History of Present Illness History of Present Illness: Gabe Membreno, PGY1 Hospital H&P This is a 58 year old female with PMH of chronic back pain on daily dilaudid, multiple laminectomies/fusions, narcotic gastroparesis, HTN, anemia, gastritis, and hepatic steatosis presenting to the ED for 3 day history of abdominal pain. Pain started suddenly, rated 10/10, constant, non radiating, located in the epigastric and central lower abdominal area, sharp and worse with eating/drinking. Pain is associated with nausea, non bloody vomiting x10 per day and multiple non bloody diarrhea episodes. Last bowel movement was right before ED arrival. She denies ever having similar symptoms in past. She states dilaudid has not helped with the pain. She denies CP, SOB, fevers, chills, cough, back pain, constipation, hemetemesis, hematochezia, melena, numbness, tingling, swelling, urinary complaints, recent travel, sickness, trauma and lifestyle change. 12 point ROS noted here, otherwise unremarkable. PMD: Dr. Angulo Pain management: Dr. Gibson PMH: chronic back pain on daily dilaudid, multiple laminectomies/fusions, narcotic gastroparesis, HTN, anemia, gastritis, and hepatic steatosis SH: denies drinking, smoking and drugs Sx: laminectomy in 1993, L4/5 fusion in 1998, 2010 L3 fusion, 2013 hysterectomy, cholecystectomy FH: denies Meds: exalgo 16mg TID, dilaudid 8mg q4 PRN All: gluten Present on Admission - Present on Admission Any Indicators Present on Admission: No Past Patient History - Infectious Disease Hx of Infectious Diseases: None - Tetanus Immunizations Tetanus Immunization: Unknown - Past Social History Smoking Status: Never Smoked - CARDIAC Hx Hypertension: Yes - PULMONARY Hx Respiratory Disorders: Yes (USED TO SMOKE. QUIT 25 YRS AGO) - NEUROLOGICAL Hx Neurological Disorder: No - HEENT Hx HEENT Problems: No - RENAL Hx Chronic Kidney Disease: No - ENDOCRINE/METABOLIC Hx Endocrine Disorders: No - HEMATOLOGICAL/ONCOLOGICAL Hx Blood Disorders: Yes Hx Anemia: Yes Other/Comment: hx blood transfusion - INTEGUMENTARY Hx Dermatological Problems: Yes - MUSCULOSKELETAL/RHEUMATOLOGICAL Hx Arthritis: Yes Hx Falls: No - GASTROINTESTINAL Other/Comment: celiac diseae - GENITOURINARY/GYNECOLOGICAL Hx Urinary Tract Infection: Yes - PSYCHIATRIC Hx Substance Use: No - SURGICAL HISTORY Hx Cholecystectomy: Yes Hx Hysterectomy: Yes - ANESTHESIA Hx Anesthesia: Yes Hx Anesthesia Reactions: No Hx Malignant Hyperthermia: No Meds Allergies/Adverse Reactions: Allergies Allergy/AdvReac Type Severity Reaction Status Date / Time gluten AdvReac PAIN Verified 07/25/18 18:53 Physical Exam - Constitutional Appears: Non-toxic - Head Exam Head Exam: ATRAUMATIC, NORMAL INSPECTION - Eye Exam Eye Exam: EOMI Pupil Exam: PERRL - ENT Exam ENT Exam: Mucous Membranes Dry - Respiratory Exam Respiratory Exam: Clear to Auscultation Bilateral. absent: Accessory Muscle Use, Wheezes, Respiratory Distress, NORMAL BREATHING PATTERN - Cardiovascular Exam Cardiovascular Exam: REGULAR RHYTHM, +S1, +S2, Systolic Murmur - GI/Abdominal Exam GI & Abdominal Exam: Normal Bowel Sounds, Soft. absent: Distended, Firm, Rebound Additional comments: tenderness appreciated in epigastric region with light palpation - Extremities Exam Extremities exam: Positive for: normal inspection, pedal pulses present. Negative for: calf tenderness - Back Exam Back exam: absent: CVA tenderness (L), CVA tenderness (R) - Neurological Exam Neurological exam: Alert, Oriented x3 - Skin Skin Exam: Normal Color, Warm Results - Vital Signs Recent Vital Signs: Last Vital Signs Temp 98 F 07/25/18 22:07 Pulse 77 07/25/18 22:07 Resp 18 07/25/18 22:07 BP 112/67 07/25/18 22:07 Pulse Ox 98 07/25/18 22:07 - Labs Result Diagrams: 07/25/18 18:26 07/25/18 18:26 Labs: Laboratory Results - last 24 hr 07/25/18 07/25/18 07/25/18 18:26 18:26 18:26 WBC 16.1 H RBC 4.78 Hgb 10.8 L D Hct 34.7 L MCV 72.6 L MCH 22.6 L MCHC 31.1 RDW 17.9 H Plt Count 483 H MPV 8.0 Gran % 92.4 H Lymph % (Auto) 5.3 L Calloway % (Auto) 2.1 Eos % (Auto) 0.1 L Baso % (Auto) 0.1 Gran # 14.85 H Lymph # (Auto) 0.9 L Calloway # (Auto) 0.3 Eos # (Auto) 0.0 Baso # (Auto) 0.01 Neutrophils % (Manual) 92 H Lymphocytes % (Manual) 7 L Monocytes % (Manual) 1 PT 15.1 H INR 1.32 APTT 29.3 Sodium 140 Potassium 3.0 L Chloride 98 Carbon Dioxide 30 Anion Gap 15 BUN 24 H Creatinine 1.2 Est GFR ( Amer) 56 Est GFR (Non-Af Amer) 46 Random Glucose 138 H Calcium 10.0 Magnesium 2.3 H Total Bilirubin 0.5 AST 28 ALT 12 Alkaline Phosphatase 147 H D Troponin I < 0.01 Total Protein 9.9 H Albumin 4.0 Globulin 5.9 Albumin/Globulin Ratio 0.7 L Lipase 1255 H Assessment & Plan - Assessment and Plan (Free Text) Assessment: This is a 58 year old female with PMH of chronic back pain on daily dilaudid, multiple laminectomies/fusions, narcotic gastroparesis, HTN, anemia, gastritis, and hepatic steatosis presenting to the ED for 3 day history of abdominal pain. Plan: Intractable abdominal pain -likely 2/2 pancreatitis - consider infectious etiology. Previous cholecystecomy, denies alcohol and drug use, lipid panel pending, calcium WNL. -history of ileus from chronic opiate use -elevated lipase -WBC of 16, afebrile -U/A, urine and blood culture pending -FOBT, c. diff antigen/toxin pending -flagyl and rocephin day 1 -CTAP pending -Abd xray, f/u final report -Abd ultrasound, f/u final report -NS 150, elevated BUN consistent with dehydration -trending trops -EKG shows prolonged QT -GI on consult, Dr. Thao Chronic back pain -2/2 multiple back surgeries -dilaudid 4mg IV q4 prn -Pain management on consult, Dr. Gibson Hypokalemia -repleted, f/u AM labs Anemia -currently at baseline, microcytic -iron low and TIBC low/normal from previous recent visit, suggesting anemia of chronic disease HTN -currently controlled, will monitor PPX with SCD and pepcid NPO Patient seen and examined with attending, Dr. Khan <Christal Khan - Last Filed: 07/26/18 07:30> Results - Vital Signs Recent Vital Signs: Last Vital Signs Temp 98.4 F 07/26/18 04:39 Pulse 76 07/26/18 04:39 Resp 20 07/26/18 04:39 BP 117/84 07/26/18 04:39 Pulse Ox 98 07/25/18 22:07 - Labs Result Diagrams: 07/26/18 05:25 07/26/18 05:25 Labs: Laboratory Results - last 24 hr 07/25/18 07/25/18 07/25/18 18:26 18:26 18:26 WBC 16.1 H RBC 4.78 Hgb 10.8 L D Hct 34.7 L MCV 72.6 L MCH 22.6 L MCHC 31.1 RDW 17.9 H Plt Count 483 H MPV 8.0 Gran % 92.4 H Lymph % (Auto) 5.3 L Calloway % (Auto) 2.1 Eos % (Auto) 0.1 L Baso % (Auto) 0.1 Gran # 14.85 H Lymph # (Auto) 0.9 L Calloway # (Auto) 0.3 Eos # (Auto) 0.0 Baso # (Auto) 0.01 Neutrophils % (Manual) 92 H Lymphocytes % (Manual) 7 L Monocytes % (Manual) 1 PT 15.1 H INR 1.32 APTT 29.3 Sodium 140 Potassium 3.0 L Chloride 98 Carbon Dioxide 30 Anion Gap 15 BUN 24 H Creatinine 1.2 Est GFR ( Amer) 56 Est GFR (Non-Af Amer) 46 Random Glucose 138 H Calcium 10.0 Phosphorus Magnesium 2.3 H Total Bilirubin 0.5 AST 28 ALT 12 Alkaline Phosphatase 147 H D Troponin I < 0.01 Total Protein 9.9 H Albumin 4.0 Globulin 5.9 Albumin/Globulin Ratio 0.7 L Triglycerides Cholesterol LDL Cholesterol Direct HDL Cholesterol Lipase 1255 H Free T4 TSH 3rd Generation 07/26/18 07/26/18 07/26/18 05:25 05:25 05:25 WBC 10.7 D RBC 3.81 Hgb 8.4 L D Hct 28.2 L MCV 74.0 L MCH 22.0 L MCHC 29.8 L RDW 18.1 H Plt Count 406 MPV 7.8 Gran % 86.1 H Lymph % (Auto) 7.9 L Calloway % (Auto) 3.8 Eos % (Auto) 2.1 Baso % (Auto) 0.1 Gran # 9.22 H Lymph # (Auto) 0.9 L Calloway # (Auto) 0.4 Eos # (Auto) 0.2 Baso # (Auto) 0.01 Neutrophils % (Manual) Lymphocytes % (Manual) Monocytes % (Manual) PT INR APTT Sodium 139 Potassium 3.2 L Chloride 103 Carbon Dioxide 28 Anion Gap 11 BUN 26 H Creatinine 1.2 Est GFR ( Amer) 56 Est GFR (Non-Af Amer) 46 Random Glucose 99 Calcium 8.2 L Phosphorus 4.3 Magnesium 2.0 Total Bilirubin 0.2 AST 26 ALT 15 Alkaline Phosphatase 98 Troponin I < 0.01 Total Protein 7.5 Albumin 3.0 Globulin 4.5 Albumin/Globulin Ratio 0.7 L Triglycerides 101 Cholesterol 103 L LDL Cholesterol Direct 64 HDL Cholesterol 26 L Lipase Free T4 1.00 TSH 3rd Generation 0.96 Attending/Attestation - Attestation I have personally seen and examined this patient.: Yes I have fully participated in the care of the patient.: Yes I have reviewed all pertinent clinical information: Yes Notes (Text): 07/26/18 07:27 Pt seen with the resident by the bedside Case discussed in detail Agree with documentation,assessment,orders placed and plan of treatment
[2018-07-26] MEDS ORDERED: Sodium Chloride 0.9% 1,000 ML IV SCH (00:10)
[2018-07-26] MEDS: HYDROmorphone 2 mg/ml ISec IVP PRN ×4 (00:45→23:44)
[2018-07-26] MEDS: metroNIDAZOLE IV 500 mg/100 ml 500 MG/100 ML BAG IVPB SCH ×3 (06:03→22:12)
[2018-07-26 06:48] LABS: BASO # 0.01 K/mm3 (0.0-2.0); BASO % 0.1 % (0.0-3.0); EOS # 0.2 (0.0-0.7); EOS % 2.1 % (1.5-5.0); GRAN # 9.22 (1.4-6.5); GRAN % 86.1 % (50.0-68.0); LYMPH # 0.9 (1.2-3.4); LYMPH % 7.9 % (22.0-35.0); MEAN CORPUSCULAR HGB CONC 29.8 g/dl (31.0-37.0); MEAN PLATELET VOLUME 7.8 fl (7.0-11.0); MONO # 0.4 (0.1-0.6); MONO % 3.8 % (1.0-6.0); RBC 3.81 10^6/uL (3.5-6.1); RED CELL DISTRIBUTION WIDTH 18.1 % (11.5-14.5); WHITE BLOOD COUNT 10.7 10^3/uL (4.5-11.0)
[2018-07-26 07:05] LABS: LDL CHOLESTEROL 64 mg/dL (0-129); TROPONIN I < 0.01 ng/mL
[2018-07-26 07:10] LABS: HEMOGLOBIN 8.4 g/dL (12.0-16.0)
[2018-07-26 07:14] LABS: ALB/GLOB RATIO 0.7 (1.1-1.8); ALT/SGPT 15 U/L (7-56); AST/SGOT 26 U/L (14-36); BLOOD UREA NITROGEN 26 mg/dL (7-21); CALCIUM 8.2 mg/dL (8.4-10.5); GFR NON-AFRICAN AMERICAN 46; HDL CHOLESTEROL 26 mg/dL (29-60)
--- NOTE | 2018-07-26 08:54 | RAD ---
Date of service: 07/25/2018 HISTORY: admission, abdominal pain COMPARISON: 06/12/2018 TECHNIQUE: Chest PA and lateral FINDINGS: LUNGS: No active pulmonary disease. PLEURA: No significant pleural effusion identified. No pneumothorax apparent. CARDIOVASCULAR: No aortic atherosclerotic calcification present. Normal cardiac size. No pulmonary vascular congestion. OSSEOUS STRUCTURES: No significant abnormalities. VISUALIZED UPPER ABDOMEN: Normal. OTHER FINDINGS: None. IMPRESSION: No active disease.
--- NOTE | 2018-07-26 09:24 | US ---
HISTORY: elevated lipase, LFTs COMPARISON: CT abdomen pelvis with IV contrast performed 06/12/18, abdominal ultrasound performed 10/26/17 TECHNIQUE: Sonographic evaluation of the abdomen. FINDINGS: LIVER: Measures 19.1 cm in sagittal dimension. Echogenic liver may be seen in setting of hepatic parenchymal disease or fatty infiltration. No focal hepatic mass identified. The main portal vein appears patent with normal directional flow. No intrahepatic bile duct dilatation. GALLBLADDER: Cholecystectomy. COMMON BILE DUCT: Measures 5 mm. PANCREAS: Not well visualized. RIGHT KIDNEY: Measures 9.6 x 3.8 x 3.8cm. No obstructing calculus or hydronephrosis identified. LEFT KIDNEY: Measures 10.9 x 4.7 x 4.4cm. No obstructing calculus or hydronephrosis identified. SPLEEN: Measures approximately 11.7 cm. AORTA: Limited views appear unremarkable. IVC: Limited views appear unremarkable. OTHER FINDINGS: None. IMPRESSION: Mild hepatomegaly. Echogenic liver may be seen in setting of hepatic parenchymal disease or fatty infiltration. Cholecystectomy. Preliminary impression was provided by [facility].
[2018-07-26] MEDS: cefTRIAXone 1 gm 1 GM/100 ML BAG IVPB SCH (09:45)
[2018-07-26] MEDS ORDERED: HYDROMORPHONE HCL 16 MG PO SCH (10:00)
--- NOTE | 2018-07-26 10:12 | CARD ---
APPROVED REPORT Date of service: 07/25/2018 EKG Measurement Heart [id number] <Conclusion> Normal sinus rhythm Nonspecific T wave abnormality Prolonged QT Abnormal ECG
--- NOTE | 2018-07-26 10:25 | CT ---
Date of service: 07/26/2018 PROCEDURE: CT Abdomen and Pelvis without intravenous contrast HISTORY: abd pain COMPARISON: 06/12/2018 CT TECHNIQUE: Without contrast.. Contrast dose: Radiation dose: Total exam DLP = 337.88 mGy-cm. This CT exam was performed using one or more of the following dose reduction techniques: Automated exposure control, adjustment of the mA and/or kV according to patient size, and/or use of iterative reconstruction technique. FINDINGS: LOWER THORAX: Unremarkable. LIVER: Unremarkable. No gross lesion or ductal dilatation. GALLBLADDER AND BILE DUCTS: Unremarkable. PANCREAS: Unremarkable. No gross lesion or ductal dilatation. SPLEEN: Mild splenomegaly measuring 14.6 cm AP ADRENALS: Unremarkable. No mass. KIDNEYS AND URETERS: Unremarkable. No hydronephrosis. No solid mass. VASCULATURE: Unremarkable. No aortic aneurysm. Minimal aortic and iliac calcification BOWEL: Mildly dilated fluid-filled loops of large and small bowel. The finding is nonspecific. APPENDIX: Unremarkable. Normal appendix. PERITONEUM: Unremarkable. No free fluid. No free air. LYMPH NODES: Unremarkable. No enlarged lymph nodes. BLADDER: Unremarkable. REPRODUCTIVE: Unremarkable. BONES: No acute fracture. OTHER FINDINGS: Subcutaneous edema and small pockets of air are seen over both hips. These are most likely injection sites. This is unchanged. The report concurs with the preliminary [facility] report IMPRESSION: No acute intra-abdominal findings
[2018-07-26 12:20] LABS: URINE BILIRUBIN NEGATIVE (NEGATIVE); URINE BLOOD NEGATIVE (NEGATIVE); URINE GLUCOSE (UA) NEGATIVE (NEGATIVE); URINE LEUKOCYTE ESTERASE NEGATIVE Leu/uL (NEGATIVE); URINE PROTEIN 100 mg/dL (<30 mg/dL); URINE UROBILINOGEN 0.2 E.U./dL (<1 E.U./dL)
[2018-07-26 12:23] LABS: URINE APPEARANCE SL CLOUDY (CLEAR); URINE COLOR YELLOW (YELLOW)
[2018-07-26 12:32] LABS: URINE BACTERIA SMALL (NEG); URINE RBC NEGATIVE /hpf (0-2)
[2018-07-26] MEDS ORDERED: Vitamins A & D Oint UD Foilpak TOP PRN (13:08)
--- NOTE | 2018-07-26 14:34 | RAD ---
Date of service: 07/25/2018 HISTORY: vomiting COMPARISON: None available. FINDINGS: BOWEL: Normal. No obstruction. No free air. Mildly dilated loops of small bowel are seen. This could represent ileus or partial obstruction BONES: Normal. OTHER FINDINGS: None. IMPRESSION: Mildly dilated loops of small bowel are seen. This could represent ileus or partial obstruction
--- NOTE | 2018-07-26 14:57 | CP.PCM.CON ---
History of Present Illness - History of Present Illness History of Present Illness: PGY6 GI Fellow Consult Note Patient is a 58yo female with PMHx significant for chronic back pain following numerous spinal surgeries on chronic opioid therapy, chronic abdominal pain, suspected gastroparesis 2/2 opiate use, HTN, anemia who presented to the ED with abdominal pain. Following hosting the at her home, patient developed mid-to-low back pain. She suspected this was 2/2 straining and overexertion during the holiday. Symptoms did not resolve despite use of her daily pain regimen consisting of Dilaudid PO TID. She began using significant quantity of Advil to alleviate breakthrough pain. Over the last 4 days, she has noted worsening diarrhea with 10+ episodes/day at its worst along with periumbilical stabbing pain radiating to the mid-back, nausea and vomiting. Symptoms progressed despite her daily opiate regimen and Advil and she began to develop heartburn and sore throat. As such, she came to the ED for further evaluation. 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 Moreover, her was sick with a viral syndrome this past week. Denies any EtOH use and has not used any other OTC medications, herbal supplements or vitamins recently. She denies eating any martinez lettuce and does not note any bloody bowel movements. No weight loss noted. 12 system ROS performed and otherwise negative PMHx: See HPI PSHx: Cholecystectomy, multiple spinal procedures (laminectomy, fusions) FHx: Father with "pancreatic nodules" Social: Quit smoking >10 years ago, no EtOH or illicit drug use Endo: EGD 05/2016 - [place] esophagitis EGD 06/2015 - unremarkable EGD 06/2013 - unremarkable Admits to EUS/ERCP many years ago with sphincterotomy Past Patient History - Infectious Disease Hx of Infectious Diseases: None - Tetanus Immunizations Tetanus Immunization: Unknown - Past Social History Smoking Status: Never Smoked - CARDIAC Hx Hypertension: Yes - PULMONARY Hx Respiratory Disorders: Yes (USED TO SMOKE. QUIT 25 YRS AGO) - NEUROLOGICAL Hx Neurological Disorder: No - HEENT Hx HEENT Problems: No - RENAL Hx Chronic Kidney Disease: No - ENDOCRINE/METABOLIC Hx Endocrine Disorders: No - HEMATOLOGICAL/ONCOLOGICAL Hx Blood Disorders: Yes Hx Anemia: Yes Other/Comment: hx blood transfusion - INTEGUMENTARY Hx Dermatological Problems: Yes - MUSCULOSKELETAL/RHEUMATOLOGICAL Hx Arthritis: Yes Hx Falls: No - GASTROINTESTINAL Other/Comment: celiac diseae - GENITOURINARY/GYNECOLOGICAL Hx Urinary Tract Infection: Yes - PSYCHIATRIC Hx Substance Use: No - SURGICAL HISTORY Hx Cholecystectomy: Yes Hx Hysterectomy: Yes - ANESTHESIA Hx Anesthesia: Yes Hx Anesthesia Reactions: No Hx Malignant Hyperthermia: No Meds Allergies/Adverse Reactions: Allergies Allergy/AdvReac Type Severity Reaction Status Date / Time gluten AdvReac PAIN Verified 07/25/18 18:53 - Medications Medications: Current Medications Famotidine (Pepcid) 10 mg IVP DAILY [facility] Last Admin: 07/26/18 09:45 Dose: 10 mg Hydromorphone HCl (Dilaudid) 4 mg IVP Q4H PRN PRN Reason: Pain, severe (8-10) Last Admin: 07/26/18 04:29 Dose: 4 mg Metronidazole (Flagyl) 500 mg in 100 mls @ 100 mls/hr IVPB Q8 [place]; Protocol Last Admin: 07/26/18 06:03 Dose: 100 mls/hr Ceftriaxone Sodium (Rocephin 1 Gram Ivpb) 1 gm in 100 mls @ 100 mls/hr IVPB DAILY [place]; Protocol Last Admin: 07/26/18 09:45 Dose: 100 mls/hr Potassium Chloride 20 meq/ (Sodium Chloride) 1,010 mls @ 150 mls/hr IV .Q6H44M [place] Last Admin: 07/26/18 12:42 Dose: 150 mls/hr Vitamin A (Vitamin A & D Oint Ud Foilpak) 1 ea TOP Q2 PRN PRN Reason: Dry mouth Physical Exam - Constitutional Appears: Non-toxic, No Acute Distress - Eye Exam Eye Exam: EOMI, PERRL - ENT Exam ENT Exam: Mucous Membranes Moist - Respiratory Exam Respiratory Exam: Clear to Auscultation Bilateral. absent: Rales, Rhonchi, Wheezes - Cardiovascular Exam Cardiovascular Exam: RRR, +S1, +S2 - GI/Abdominal Exam GI & Abdominal Exam: Guarding, Normal Bowel Sounds, Soft, Tenderness (periumbilical). absent: Distended, Firm, Hernia, Organomegaly, Rigid - Extremities Exam Extremities exam: Positive for: normal inspection. Negative for: pedal edema - Neurological Exam Neurological exam: Alert, Oriented x3 - Psychiatric Exam Psychiatric exam: Normal Affect, Normal Mood - Skin Skin Exam: Dry, Warm Results - Vital Signs Recent Vital Signs: Last Vital Signs Temp 98.3 F 07/26/18 11:03 Pulse 66 07/26/18 11:03 Resp 14 07/26/18 11:03 BP 126/78 07/26/18 11:03 Pulse Ox 98 07/26/18 11:03 - Labs Result Diagrams: 07/26/18 05:25 07/26/18 05:25 Labs: Laboratory Results - last 24 hr 07/25/18 07/25/18 07/25/18 18:26 18:26 18:26 WBC 16.1 H RBC 4.78 Hgb 10.8 L D Hct 34.7 L MCV 72.6 L MCH 22.6 L MCHC 31.1 RDW 17.9 H Plt Count 483 H MPV 8.0 Gran % 92.4 H Lymph % (Auto) 5.3 L [place] % (Auto) 2.1 Eos % (Auto) 0.1 L Baso % (Auto) 0.1 Gran # 14.85 H Lymph # (Auto) 0.9 L [place] # (Auto) 0.3 Eos # (Auto) 0.0 Baso # (Auto) 0.01 Neutrophils % (Manual) 92 H Lymphocytes % (Manual) 7 L Monocytes % (Manual) 1 PT 15.1 H INR 1.32 APTT 29.3 Sodium 140 Potassium 3.0 L Chloride 98 Carbon Dioxide 30 Anion Gap 15 BUN 24 H Creatinine 1.2 Est GFR ( Amer) 56 Est GFR (Non-Af Amer) 46 Random Glucose 138 H Calcium 10.0 Phosphorus Magnesium 2.3 H Total Bilirubin 0.5 AST 28 ALT 12 Alkaline Phosphatase 147 H D Troponin I < 0.01 Total Protein 9.9 H Albumin 4.0 Globulin 5.9 Albumin/Globulin Ratio 0.7 L Triglycerides Cholesterol LDL Cholesterol Direct HDL Cholesterol Lipase 1255 H Free T4 TSH 3rd Generation Urine Color Urine Appearance Urine pH Ur Specific [place] Urine Protein Urine Glucose (UA) Urine Ketones Urine Blood Urine Nitrate Urine Bilirubin Urine Urobilinogen Ur Leukocyte Esterase Urine RBC Urine WBC Ur Epithelial Cells Urine Bacteria 07/26/18 07/26/18 07/26/18 05:25 05:25 05:25 WBC 10.7 D RBC 3.81 Hgb 8.4 L D Hct 28.2 L MCV 74.0 L MCH 22.0 L MCHC 29.8 L RDW 18.1 H Plt Count 406 MPV 7.8 Gran % 86.1 H Lymph % (Auto) 7.9 L [place] % (Auto) 3.8 Eos % (Auto) 2.1 Baso % (Auto) 0.1 Gran # 9.22 H Lymph # (Auto) 0.9 L [place] # (Auto) 0.4 Eos # (Auto) 0.2 Baso # (Auto) 0.01 Neutrophils % (Manual) Lymphocytes % (Manual) Monocytes % (Manual) PT INR APTT Sodium 139 Potassium 3.2 L Chloride 103 Carbon Dioxide 28 Anion Gap 11 BUN 26 H Creatinine 1.2 Est GFR ( Amer) 56 Est GFR (Non-Af Amer) 46 Random Glucose 99 Calcium 8.2 L Phosphorus 4.3 Magnesium 2.0 Total Bilirubin 0.2 AST 26 ALT 15 Alkaline Phosphatase 98 Troponin I < 0.01 Total Protein 7.5 Albumin 3.0 Globulin 4.5 Albumin/Globulin Ratio 0.7 L Triglycerides 101 Cholesterol 103 L LDL Cholesterol Direct 64 HDL Cholesterol 26 L Lipase Free T4 1.00 TSH 3rd Generation 0.96 Urine Color Urine Appearance Urine pH Ur Specific [place] Urine Protein Urine Glucose (UA) Urine Ketones Urine Blood Urine Nitrate Urine Bilirubin Urine Urobilinogen Ur Leukocyte Esterase Urine RBC Urine WBC Ur Epithelial Cells Urine Bacteria 07/26/18 07/26/18 12:00 12:10 WBC RBC Hgb Hct MCV MCH MCHC RDW Plt Count MPV Gran % Lymph % (Auto) [place] % (Auto) Eos % (Auto) Baso % (Auto) Gran # Lymph # (Auto) [place] # (Auto) Eos # (Auto) Baso # (Auto) Neutrophils % (Manual) Lymphocytes % (Manual) Monocytes % (Manual) PT INR APTT Sodium Potassium Chloride Carbon Dioxide Anion Gap BUN Creatinine Est GFR ( Amer) Est GFR (Non-Af Amer) Random Glucose Calcium Phosphorus Magnesium Total Bilirubin AST ALT Alkaline Phosphatase Troponin I < 0.01 Total Protein Albumin Globulin Albumin/Globulin Ratio Triglycerides Cholesterol LDL Cholesterol Direct HDL Cholesterol Lipase Free T4 TSH 3rd Generation Urine Color Yellow Urine Appearance Sl cloudy Urine pH 6.0 Ur Specific [place] >= 1.030 Urine Protein 100 H Urine Glucose (UA) Negative Urine Ketones Negative Urine Blood Negative Urine Nitrate Negative Urine Bilirubin Negative Urine Urobilinogen 0.2 Ur Leukocyte Esterase Negative Urine RBC Negative Urine WBC 1 - 3 Ur Epithelial Cells 1 - 3 Urine Bacteria Small Assessment & Plan - Assessment and Plan (Free Text) Assessment: Patient is a 58yo female with PMHx significant for chronic back pain following numerous spinal surgeries on chronic opioid therapy, chronic abdominal pain, suspected gastroparesis 2/2 opiate use, HTN, anemia who presented to the ED with abdominal pain -Abdominal pain, R/O acute pancreatitis vs viral enteritis or PUD -Chronic opioid use -NSAID overuse -Chronic back pain -Gastroparesis, likely a result of chronic opiate use Plan: -Given typical pain presentation and lipasemia (>3x ULN) patient does meet criteria for acute pancreatitis -As such, would treat with aggressive IVF LR@200cc/hr as tolerated by patient -Clear liquid diet as tolerated -Imaging reviewed and unremarkable -Diarrhea resolved at this juncture per patient. As such, I would actually continue patient on Miralax 17g PO QHS to prevent opioid-induced constipation -Regarding etiology, unclear presently given normal imaging, lack of EtOH exposure and normal lipid panel. Medication induced pancreatitis in the differential as opiates do fall on Class I medication list for pancreatitis by affecting sphincter of oddi, however patient has prior sphincterotomy per history -Hyperlipasemia can be related to other causes such as PUD and can be explored if patient does not progress - Date & Time Date: 07/26/18 Time: 13:30
[2018-07-26] MEDS ORDERED: HYDROmorphone 1 mg/ml ISec IVP PRN (15:24)
--- NOTE | 2018-07-26 16:33 | CP.PCM.PN ---
Subjective - Date & Time of Evaluation Date of Evaluation: 07/26/18 Time of Evaluation: 09:00 - Subjective Subjective: Omer Harris, PGY-1 Medicine Progress Note for Dr. Gannon Pt was seen and examined this AM at bedside. Pt states that she is still having abdominal pain and is still feeling nauseous at this time. She is denying fevers, chills, chest pain, palpitations, dysuria or frequency. Pt is placed on CLD per GI, was previously NPO. Objective - Vital Signs/Intake and Output Vital Signs (last 24 hours): Temp Pulse Resp BP Pulse Ox 98.3 F 66 14 126/78 98 07/26/18 11:03 07/26/18 11:03 07/26/18 11:03 07/26/18 11:03 07/26/18 11:03 - Medications Medications: Current Medications Famotidine (Pepcid) 10 mg IVP DAILY [facility] Last Admin: 07/26/18 09:45 Dose: 10 mg Hydromorphone HCl (Dilaudid) 4 mg IVP Q4H PRN PRN Reason: Pain, severe (8-10) Metronidazole (Flagyl) 500 mg in 100 mls @ 100 mls/hr IVPB Q8 [place]; Protocol Last Admin: 07/26/18 15:02 Dose: 100 mls/hr Ceftriaxone Sodium (Rocephin 1 Gram Ivpb) 1 gm in 100 mls @ 100 mls/hr IVPB DAILY [place]; Protocol Last Admin: 07/26/18 09:45 Dose: 100 mls/hr Potassium Chloride 20 meq/ (Sodium Chloride) 1,010 mls @ 150 mls/hr IV .Q6H44M [facility] Last Admin: 07/26/18 12:42 Dose: 150 mls/hr Polyethylene Glycol (Miralax) 17 gm PO HS [place] Vitamin A (Vitamin A & D Oint Ud Foilpak) 1 ea TOP Q2 PRN PRN Reason: Dry mouth - Labs Labs: 07/26/18 05:25 07/26/18 05:25 PT 15.1 SECONDS (9.4-12.5) H 07/25/18 18:26 INR 1.32 07/25/18 18:26 APTT 29.3 Seconds (25.1-36.5) 12/04/18 18:26 - Constitutional Appears: Well, Non-toxic, No Acute Distress, Other (uncomfortable) - Head Exam Head Exam: ATRAUMATIC, NORMAL INSPECTION, NORMOCEPHALIC - Eye Exam Eye Exam: EOMI, Normal appearance, PERRL - Respiratory Exam Respiratory Exam: Clear to Ausculation Bilateral, NORMAL BREATHING PATTERN. absent: Accessory Muscle Use, Decreased Breath Sounds, Rales, Rhonchi, Wheezes, Respiratory Distress, Stridor - Cardiovascular Exam Cardiovascular Exam: RRR, +S1, +S2. absent: Gallop, Rubs - GI/Abdominal Exam GI & Abdominal Exam: Soft, Tenderness (epigastric tenderness upon palpation), Normal Bowel Sounds. absent: Distended, Firm, Rigid - Extremities Exam Extremities Exam: Full ROM, Normal Capillary Refill, Normal Inspection. absent: Pedal Edema, Tenderness - Back Exam Back Exam: NORMAL INSPECTION. absent: CVA tenderness (L), CVA tenderness (R) - Neurological Exam Neurological Exam: Alert, Awake, Oriented x3 - Psychiatric Exam Psychiatric exam: Normal Affect, Normal Mood - Skin Skin Exam: Intact, Normal Color, Warm Assessment and Plan - Assessment and Plan (Free Text) Assessment: This is a 58 year old female with PMH of chronic back pain on daily dilaudid, multiple laminectomies/fusions, narcotic gastroparesis, HTN, anemia, gastritis, and hepatic steatosis presenting to the ED for 3 day history of abdominal pain. Pt was noted to have elevated lipase on exam, but normal pancreas on CT. Pt is on CLD per GI. Plan: 1. Acute pancreatitis of unknown etiology: -elevated lipase -WBC dwontrended to 10, afebrile -U/A, urine and blood culture pending -FOBT, c. diff antigen/toxin pending -flagyl and rocephin day 2 -CTAP shows normal appearing pancreas -Abd ultrasound, showed no stone and no CBD dilation -NS 150, elevated BUN consistent with dehydration -Trops <.01 x 3 -EKG shows prolonged QT -CLD per GI -GI on consult, Dr. Thao 2. Chronic back pain -2/2 multiple back surgeries -dilaudid 4mg IV q4 prn -Pain management on consult, Dr. Gibson 3. Hypokalemia -repleted, f/u AM labs 4. Anemia -currently at baseline, microcytic -iron low and TIBC low/normal from previous recent visit, suggesting anemia of chronic disease 5. Hx of HTN -currently controlled, will monitor 6. PPX: DVT: SCD GI: pepcid CLD per GI Patient seen and examined with attending, Dr. Jagdeep Harris, DO Internal Medicine PGY-1
[2018-07-26] MEDS: Lactated Ringer's 1,000 ML IV SCH (18:32)
[2018-07-26 19:58] VITALS: BMI 23.9
[2018-07-26] MEDS ORDERED: Pneumococcal 23-Valent Vaccine IM ONE (19:59)
[2018-07-26] MEDS ORDERED: Influenza Vaccine 60 mcg/0.5 mL SYR (4YR UP) IM ONE (19:59)
[2018-07-26] MEDS ORDERED: POLYETHYLENE GLYCOL 3350 17 GM/Dose PACKET PO SCH (22:00)
[2018-07-27] MEDS: HYDROmorphone 2 mg/ml ISec IVP PRN ×5 (03:34→20:38)
[2018-07-27] MEDS: metroNIDAZOLE IV 500 mg/100 ml 500 MG/100 ML BAG IVPB SCH (06:02)
[2018-07-27] MEDS: Lactated Ringer's 1,000 ML IV SCH ×4 (06:20→20:37)
[2018-07-27 06:38] LABS: BASO # 0.02 K/mm3 (0.0-2.0); BASO % 0.4 % (0.0-3.0); EOS # 0.4 (0.0-0.7); GRAN # 3.5 (1.4-6.5); GRAN % 63.6 % (50.0-68.0); HEMOGLOBIN 7.6 g/dL (12.0-16.0); LYMPH # 1.3 (1.2-3.4); LYMPH % 23.5 % (22.0-35.0); MEAN CELL VOLUME 75.3 fl (80.0-105.0); MEAN CORPUSCULAR HEMOGLOBIN 22.4 pg (25.0-35.0); MEAN CORPUSCULAR HGB CONC 29.7 g/dl (31.0-37.0); MEAN PLATELET VOLUME 7.7 fl (7.0-11.0); MONO # 0.3 (0.1-0.6); MONO % 4.5 % (1.0-6.0); RBC 3.4 10^6/uL (3.5-6.1); RED CELL DISTRIBUTION WIDTH 18.1 % (11.5-14.5); WHITE BLOOD COUNT 5.5 10^3/uL (4.5-11.0)
[2018-07-27 06:41] LABS: ALB/GLOB RATIO 0.6 (1.1-1.8); ALBUMIN 2.5 g/dL (3.0-4.8); ALT/SGPT 14 U/L (7-56); AST/SGOT 23 U/L (14-36); BLOOD UREA NITROGEN 21 mg/dL (7-21); CALCIUM 8.3 mg/dL (8.4-10.5); GFR NON-AFRICAN AMERICAN 57
[2018-07-27] MEDS: cefTRIAXone 1 gm 1 GM/100 ML BAG IVPB SCH (09:37)
[2018-07-27 11:10] LABS: HEMOGLOBIN 7.8 g/dL (12.0-16.0)
--- NOTE | 2018-07-27 11:17 | CP.PCM.PN ---
<Yonathan Kimble - Last Filed: 07/27/18 16:09> Subjective - Date & Time of Evaluation Date of Evaluation: 07/27/18 Time of Evaluation: 07:20 - Subjective Subjective: PGY6 GI Fellow Progress Note Patient seen and examined bedside this morning. Admits to some stomach cramping and two episodes of loose, nonbloody stool. Back pain more significant today. Patient states ambulating to bathroom but notes some difficulty. 12 system ROS performed and negative except where stated Objective - Vital Signs/Intake and Output Vital Signs (last 24 hours): Temp Pulse Resp BP Pulse Ox 97.7 F 62 18 104/66 97 07/26/18 16:42 07/27/18 06:00 07/26/18 19:35 07/26/18 16:42 07/26/18 16:42 Intake and Output: 07/27/18 07/27/18 06:59 18:59 Intake Total 2160 Balance 2160 - Medications Medications: Current Medications Famotidine (Pepcid) 10 mg IVP DAILY [facility] Last Admin: 07/27/18 09:36 Dose: 10 mg Hydromorphone HCl (Dilaudid) 4 mg IVP Q4H PRN PRN Reason: Pain, severe (8-10) Last Admin: 07/27/18 08:22 Dose: 4 mg Metronidazole (Flagyl) 500 mg in 100 mls @ 100 mls/hr IVPB Q8 [place]; Protocol Last Admin: 07/27/18 06:02 Dose: 100 mls/hr Ceftriaxone Sodium (Rocephin 1 Gram Ivpb) 1 gm in 100 mls @ 100 mls/hr IVPB DAILY [facility]; Protocol Last Admin: 07/27/18 09:37 Dose: 100 mls/hr Lactated Ringer's (Lactated Ringer's) 1,000 mls @ 150 mls/hr IV .Q6H40M [facility] Last Admin: 07/27/18 06:53 Dose: 150 mls/hr Vitamin A (Vitamin A & D Oint Ud Foilpak) 1 ea TOP Q2 PRN PRN Reason: Dry mouth - Labs Labs: 07/27/18 11:00 07/27/18 06:00 PT 15.1 SECONDS (9.4-12.5) H 07/25/18 18:26 INR 1.32 07/25/18 18:26 APTT 29.3 Seconds (25.1-36.5) 07/25/18 18:26 - Constitutional Appears: Non-toxic, No Acute Distress - Eye Exam Eye Exam: EOMI, PERRL - ENT Exam ENT Exam: Mucous Membranes Moist - Respiratory Exam Respiratory Exam: Clear to Ausculation Bilateral. absent: Rales, Rhonchi, Wheezes - Cardiovascular Exam Cardiovascular Exam: RRR, +S1, +S2 - GI/Abdominal Exam GI & Abdominal Exam: Guarding, Soft, Tenderness (periumbilical), Normal Bowel Sounds. absent: Distended, Firm, Rigid, Organomegaly - Extremities Exam Extremities Exam: Normal Inspection. absent: Pedal Edema - Neurological Exam Neurological Exam: Alert, Awake, Oriented x3 - Psychiatric Exam Psychiatric exam: Normal Affect, Normal Mood - Skin Skin Exam: Dry, Warm Assessment and Plan - Assessment and Plan (Free Text) Assessment: Patient is a 58yo female with PMHx significant for chronic back pain following n umerous spinal surgeries on chronic opioid therapy, chronic abdominal pain, suspected gastroparesis 2/2 opiate use, HTN, anemia who presented to the ED with abdominal pain -Abdominal pain, R/O acute pancreatitis vs viral enteritis or PUD -Chronic opioid use -NSAID overuse -Anemia -Chronic back pain -Gastroparesis, likely a result of chronic opiate use Plan: -Ongoing treatment for pancreatitis with IVF currently NS@150cc/hr -Analgesia per primary service -Maintain liquid diet given ongoing discomfort - goal diet low fat/low fiber -Considering MRI abdomen however patient refusing imaging as she believes she cannot sit still for long enough -No overt blood loss, drop likely a result of aggressive hydration/dilution -Pain management recs appreciated -NSAID avoidance -Pepcid ordered -Patient reluctant to have EGD <Keesha,Kovil V - Last Filed: 07/27/18 23:58> Objective - Vital Signs/Intake and Output Vital Signs (last 24 hours): Temp Pulse Resp BP Pulse Ox 97.7 F 62 19 112/77 99 07/27/18 17:10 07/27/18 18:00 07/27/18 17:10 07/27/18 17:10 07/27/18 17:10 - Medications Medications: Current Medications Famotidine (Pepcid) 10 mg IVP DAILY [facility] Last Admin: 07/27/18 09:36 Dose: 10 mg Hydromorphone HCl (Dilaudid) 4 mg IVP Q4H PRN PRN Reason: Pain, severe (8-10) Last Admin: 07/27/18 20:38 Dose: 4 mg Lactated Ringer's (Lactated Ringer's) 1,000 mls @ 150 mls/hr IV .Q6H40M [facility] Last Admin: 07/27/18 20:37 Dose: 150 mls/hr Vitamin A (Vitamin A & D Oint Ud Foilpak) 1 ea TOP Q2 PRN PRN Reason: Dry mouth - Labs Labs: 07/27/18 11:00 07/27/18 06:00 PT 15.1 SECONDS (9.4-12.5) H 07/25/18 18:26 INR 1.32 07/25/18 18:26 APTT 29.3 Seconds (25.1-36.5) 07/25/18 18:26 Attending/Attestation - Attestation I have personally seen and examined this patient.: Yes I have fully participated in the care of the patient.: Yes I have reviewed all pertinent clinical information, including history, physical exam and plan: Yes Notes (Text): This is an addendum to GI progress report dictated by the GI Fellow. The patient was seen and examined earlier. Medical records, lab studies, imagings were reviewed. Last 24 hours events reviewed. Agreed with the above treatment plan as outlined in GI Fellow 's notes with the addition of the following 07/27/18 23:58
--- NOTE | 2018-07-27 22:11 | CP.PCM.PN ---
<Omer Harris - Last Filed: 07/27/18 21:44> Subjective - Date & Time of Evaluation Date of Evaluation: 07/27/18 Time of Evaluation: 10:00 - Subjective Subjective: Omer Harris, PGY-1 Medicine Progress Note for Dr. Murrell Pt was seen and examined this AM at bedside. Pt states that she is feeling better but was unable to tolerate her CLD yesterday. She states that she is able to slowly sip her CLD this AM and admits to some cramping, but denies any nausea at this time. She reports that she is having a resurgence of her chronic back pain, but is otherwise having improving abd pain. She is denying fevers, chills, chest pain, palpitations, SOB, n/v, dysuria, or increased frequency. She admits to improving epigastric abd pain, watery, non-bloody diarrhea x3. Objective - Vital Signs/Intake and Output Vital Signs (last 24 hours): Temp Pulse Resp BP Pulse Ox 97.7 F 62 19 112/77 99 07/27/18 17:10 07/27/18 18:00 07/27/18 17:10 07/27/18 17:10 07/27/18 17:10 - Medications Medications: Current Medications Famotidine (Pepcid) 10 mg IVP DAILY [facility] Last Admin: 07/27/18 09:36 Dose: 10 mg Hydromorphone HCl (Dilaudid) 4 mg IVP Q4H PRN PRN Reason: Pain, severe (8-10) Last Admin: 07/27/18 20:38 Dose: 4 mg Lactated Ringer's (Lactated Ringer's) 1,000 mls @ 150 mls/hr IV .Q6H40M [facility] Last Admin: 07/27/18 20:37 Dose: 150 mls/hr Vitamin A (Vitamin A & D Oint Ud Foilpak) 1 ea TOP Q2 PRN PRN Reason: Dry mouth - Labs Labs: 07/27/18 11:00 07/27/18 06:00 PT 15.1 SECONDS (9.4-12.5) H 07/25/18 18:26 INR 1.32 07/25/18 18:26 APTT 29.3 Seconds (25.1-36.5) 07/25/18 18:26 - Constitutional Appears: Well, Non-toxic, No Acute Distress - Head Exam Head Exam: ATRAUMATIC, NORMAL INSPECTION, NORMOCEPHALIC - Eye Exam Eye Exam: EOMI, Normal appearance, PERRL - Respiratory Exam Respiratory Exam: Clear to Ausculation Bilateral, NORMAL BREATHING PATTERN. absent: Accessory Muscle Use, Decreased Breath Sounds, Rales, Rhonchi, Wheezes, Respiratory Distress, Stridor - Cardiovascular Exam Cardiovascular Exam: RRR, +S1, +S2. absent: Gallop, Rubs - GI/Abdominal Exam GI & Abdominal Exam: Soft, Tenderness (present in epigastric area, improved from yesterday ), Normal Bowel Sounds. absent: Guarding, Rigid, Rebound - Extremities Exam Extremities Exam: Full ROM, Normal Capillary Refill. absent: Pedal Edema, Tenderness - Back Exam Back Exam: NORMAL INSPECTION. absent: CVA tenderness (L), CVA tenderness (R) - Neurological Exam Neurological Exam: Alert, Awake, Oriented x3 - Psychiatric Exam Psychiatric exam: Normal Affect, Normal Mood - Skin Skin Exam: Dry, Intact, Normal Color Assessment and Plan - Assessment and Plan (Free Text) Assessment: This is a 58 year old female with PMH of chronic back pain on daily dilaudid, multiple laminectomies/fusions, narcotic gastroparesis, HTN, anemia, gastritis, and hepatic steatosis presenting to the ED for 3 day history of abdominal pain. Pt was noted to have elevated lipase on exam, but normal pancreas on CT. Pt is on full thick liquid diet Plan: 1. Acute pancreatitis suspected 2/2 drug induced: -elevated lipase -U/A, urine and blood culture pending -abx d/jesus alberto -CTAP shows normal appearing pancreas -Abd ultrasound, showed no stone and no CBD dilation -NS 150, elevated BUN consistent with dehydration -Trops <.01 x 3 -EKG shows prolonged QT -CLD per GI -GI on consult, Dr. Thao - MRCP offered but pt refused inpt imaging and would like to have outpt MRCP 2. Chronic back pain -2/2 multiple back surgeries -dilaudid 4mg IV q4 prn -Pain management on consult, Dr. Gibson 3. Hypokalemia: resolved - cont to monitor 4. Anemia -currently at baseline, microcytic -iron low and TIBC low/normal from previous recent visit, suggesting anemia of chronic disease 5. Hx of HTN -currently controlled, will monitor 6. PPX: DVT: SCD GI: pepcid CLD per GI Patient seen and examined with attending, Dr. Nyasia Harris, DO Internal Medicine PGY-1 <Boo Murrell - Last Filed: 07/28/18 14:54> Objective - Vital Signs/Intake and Output Vital Signs (last 24 hours): Temp Pulse Resp BP Pulse Ox 97.7 F 55 L 18 105/65 100 07/28/18 06:00 07/28/18 06:00 07/28/18 06:00 07/28/18 06:00 07/28/18 06:00 Intake and Output: 07/28/18 07/28/18 06:59 18:59 Intake Total 2039 Balance 204 - Medications Medications: Current Medications Famotidine (Pepcid) 10 mg IVP DAILY [facility] Last Admin: 07/28/18 09:41 Dose: 10 mg Hydromorphone HCl (Dilaudid) 4 mg IVP Q4H PRN PRN Reason: Pain, severe (8-10) Last Admin: 07/28/18 13:58 Dose: 4 mg Lactated Ringer's (Lactated Ringer's) 1,000 mls @ 150 mls/hr IV .Q6H40M [facility] Last Admin: 07/28/18 12:08 Dose: 150 mls/hr Vitamin A (Vitamin A & D Oint Ud Foilpak) 1 ea TOP Q2 PRN PRN Reason: Dry mouth - Labs Labs: 07/28/18 06:00 07/28/18 06:00 PT 15.1 SECONDS (9.4-12.5) H 07/25/18 18:26 INR 1.32 07/25/18 18:26 APTT 29.3 Seconds (25.1-36.5) 07/25/18 18:26 Attending/Attestation - Attestation I have personally seen and examined this patient.: Yes I have fully participated in the care of the patient.: Yes I have reviewed all pertinent clinical information, including history, physical exam and plan: Yes Notes (Text): Acute Pancreatitis: Pt tolerating liquid diet, still continues to complain of abdominal pain Will advance diet as tolerated. GI on board Chronic Pain: c/w pain meds PRN Gastroenteritis: send stool work up all antibiotics have been DC'd 07/28/18 14:36
[2018-07-28] MEDS: HYDROmorphone 2 mg/ml ISec IVP PRN ×6 (00:47→21:27)
[2018-07-28] MEDS: Lactated Ringer's 1,000 ML IV SCH ×3 (02:30→23:00)
[2018-07-28 07:01] LABS: BASO # 0.03 K/mm3 (0.0-2.0); BASO % 0.6 % (0.0-3.0); EOS # 0.6 (0.0-0.7); EOS % 11.5 % (1.5-5.0); GRAN # 2.49 (1.4-6.5); HEMOGLOBIN 7.7 g/dL (12.0-16.0); LYMPH # 1.4 (1.2-3.4); LYMPH % 29.6 % (22.0-35.0); MEAN CELL VOLUME 75.4 fl (80.0-105.0); MEAN CORPUSCULAR HEMOGLOBIN 22.3 pg (25.0-35.0); MEAN CORPUSCULAR HGB CONC 29.6 g/dl (31.0-37.0); MONO # 0.3 (0.1-0.6); MONO % 6.3 % (1.0-6.0); RBC 3.45 10^6/uL (3.5-6.1); WHITE BLOOD COUNT 4.8 10^3/uL (4.5-11.0)
[2018-07-28 07:18] LABS: ALB/GLOB RATIO 0.6 (1.1-1.8); ALBUMIN 2.4 g/dL (3.0-4.8); ALT/SGPT 17 U/L (7-56); AST/SGOT 22 U/L (14-36); BLOOD UREA NITROGEN 12 mg/dL (7-21); CALCIUM 8.4 mg/dL (8.4-10.5); GFR NON-AFRICAN AMERICAN > 60
--- NOTE | 2018-07-28 10:22 | CP.PCM.PN ---
<CarmelitapattiyandyYonathan - Last Filed: 07/28/18 17:04> Subjective - Date & Time of Evaluation Date of Evaluation: 07/28/18 Time of Evaluation: 09:30 - Subjective Subjective: PGY6 GI Fellow Progress Note Patient seen and examined bedside this morning. Patient has eaten her entire full liquid tray without discomfort. States some pain and nausea overnight. No episodes of vomiting. Passing stool regularly. No fever, chills. Overall, admits to improvement in condition. 12 system ROS performed and negative except where stated Objective - Vital Signs/Intake and Output Vital Signs (last 24 hours): Temp Pulse Resp BP Pulse Ox 97.7 F 55 L 18 105/65 100 07/28/18 06:00 07/28/18 06:00 07/28/18 06:00 07/28/18 06:00 07/28/18 06:00 Intake and Output: 07/28/18 07/28/18 06:59 18:59 Intake Total 2039 Balance 0 - Medications Medications: Current Medications Famotidine (Pepcid) 10 mg IVP DAILY [facility] Last Admin: 07/28/18 09:41 Dose: 10 mg Hydromorphone HCl (Dilaudid) 4 mg IVP Q4H PRN PRN Reason: Pain, severe (8-10) Last Admin: 07/28/18 09:39 Dose: 4 mg Lactated Ringer's (Lactated Ringer's) 1,000 mls @ 150 mls/hr IV .Q6H40M [facility] Last Admin: 07/28/18 02:30 Dose: 150 mls/hr Vitamin A (Vitamin A & D Oint Ud Foilpak) 1 ea TOP Q2 PRN PRN Reason: Dry mouth - Labs Labs: 07/28/18 06:00 07/28/18 06:00 PT 15.1 SECONDS (9.4-12.5) H 07/25/18 18:26 INR 1.32 07/25/18 18:26 APTT 29.3 Seconds (25.1-36.5) 07/25/18 18:26 - Constitutional Appears: Non-toxic, No Acute Distress - Eye Exam Eye Exam: EOMI, PERRL - Respiratory Exam Respiratory Exam: Clear to Ausculation Bilateral. absent: Rales, Rhonchi, Whe ezes - Cardiovascular Exam Cardiovascular Exam: RRR, +S1, +S2 - GI/Abdominal Exam GI & Abdominal Exam: Soft, Tenderness (periumbilical, improved), Normal Bowel Sounds. absent: Distended, Firm, Guarding, Rigid, Organomegaly - Extremities Exam Extremities Exam: Normal Inspection. absent: Pedal Edema - Neurological Exam Neurological Exam: Alert, Awake, Oriented x3 - Psychiatric Exam Psychiatric exam: Normal Affect, Normal Mood - Skin Skin Exam: Dry, Warm Assessment and Plan - Assessment and Plan (Free Text) Assessment: Patient is a 58yo female with PMHx significant for chronic back pain following numerous spinal surgeries on chronic opioid therapy, chronic abdominal pain, suspected gastroparesis 2/2 opiate use, HTN, anemia who presented to the ED with abdominal pain -Abdominal pain, suspect acute pancreatitis -Chronic opioid use -NSAID overuse -Anemia -Chronic back pain -Gastroparesis, likely a result of chronic opiate use Plan: -Ongoing treatment for pancreatitis with IVF currently LR@150cc/hr -Tolerating full liquid diet compeltely, advance to low fat/low fiber, soft diet -If tolerating PO, consider discontinuation of IVF -BUN dropped to 12, consistent with adequate fluid response in setting of pancreatitis -Etiology remains unclear - EtOH, gallstones and hyperTG seems to be ruled out -Plan for CT triple phase pancreatic protocol to further evaluate underlying etiology of pancreatitis -Check IgG4 level, though autoimmune disease seems lower on differential -Pain management - chronic opioid use -NSAID avoidance -Pepcid ordered -Overall, symptoms improved <Keesha,Kovil V - Last Filed: 07/28/18 21:59> Objective - Vital Signs/Intake and Output Vital Signs (last 24 hours): Temp Pulse Resp BP Pulse Ox 98.1 F 66 19 118/81 99 07/28/18 18:00 07/28/18 18:00 07/28/18 18:00 07/28/18 18:00 07/28/18 18:00 - Medications Medications: Current Medications Famotidine (Pepcid) 10 mg IVP DAILY [facility] Last Admin: 07/28/18 09:41 Dose: 10 mg Hydromorphone HCl (Dilaudid) 4 mg IVP Q4H PRN PRN Reason: Pain, severe (8-10) Last Admin: 07/28/18 21:27 Dose: 4 mg Lactated Ringer's (Lactated Ringer's) 1,000 mls @ 150 mls/hr IV .Q6H40M [facility] Last Admin: 07/28/18 12:08 Dose: 150 mls/hr Vitamin A (Vitamin A & D Oint Ud Foilpak) 1 ea TOP Q2 PRN PRN Reason: Dry mouth - Labs Labs: 07/28/18 06:00 07/28/18 06:00 PT 15.1 SECONDS (9.4-12.5) H 07/25/18 18:26 INR 1.32 07/25/18 18:26 APTT 29.3 Seconds (25.1-36.5) 07/25/18 18:26 Attending/Attestation - Attestation I have personally seen and examined this patient.: Yes I have fully participated in the care of the patient.: Yes I have reviewed all pertinent clinical information, including history, physical exam and plan: Yes Notes (Text): This is an addendum to GI progress report dictated by the GI Fellow. The patient was seen and examined earlier. Medical records, lab studies, imagings were reviewed. Last 24 hours events reviewed. Agreed with the above treatment plan as outlined in GI Fellow 's notes with the addition of the following Feeling slightly better On examination abdomen soft still has tenderness in the epigastrc area Request CT of the abdomen the pancreatic protocol to further evaluate 07/28/18 21:58
--- NOTE | 2018-07-28 12:48 | CP.PCM.PN ---
<Omer Harris - Last Filed: 07/28/18 12:41> Subjective - Date & Time of Evaluation Date of Evaluation: 07/28/18 Time of Evaluation: 12:41 - Subjective Subjective: Omer Harris, PGY-1 Medicine Progress Note for Dr. Murrell Pt was seen and examined this AM at bedside. Pt states that she is feeling better and is able to tolerate her CLD and FLD. She is denying fevers, chills, chest pain, palpitations, SOB, n/v, dysuria, or increased frequency. She admits to improving epigastric abd pain, watery, non-bloody diarrhea x2. Objective - Vital Signs/Intake and Output Vital Signs (last 24 hours): Temp Pulse Resp BP Pulse Ox 97.7 F 55 L 18 105/65 100 07/28/18 06:00 07/28/18 06:00 07/28/18 06:00 07/28/18 06:00 07/28/18 06:00 Intake and Output: 07/28/18 07/28/18 06:59 18:59 Intake Total 0 Balance 2040 - Medications Medications: Current Medications Famotidine (Pepcid) 10 mg IVP DAILY [facility] Last Admin: 07/28/18 09:41 Dose: 10 mg Hydromorphone HCl (Dilaudid) 4 mg IVP Q4H PRN PRN Reason: Pain, severe (8-10) Last Admin: 07/28/18 09:39 Dose: 4 mg Lactated Ringer's (Lactated Ringer's) 1,000 mls @ 150 mls/hr IV .Q6H40M [facility] Last Admin: 07/28/18 12:08 Dose: 150 mls/hr Vitamin A (Vitamin A & D Oint Ud Foilpak) 1 ea TOP Q2 PRN PRN Reason: Dry mouth - Labs Labs: 07/28/18 06:00 07/28/18 06:00 PT 15.1 SECONDS (9.4-12.5) H 07/25/18 18:26 INR 1.32 07/25/18 18:26 APTT 29.3 Seconds (25.1-36.5) 07/25/18 18:26 - Constitutional Appears: Non-toxic, No Acute Distress - Head Exam Head Exam: ATRAUMATIC, NORMAL INSPECTION, NORMOCEPHALIC - Eye Exam Eye Exam: EOMI, Normal appearance, PERRL - Respiratory Exam Respiratory Exam: Clear to Ausculation Bilateral, NORMAL BREATHING PATTERN. absent: Accessory Muscle Use, Decreased Breath Sounds, Rales, Rhonchi, Wheezes, Respiratory Distress, Stridor - Cardiovascular Exam Cardiovascular Exam: RRR, +S1, +S2. absent: Gallop, Rubs, Murmur - GI/Abdominal Exam GI & Abdominal Exam: Soft, Tenderness (present in epigastric region), Normal Bowel Sounds - Extremities Exam Extremities Exam: Normal Capillary Refill, Normal Inspection. absent: Calf Tenderness, Pedal Edema - Back Exam Back Exam: NORMAL INSPECTION. absent: CVA tenderness (L), CVA tenderness (R) - Neurological Exam Neurological Exam: Alert, Awake, Oriented x3 - Psychiatric Exam Psychiatric exam: Normal Affect, Normal Mood - Skin Skin Exam: Dry, Normal Color, Warm Assessment and Plan - Assessment and Plan (Free Text) Assessment: This is a 58 year old female with PMH of chronic back pain on daily dilaudid, multiple laminectomies/fusions, narcotic gastroparesis, HTN, anemia, gastritis, and hepatic steatosis presenting to the ED for 3 day history of abdominal pain. Pt was noted to have elevated lipase on exam, but normal pancreas on CT. Pt will be advanced to soft low fat, low fiber diet today and will continue to monitor if pt can tolerate the advancement in diet. Plan: 1. Acute pancreatitis suspected 2/2 drug induced: -elevated lipase -CTAP shows normal appearing pancreas -Abd ultrasound, showed no stone and no CBD dilation -Soft, low fat/low fiber diet per GI -GI on consult, Dr. Thao - MRCP offered but pt refused inpt imaging and would like to have outpt MRCP 2. Chronic back pain -2/2 multiple back surgeries -dilaudid 4mg IV q4 prn -Pain management on consult, Dr. Gibson 3. Hypokalemia: resolved - cont to monitor 4. Anemia -currently at baseline, microcytic -iron low and TIBC low/normal from previous recent visit, suggesting anemia of chronic disease 5. Hx of HTN -currently controlled, will monitor 6. PPX: DVT: SCD GI: pepcid Patient seen and examined with attending, Dr. Nyasia Harris, DO Internal Medicine PGY-1 <Boo Murrell - Last Filed: 07/28/18 14:57> Objective - Vital Signs/Intake and Output Vital Signs (last 24 hours): Temp Pulse Resp BP Pulse Ox 97.7 F 55 L 18 105/65 100 07/28/18 06:00 07/28/18 06:00 07/28/18 06:00 07/28/18 06:00 07/28/18 06:00 Intake and Output: 07/28/18 07/28/18 06:59 18:59 Intake Total 2039 Balance 2039 - Medications Medications: Current Medications Famotidine (Pepcid) 10 mg IVP DAILY [facility] Last Admin: 07/28/18 09:41 Dose: 10 mg Hydromorphone HCl (Dilaudid) 4 mg IVP Q4H PRN PRN Reason: Pain, severe (8-10) Last Admin: 07/28/18 13:58 Dose: 4 mg Lactated Ringer's (Lactated Ringer's) 1,000 mls @ 150 mls/hr IV .Q6H40M [facility] Last Admin: 07/28/18 12:08 Dose: 150 mls/hr Vitamin A (Vitamin A & D Oint Ud Foilpak) 1 ea TOP Q2 PRN PRN Reason: Dry mouth - Labs Labs: 07/28/18 06:00 07/28/18 06:00 PT 15.1 SECONDS (9.4-12.5) H 07/25/18 18:26 INR 1.32 07/25/18 18:26 APTT 29.3 Seconds (25.1-36.5) 07/25/18 18:26 Attending/Attestation - Attestation I have personally seen and examined this patient.: Yes I have fully participated in the care of the patient.: Yes I have reviewed all pertinent clinical information, including history, physical exam and plan: Yes Notes (Text): Acute Pancreatitis: Pt still continues to complain of some abdominal pain with some nausea but no vomiting She is willing to advance her diet today to soft mechanical. GI on board Chronic Pain: c/w pain meds PRN Gastroenteritis: stool work up still pending 07/28/18 14:55
[2018-07-29] MEDS: HYDROmorphone 2 mg/ml ISec IVP PRN ×6 (01:41→22:21)
[2018-07-29] MEDS: Lactated Ringer's 1,000 ML IV SCH (05:27)
[2018-07-29 08:15] LABS: BASO # 0.03 K/mm3 (0.0-2.0); BASO % 0.7 % (0.0-3.0); EOS # 0.3 (0.0-0.7); EOS % 7.6 % (1.5-5.0); GRAN # 2.33 (1.4-6.5); GRAN % 55.3 % (50.0-68.0); HEMOGLOBIN 7.6 g/dL (12.0-16.0); LYMPH # 1.3 (1.2-3.4); LYMPH % 30.2 % (22.0-35.0); MEAN CORPUSCULAR HEMOGLOBIN 22.1 pg (25.0-35.0); MEAN CORPUSCULAR HGB CONC 29.5 g/dl (31.0-37.0); MEAN PLATELET VOLUME 8.3 fl (7.0-11.0); MONO # 0.3 (0.1-0.6); MONO % 6.2 % (1.0-6.0); RBC 3.44 10^6/uL (3.5-6.1); RED CELL DISTRIBUTION WIDTH 17.8 % (11.5-14.5); WHITE BLOOD COUNT 4.2 10^3/uL (4.5-11.0)
[2018-07-29 08:38] LABS: ALB/GLOB RATIO 0.7 (1.1-1.8); ALBUMIN 2.6 g/dL (3.0-4.8); ALT/SGPT 20 U/L (7-56); AST/SGOT 25 U/L (14-36); BLOOD UREA NITROGEN 8 mg/dL (7-21); CALCIUM 8.4 mg/dL (8.4-10.5); GFR NON-AFRICAN AMERICAN > 60
--- NOTE | 2018-07-29 11:58 | CP.PCM.PN ---
<Elena Aguayo - Last Filed: 07/29/18 11:54> Subjective - Date & Time of Evaluation Date of Evaluation: 07/29/18 Time of Evaluation: 08:00 - Subjective Subjective: GI Fellow PGY5 Progress Note Pt seen and evaluated at bedside, pt doing well with mild abdominal pain. Tolerating diet. Wants to go home. ROS: A 12pt ROS was negative except as above Objective - Vital Signs/Intake and Output Vital Signs (last 24 hours): Temp Pulse Resp BP Pulse Ox 98.1 F 69 20 124/77 100 07/29/18 06:00 07/29/18 06:00 07/29/18 06:00 07/29/18 06:00 07/29/18 06:00 Intake and Output: 07/29/18 07/29/18 06:59 18:59 Intake Total 1800 Balance 1800 - Medications Medications: Current Medications Famotidine (Pepcid) 10 mg IVP DAILY [facility] Last Admin: 07/29/18 09:48 Dose: 10 mg Hydromorphone HCl (Dilaudid) 4 mg IVP Q4H PRN PRN Reason: Pain, severe (8-10) Last Admin: 07/29/18 09:50 Dose: 4 mg Lactated Ringer's (Lactated Ringer's) 1,000 mls @ 150 mls/hr IV .Q6H40M [facility] Last Admin: 07/29/18 05:27 Dose: 150 mls/hr Vitamin A (Vitamin A & D Oint Ud Foilpak) 1 ea TOP Q2 PRN PRN Reason: Dry mouth - Labs Labs: 07/29/18 08:01 07/29/18 08:01 PT 15.1 SECONDS (9.4-12.5) H 07/25/18 18:26 INR 1.32 07/25/18 18:26 APTT 29.3 Seconds (25.1-36.5) 07/25/18 18:26 - Constitutional Appears: Non-toxic, No Acute Distress - Head Exam Head Exam: ATRAUMATIC, NORMAL INSPECTION, NORMOCEPHALIC - Eye Exam Eye Exam: EOMI, Normal appearance, PERRL - ENT Exam ENT Exam: Mucous Membranes Moist - Neck Exam Neck Exam: Full ROM - Respiratory Exam Respiratory Exam: NORMAL BREATHING PATTERN - Cardiovascular Exam Cardiovascular Exam: RRR, +S1, +S2 - GI/Abdominal Exam GI & Abdominal Exam: Soft, Normal Bowel Sounds. absent: Distended, Tenderness - Extremities Exam Extremities Exam: Full ROM, Normal Inspection - Neurological Exam Neurological Exam: Alert, Awake, Oriented x3 - Psychiatric Exam Psychiatric exam: Normal Affect, Normal Mood - Skin Skin Exam: Dry, Intact, Normal Color, Warm Assessment and Plan - Assessment and Plan (Free Text) Assessment: Patient is a 58yo female with PMHx significant for chronic back pain following numerous spinal surgeries on chronic opioid therapy, chronic abdominal pain, suspected gastroparesis 2/2 opiate use, HTN, anemia who presented to the ED with abdominal pain 1. Abdominal pain, suspect acute pancreatitis 2. Chronic opioid use 3. NSAID overuse 4. Anemia 5. Chronic back pain 6. Gastroparesis, likely a result of chronic opiate use -Continue supportive care -IVF -Tolerating diet -Plan for CT triple phase pancreatic protocol to further evaluate underlying etiology of pancreatitis -Pain management - chronic opioid use -NSAID avoidance -Pepcid ordered -Overall, symptoms improved -Anemia with no active GI bleeding -Pt will benefit from elective EGD/Colonoscoy once medically improved -Will continue to follow <Corrie Thao V - Last Filed: 07/29/18 20:33> Objective - Vital Signs/Intake and Output Vital Signs (last 24 hours): Temp Pulse Resp BP Pulse Ox 98.1 F 60 20 124/77 100 07/29/18 06:00 07/29/18 10:00 07/29/18 06:00 07/29/18 06:00 07/29/18 06:00 Intake and Output: 07/29/18 07/30/18 18:59 06:59 Intake Total 1180 Balance 1180 - Medications Medications: Current Medications Famotidine (Pepcid) 10 mg IVP DAILY [facility] Last Admin: 07/29/18 09:48 Dose: 10 mg Hydromorphone HCl (Dilaudid) 4 mg IVP Q4H PRN PRN Reason: Pain, severe (8-10) Last Admin: 07/29/18 18:19 Dose: 4 mg Lactated Ringer's (Lactated Ringer's) 1,000 mls @ 150 mls/hr IV .Q6H40M [facility] Last Admin: 07/29/18 05:27 Dose: 150 mls/hr Vitamin A (Vitamin A & D Oint Ud Foilpak) 1 ea TOP Q2 PRN PRN Reason: Dry mouth - Labs Labs: 07/29/18 08:01 07/29/18 08:01 PT 15.1 SECONDS (9.4-12.5) H 07/25/18 18:26 INR 1.32 07/25/18 18:26 APTT 29.3 Seconds (25.1-36.5) 07/25/18 18:26 Attending/Attestation - Attestation I have personally seen and examined this patient.: Yes I have fully participated in the care of the patient.: Yes I have reviewed all pertinent clinical information, including history, physical exam and plan: Yes Notes (Text): This is an addendum to GI followup report dictated by the GI Fellow. The patient was seen and evaluated earlier. Medical records, lab studies, imagings were reviewed. Last 24 hours events reviewed. Agreed with the above treatment plan as outlined in GI Fellow's notes with the addition of the following I had a long discussion with the pt. She finally agreed to have a CT in the AM. Etiology for her pancreatitis is unclear. Anemia drop in blood count, and this could be related to dilutional. However, in view of the significant drop we need to closely monitor hemoglobin off IV fluids. Followup repeat hemoglobin in the AM. Patient needs outpatient colonoscopic evaluation. Patient was noncompliant with the followup recommendation in the past. Patient is now agreeable to have colonoscopy scheduled as an outpatient. 07/29/18 20:27
--- NOTE | 2018-07-29 15:39 | CARD ---
APPROVED REPORT Date of service: 07/29/2018 EKG Measurement Heart [id number] <Conclusion> Normal sinus rhythm Normal ECG
--- NOTE | 2018-07-29 16:03 | CP.PCM.PN ---
<Omer Harris - Last Filed: 07/29/18 16:00> Subjective - Date & Time of Evaluation Date of Evaluation: 07/29/18 Time of Evaluation: 16:00 - Subjective Subjective: Omer Harris, PGY-1 Medicine Progress Note for Dr. Zulay Nick: Pt was seen and examined this AM at bedside. She states that today she is having continued epigastric pain, and nausea. She states that with her soft diet she is having a lot of cramps and pain. She is denying fevers, chills, chest pain, palpitations, SOB, n/v, dysuria, or increased frequency. Objective - Vital Signs/Intake and Output Vital Signs (last 24 hours): Temp Pulse Resp BP Pulse Ox 98.1 F 69 20 124/77 100 07/29/18 06:00 07/29/18 06:00 07/29/18 06:00 07/29/18 06:00 07/29/18 06:00 Intake and Output: 07/29/18 07/29/18 06:59 18:59 Intake Total 1800 Balance 1800 - Medications Medications: Current Medications Famotidine (Pepcid) 10 mg IVP DAILY [facility] Last Admin: 07/29/18 09:48 Dose: 10 mg Hydromorphone HCl (Dilaudid) 4 mg IVP Q4H PRN PRN Reason: Pain, severe (8-10) Last Admin: 07/29/18 14:19 Dose: 4 mg Lactated Ringer's (Lactated Ringer's) 1,000 mls @ 150 mls/hr IV .Q6H40M [facility] Last Admin: 07/29/18 05:27 Dose: 150 mls/hr Vitamin A (Vitamin A & D Oint Ud Foilpak) 1 ea TOP Q2 PRN PRN Reason: Dry mouth - Labs Labs: 07/29/18 08:01 07/29/18 08:01 PT 15.1 SECONDS (9.4-12.5) H 07/25/18 18:26 INR 1.32 07/25/18 18:26 APTT 29.3 Seconds (25.1-36.5) 07/25/18 18:26 - Constitutional Appears: Well, Non-toxic, No Acute Distress - Head Exam Head Exam: ATRAUMATIC, NORMAL INSPECTION, NORMOCEPHALIC - Eye Exam Eye Exam: EOMI, Normal appearance, PERRL - Respiratory Exam Respiratory Exam: Clear to Ausculation Bilateral, NORMAL BREATHING PATTERN. absent: Accessory Muscle Use, Decreased Breath Sounds, Rales, Rhonchi, Wheezes, Respiratory Distress, Stridor - Cardiovascular Exam Cardiovascular Exam: RRR, +S1, +S2. absent: Gallop, Rubs - GI/Abdominal Exam GI & Abdominal Exam: Soft, Tenderness (present in epigastric region), Normal Bowel Sounds. absent: Firm, Guarding, Rigid - Extremities Exam Extremities Exam: Normal Capillary Refill, Normal Inspection. absent: Calf Tenderness, Pedal Edema, Tenderness - Back Exam Back Exam: NORMAL INSPECTION. absent: CVA tenderness (L), CVA tenderness (R) - Neurological Exam Neurological Exam: Alert, Awake, Oriented x3 - Psychiatric Exam Psychiatric exam: Normal Affect, Normal Mood - Skin Skin Exam: Dry, Normal Color, Warm Assessment and Plan - Assessment and Plan (Free Text) Assessment: This is a 58 year old female with PMH of chronic back pain on daily dilaudid, multiple laminectomies/fusions, narcotic gastroparesis, HTN, anemia, gastritis, and hepatic steatosis presenting to the ED for 3 day history of abdominal pain. Pt was noted to have elevated lipase on exam, but normal pancreas on CT. Pt will be advanced to soft low fat, low fiber diet today and will continue to monitor if pt can tolerate the advancement in diet. Plan: 1. Acute pancreatitis suspected 2/2 drug induced: - Elevated lipase - CTAP shows normal appearing pancreas - Abd ultrasound, showed no stone and no CBD dilation - Soft, low fat/low fiber diet per GI - Pt is currently having cramps and nausea and abd pain with soft diet but has not vomited, will continue to monitor - Pt refused pancreatic CT - GI on consult, Dr. Thao - MRCP offered but pt refused inpt imaging and would like to have outpt MRCP 2. Chronic back pain -2/2 multiple back surgeries -dilaudid 4mg IV q4 prn -Pain management on consult, Dr. Gibson 3. Hypokalemia: resolved - cont to monitor 4. Anemia -currently at baseline, microcytic -iron low and TIBC low/normal from previous recent visit, suggesting anemia of chronic disease 5. Hx of HTN -currently controlled, will monitor 6. PPX: DVT: SCD GI: pepcid Patient seen and examined with attending, Dr. Zulay Harris, DO Internal Medicine PGY-1 <Celeste Nick R - Last Filed: 07/30/18 15:43> Objective - Vital Signs/Intake and Output Vital Signs (last 24 hours): Temp Pulse Resp BP Pulse Ox 98.2 F 64 18 130/82 97 07/30/18 06:00 07/30/18 06:00 07/30/18 06:00 07/30/18 06:00 07/30/18 06:00 Intake and Output: 07/30/18 07/30/18 06:59 18:59 Intake Total 240 Balance 240 - Medications Medications: Current Medications Famotidine (Pepcid) 10 mg IVP DAILY [facility] Last Admin: 07/30/18 09:58 Dose: 10 mg Hydromorphone HCl (Dilaudid) 4 mg IVP Q4H PRN PRN Reason: Pain, severe (8-10) Last Admin: 07/30/18 14:52 Dose: 4 mg Vitamin A (Vitamin A & D Oint Ud Foilpak) 1 ea TOP Q2 PRN PRN Reason: Dry mouth - Labs Labs: 07/30/18 07:42 07/30/18 07:42 PT 15.1 SECONDS (9.4-12.5) H 07/25/18 18:26 INR 1.32 07/25/18 18:26 APTT 29.3 Seconds (25.1-36.5) 07/25/18 18:26 Attending/Attestation - Attestation I have personally seen and examined this patient.: Yes I have fully participated in the care of the patient.: Yes I have reviewed all pertinent clinical information, including history, physical exam and plan: Yes Notes (Text): Patient seen and examined by me with resident at 9:50AM on 07/29/18. Case including HPI, physical exam, and assessment and plan discussed with resident. Agree with above with following additions/corrections. Patient is a 58-year-old female past medical history significant for chronic back pain with multiple back surgeries on chronic opioid therapy, suspected narcotic gastroparesis, chronic abdominal pain, hypertension, anemia, gastritis, and hepatic steatosis that presented to the emergency room with abdominal pain. Patient states that she is feeling better today. Still with some nausea. She states she is still having some upper abdominal pain. No vomiting. Patient states she had an episode of watery diarrhea this morning. No fevers or chills. No chest pain or shortness of breath. No headaches or dizziness. No dysuria. Physical exam: General: Awake and alert lying in bed in no acute distress HEENT: Normocephalic, atraumatic. Extraocular muscles intact, pupils equal and reactive, no scleral icterus. Oropharynx is pink and moist. Neck is supple. Cardiovascular: Regular rhythm. Normal S1 and S2. No murmurs, rubs, or gallops appreciated Pulmonary: Normal respiratory effort. No rhonchi, rales, or wheezing appreciated. Gastrointestinal: Soft, nondistended. Positive upper abdominal tenderness. Positive bowel sounds all 4 quadrants. No guarding. Musculoskeletal: Moves all extremities. No calf tenderness. No edema appreciated. Central nervous system: AAO x 3 Dermatologic: Skin warm and dry. 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 1. Abdominal pain. Suspected pancreatitis. Lipase on admission 1255. Tri glycerides within normal limits. CT abdomen and pelvis on 07/25/2018 per radiologist showed no acute intra-abdominal findings. Abdominal ultrasound per radiologist showed mild hepatomegaly, echogenic liver may be seen in setting of hepatic parenchymal disease or fatty infiltration, cholecystectomy. Abdominal x- ray per radiologist showed mildly dilated loops of small bowel seen, could represent ileus or partial obstruction. Patient has been refusing pancreatic CT. Advance diet as tolerated. Symptoms are slowly improving. GI following, recommendations appreciated. 2. Hypokalemia. Will replace potassium. Follow up repeat labs in AM. 3. Chronic anemia. However patient does have history of chronic NSAID use. H&H stable. Patient is refusing any endoscopy procedures as an inpatient. Continue to monitor for now. Stool for occult blood negative. 4. Chronic back pain. Patient is on chronic dilaudid at home. [employer] reviewed. Continue dilaudid. 5. History of hypertension. Patient normotensive here. Not on medications. Continue to monitor. 6. GI/DVT prophylaxis. Pepcid/SCDs. 7. Patient is a full code. Case was discussed in detail with the patient regarding current diagnosis and treatment plan. All questions answered.
[2018-07-30] MEDS: HYDROmorphone 2 mg/ml ISec IVP PRN ×6 (02:47→22:07)
[2018-07-30] MEDS: Lactated Ringer's 1,000 ML IV SCH (02:47)
[2018-07-30 06:51] VITALS: RESP 18
[2018-07-30] MEDS ORDERED: Barium Sulfate Susp 2.1% w/v, 2.0% w/w 450 mL Bottle PO ONE (07:36)
[2018-07-30 07:47] LABS: BASO # 0.01 K/mm3 (0.0-2.0); BASO % 0.2 % (0.0-3.0); EOS # 0.5 (0.0-0.7); EOS % 10.8 % (1.5-5.0); GRAN # 2.05 (1.4-6.5); GRAN % 48.2 % (50.0-68.0); HEMOGLOBIN 7.7 g/dL (12.0-16.0); LYMPH # 1.4 (1.2-3.4); LYMPH % 33.3 % (22.0-35.0); MEAN CELL VOLUME 75.2 fl (80.0-105.0); MEAN CORPUSCULAR HEMOGLOBIN 21.9 pg (25.0-35.0); MEAN CORPUSCULAR HGB CONC 29.2 g/dl (31.0-37.0); MEAN PLATELET VOLUME 8.6 fl (7.0-11.0); MONO # 0.3 (0.1-0.6); MONO % 7.5 % (1.0-6.0); RBC 3.51 10^6/uL (3.5-6.1); RED CELL DISTRIBUTION WIDTH 17.6 % (11.5-14.5); WHITE BLOOD COUNT 4.3 10^3/uL (4.5-11.0)
[2018-07-30 08:37] LABS: ALB/GLOB RATIO 0.7 (1.1-1.8); ALBUMIN 2.7 g/dL (3.0-4.8); ALT/SGPT 16 U/L (7-56); AST/SGOT 25 U/L (14-36); BLOOD UREA NITROGEN 8 mg/dL (7-21); CALCIUM 8.7 mg/dL (8.4-10.5); GFR NON-AFRICAN AMERICAN 57
--- NOTE | 2018-07-30 12:58 | CP.PCM.PN ---
<Elena Aguayo - Last Filed: 07/30/18 12:59> Subjective - Date & Time of Evaluation Date of Evaluation: 07/30/18 Time of Evaluation: 08:00 - Subjective Subjective: GI Fellow PGY5 Progress Note Pt seen and evaluated at bedside, pt doing well with mild abdominal pain. Tolerating diet. CT for today. ROS: A 12pt ROS was negative except as above Objective - Vital Signs/Intake and Output Vital Signs (last 24 hours): Temp Pulse Resp BP Pulse Ox 98.2 F 64 18 130/82 97 07/30/18 06:00 07/30/18 06:00 07/30/18 06:00 07/30/18 06:00 07/30/18 06:00 Intake and Output: 07/30/18 07/30/18 06:59 18:59 Intake Total 240 Balance 240 - Medications Medications: Current Medications Famotidine (Pepcid) 10 mg IVP DAILY [place] Last Admin: 07/30/18 09:58 Dose: 10 mg Hydromorphone HCl (Dilaudid) 4 mg IVP Q4H PRN PRN Reason: Pain, severe (8-10) Last Admin: 07/30/18 10:23 Dose: 4 mg Vitamin A (Vitamin A & D Oint Ud Foilpak) 1 ea TOP Q2 PRN PRN Reason: Dry mouth - Labs Labs: 07/30/18 07:42 07/30/18 07:42 PT 15.1 SECONDS (9.4-12.5) H 07/25/18 18:26 INR 1.32 07/25/18 18:26 APTT 29.3 Seconds (25.1-36.5) 07/25/18 18:26 - Constitutional Appears: Non-toxic, No Acute Distress - Head Exam Head Exam: ATRAUMATIC, NORMAL INSPECTION, NORMOCEPHALIC - Eye Exam Eye Exam: EOMI, Normal appearance, PERRL Pupil Exam: PERRL - ENT Exam ENT Exam: Mucous Membranes Moist - Respiratory Exam Respiratory Exam: Clear to Ausculation Bilateral, NORMAL BREATHING PATTERN - Cardiovascular Exam Cardiovascular Exam: REGULAR RHYTHM, RRR, +S1, +S2 - GI/Abdominal Exam GI & Abdominal Exam: Soft, Normal Bowel Sounds. absent: Distended, Tenderness - Extremities Exam Extremities Exam: Full ROM, Normal Inspection - Neurological Exam Neurological Exam: Alert, Awake, Oriented x3 - Psychiatric Exam Psychiatric exam: Normal Affect, Normal Mood - Skin Skin Exam: Dry, Intact, Normal Color, Warm Assessment and Plan - Assessment and Plan (Free Text) Assessment: Patient is a 58yo female with PMHx significant for chronic back pain following numerous spinal surgeries on chronic opioid therapy, chronic abdominal pain, suspected gastroparesis 2/2 opiate use, HTN, anemia who presented to the ED with abdominal pain 1. Abdominal pain, suspect acute pancreatitis 2. Chronic opioid use 3. NSAID overuse 4. Anemia 5. Chronic back pain 6. Gastroparesis, likely a result of chronic opiate use -Continue supportive care -D/c IVF -Tolerating diet -Plan for CT triple phase pancreatic protocol to further evaluate underlying etiology of pancreatitis -Pain management - chronic opioid use -NSAID avoidance -Pepcid -Overall, symptoms improved -Anemia with no active GI bleeding -Pt will benefit from elective EGD/Colonoscoy once medically improved -Will continue to follow <Corrie Thao V - Last Filed: 07/30/18 23:24> Objective - Vital Signs/Intake and Output Vital Signs (last 24 hours): Temp Pulse Resp BP Pulse Ox 98.3 F 66 18 115/75 98 07/30/18 18:00 07/30/18 18:00 07/30/18 18:00 07/30/18 18:00 07/30/18 18:00 - Medications Medications: Current Medications Famotidine (Pepcid) 10 mg IVP DAILY [place] Last Admin: 07/30/18 09:58 Dose: 10 mg Hydromorphone HCl (Dilaudid) 4 mg IVP Q4H PRN PRN Reason: Pain, severe (8-10) Last Admin: 07/30/18 22:07 Dose: 4 mg Vitamin A (Vitamin A & D Oint Ud Foilpak) 1 ea TOP Q2 PRN PRN Reason: Dry mouth - Labs Labs: 07/30/18 07:42 07/30/18 07:42 PT 15.1 SECONDS (9.4-12.5) H 07/25/18 18:26 INR 1.32 07/25/18 18:26 APTT 29.3 Seconds (25.1-36.5) 07/25/18 18:26 Attending/Attestation - Attestation I have personally seen and examined this patient.: Yes I have fully participated in the care of the patient.: Yes I have reviewed all pertinent clinical information, including history, physical exam and plan: Yes Notes (Text): This is an addendum to GI progress report dictated by the GI Fellow. The patient was seen and examined earlier. Medical records, lab studies, imagings were reviewed. Last 24 hours events reviewed. Agreed with the above treatment plan as outlined in GI Fellow 's notes with the addition of the following please better explain abdominal pain is improved Hemoglobin still remains low Off IV fluids now follow-up hemoglobin Patient will be scheduled for colonoscopy at the time of discharge for an o utpatient workup Patient also advised to follow up Hb Anemia could be multifactorial etiology 07/30/18 23:21
--- NOTE | 2018-07-30 14:47 | CT ---
Date of service: 07/30/2018 PROCEDURE: CT Abdomen and Pelvis with contrast HISTORY: pancreatitis, unclear etiology - r/o occult lesion COMPARISON: None. TECHNIQUE: Contrast dose: 150 cc of Omni 350 Radiation dose: Total exam DLP = 882.41 mGy-cm. This CT exam was performed using one or more of the following dose reduction techniques: Automated exposure control, adjustment of the mA and/or kV according to patient size, and/or use of iterative reconstruction technique. FINDINGS: LOWER THORAX: Small pleural effusions LIVER: Unremarkable. No gross lesion or ductal dilatation. GALLBLADDER AND BILE DUCTS: Not visible PANCREAS: Unremarkable. No gross lesion or ductal dilatation. SPLEEN: Unremarkable. ADRENALS: Unremarkable. No mass. KIDNEYS AND URETERS: Unremarkable. No hydronephrosis. No solid mass. VASCULATURE: Unremarkable. No aortic aneurysm. No aortic atherosclerotic calcification or mural plaque present. BOWEL: Unremarkable. No obstruction. No gross mural thickening. APPENDIX: Normal appendix. PERITONEUM: Unremarkable. No free fluid. No free air. LYMPH NODES: Unremarkable. No enlarged lymph nodes. BLADDER: Unremarkable. REPRODUCTIVE: Unremarkable. BONES: Spinal hardware and laminectomy L3 through L5 OTHER FINDINGS: None. IMPRESSION: Unremarkable contrast enhanced CT of the abdomen and pelvis. No evidence of pancreatic lesion.
--- NOTE | 2018-07-30 15:47 | CP.PCM.PN ---
<Omer Harris - Last Filed: 07/30/18 20:10> Subjective - Date & Time of Evaluation Date of Evaluation: 07/30/18 Time of Evaluation: 10:00 - Subjective Subjective: Omer Harris, PGY-1 Medicine Progress Note for Dr. Zulay Nick: Pt was seen and examined this AM at bedside. She states that today she is having continued epigastric pain, and nausea. She states that with her soft diet she is having a lot of cramps and pain. She is denying fevers, chills, chest pain, palpitations, SOB, vomiting, dysuria, or increased frequency but does admit to nausea. She states that she is willing to have CT of pancreas and will attempt to tolerate PO contrast. Objective - Vital Signs/Intake and Output Vital Signs (last 24 hours): Temp Pulse Resp BP Pulse Ox 98.2 F 64 18 130/82 97 07/30/18 06:00 07/30/18 06:00 07/30/18 06:00 07/30/18 06:00 07/30/18 06:00 Intake and Output: 07/30/18 07/30/18 06:59 18:59 Intake Total 240 Balance 240 - Medications Medications: Current Medications Famotidine (Pepcid) 10 mg IVP DAILY [place] Last Admin: 07/30/18 09:58 Dose: 10 mg Hydromorphone HCl (Dilaudid) 4 mg IVP Q4H PRN PRN Reason: Pain, severe (8-10) Last Admin: 07/30/18 14:52 Dose: 4 mg Vitamin A (Vitamin A & D Oint Ud Foilpak) 1 ea TOP Q2 PRN PRN Reason: Dry mouth - Labs Labs: 07/30/18 07:42 07/30/18 07:42 PT 15.1 SECONDS (9.4-12.5) H 07/25/18 18:26 INR 1.32 07/25/18 18:26 APTT 29.3 Seconds (25.1-36.5) 07/25/18 18:26 Assessment and Plan - Assessment and Plan (Free Text) Assessment: This is a 58 year old female with PMH of chronic back pain on daily dilaudid, multiple laminectomies/fusions, narcotic gastroparesis, HTN, anemia, gastritis, and hepatic steatosis presenting to the ED for 3 day history of abdominal pain. Pt was noted to have elevated lipase on exam, but normal pancreas on CT. Pt is agreeable to take pancreatic CT and will attempt to tolerate her diet after coming back. Plan: 1. Acute pancreatitis suspected 2/2 drug induced: - Elevated lipase - CTAP shows normal appearing pancreas - Abd ultrasound, showed no stone and no CBD dilation - CT pancreas PO contrast - showed no evidence for pancreatic lesion, unremarkable CT of abd and pelvis. - Soft, low fat/low fiber diet per GI - Pt is currently having cramps and nausea and abd pain with soft diet but has not vomited, will continue to monitor - GI on consult, Dr. Thao - MRCP offered but pt refused inpt imaging and would like to have outpt MRCP 2. Chronic back pain -2/2 multiple back surgeries -dilaudid 4mg IV q4 prn -Pain management on consult, Dr. Gibson 3. Hypokalemia: resolved - cont to monitor 4. Anemia -currently at baseline, microcytic -iron low and TIBC low/normal from previous recent visit, suggesting anemia of chronic disease 5. Hx of HTN -currently controlled, will monitor 6. PPX: DVT: SCD GI: pepcid Patient seen and examined with attending, Dr. Zulay Harris, DO Internal Medicine PGY-1 <Celeste Nick R - Last Filed: 07/31/18 21:43> Objective - Vital Signs/Intake and Output Vital Signs (last 24 hours): Temp Pulse Resp BP Pulse Ox 98.1 F 60 18 138/78 98 07/31/18 08:07 07/31/18 08:07 07/31/18 08:07 07/31/18 08:07 07/31/18 08:07 - Labs Labs: 07/31/18 06:00 07/31/18 06:00 PT 15.1 SECONDS (9.4-12.5) H 07/25/18 18:26 INR 1.32 07/25/18 18:26 APTT 29.3 Seconds (25.1-36.5) 07/25/18 18:26 Attending/Attestation - Attestation I have personally seen and examined this patient.: Yes I have fully participated in the care of the patient.: Yes I have reviewed all pertinent clinical information, including history, physical exam and plan: Yes Notes (Text): Patient seen and examined by me with resident at 9:45AM on 07/30/18. Case including HPI, physical exam, and assessment and plan discussed with resident. Agree with above with following additions/corrections. Patient is a 58-year-old female past medical history significant for chronic back pain with multiple back surgeries on chronic opioid therapy, suspected narcotic gastroparesis, chronic abdominal pain, hypertension, anemia, gastritis, and hepatic steatosis that presented to the emergency room with abdominal pain. Patient states that she is feeling ok. Patient states she has not eaten today because she is going for a CAT scan. She states she is drinking the oral contrast but she is having some nausea and upper abdominal pain while drinking it. No vomiting. Last episode of diarrhea was yesterday evening. No fevers or chills. No chest pain or shortness of breath. No headaches or dizziness. No dysuria. Physical exam: General: Awake and alert lying in bed in no acute distress HEENT: Normocephalic, atraumatic. Extraocular muscles intact, pupils equal and reactive, no scleral icterus. Oropharynx is pink and moist. Neck is supple. Cardiovascular: Regular rhythm. Normal S1 and S2. No murmurs, rubs, or gallops appreciated Pulmonary: Normal respiratory effort. No rhonchi, rales, or wheezing appreciated. Gastrointestinal: Soft, mild distention. Positive upper abdominal tenderness. Positive bowel sounds all 4 quadrants. No guarding. Musculoskeletal: Moves all extremities. No calf tenderness. No edema appreciated. Central nervous system: AAO x 3 Dermatologic: Skin warm and dry. 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 1. Abdominal pain. Suspected pancreatitis. Lipase on admission 1255. Triglycerides within normal limits. CT abdomen and pelvis on 07/25/2018 per radiologist showed no acute intra-abdominal findings. Abdominal ultrasound per radiologist showed mild hepatomegaly, echogenic liver may be seen in setting of hepatic parenchymal disease or fatty infiltration, cholecystectomy. Abdominal x- ray per radiologist showed mildly dilated loops of small bowel seen, could represent ileus or partial obstruction. Patient agreed to pancreatic CT. Per radiologist, pancreatic CT shows small pleural effusions, unremarkable contrast- enhanced CT of the abdomen and pelvis, no evidence pancreatic lesion. Advance diet as tolerated. Symptoms are slowly improving. GI following, recommendations appreciated. 2. Hypokalemia. Resolved. Continue to monitor. 3. Chronic anemia. However patient does have history of chronic NSAID use. H&H stable. Patient is refusing any endoscopy procedures as an inpatient. Continue to monitor for now. Stool for occult blood negative. 4. Chronic back pain. Patient is on chronic dilaudid at home. [employer] reviewed. Continue dilaudid. 5. History of hypertension. Patient normotensive here. Not on medications. Continue to monitor. 6. GI/DVT prophylaxis. Pepcid/SCDs. 7. Patient is a full code. Case was discussed in detail with the patient regarding current diagnosis and treatment plan. All questions answered.
[2018-07-30 19:32] VITALS: O2SAT 98
[2018-07-31] MEDS: HYDROmorphone 2 mg/ml ISec IVP PRN ×3 (02:28→10:52)
[2018-07-31 06:50] LABS: BASO # 0.03 K/mm3 (0.0-2.0); BASO % 0.6 % (0.0-3.0); EOS # 0.5 (0.0-0.7); EOS % 9.6 % (1.5-5.0); GRAN # 2.84 (1.4-6.5); GRAN % 55.3 % (50.0-68.0); LYMPH # 1.5 (1.2-3.4); LYMPH % 29.6 % (22.0-35.0); MEAN CELL VOLUME 75.7 fl (80.0-105.0); MEAN CORPUSCULAR HEMOGLOBIN 22.6 pg (25.0-35.0); MEAN CORPUSCULAR HGB CONC 29.9 g/dl (31.0-37.0); MEAN PLATELET VOLUME 8.3 fl (7.0-11.0); MONO # 0.3 (0.1-0.6); MONO % 4.9 % (1.0-6.0); RBC 3.54 10^6/uL (3.5-6.1); RED CELL DISTRIBUTION WIDTH 18.2 % (11.5-14.5); WHITE BLOOD COUNT 5.1 10^3/uL (4.5-11.0)
[2018-07-31 06:58] LABS: ALB/GLOB RATIO 0.7 (1.1-1.8); ALBUMIN 2.7 g/dL (3.0-4.8); ALT/SGPT 18 U/L (7-56); AST/SGOT 24 U/L (14-36); BLOOD UREA NITROGEN 7 mg/dL (7-21); CALCIUM 8.6 mg/dL (8.4-10.5); GFR NON-AFRICAN AMERICAN > 60
[2018-07-31 08:08] VITALS: BP 138/78; PULSE 60; TEMP 98.1
--- NOTE | 2018-07-31 16:04 | CP.PCM.DIS ---
<Omer Harris - Last Filed: 07/31/18 16:00> Provider - Provider Date of Admission: 07/25/18 21:18 Attending physician: Celeste Nick DO Primary care physician: Landen Angulo MD Consults: 07/25/18 22:47 Consult [Physician Consult] Routine Comment: Consulting Provider: Brian Gibson Consulting Physician: Brian Gibson Reason for Consult: intractable abdominal pain, on dilaudid 07/25/18 22:53 Gastroenterology Consult Routine Comment: Consulting Provider: Corrie Thao V Consulting Physician: Corrie Thao V Reason for Consult: pancreatitis Time Spent in preparation of Discharge (in minutes): 45 Diagnosis - Discharge Diagnosis (1) Pancreatitis Status: Acute Hospital Course - Lab Results Lab Results: Micro Results 07/28/18 14:00 Stool Ova and Parasite Concentrate Exam - Final 07/28/18 14:00 Stool C. difficile Antigen & Toxins A,B - Final 07/25/18 21:30 Blood Blood Culture - Final NO GROWTH AFTER 5 DAYS 07/25/18 21:30 Blood Gram Stain - Final TEST NOT PERFORMED 07/25/18 21:10 Blood Blood Culture - Final NO GROWTH AFTER 5 DAYS 07/25/18 21:10 Blood Gram Stain - Final TEST NOT PERFORMED 07/26/18 12:10 Urine Urine Culture - Final No Growth (<1,000 CFU/ML) Most Recent Lab Values WBC 5.1 10^3/uL (4.5-11.0) 07/31/18 06:00 RBC 3.54 10^6/uL (3.5-6.1) 07/31/18 06:00 Hgb 8.0 g/dL (12.0-16.0) L 07/31/18 06:00 Hct 26.8 % (36.0-48.0) L 07/31/18 06:00 MCV 75.7 fl (80.0-105.0) L 07/31/18 06:00 MCH 22.6 pg (25.0-35.0) L 07/31/18 06:00 MCHC 29.9 g/dl (31.0-37.0) L 07/31/18 06:00 RDW 18.2 % (11.5-14.5) H 07/31/18 06:00 Plt Count 334 10^3/uL (120.0-450.0) 07/31/18 06:00 MPV 8.3 fl (7.0-11.0) 07/31/18 06:00 Gran % 55.3 % (50.0-68.0) 07/31/18 06:00 Lymph % (Auto) 29.6 % (22.0-35.0) 07/31/18 06:00 [place] % (Auto) 4.9 % (1.0-6.0) 07/31/18 06:00 Eos % (Auto) 9.6 % (1.5-5.0) H 07/31/18 06:00 Baso % (Auto) 0.6 % (0.0-3.0) 07/31/18 06:00 Gran # 2.84 (1.4-6.5) 07/31/18 06:00 Lymph # (Auto) 1.5 (1.2-3.4) 07/31/18 06:00 [place] # (Auto) 0.3 (0.1-0.6) 07/31/18 06:00 Eos # (Auto) 0.5 (0.0-0.7) 07/31/18 06:00 Baso # (Auto) 0.03 K/mm3 (0.0-2.0) 07/31/18 06:00 Neutrophils % (Manual) 92 % (50.0-70.0) H 07/25/18 18:26 Lymphocytes % (Manual) 7 % (22.0-35.0) L 07/25/18 18:26 Monocytes % (Manual) 1 % (1.0-6.0) 07/25/18 18:26 PT 15.1 SECONDS (9.4-12.5) H 07/25/18 18:26 INR 1.32 07/25/18 18:26 APTT 29.3 Seconds (25.1-36.5) 07/25/18 18:26 Sodium 139 mmol/L (132-148) 07/31/18 06:00 Potassium 4.2 mmol/L (3.6-5.0) 07/31/18 06:00 Chloride 104 mmol/L (98-107) 12/10/18 06:00 Carbon Dioxide 29 mmol/L (21-33) 07/31/18 06:00 Anion Gap 10 (10-20) 07/31/18 06:00 BUN 7 mg/dL (7-21) 07/31/18 06:00 Creatinine 0.9 mg/dl (0.7-1.2) 07/31/18 06:00 Est GFR ( Amer) > 60 07/31/18 06:00 Est GFR (Non-Af Amer) > 60 07/31/18 06:00 Random Glucose 95 mg/dL (70-110) 07/31/18 06:00 Calcium 8.6 mg/dL (8.4-10.5) 07/31/18 06:00 Phosphorus 4.3 mg/dL (2.5-4.5) 07/26/18 05:25 Magnesium 2.0 mg/dL (1.7-2.2) 07/26/18 05:25 Total Bilirubin < 0.1 mg/dL (0.2-1.3) L 07/31/18 06:00 AST 24 U/L (14-36) 07/31/18 06:00 ALT 18 U/L (7-56) 07/31/18 06:00 Alkaline Phosphatase 78 U/L (38-126) 07/31/18 06:00 Troponin I < 0.01 ng/mL 07/26/18 12:00 Total Protein 6.8 g/dL (5.8-8.3) 07/31/18 06:00 Albumin 2.7 g/dL (3.0-4.8) L 07/31/18 06:00 Globulin 4.0 gm/dL 07/31/18 06:00 Albumin/Globulin Ratio 0.7 (1.1-1.8) L 07/31/18 06:00 Triglycerides 101 mg/dL (35-160) 07/26/18 05:25 Cholesterol 103 mg/dL (130-200) L 07/26/18 05:25 LDL Cholesterol Direct 64 mg/dL (0-129) 07/26/18 05:25 HDL Cholesterol 26 mg/dL (29-60) L 07/26/18 05:25 Lipase 1255 U/L (23-300) H 07/25/18 18:26 Free T4 1.00 ng/dL (0.78-2.19) 07/26/18 05:25 TSH 3rd Generation 0.96 mIU/mL (0.46-4.68) 07/26/18 05:25 Urine Color Yellow (YELLOW) 07/26/18 12:10 Urine Appearance Sl cloudy (CLEAR) 07/26/18 12:10 Urine pH 6.0 (4.7-8.0) 07/26/18 12:10 Ur Specific [place] >= 1.030 (1.005-1.035) 07/26/18 12:10 Urine Protein 100 mg/dL (<30 mg/dL) H 07/26/18 12:10 Urine Glucose (UA) Negative mg/dL (NEGATIVE) 07/26/18 12:10 Urine Ketones Negative mg/dL (NEGATIVE) 07/26/18 12:10 Urine Blood Negative (NEGATIVE) 07/26/18 12:10 Urine Nitrate Negative (NEGATIVE) 07/26/18 12:10 Urine Bilirubin Negative (NEGATIVE) 07/26/18 12:10 Urine Urobilinogen 0.2 E.U./dL (<1 E.U./dL) 07/26/18 12:10 Ur Leukocyte Esterase Negative Kiana/uL (NEGATIVE) 07/26/18 12:10 Urine RBC Negative /hpf (0-2) 07/26/18 12:10 Urine WBC 1 - 3 /hpf (0-6) 07/26/18 12:10 Ur Epithelial Cells 1 - 3 /hpf (0-5) 07/26/18 12:10 Urine Bacteria Small (NEG) 07/26/18 12:10 Stool Occult Blood Negative (NEGATIVE) 07/28/18 14:00 Stool Leukocytes, Qual Negative (NEGATIVE) 07/28/18 14:00 - Hospital Course Hospital Course: Upon Admission: 58 year old female with PMHx of chronic back pain on daily dilaudid, multiple laminectomies/ fusions, narcotic gastroparesis, HTN, anemia, gastritis, and hepatic steatosis presenting to the ED for 3 day history of abdominal pain. Pain started suddenly, rated 10/10, constant, non radiating, located in the epigastric and central lower abdominal area, sharp and worse with eating/drinking. Pain is associated with nausea, non bloody vomiting x10 per day and multiple non bloody diarrhea episodes. Last bowel movement was right before ED arrival. She denies ever having similar symptoms in past. She states dilaudid has not helped with the pain. Pt was admitted for further evaluation of pancreatitis and possible infection etiology or PUD. Hospital Course: During her hospital stay, Blood work was done which showed increased Lipase and WBC and elevated BUN consistent with dehydration. EKG done with prolonged QT. Dr. Keesha FALLON was consulted on the case. Dr. Gibson , Pain management, was consulted for the chronic back pain. Abdominal ultrasound, x-ray and Ct-scan was done with no acute findings, and the CT showed a normal pancreas. Pt met criteria for acute pancreatitis, due to clinical symptoms and Lipase levels and she was treated with aggressive IVF LR@200cc/hr and Clear liquid diet. Diarrhea resolved and Pt was started on MiraLAX after to prevent opioid-induced constipation. Blood culture was done with no growth. Given normal imaging, lack of EtOH exposure and normal lipid panel, Medication induced pancreatitis is likely the diagnosis. Pt had CT w/ PO contrast of pancreas which showed no mass or pancreatic path. Pt is now able to tolerate her diet. She is told to f/u in regards to her low Hgb with her primary care doctor outpt. She is also instructed to follow up with her GI doctor. She is informed about medical plan for discharge and she expresses understanding and agreement of the medical plan. Upon Discharge: Patient's vitals are stable. Pt was advised to F/U with GI as an out-patient and do MRCP test. Pt is stable for discharge from medicine standpoint. Pt is instructed to follow up with his primary care doctor and return to the hospital for any worsening symptoms. Disclaimer: Written above is a synopsis of patients current hospital admission. For full admission refer to EMR Discharge Exam - Head Exam Head Exam: ATRAUMATIC, NORMAL INSPECTION, NORMOCEPHALIC - Eye Exam Eye Exam: EOMI, Normal appearance, PERRL - Respiratory Exam Respiratory Exam: Clear to PA & Lateral, NORMAL BREATHING PATTERN, UNREMARKABLE. absent: Accessory Muscle Use, Decreased Breath Sounds, Rales, Rhonchi, Wheezes, Respiratory Distress, Stridor - Cardiovascular Exam Cardiovascular Exam: RRR, +S1, +S2. absent: Gallop, Rubs - GI/Abdominal Exam GI & Abdominal Exam: Normal Bowel Sounds, Soft, Unremarkable. absent: Firm, Guarding, Tenderness - Extremities Exam Extremities exam: normal capillary refill, normal inspection, pedal pulses present - Back Exam Back exam: NORMAL INSPECTION. absent: CVA tenderness (L), CVA tenderness (R) - Neurological Exam Neurological exam: Alert, Oriented x3 - Psychiatric Exam Psychiatric exam: Normal Affect, Normal Mood - Skin Skin Exam: Dry, Normal Color, Warm Discharge Plan - Discharge Medications Prescriptions: Famotidine [Pepcid] 20 mg PO BID 30 Days #60 tab - Follow Up Plan Condition: STABLE Disposition: HOME/ ROUTINE Instructions: Hypokalemia, Pancreatitis (DC) Additional Instructions: - Please follow up with your special education paraeducator Dr. Thao within a week of discharge. - Please follow up with your primary care doctor, Dr. Angulo within a week of discharge - At the follow up appointment please mention that you have had low hemoglobin and to have the levels checked again. - If you have any new, or returning symptoms please return to the Emergency Department. Referrals: Landen Angulo MD [Primary Care Provider] - Corrie Thao MD [Medical Doctor] - <Brittney Rice - Last Filed: 08/01/18 14:18> Provider - Provider Date of Admission: 07/25/18 21:18 Attending physician: Celeste Nick DO Primary care physician: Landen Angulo MD Consults: 07/25/18 22:47 Consult [Physician Consult] Routine Comment: Consulting Provider: Brian Gbison Consulting Physician: Brian Gibson Reason for Consult: intractable abdominal pain, on dilaudid 07/25/18 22:53 Gastroenterology Consult Routine Comment: Consulting Provider: Corrie Thao V Consulting Physician: Corrie Thao V Reason for Consult: pancreatitis Hospital Course - Lab Results Lab Results: Micro Results 07/28/18 14:00 Stool Ova and Parasite Concentrate Exam - Final 07/28/18 14:00 Stool C. difficile Antigen & Toxins A,B - Final 07/25/18 21:30 Blood Blood Culture - Final NO GROWTH AFTER 5 DAYS 07/25/18 21:30 Blood Gram Stain - Final TEST NOT PERFORMED 07/25/18 21:10 Blood Blood Culture - Final NO GROWTH AFTER 5 DAYS 07/25/18 21:10 Blood Gram Stain - Final TEST NOT PERFORMED 07/26/18 12:10 Urine Urine Culture - Final No Growth (<1,000 CFU/ML) Most Recent Lab Values WBC 5.1 10^3/uL (4.5-11.0) 07/31/18 06:00 RBC 3.54 10^6/uL (3.5-6.1) 07/31/18 06:00 Hgb 8.0 g/dL (12.0-16.0) L 07/31/18 06:00 Hct 26.8 % (36.0-48.0) L 07/31/18 06:00 MCV 75.7 fl (80.0-105.0) L 07/31/18 06:00 MCH 22.6 pg (25.0-35.0) L 07/31/18 06:00 MCHC 29.9 g/dl (31.0-37.0) L 07/31/18 06:00 RDW 18.2 % (11.5-14.5) H 07/31/18 06:00 Plt Count 334 10^3/uL (120.0-450.0) 07/31/18 06:00 MPV 8.3 fl (7.0-11.0) 07/31/18 06:00 Gran % 55.3 % (50.0-68.0) 07/31/18 06:00 Lymph % (Auto) 29.6 % (22.0-35.0) 07/31/18 06:00 [place] % (Auto) 4.9 % (1.0-6.0) 07/31/18 06:00 Eos % (Auto) 9.6 % (1.5-5.0) H 07/31/18 06:00 Baso % (Auto) 0.6 % (0.0-3.0) 07/31/18 06:00 Gran # 2.84 (1.4-6.5) 07/31/18 06:00 Lymph # (Auto) 1.5 (1.2-3.4) 07/31/18 06:00 [place] # (Auto) 0.3 (0.1-0.6) 07/31/18 06:00 Eos # (Auto) 0.5 (0.0-0.7) 07/31/18 06:00 Baso # (Auto) 0.03 K/mm3 (0.0-2.0) 07/31/18 06:00 Neutrophils % (Manual) 92 % (50.0-70.0) H 07/25/18 18:26 Lymphocytes % (Manual) 7 % (22.0-35.0) L 07/25/18 18: Monocytes % (Manual) 1 % (1.0-6.0) 07/25/18 18: PT 15.1 SECONDS (9.4-12.5) H 07/25/18 18: INR 1.32 07/25/18 18: APTT 29.3 Seconds (25.1-36.5) 07/25/18 18:26 Sodium 139 mmol/L (132-148) 07/31/18 06:00 Potassium 4.2 mmol/L (3.6-5.0) 07/31/18 06:00 Chloride 104 mmol/L (98-107) 07/31/18 06:00 Carbon Dioxide 29 mmol/L (21-33) 07/31/18 06:00 Anion Gap 10 (10-20) 07/31/18 06:00 BUN 7 mg/dL (7-21) 07/31/18 06:00 Creatinine 0.9 mg/dl (0.7-1.2) 07/31/18 06:00 Est GFR ( Amer) > 60 07/31/18 06:00 Est GFR (Non-Af Amer) > 60 07/31/18 06:00 Random Glucose 95 mg/dL (70-110) 07/31/18 06:00 Calcium 8.6 mg/dL (8.4-10.5) 07/31/18 06:00 Phosphorus 4.3 mg/dL (2.5-4.5) 07/26/18 05:25 Magnesium 2.0 mg/dL (1.7-2.2) 07/26/18 05:25 Total Bilirubin < 0.1 mg/dL (0.2-1.3) L 07/31/18 06:00 AST 24 U/L (14-36) 07/31/18 06:00 ALT 18 U/L (7-56) 07/31/18 06:00 Alkaline Phosphatase 78 U/L (38-126) 07/31/18 06:00 Troponin I < 0.01 ng/mL 07/26/18 12:00 Total Protein 6.8 g/dL (5.8-8.3) 07/31/18 06:00 Albumin 2.7 g/dL (3.0-4.8) L 07/31/18 06:00 Globulin 4.0 gm/dL 07/31/18 06:00 Albumin/Globulin Ratio 0.7 (1.1-1.8) L 07/31/18 06:00 Triglycerides 101 mg/dL (35-160) 07/26/18 05:25 Cholesterol 103 mg/dL (130-200) L 07/26/18 05:25 LDL Cholesterol Direct 64 mg/dL (0-129) 07/26/18 05:25 HDL Cholesterol 26 mg/dL (29-60) L 07/26/18 05:25 Lipase 1255 U/L (23-300) H 07/25/18 18:26 Free T4 1.00 ng/dL (0.78-2.19) 07/26/18 05:25 TSH 3rd Generation 0.96 mIU/mL (0.46-4.68) 07/26/18 05:25 Urine Color Yellow (YELLOW) 07/26/18 12:10 Urine Appearance Sl cloudy (CLEAR) 07/26/18 12:10 Urine pH 6.0 (4.7-8.0) 07/26/18 12:10 Ur Specific [place] >= 1.030 (1.005-1.035) 07/26/18 12:10 Urine Protein 100 mg/dL (<30 mg/dL) H 07/26/18 12:10 Urine Glucose (UA) Negative mg/dL (NEGATIVE) 07/26/18 12:10 Urine Ketones Negative mg/dL (NEGATIVE) 07/26/18 12:10 Urine Blood Negative (NEGATIVE) 07/26/18 12:10 Urine Nitrate Negative (NEGATIVE) 07/26/18 12:10 Urine Bilirubin Negative (NEGATIVE) 07/26/18 12:10 Urine Urobilinogen 0.2 E.U./dL (<1 E.U./dL) 07/26/18 12:10 Ur Leukocyte Esterase Negative [place]iana/uL (NEGATIVE) 07/26/18 12:10 Urine RBC Negative /hpf (0-2) 07/26/18 12:10 Urine WBC 1 - 3 /hpf (0-6) 07/26/18 12:10 Ur Epithelial Cells 1 - 3 /hpf (0-5) 07/26/18 12:10 Urine Bacteria Small (NEG) 07/26/18 12:10 Stool Occult Blood Negative (NEGATIVE) 07/28/18 14:00 Stool Leukocytes, Qual Negative (NEGATIVE) 07/28/18 14:00 Attending/Attestation - Attestation I have personally seen and examined this patient.: Yes I have fully participated in the care of the patient.: Yes I have reviewed all pertinent clinical information, including history, physical exam and plan: Yes Notes (Text): 08/01/18 14:02 Attending note; Patient seen and examined with resident. Patient is alert and awake. Denies any nausea, vomiting. Tolerating diet. Denies any diarrhea. Patient is a 58-year-old female past medical history significant for chronic back pain with multiple back surgeries on chronic opioid therapy, suspected narcotic gastroparesis, chronic abdominal pain, hypertension, anemia, gastritis, and hepatic steatosis that presented to the emergency room with abdominal pain. 1. Abdominal pain. pancreatitis. Lipase on admission 1255. Triglycerides within normal limits. CT abdomen and pelvis showed no acute intra-abdominal findings. Abdominal ultrasound showed mild hepatomegaly, echogenic liver may be seen in setting of hepatic parenchymal disease or fatty infiltration, cholecystectomy. Abdominal x-ray showed mildly dilated loops of small bowel could represent ileus or partial obstruction. pancreatic CT shows small pleural effusions, unremarkable contrast-enhanced CT of the abdomen and pelvis, no evidence pancreatic lesion. tolerating diet. 2. Hypokalemia. Resolved. 3. Chronic anemia. history of recent NSAID use. Advised to stop NSAID. Patient is refusing any endoscopy procedures as an inpatient. Stool for occult blood negative. Needs outpatient GI work up. 4. Chronic back pain. Patient is on chronic dilaudid at home. [employer] reviewed. Continue dilaudid. Discharge patient home today. Follow-up with PMD Dr. Angulo. Advised to taper and discontinue opiates. Follow-up with GI Dr. Silveira. The diagnosis, follow-up and treatment plan discussed with patient in detail. 08/01/18 14:16
== END 2018-07-31 12:59 | disposition home or self-care (01) | DRG 440 ==
LOC: ED 17:24 → ERH 21:18 → 3RSO 07-26 11:33
PROVIDERS: ADMIT Internal Medicine; ATTEND Hospitalist
DX: K85.90 Acute pancreatitis without necrosis or infection, unspecified (principal); E87.6 Hypokalemia; E86.0 Dehydration; G89.29 Other chronic pain; I10 Essential (primary) hypertension; K31.84 Gastroparesis; K52.9 Noninfective gastroenteritis and colitis, unspecified; D64.9 Anemia, unspecified; K76.0 Fatty (change of) liver, not elsewhere classified; Z79.1 Long term (current) use of non-steroidal anti-inflammatories (NSAID); Z79.891 Long term (current) use of opiate analgesic; Z87.440 Personal history of urinary (tract) infections; Z87.891 Personal history of nicotine dependence; Z90.49 Acquired absence of other specified parts of digestive tract; Z90.710 Acquired absence of both cervix and uterus; Z91.19 Patient's noncompliance with other medical treatment and regimen

== ENCOUNTER 2018-08-07 05:22 | Observation (INO) | payer BC ==
--- NOTE | 2018-08-07 05:50 | ED PDOC ---
Arrival/HPI - General Chief Complaint: GI Problem Time Seen by Provider: 08/07/18 05:24 Historian: Patient - History of Present Illness Narrative History of Present Illness (Text): 08/07/18 05:49 Renetta Elkins is a 58 year old female, whose past medical history includes chronic back pain, multiple laminectomies, narcotic gastroparesis, hypertension, anemia, gastritis, pancreatitis, and hepatic steatosis, who presents to the Emergency department complaining of abdominal pain. Patient states she was recently discharged from the hospital on 07/31/2018 following treatment for medication-induced pancreatitis. Patient states yesterday she began experiencing LUQ pain with associated nausea, multiple episodes of vomiting, and diarrhea, similar to previous episode of pancreatitis. Patient also complaining of dizziness. Patient denies any fever, chills, chest pain, shortness of breath, urinary symptoms, back pain, neck pain, headache, vision changes. or any other complaints. PMD: Dr. Angulo Time/Duration: Other (yesterday) Symptom Onset: Gradual Symptom Course: Unchanged Activities at Onset: Light Context: Home Past Medical History - Provider Review Nursing Documentation Reviewed: Yes - Infectious Disease Hx of Infectious Diseases: None - Tetanus Immunization Tetanus Immunization: Unknown - Cardiac Hx Cardiac Disorders: Yes Hx Heart Murmur: Yes Hx Hypertension: Yes - Pulmonary Hx Respiratory Disorders: Yes (USED TO SMOKE. QUIT 25 YRS AGO) - Neurological Hx Neurological Disorder: No - HEENT Hx HEENT Disorder: No - Renal Hx Renal Disorder: No - Endocrine/Metabolic Hx Endocrine Disorders: No - Hematological/Oncological Hx Blood Disorders: Yes Hx Anemia: Yes Other/Comment: hx blood transfusion - Integumentary Hx Dermatological Disorder: No - Musculoskeletal/Rheumatological Hx Musculoskeletal Disorders: Yes Hx Arthritis: Yes Hx Back Pain: Yes Hx Degenerative Joint Disease: Yes Hx Falls: No Hx Unsteady Gait: Yes (uses a cane "sometimes") Other/Comment: extremity weakness - Gastrointestinal Hx Gastrointestinal Disorders: Yes (nausea vomiting) Hx Gastroesophageal Reflux: Yes Other/Comment: celiac disease, colitis, gastroparesis, gastritis, hepatomegaly hx portal htn, fatty liver - Genitourinary/Gynecological Hx Urinary Tract Infection: Yes - Psychiatric Hx Psychophysiologic Disorder: No Hx Emotional Abuse: No Hx Physical Abuse: No Hx Substance Use: No - Surgical History Hx Cholecystectomy: Yes Hx Hysterectomy: Yes (sepsis post hyst) Other/Comment: cut spincter leading to bile duct,#1 laminectomy 1993, #2 L4 L5 S1 fusion 1998, #3 ablation spine 2009, #4 L2 L3 fusion 2010,multiple epidurals - Anesthesia Hx Anesthesia: Yes Hx Anesthesia Reactions: No Hx Malignant Hyperthermia: No - Suicidal Assessment Feels Threatened In Home Enviroment: No Family/Social History - Physician Review Nursing Documentation Reviewed: Yes Family/Social History: Unknown Family HX Smoking Status: Never Smoked Hx Alcohol Use: No Hx Substance Use: No Hx Substance Use Treatment: No Allergies/Home Meds Allergies/Adverse Reactions: Allergies gluten Adverse Reaction (Verified 07/25/18 18:53) PAIN Home Medications: Home Meds Medication Instructions Recorded Confirmed HYDROmorphone [Dilaudid] 8 mg PO Q4 PRN 03/08/16 07/26/18 Hydromorphone HCl [Exalgo] 16 mg PO TID 02/13/18 07/26/18 Review of Systems - Physician Review All systems were reviewed & negative as marked: Yes - Review of Systems Constitutional: Normal. absent: Fevers Eyes: Normal ENT: Normal Respiratory: Normal. absent: SOB, Cough Cardiovascular: Normal. absent: Chest Pain Gastrointestinal: Abdominal Pain, Diarrhea, Nausea, Vomiting Genitourinary Female: Normal. absent: Dysuria, Frequency, Hematuria, Urine Output Changes Musculoskeletal: Normal. absent: Back Pain, Neck Pain Skin: Normal. absent: Rash Neurological: Normal. absent: Headache, Dizziness Endocrine: Normal Hemo/Lymphatic: Normal Psychiatric: Normal Physical Exam Vital Signs Reviewed: Yes Vital Signs Temp Pulse Resp BP Pulse Ox 08/07/18 05:28 97.7 F 75 18 137/77 100 Temperature: Afebrile Blood Pressure: Normal Pulse: Regular Respiratory Rate: Normal Appearance: Positive for: Well-Appearing, Non-Toxic, Comfortable Pain Distress: None Mental Status: Positive for: Alert and Oriented X 3 - Systems Exam Head: Present: Atraumatic, Normocephalic Pupils: Present: PERRL Extroacular Muscles: Present: EOMI Conjunctiva: Present: Normal Mouth: Present: Moist Mucous Membranes Neck: Present: Normal Range of Motion Respiratory/Chest: Present: Clear to Auscultation, Good Air Exchange. No: Respiratory Distress, Accessory Muscle Use Cardiovascular: Present: Regular Rate and Rhythm, Normal S1, S2. No: Murmurs Abdomen: Present: Tenderness (LUQ tenderness). No: Distention, Peritoneal Signs Back: Present: Normal Inspection Upper Extremity: Present: Normal Inspection. No: Cyanosis, Edema Lower Extremity: Present: Normal Inspection. No: Edema Neurological: Present: GCS=15, CN II-XII Intact, Speech Normal Skin: Present: Warm, Dry, Normal Color. No: Rashes Psychiatric: Present: Alert, Oriented x 3, Normal Insight, Normal Concentration Medical Decision Making ED Course and Treatment: 08/07/18 05:49 Impression: 58 year old female complaining of LUQ pain, nausea, vomiting, diarrhea, and dizziness since yesterday. Plan: -- EKG -- Chest X-ray -- Labs, lipase -- Urinalysis -- IV fluids -- Zofran -- Pepcid -- Reassess and disposition Prior Visits: Notes and results from previous visits were reviewed. On 07/25/2018, pt was seen in the Emergency department for abdominal pain, nausea, vomiting, and diarrhea. Pt was admitted to the hospital and discharged on 07/31/2018 following treatment for pancreatitis. Progress Notes: 08/07/18 07:00 Case endorsed to /pending labs/response to treatment /reassess/final disposition - RAD Interpretation Narrative RAD Interpretations (Text): 08/07/18 06:59 CXR-No acute process Utility Clerk: ED Physician - EKG Interpretation EKG Interpretation (Text): 08/07/18 06:58 EKG-Sinus bradycardia @ 59,no acute changes Interpreted by ED Physician: Yes Type: 12 lead EKG - Scribe Statement The provider has reviewed the documentation as recorded by the Esteban Christianson Provider Scribe Attestation: All medical record entries made by the Scribkenan were at my direction and personally dictated by me. I have reviewed the chart and agree that the record accurately reflects my personal performance of the history, physical exam, medical decision making, and the department course for this patient. I have also personally directed, reviewed, and agree with the discharge instructions and disposition. Disposition/Present on Arrival - Present on Arrival Any Indicators Present on Arrival: No History of DVT/PE: No History of Uncontrolled Diabetes: No Urinary Catheter: No History of Decub. Ulcer: No History Surgical Site Infection Following: None - Disposition Have Diagnosis and Disposition been Completed?: No Diagnosis: Nausea vomiting and diarrhea, Abdominal pain Disposition Time: 07:00 Patient Problems: Current Active Problems Problem Status Onset Abdominal pain Acute Nausea vomiting and diarrhea Acute Condition: STABLE Forms: [facility] (Burmese)
[2018-08-07] MEDS ORDERED: Morphine 4 mg/ml ISec IVP STA (05:55)
[2018-08-07] MEDS ORDERED: Morphine 4 mg/ml ISec ONE (05:58)
[2018-08-07] MEDS: Sodium Chloride 0.9% 1,000 ML IV SCH ×2 (06:05→18:09)
[2018-08-07 06:09] LABS: MEAN CELL VOLUME 77.8 fl (80.0-105.0); MEAN CORPUSCULAR HEMOGLOBIN 23.6 pg (25.0-35.0); MEAN CORPUSCULAR HGB CONC 30.3 g/dl (31.0-37.0); MEAN PLATELET VOLUME 8.6 fl (7.0-11.0); RBC 4.37 10^6/uL (3.5-6.1); RED CELL DISTRIBUTION WIDTH 20.8 % (11.5-14.5); WHITE BLOOD COUNT 6.3 10^3/uL (4.5-11.0)
[2018-08-07 06:39] LABS: HEMOGLOBIN 10.3 g/dL (12.0-16.0)
[2018-08-07 07:16] LABS: ALB/GLOB RATIO 0.8 (1.1-1.8); ALBUMIN 3.9 g/dL (3.0-4.8); ALT/SGPT 19 U/L (7-56); AST/SGOT 36 U/L (14-36); BLOOD UREA NITROGEN 16 mg/dL (7-21); CALCIUM 10.1 mg/dL (8.4-10.5); GFR NON-AFRICAN AMERICAN 57; LIPASE 169 U/L (23-300)
--- NOTE | 2018-08-07 08:07 | RAD ---
Date of service: 08/07/2018 HISTORY: vomiting COMPARISON: Chest radiographs 07/25/2018. FINDINGS: LUNGS: No acute infiltrates bilaterally. Improved inspiratory volume bilaterally. PLEURA: No significant pleural effusion identified, no pneumothorax apparent. CARDIOVASCULAR: No aortic atherosclerotic calcification present. Normal cardiac size. No pulmonary vascular congestion. OSSEOUS STRUCTURES: No significant abnormalities. VISUALIZED UPPER ABDOMEN: Normal. OTHER FINDINGS: None. IMPRESSION: No interval acute cardiopulmonary disease appreciated.
--- NOTE | 2018-08-07 08:48 | ED PDOC ---
Physical Exam Vital Signs Temp Pulse Resp BP Pulse Ox 08/07/18 07:22 60 15 134/85 97 08/07/18 05:28 97.7 F 75 18 137/77 100 Medical Decision Making ED Course and Treatment: 08/07/18 07:00 Case endorsed to me by Dr. Coelho. Pending labs, response to treatment, reassessment and final disposition. 08/07/18 08:49 Upon reassessment of patient, patient states she is feeling is bloated. She does not feel ready to go home. Patient to be administered medication for nausea, and will call her PMD Dr. Angulo. Re-evaluation Time: 08:50 Reassessment Condition: Re-examined, Unchanged (Case d/w Dr. Nick, hospitalist, accepts pt to her service. (Pt's PCP Dr. Angulo admits to hospitalist)) - Lab Interpretations Lab Results: 08/07/18 05:50 08/07/18 05:50 Lab Results 08/07/18 05:50: WBC 6.3 D, RBC 4.37, Hgb 10.3 L D, Hct 34.0 L, MCV 77.8 L, MCH 23.6 L, MCHC 30.3 L, RDW 20.8 H, Plt Count 327, MPV 8.6 08/07/18 05:50: Sodium 138, Potassium 4.0, Chloride 101, Carbon Dioxide 28, Anion Gap 13, BUN 16, Creatinine 1.0, Est GFR ( Amer) > 60, Est GFR (Non- Af Amer) 57, Random Glucose 107, Calcium 10.1, Total Bilirubin 0.3, AST 36 D, ALT 19, Alkaline Phosphatase 93, Total Protein 8.8 H, Albumin 3.9, Globulin 4.9, Albumin/Globulin Ratio 0.8 L, Lipase 169 - RAD Interpretation Radiology Orders: 08/07/18 05:48 CHEST PORTABLE [RAD] Stat - Medication Orders Current Medication Orders: Sodium Chloride (Sodium Chloride 0.9%) 1,000 mls @ 100 mls/hr IV .Q10H [place] Last Admin: 08/07/18 06:05 Dose: 100 mls/hr eMAR Start Stop Document 08/07/18 06:05 JOAna Maria (Rec: 08/07/18 06:05 JOL [id number]) Intravenous Solution Start Date 08/07/18 Start Time 06:00 Discontinued Medications Famotidine (Pepcid) 20 mg IVP STAT STA Stop: 08/07/18 05:51 Last Admin: 08/07/18 06:06 Dose: 20 mg IVP Administration Document 08/07/18 06:06 JOL (Rec: 08/07/18 06:06 [id number] Charges for Administration # of IVP Administrations 1 Morphine Sulfate (Morphine) 4 mg IVP STAT STA Stop: 08/07/18 05:56 Last Admin: 08/07/18 06:04 Dose: 4 mg MAR Pain Assessment Document 08/07/18 06:04 JOL (Rec: 08/07/18 06:05 [id number] Pain Reassessment Is this a pain reassessment? No Sleep Is patient sleeping during reassessment? No Presence of Pain Presence of Pain Yes Pain Scale Used Protocol: PSCALES Pain Scale Used Numeric Location Pain Location Body Site Abdomen Description Intensity of Pain at present 7 IVP Administration Document 08/07/18 06:04 JOL (Rec: 08/07/18 06:05 [id number]) Charges for Administration # of IVP Administrations 1 Ondansetron HCl (Zofran Inj) 4 mg IVP ONCE ONE Stop: 08/07/18 05:51 Last Admin: 08/07/18 06:04 Dose: 4 mg IVP Administration Document 08/07/18 06:04 JOL (Rec: 08/07/18 06:04 [id number] Charges for Administration # of IVP Administrations 1 - Scribe Statement The provider has reviewed the documentation as recorded by the Esteban Melgar Provider Scribe Attestation: All medical record entries made by the Sheilaibkenan were at my direction and personally dictated by me. I have reviewed the chart and agree that the record accurately reflects my personal performance of the history, physical exam, medical decision making, and the department course for this patient. I have also personally directed, reviewed, and agree with the discharge instructions and disposition. Disposition/Present on Arrival - Present on Arrival Any Indicators Present on Arrival: No History of DVT/PE: No History of Uncontrolled Diabetes: No Urinary Catheter: No History of Decub. Ulcer: No History Surgical Site Infection Following: None - Disposition Have Diagnosis and Disposition been Completed?: Yes Diagnosis: Nausea vomiting and diarrhea, Abdominal pain, Intractable pain Disposition: HOSPITALIZED Disposition Time: 09:21 Patient Plan: Admission Patient Problems: Current Active Problems Problem Status Onset Abdominal pain Acute Nausea vomiting and diarrhea Acute Condition: STABLE
--- NOTE | 2018-08-07 09:26 | CARD ---
APPROVED REPORT Date of service: 08/07/2018 EKG Measurement Heart [id number] <Conclusion> Sinus bradycardia No change except the rate is slower and the QTc has increased
[2018-08-07 11:09] LABS: PH,URINE 7.5 (4.7-8.0); URINE BILIRUBIN NEGATIVE (NEGATIVE); URINE BLOOD NEGATIVE (NEGATIVE); URINE GLUCOSE (UA) NEGATIVE (NEGATIVE); URINE LEUKOCYTE ESTERASE MODERATE Leu/uL (NEGATIVE); URINE PROTEIN NEGATIVE mg/dL (<30 mg/dL); URINE UROBILINOGEN 0.2 E.U./dL (<1 E.U./dL)
[2018-08-07 11:10] LABS: URINE APPEARANCE CLOUDY (CLEAR); URINE COLOR LIGHT YELLOW (YELLOW)
[2018-08-07 11:22] LABS: URINE BACTERIA MANY (NEG); URINE RBC NEGATIVE /hpf (0-2)
[2018-08-07] MEDS: HYDROmorphone 2 mg/ml ISec IVP PRN ×3 (11:46→20:00)
--- NOTE | 2018-08-07 12:34 | CP.PCM.CON ---
<Yonathan Kimble - Last Filed: 08/07/18 13:06> History of Present Illness - History of Present Illness History of Present Illness: PGY6 GI Fellow Consult Note Patient is a 58yo female with PMHx significant for chronic back pain following numerous spinal surgeries on chronic opioid therapy, chronic abdominal pain, suspected gastroparesis 2/2 opiate use, HTN, anemia who presented to the ED with abdominal pain, nausea and vomiting. Patient was just admitted for acute pancreatitis of unclear etiology. Following discharge patient was feeling well with little to no abdominal discomfort and quickly advanced herself to a full diet. In the days leading up to this admission, she admits to eating poke bowls (tuna, rice, vegetables) and developed progressively worsening abdominal bloating and eventually nausea/vomiting. Denies any changes in medications and has not been using any OTC medications. As symptoms did not resolve, she came to the ED for further evaluation. Denies constipation, fever, chills, EtOH intake, hematochezia, melena. 12 system ROS performed and negative except where stated PMHx: See HPI PSHx: Cholecystectomy, multiple spinal procedures (laminectomy, fusions) FHx: Father with "pancreatic nodules" Social: Quit smoking >10 years ago, no EtOH or illicit drug use Endo: EGD 05/2016 - [place] esophagitis EGD 06/2015 - unremarkable EGD 06/2013 - unremarkable Past Patient History - Infectious Disease Hx of Infectious Diseases: None - Tetanus Immunizations Tetanus Immunization: Unknown - Past Social History Smoking Status: Never Smoked - CARDIAC Hx Cardiac Disorders: Yes Hx Heart Murmur: Yes Hx Hypertension: Yes - PULMONARY Hx Respiratory Disorders: Yes (USED TO SMOKE. QUIT 25 YRS AGO) - NEUROLOGICAL Hx Neurological Disorder: No - HEENT Hx HEENT Problems: No - RENAL Hx Chronic Kidney Disease: No - ENDOCRINE/METABOLIC Hx Endocrine Disorders: No - HEMATOLOGICAL/ONCOLOGICAL Hx Blood Disorders: Yes Hx Anemia: Yes Other/Comment: hx blood transfusion - INTEGUMENTARY Hx Dermatological Problems: No - MUSCULOSKELETAL/RHEUMATOLOGICAL Hx Musculoskeletal Disorders: Yes Hx Arthritis: Yes Hx Back Pain: Yes Hx Degenerative Joint Disease: Yes Hx Falls: No Hx Unsteady Gait: Yes (uses a cane "sometimes") Other/Comment: extremity weakness - GASTROINTESTINAL Hx Gastrointestinal Disorders: Yes (nausea vomiting) Hx Gastroesophageal Reflux: Yes Other/Comment: celiac disease, colitis, gastroparesis, gastritis, hepatomegaly hx portal htn, fatty liver - GENITOURINARY/GYNECOLOGICAL Hx Urinary Tract Infection: Yes - PSYCHIATRIC Hx Psychophysiologic Disorder: No Hx Emotional Abuse: No Hx Physical Abuse: No Hx Substance Use: No - SURGICAL HISTORY Hx Cholecystectomy: Yes Hx Hysterectomy: Yes (sepsis post hyst) Other/Comment: cut spincter leading to bile duct,#1 laminectomy 1993, #2 L4 L5 S1 fusion 1998, #3 ablation spine 2009, #4 L2 L3 fusion 2010,multiple epidurals - ANESTHESIA Hx Anesthesia: Yes Hx Anesthesia Reactions: No Hx Malignant Hyperthermia: No Meds Allergies/Adverse Reactions: Allergies Allergy/AdvReac Type Severity Reaction Status Date / Time gluten AdvReac PAIN Verified 07/25/18 18:53 - Medications Medications: Current Medications Hydromorphone HCl (Dilaudid) 4 mg IVP Q4H PRN PRN Reason: Pain, severe (8-10) Last Admin: 08/07/18 11:46 Dose: 4 mg Sodium Chloride (Sodium Chloride 0.9%) 1,000 mls @ 100 mls/hr IV .Q10H [place] Last Admin: 08/07/18 06:05 Dose: 100 mls/hr Ondansetron HCl (Zofran Inj) 4 mg IVP Q6H PRN PRN Reason: Nausea/Vomiting Pantoprazole Sodium (Protonix Ec Tab) 40 mg PO ACB [place] Physical Exam - Constitutional Appears: Non-toxic, No Acute Distress - Eye Exam Eye Exam: EOMI, PERRL - ENT Exam ENT Exam: Mucous Membranes Moist - Respiratory Exam Respiratory Exam: Clear to Auscultation Bilateral. absent: Rales, Rhonchi, Wheezes - Cardiovascular Exam Cardiovascular Exam: RRR, +S1, +S2 - GI/Abdominal Exam GI & Abdominal Exam: Normal Bowel Sounds, Soft, Tenderness (LUQ, LLQ). absent: Distended, Firm, Guarding, Hernia, Organomegaly, Rigid - Extremities Exam Extremities exam: Positive for: normal inspection. Negative for: pedal edema - Neurological Exam Neurological exam: Alert, Oriented x3 - Psychiatric Exam Psychiatric exam: Normal Affect, Normal Mood - Skin Skin Exam: Dry, Warm Results - Vital Signs Recent Vital Signs: Last Vital Signs Temp 97.7 F 08/07/18 11:09 Pulse 60 08/07/18 11:09 Resp 16 08/07/18 11:09 BP 127/64 08/07/18 11:09 Pulse Ox 98 08/07/18 11:09 - Labs Result Diagrams: 08/07/18 05:50 08/07/18 05:50 Labs: Laboratory Results - last 24 hr 08/07/18 08/07/18 08/07/18 05:50 05:50 11:00 WBC 6.3 D RBC 4.37 Hgb 10.3 L D Hct 34.0 L MCV 77.8 L MCH 23.6 L MCHC 30.3 L RDW 20.8 H Plt Count 327 MPV 8.6 Sodium 138 Potassium 4.0 Chloride 101 Carbon Dioxide 28 Anion Gap 13 BUN 16 Creatinine 1.0 Est GFR ( Amer) > 60 Est GFR (Non-Af Amer) 57 Random Glucose 107 Calcium 10.1 Total Bilirubin 0.3 AST 36 D ALT 19 Alkaline Phosphatase 93 Total Protein 8.8 H Albumin 3.9 Globulin 4.9 Albumin/Globulin Ratio 0.8 L Lipase 169 Urine Color Light yellow Urine Appearance Cloudy Urine pH 7.5 Ur Specific Inlet 1.015 Urine Protein Negative Urine Glucose (UA) Negative Urine Ketones Negative Urine Blood Negative Urine Nitrate Negative Urine Bilirubin Negative Urine Urobilinogen 0.2 Ur Leukocyte Esterase Moderate H Urine RBC Negative Urine WBC 5 - 10 Ur Epithelial Cells 4 - 5 Urine Bacteria Many Assessment & Plan - Assessment and Plan (Free Text) Assessment: Patient is a 58yo female with PMHx significant for chronic back pain following numerous spinal surgeries on chronic opioid therapy, chronic abdominal pain, suspected gastroparesis 2/2 opiate use, HTN, anemia who presented to the ED with abdominal pain, nausea and vomiting -Abdominal pain, suspect exacerbation of underlying gastroparesis -Chronic opioid use Plan: -Recommend liquid diet and advance as tolerated with goal of 6 small meals, low fat/low fiber -Zofran PRN with cautious use of reglan if necessary - neurologic side effects of reglan explained to patient and she understands irreversible nature of EPS -Davin discussion regarding opiate use and ill effects - patient understands but unwilling to seek other solutions presently -Conservative, symptom-based management for now -May consider more advanced cross-sectional imaging if symptoms persist or worsen -For now, patient comfortable, laughing/joking - the concern of drug-seeking behavior should be entertained - Date & Time Date: 08/07/18 Time: 12:10 <Keesha,Kosrinivasan V - Last Filed: 08/09/18 22:56> Meds - Medications Medications: Current Medications Famotidine (Pepcid) 20 mg PO 1800 [place] Last Admin: 08/07/18 18:08 Dose: 20 mg Hydromorphone HCl (Dilaudid) 4 mg IVP Q4H PRN PRN Reason: Pain, severe (8-10) Last Admin: 08/07/18 20:00 Dose: 4 mg Sodium Chloride (Sodium Chloride 0.9%) 1,000 mls @ 100 mls/hr IV .Q10H [place] Last Admin: 08/07/18 18:09 Dose: 100 mls/hr Ondansetron HCl (Zofran Inj) 4 mg IVP Q6H PRN PRN Reason: Nausea/Vomiting Last Admin: 08/07/18 19:00 Dose: 4 mg Results - Vital Signs Recent Vital Signs: Last Vital Signs Temp 98.0 F 08/07/18 17:08 Pulse 61 08/07/18 17:08 Resp 20 08/07/18 17:08 BP 122/78 08/07/18 17:08 Pulse Ox 97 08/07/18 17:08 - Labs Result Diagrams: 08/09/18 06:00 08/09/18 06:00 Labs: Laboratory Results - last 24 hr 08/07/18 08/07/18 08/07/18 05:50 05:50 11:00 WBC 6.3 D RBC 4.37 Hgb 10.3 L D Hct 34.0 L MCV 77.8 L MCH 23.6 L MCHC 30.3 L RDW 20.8 H Plt Count 327 MPV 8.6 Sodium 138 Potassium 4.0 Chloride 101 Carbon Dioxide 28 Anion Gap 13 BUN 16 Creatinine 1.0 Est GFR ( Amer) > 60 Est GFR (Non-Af Amer) 57 Random Glucose 107 Calcium 10.1 Total Bilirubin 0.3 AST 36 D ALT 19 Alkaline Phosphatase 93 Total Protein 8.8 H Albumin 3.9 Globulin 4.9 Albumin/Globulin Ratio 0.8 L Lipase 169 Urine Color Light yellow Urine Appearance Cloudy Urine pH 7.5 Ur Specific Inlet 1.015 Urine Protein Negative Urine Glucose (UA) Negative Urine Ketones Negative Urine Blood Negative Urine Nitrate Negative Urine Bilirubin Negative Urine Urobilinogen 0.2 Ur Leukocyte Esterase Moderate H Urine RBC Negative Urine WBC 5 - 10 Ur Epithelial Cells 4 - 5 Urine Bacteria Many Attending/Attestation - Attestation I have personally seen and examined this patient.: Yes I have fully participated in the care of the patient.: Yes I have reviewed all pertinent clinical information: Yes Notes (Text): This is an addendum to GI consult report dictated by the GI Fellow. The patient was seen and examined earlier. Medical records, lab studies, imagings were r eviewed. Last 24 hours events reviewed. Agreed with the above treatment plan as outlined in GI Fellow 's notes with the addition of the following Admitted with the significant upper abdominal pain Could not keep food down Previous workup including most recent CT scan with a pancreatic protocol were reviewed On examination patient does have tenderness in the epigastr 1. Continue PPI #2 is elective EGD as an outpatient #3 is if there is further worsening of the symptoms will consider yearly e valuation 08/07/18 23:59 08/09/18 22:53
--- NOTE | 2018-08-07 13:24 | CP.PCM.HP ---
<Dylan Nick - Last Filed: 08/07/18 15:24> History of Present Illness - History of Present Illness History of Present Illness: Dylan Nick DO PGY1 - Internal Medicine [employer] - Medicine H&P CC: Abd Pain + N/V 58F w/ a PMHX of chronic back pain on daily dilaudid, multiple laminectomy/fus ion, narcotic gastroparesis, HTN, anemia, gastritis, and hepatic steatosis [place] [facility] [place] w/ CC of abd pain + N/V x2 days. Patient reported epigastric pain began 2 days ago followed by 1 day of nausea w/ episodes of non- bloody, non-bilious vomitus prior to admission. She was previously [place] [facility] [place] opioid-induced constipation/ medication induced pancreatitis. Patient reported that she did not comply with her diet after discharge. Currently reports a constant crampy epigastric pain with radiation along her RUQ and into her back. She reports multiple non bloody soft Bs at this time. Patient is also reporting associated dizziness, and headache as well. Remainder of 12 system ROS at this time is negative. PMD: Dr. Angulo Pain management: Dr. Gibson PMH: chronic back pain on daily dilaudid, multiple laminectomies/fusions, narcotic gastroparesis, HTN, anemia, gastritis, and hepatic steatosis SH: denies drinking, smoking and drugs Sx: laminectomy in 1993, L4/5 fusion in 1998, 2010 L3 fusion, 2013 hysterectomy, cholecystectomy FH: Heart disease in mother and father; Father also reports Hx alzheimer, bladder CA, pancreatic polyps. Meds: Famotidine 20 BID Hydromorphone 8 N6D-D3T PRN Exalgo 16mg ER Three tabs once a day All: gluten Present on Admission - Present on Admission Any Indicators Present on Admission: No Past Patient History - Infectious Disease Hx of Infectious Diseases: None - Tetanus Immunizations Tetanus Immunization: Unknown - Past Social History Smoking Status: Never Smoked - CARDIAC Hx Cardiac Disorders: Yes Hx Heart Murmur: Yes Hx Hypertension: Yes - PULMONARY Hx Respiratory Disorders: Yes (USED TO SMOKE. QUIT 25 YRS AGO) - NEUROLOGICAL Hx Neurological Disorder: No - HEENT Hx HEENT Problems: No - RENAL Hx Chronic Kidney Disease: No - ENDOCRINE/METABOLIC Hx Endocrine Disorders: No - HEMATOLOGICAL/ONCOLOGICAL Hx Blood Disorders: Yes Hx Anemia: Yes Other/Comment: hx blood transfusion - INTEGUMENTARY Hx Dermatological Problems: No - MUSCULOSKELETAL/RHEUMATOLOGICAL Hx Musculoskeletal Disorders: Yes Hx Arthritis: Yes Hx Back Pain: Yes Hx Degenerative Joint Disease: Yes Hx Falls: No Hx Unsteady Gait: Yes (uses a cane "sometimes") Other/Comment: extremity weakness - GASTROINTESTINAL Hx Gastrointestinal Disorders: Yes (nausea vomiting) Hx Gastroesophageal Reflux: Yes Other/Comment: celiac disease, colitis, gastroparesis, gastritis, hepatomegaly hx portal htn, fatty liver - GENITOURINARY/GYNECOLOGICAL Hx Urinary Tract Infection: Yes - PSYCHIATRIC Hx Psychophysiologic Disorder: No Hx Emotional Abuse: No Hx Physical Abuse: No Hx Substance Use: No - SURGICAL HISTORY Hx Cholecystectomy: Yes Hx Hysterectomy: Yes (sepsis post hyst) Other/Comment: cut spincter leading to bile duct,#1 laminectomy 1993, #2 L4 L5 S1 fusion 1998, #3 ablation spine 2009, #4 L2 L3 fusion 2010,multiple epidurals - ANESTHESIA Hx Anesthesia: Yes Hx Anesthesia Reactions: No Hx Malignant Hyperthermia: No Meds Allergies/Adverse Reactions: Allergies Allergy/AdvReac Type Severity Reaction Status Date / Time gluten AdvReac PAIN Verified 07/25/18 18:53 Physical Exam - Constitutional Appears: Well, Non-toxic, No Acute Distress - Head Exam Head Exam: ATRAUMATIC, NORMOCEPHALIC - Eye Exam Eye Exam: EOMI, Normal appearance, PERRL. absent: Scleral icterus - ENT Exam ENT Exam: Mucous Membranes Moist, Normal Exam - Respiratory Exam Respiratory Exam: Clear to Auscultation Bilateral, NORMAL BREATHING PATTERN - Cardiovascular Exam Cardiovascular Exam: RRR, +S1, +S2 - GI/Abdominal Exam GI & Abdominal Exam: Hypoactive Bowel Sounds, Soft, Tenderness (Epigastric + LUQ ) - Extremities Exam Extremities exam: Positive for: normal inspection, pedal pulses present - Neurological Exam Neurological exam: Alert, CN II-XII Intact, Oriented x3 - Psychiatric Exam Psychiatric exam: Normal Affect, Normal Mood - Skin Skin Exam: Dry, Intact, Normal Color, Warm Results - Vital Signs Recent Vital Signs: Last Vital Signs Temp 97.7 F 08/07/18 11:09 Pulse 60 08/07/18 11:09 Resp 16 08/07/18 11:09 BP 127/64 08/07/18 11:09 Pulse Ox 98 12/17/18 11:09 - Labs Result Diagrams: 08/07/18 05:50 08/07/18 05:50 Labs: Laboratory Results - last 24 hr 08/07/18 08/07/18 08/07/18 05:50 05:50 11:00 WBC 6.3 D RBC 4.37 Hgb 10.3 L D Hct 34.0 L MCV 77.8 L MCH 23.6 L MCHC 30.3 L RDW 20.8 H Plt Count 327 MPV 8.6 Sodium 138 Potassium 4.0 Chloride 101 Carbon Dioxide 28 Anion Gap 13 BUN 16 Creatinine 1.0 Est GFR ( Amer) > 60 Est GFR (Non-Af Amer) 57 Random Glucose 107 Calcium 10.1 Total Bilirubin 0.3 AST 36 D ALT 19 Alkaline Phosphatase 93 Total Protein 8.8 H Albumin 3.9 Globulin 4.9 Albumin/Globulin Ratio 0.8 L Lipase 169 Urine Color Light yellow Urine Appearance Cloudy Urine pH 7.5 Ur Specific Eastman 1.015 Urine Protein Negative Urine Glucose (UA) Negative Urine Ketones Negative Urine Blood Negative Urine Nitrate Negative Urine Bilirubin Negative Urine Urobilinogen 0.2 Ur Leukocyte Esterase Moderate H Urine RBC Negative Urine WBC 5 - 10 Ur Epithelial Cells 4 - 5 Urine Bacteria Many Assessment & Plan - Assessment and Plan (Free Text) Assessment: 58F w/ a PMHX of chronic back pain on daily dilaudid, multiple laminectomy/fusion, narcotic gastroparesis, HTN, anemia, gastritis, and hepatic steatosis [place] [facility] [place] w/ CC of abd pain + N/V x2 days. Patient admitted for management of abdominal pain as well as dizziness. Plan: Abdominal Pain 2/2 Gastroparesis due to chronic opiod use Lipase wnl WBC wnl Start Liquid diet Start Zofran 4m Q6H PRN C/w IVF NS @ 100cc GI consulted, appreciate reccs Chronic Back Pain: C/w Dilaudid 4mg Q4H PRN Prophylaxis DVT: SCD GI: Protonix Patient was seen, examined, and discussed w/ attending physician Dr. Celeste Nick DO PGY1 - Internal Medicine Journeyman [employer]eman - Medicine H&P - Date & Time Date: 08/07/18 Time: 14:20 <Celeste Nick R - Last Filed: 08/07/18 16:53> Results - Vital Signs Recent Vital Signs: Last Vital Signs Temp 97.7 F 08/07/18 11:09 Pulse 60 08/07/18 11:09 Resp 16 08/07/18 11:09 BP 127/64 08/07/18 11:09 Pulse Ox 98 08/07/18 11:09 - Labs Result Diagrams: 08/07/18 05:50 08/07/18 05:50 Labs: Laboratory Results - last 24 hr 08/07/18 08/07/18 08/07/18 05:50 05:50 11:00 WBC 6.3 D RBC 4.37 Hgb 10.3 L D Hct 34.0 L MCV 77.8 L MCH 23.6 L MCHC 30.3 L RDW 20.8 H Plt Count 327 MPV 8.6 Sodium 138 Potassium 4.0 Chloride 101 Carbon Dioxide 28 Anion Gap 13 BUN 16 Creatinine 1.0 Est GFR ( Amer) > 60 Est GFR (Non-Af Amer) 57 Random Glucose 107 Calcium 10.1 Total Bilirubin 0.3 AST 36 D ALT 19 Alkaline Phosphatase 93 Total Protein 8.8 H Albumin 3.9 Globulin 4.9 Albumin/Globulin Ratio 0.8 L Lipase 169 Urine Color Light yellow Urine Appearance Cloudy Urine pH 7.5 Ur Specific Eastman 1.015 Urine Protein Negative Urine Glucose (UA) Negative Urine Ketones Negative Urine Blood Negative Urine Nitrate Negative Urine Bilirubin Negative Urine Urobilinogen 0.2 Ur Leukocyte Esterase Moderate H Urine RBC Negative Urine WBC 5 - 10 Ur Epithelial Cells 4 - 5 Urine Bacteria Many Attending/Attestation - Attestation I have personally seen and examined this patient.: Yes I have fully participated in the care of the patient.: Yes I have reviewed all pertinent clinical information: Yes Notes (Text): Patient seen and examined by me with resident at 11:50AM on 08/07/18. Case including HPI, physical exam, and assessment and plan discussed with resident. Agree with above with following additions/corrections. 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 Patient was recently admitted for same symptoms with pancreatitis of unknown etiology and was discharged on 07/31/2018. Patient states that she was doing mild first few days home. He states that she has been eating a "Poke Bowl" once a day. Patient states that she has been feeling tired since being home. Approximately 2 days ago, patient started to have upper abdominal pain. Patient states that it's above her belly button, in the epigastric area and left upper quadrant area. The pain then radiates to the right upper quadrant and around to the right side of her back. Patient states that the pain is cramping in nature and constant. She states that her abdomen also feels "bloated." She states that the pain on a scale 1-10, 10 being the worst pain she has ever felt, is an 8 out of 10. She states that it can reach to be a 10 out of 10. Pain medications are helping. Patient states it feels like "gas pain." Patient also has associated nausea and vomiting. She also complains of associated dizziness and headache. She states that she had possible last night for dinner and is unsure if it was gluten-free. Patient states that she also started to have "soft stools" last night but no diarrhea. No bowel movements today. No fevers or chills. No dysuria or increased urinary frequency. No urinary urgency. No chest pain or shortness of breath. Patient with chronic back pain. 12 point review of systems reviewed by me. Please see above HPI, all other systems negative. Family history: Mother and had a history of heart disease. Father and has history of heart disease, bladder cancer, and Alzheimer's dementia. Social history: Patient is a former smoker and quit in her 20s. No alcohol or illicit drug use. 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 Physical exam: General: Awake and alert lying in bed in no acute distress HEENT: Normocephalic, atraumatic. Extraocular muscles intact, pupils equal and reactive, no scleral icterus. Oropharynx is pink and moist. Neck is supple.Hearing grossly intact. Ears and nose externally unremarkable. Cardiovascular: Regular rhythm. Normal S1 and S2.No murmurs, rubs, or gallops appreciated Pulmonary: Normal respiratory effort. No rhonchi, rales, or wheezing appreciated. Gastrointestinal: Soft, nondistended. Positive epigastric and left upper quadrant tenderness. Positive bowel sounds all 4 quadrants. No guarding. Musculoskeletal: Moves all extremities. No edema appreciated. No CVA tenderness. No calf tenderness. Central nervous system: AAO 3. Cranial nerves II-12 grossly intact. 5/5 muscle strength all extremities. Dermatologic: Skin warm and dry. Assessment and plan: Patient is a 58-year-old female past medical history significant for chronic back pain s/p multiple back surgeries on chronic opioid therapy, suspected narcotic gastroparesis, chronic abdominal pain, hypertension, anemia, gastritis, hepatic steatosis, and recent pancreatitis of unknown etiology that presented to the emergency room with abdominal pain, nausea, and vomiting. 1. Abdominal pain. Suspected narcotic gastroparesis. History of gastritis. Recent pancreatitis of unknown etiology. GI following, recommendations appreciated. Liquid diet with diet advancement as tolerated towards a goal 6 small meals that are low fat/low fiber recommended by GI. Continue with conservative management for now. Continue IV fluids. Continue Protonix. 2. Nausea and vomiting. Continue Zofran as needed. 3. Chronic anemia. H&H improved from previous. No signs of acute bleeding. Continue to monitor CBC. 4. Chronic back pain. Patient takes hydromorphone and Exalgo at home. Placed on Dilaudid here. 5. History of hypertension. Not on any medications. Normotensive. Continue to monitor. 6. GI/DVT prophylaxis. Protonix/SCDs. 7. Patient is a full code. Case was discussed in detail with the patient regarding current diagnosis and treatment plan. All questions answered.
[2018-08-07 17:11] VITALS: BMI 24.5
[2018-08-07] MEDS ORDERED: Pneumococcal 23-Valent Vaccine IM ONE (17:11)
[2018-08-07] MEDS ORDERED: Influenza Vaccine 60 mcg/0.5 mL SYR (4YR UP) IM ONE (17:11)
[2018-08-08] MEDS: HYDROmorphone 2 mg/ml ISec IVP PRN ×6 (00:16→20:39)
[2018-08-08 07:15] LABS: BASO # 0.06 K/mm3 (0.0-2.0); BASO % 1.5 % (0.0-3.0); EOS # 0.2 (0.0-0.7); GRAN # 2.39 (1.4-6.5); GRAN % 60.1 % (50.0-68.0); LYMPH # 1.1 (1.2-3.4); LYMPH % 27.1 % (22.0-35.0); MEAN CORPUSCULAR HEMOGLOBIN 23.1 pg (25.0-35.0); MEAN CORPUSCULAR HGB CONC 29.2 g/dl (31.0-37.0); MEAN PLATELET VOLUME 8.6 fl (7.0-11.0); MONO # 0.2 (0.1-0.6); MONO % 5.3 % (1.0-6.0); RBC 3.9 10^6/uL (3.5-6.1); RED CELL DISTRIBUTION WIDTH 20.9 % (11.5-14.5)
[2018-08-08] MEDS ORDERED: Pantoprazole 40 mg EC Tab PO SCH (07:30)
[2018-08-08 07:46] LABS: ALB/GLOB RATIO 0.8 (1.1-1.8); ALBUMIN 3.3 g/dL (3.0-4.8); ALT/SGPT 22 U/L (7-56); AST/SGOT 25 U/L (14-36); BLOOD UREA NITROGEN 13 mg/dL (7-21); CALCIUM 8.9 mg/dL (8.4-10.5); GFR NON-AFRICAN AMERICAN 57
--- NOTE | 2018-08-08 10:57 | CARD ---
APPROVED REPORT Date of service: 08/07/2018 EKG Measurement Heart [id number] <Conclusion> Normal sinus rhythm Prolonged QT
--- NOTE | 2018-08-08 10:58 | CARD ---
APPROVED REPORT Date of service: 08/07/2018 EKG Measurement Heart [id number] <Conclusion> Sinus bradycardia Prolonged QT No change
[2018-08-08] MEDS ORDERED: Simethicone 80 mg Chewtab PO PRN (11:44)
--- NOTE | 2018-08-08 11:44 | CP.PCM.PN ---
<Yonathan Kimble - Last Filed: 08/08/18 11:40> Subjective - Date & Time of Evaluation Date of Evaluation: 08/08/18 Time of Evaluation: 08:35 - Subjective Subjective: PGY6 GI Fellow Progress Note Patient seen and examined bedside this morning. The patient states that she is feeling better and was able to tolerate diet without issue. Still complains of bloating. 12 system ROS performed and negative except where stated Objective - Vital Signs/Intake and Output Vital Signs (last 24 hours): Temp Pulse Resp BP Pulse Ox 97.7 F 61 20 97/62 L 96 08/08/18 08:52 08/08/18 08:52 08/08/18 08:52 08/08/18 08:52 08/08/18 08:52 - Medications Medications: Current Medications Famotidine (Pepcid) 20 mg PO 1800 [place] Last Admin: 08/07/18 18:08 Dose: 20 mg Hydromorphone HCl (Dilaudid) 4 mg IVP Q4H PRN PRN Reason: Pain, severe (8-10) Last Admin: 08/08/18 08:31 Dose: 4 mg Sodium Chloride (Sodium Chloride 0.9%) 1,000 mls @ 100 mls/hr IV .Q10H [place] Last Admin: 08/07/18 18:09 Dose: 100 mls/hr Ondansetron HCl (Zofran Inj) 4 mg IVP Q6H PRN PRN Reason: Nausea/Vomiting Last Admin: 08/08/18 04:21 Dose: 4 mg - Labs Labs: 08/08/18 06:30 08/08/18 06:30 - Constitutional Appears: Non-toxic, No Acute Distress - Eye Exam Eye Exam: EOMI, PERRL - ENT Exam ENT Exam: Mucous Membranes Moist - Respiratory Exam Respiratory Exam: Clear to Ausculation Bilateral. absent: Rales, Rhonchi, Wheezes - Cardiovascular Exam Cardiovascular Exam: RRR, +S1, +S2 - GI/Abdominal Exam GI & Abdominal Exam: Soft, Normal Bowel Sounds. absent: Distended, Firm, Guarding, Rigid, Tenderness, Organomegaly - Extremities Exam Extremities Exam: Normal Inspection. absent: Pedal Edema - Neurological Exam Neurological Exam: Alert, Awake, Oriented x3 - Psychiatric Exam Psychiatric exam: Normal Affect, Normal Mood - Skin Skin Exam: Dry, Warm Assessment and Plan - Assessment and Plan (Free Text) Assessment: Patient is a 58yo female with PMHx significant for chronic back pain following numerous spinal surgeries on chronic opioid therapy, chronic abdominal pain, s uspected gastroparesis 2/2 opiate use, HTN, anemia who presented to the ED with abdominal pain, nausea and vomiting -Abdominal pain, suspect exacerbation of underlying gastroparesis -Chronic opioid use Plan: -Diet as tolerated - goal low fat/low fiber, small meals -Zofran PRN -Again, reiterated negative effects of opiates -Add Simethicone PRN -Patient has not tested positive for Celiac serologies and biopsies have been unremarkable - unable to assess HLA testing as report unavailable - may require repeat outpatient for confirmation -Outpatient EGD/Colonoscopy recommended and patient agrees to follow up and schedule tests -OK for D/C from GI standpoint if tolerating diet adequately <KeeshaCorrie chaudhari V - Last Filed: 08/08/18 15:55> Objective - Vital Signs/Intake and Output Vital Signs (last 24 hours): Temp Pulse Resp BP Pulse Ox 97.7 F 61 20 97/62 L 96 08/08/18 08:52 08/08/18 08:52 08/08/18 08:52 08/08/18 08:52 08/08/18 08:52 - Medications Medications: Current Medications Famotidine (Pepcid) 20 mg PO 1800 [place] Last Admin: 08/07/18 18:08 Dose: 20 mg Hydromorphone HCl (Dilaudid) 4 mg IVP Q4H PRN PRN Reason: Pain, severe (8-10) Last Admin: 08/08/18 12:18 Dose: 4 mg Sodium Chloride (Sodium Chloride 0.9%) 1,000 mls @ 100 mls/hr IV .Q10H [place] Last Admin: 08/08/18 15:45 Dose: 100 mls/hr Ondansetron HCl (Zofran Inj) 4 mg IVP Q6H PRN PRN Reason: Nausea/Vomiting Last Admin: 08/08/18 12:18 Dose: 4 mg Simethicone (Mylicon Chew Tab) 80 mg PO PCHS PRN PRN Reason: GI distress Last Admin: 08/08/18 12:18 Dose: 80 mg - Labs Labs: 08/08/18 06:30 08/08/18 06:30 Attending/Attestation - Attestation I have personally seen and examined this patient.: Yes I have fully participated in the care of the patient.: Yes I have reviewed all pertinent clinical information, including history, physical exam and plan: Yes Notes (Text): This is an addendum to GI progress report dictated by the GI Fellow. The patient was seen and examined earlier. Medical records, lab studies, imagings were reviewed. Last 24 hours events reviewed. Agreed with the above treatment plan as outlined in GI Fellow 's notes with the addition of the following Patient is feeling better. Tolerating diet. Discussed with the primary team. Stressed to the patient the importance of outpatient EGD and Colonoscopy. Patient agreed to follow up. 08/08/18 15:54
--- NOTE | 2018-08-08 15:28 | CP.PCM.PN ---
<Dylan Nick - Last Filed: 08/08/18 15:28> Subjective - Date & Time of Evaluation Date of Evaluation: 08/08/18 Time of Evaluation: 15:28 - Subjective Subjective: Dylan Nick DO PGY1 - Internal Medicine [employer] Consultant - Medicine Progress Note Patient was seen and examined at bedside this morning. No acute events reported overnight. Patient is tolerating CLD well this morning; will advance to full diet for lunch. Denies any worsening of abdominal pain, N/V/D/C, cp, sob. Objective - Vital Signs/Intake and Output Vital Signs (last 24 hours): Temp Pulse Resp BP Pulse Ox 97.7 F 61 20 97/62 L 96 08/08/18 08:52 08/08/18 08:52 08/08/18 08:52 08/08/18 08:52 08/08/18 08:52 - Medications Medications: Current Medications Famotidine (Pepcid) 20 mg PO 1800 [place] Last Admin: 08/07/18 18:08 Dose: 20 mg Hydromorphone HCl (Dilaudid) 4 mg IVP Q4H PRN PRN Reason: Pain, severe (8-10) Last Admin: 08/08/18 12:18 Dose: 4 mg Sodium Chloride (Sodium Chloride 0.9%) 1,000 mls @ 100 mls/hr IV .Q10H [place] Last Admin: 08/07/18 18:09 Dose: 100 mls/hr Ondansetron HCl (Zofran Inj) 4 mg IVP Q6H PRN PRN Reason: Nausea/Vomiting Last Admin: 08/08/18 12:18 Dose: 4 mg Simethicone (Mylicon Chew Tab) 80 mg PO PCHS PRN PRN Reason: GI distress Last Admin: 08/08/18 12:18 Dose: 80 mg - Labs Labs: 08/08/18 06:30 08/08/18 06:30 Physical Exam - Constitutional Appears: Well, Non-toxic, No Acute Distress - Head Exam Head Exam: ATRAUMATIC, NORMOCEPHALIC - Eye Exam Eye Exam: EOMI, Normal appearance, PERRL. absent: Scleral icterus - ENT Exam ENT Exam: Mucous Membranes Moist, Normal Exam - Respiratory Exam Respiratory Exam: Clear to Auscultation Bilateral, NORMAL BREATHING PATTERN - Cardiovascular Exam Cardiovascular Exam: RRR, +S1, +S2 - GI/Abdominal Exam GI & Abdominal Exam: Normoactive bowel sounds; epigastric and LUQ tenderness still present however relatively improved compared to prior examination - Extremities Exam Extremities exam: Positive for: normal inspection, pedal pulses present - Neurological Exam Neurological exam: Alert, CN II-XII Intact, Oriented x3 - Psychiatric Exam Psychiatric exam: Normal Affect, Normal Mood - Skin Skin Exam: Dry, Intact, Normal Color, Warm Assessment and Plan - Assessment and Plan (Free Text) Assessment: 58F w/ a PMHX of chronic back pain on daily dilaudid, multiple laminectomy/fusion, narcotic gastroparesis, HTN, anemia, gastritis, and hepatic steatosis presented [place] [facility] [facility] [place] w/ CC of abd pain + N/V x2 days. Patient admitted for management of abdominal pain as well as dizziness. Plan: Abdominal Pain 2/2 Gastroparesis due to chronic opioid use: WBC still wnl Tolerated CLD well yesterday; was advanced to regular diet today. As per GI goal is to tolerate low fat/ low fiber diet; and enjoy multiple small meals throughout the day versus three large meals. Continue monitoring tolerance to advanced diet at this time C/w Zofran 4m Q6H PRN Start Simethicone prn GI Following, appreciate recs As per GI: Outpatient EGD/Colonoscopy recommended and patient agrees to follow up and schedule tests; Patient has not tested positive for Celiac serologies and biopsies have been unremarkable - unable to assess HLA testing as report unavailable - may require repeat outpatient for confirmation C/w IVF NS @ 100cc GI consulted, appreciate reccs Chronic Back Pain: C/w Dilaudid 4mg Q4H PRN Prophylaxis DVT: SCD GI: Protonix Dispo: Will DC once patient is tolerating diet well Patient was seen, examined, and discussed w/ attending physician Dr. Celeste Nick DO PGY1 - Internal Medicine [employer] Consultant - Medicine H&P <Celeste Nick R - Last Filed: 08/08/18 18:53> Objective - Vital Signs/Intake and Output Vital Signs (last 24 hours): Temp Pulse Resp BP Pulse Ox 97.7 F 61 20 97/62 L 96 08/08/18 08:52 08/08/18 08:52 08/08/18 08:52 08/08/18 08:52 08/08/18 08:52 - Medications Medications: Current Medications Famotidine (Pepcid) 20 mg PO 1800 [place] Last Admin: 08/08/18 18:00 Dose: 20 mg Hydromorphone HCl (Dilaudid) 4 mg IVP Q4H PRN PRN Reason: Pain, severe (8-10) Last Admin: 08/08/18 16:24 Dose: 4 mg Ondansetron HCl (Zofran Inj) 4 mg IVP Q6H PRN PRN Reason: Nausea/Vomiting Last Admin: 08/08/18 12:18 Dose: 4 mg Polyethylene Glycol (Miralax) 17 gm PO DAILY [place] Last Admin: 08/08/18 18:00 Dose: 17 gm Simethicone (Mylicon Chew Tab) 80 mg PO PCHS PRN PRN Reason: GI distress Last Admin: 08/08/18 12:18 Dose: 80 mg - Labs Labs: 08/08/18 06:30 08/08/18 06:30 Attending/Attestation - Attestation I have personally seen and examined this patient.: Yes I have fully participated in the care of the patient.: Yes I have reviewed all pertinent clinical information, including history, physical exam and plan: Yes Notes (Text): Patient seen and examined by me with resident at 10:15 AM on 08/08/18. Case including HPI, physical exam, and assessment and plan discussed with resident. Agree with above with following additions/corrections. 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 Patient states she feels a little better today. States that she had broth and then became "bloated." Patient wants to try small meals. Patient states that she is still having some epigastric and left upper quadrant abdominal pain. Pain medications are helping. Still with some nausea. No vomiting. No fevers or chills. No headaches or dizziness. No chest pain or shortness of breath. No dysuria. Patient is having "soft" stools. Physical exam: General: Awake and alert lying in bed in no acute distress HEENT: Normocephalic, atraumatic. Extraocular muscles intact, pupils equal and reactive, no scleral icterus. Oropharynx is pink and moist. Neck is supple. Cardiovascular: Regular rhythm. Normal S1 and S2.No murmurs, rubs, or gallops appreciated Pulmonary: Normal respiratory effort. No rhonchi, rales, or wheezing appreciated. Gastrointestinal: Soft, nondistended. Positive improved epigastric and left upper quadrant tenderness. Positive bowel sounds all 4 quadrants. No guarding. Musculoskeletal: Moves all extremities. No edema appreciated. No CVA tenderness. No calf tenderness. Central nervous system: AAO 3. Cranial nerves 2-12 grossly intact. 5/5 muscle strength all extremities. Dermatologic: Skin warm and dry. Assessment and plan: Patient is a 58-year-old female past medical history significant for chronic back pain s/p multiple back surgeries on chronic opioid therapy, suspected narcotic gastroparesis, chronic abdominal pain, hypertension, anemia, gastritis, hepatic steatosis, and recent pancreatitis of unknown etiolog y that presented to the emergency room with abdominal pain, nausea, and vomiting. 1. Abdominal pain. Suspected narcotic gastroparesis. History of gastritis. Recent pancreatitis of unknown etiology. GI following, recommendations appreciated. Pain improved. Elevating liquid diet. Advanced to 6 small meals that are low fat/low fiber recommended by GI. Continue with conservative management for now. Continue Protonix. Continue Simethicone 3. Chronic anemia. H&H improved from previous. No signs of acute bleeding. Continue to monitor CBC. 4. Chronic back pain. Patient takes hydromorphone and Exalgo at home. Placed on Dilaudid here. Patient counseled on decreasing opioid use. 5. History of hypertension. Not on any medications. Normotensive. Continue to monitor. 6. GI/DVT prophylaxis. Protonix/SCDs. 7. Patient is a full code. Case was discussed in detail with the patient regarding diagnosis and treatment plan. All questions answered.
[2018-08-08] MEDS: Sodium Chloride 0.9% 1,000 ML IV SCH (15:45)
[2018-08-08] MEDS: POLYETHYLENE GLYCOL 3350 17 GM/Dose PACKET PO SCH (18:00)
[2018-08-09] MEDS: HYDROmorphone 2 mg/ml ISec IVP PRN ×3 (01:00→08:42)
[2018-08-09 07:06] VITALS: BP 125/80; PULSE 65; RESP 20; TEMP 97.8; O2SAT 96
[2018-08-09 07:12] LABS: BASO # 0.03 K/mm3 (0.0-2.0); BASO % 0.7 % (0.0-3.0); EOS # 0.4 (0.0-0.7); EOS % 9.1 % (1.5-5.0); GRAN # 2.21 (1.4-6.5); GRAN % 51.3 % (50.0-68.0); LYMPH # 1.4 (1.2-3.4); LYMPH % 32.6 % (22.0-35.0); MEAN CELL VOLUME 79.3 fl (80.0-105.0); MEAN CORPUSCULAR HEMOGLOBIN 23.3 pg (25.0-35.0); MEAN CORPUSCULAR HGB CONC 29.4 g/dl (31.0-37.0); MEAN PLATELET VOLUME 8.8 fl (7.0-11.0); MONO # 0.3 (0.1-0.6); MONO % 6.3 % (1.0-6.0); RBC 3.86 10^6/uL (3.5-6.1); RED CELL DISTRIBUTION WIDTH 20.2 % (11.5-14.5); WHITE BLOOD COUNT 4.3 10^3/uL (4.5-11.0)
[2018-08-09 07:39] LABS: ALB/GLOB RATIO 0.8 (1.1-1.8); ALBUMIN 3.4 g/dL (3.0-4.8); ALT/SGPT 18 U/L (7-56); AST/SGOT 20 U/L (14-36); BLOOD UREA NITROGEN 16 mg/dL (7-21); GFR NON-AFRICAN AMERICAN 51
[2018-08-09] MEDS: POLYETHYLENE GLYCOL 3350 17 GM/Dose PACKET PO SCH (09:40)
--- NOTE | 2018-08-09 11:04 | CP.PCM.PN ---
<Yonathan Kimble - Last Filed: 08/09/18 11:02> Subjective - Date & Time of Evaluation Date of Evaluation: 08/09/18 Time of Evaluation: 08:30 - Subjective Subjective: PGY6 GI Fellow Progress Note Patient seen and examined bedside this morning. The patient states pain is improved and she is tolerating diet and passing stool. Claims she walked the floor which seemed to help symptoms. 12 system ROS performed and negative except where stated Objective - Vital Signs/Intake and Output Vital Signs (last 24 hours): Temp Pulse Resp BP Pulse Ox 97.8 F 65 20 125/80 96 08/09/18 06:00 08/09/18 06:00 08/09/18 06:00 08/09/18 06:00 08/09/18 06:00 - Medications Medications: Current Medications Famotidine (Pepcid) 20 mg PO 1800 [place] Last Admin: 08/08/18 18:00 Dose: 20 mg Hydromorphone HCl (Dilaudid) 4 mg IVP Q4H PRN PRN Reason: Pain, severe (8-10) Last Admin: 08/09/18 08:42 Dose: 4 mg Ondansetron HCl (Zofran Inj) 4 mg IVP Q6H PRN PRN Reason: Nausea/Vomiting Last Admin: 08/08/18 20:41 Dose: 4 mg Polyethylene Glycol (Miralax) 17 gm PO DAILY [place] Last Admin: 08/09/18 09:40 Dose: 17 gm Simethicone (Mylicon Chew Tab) 80 mg PO PCHS PRN PRN Reason: GI distress Last Admin: 08/08/18 12:18 Dose: 80 mg - Labs Labs: 08/09/18 06:00 08/09/18 06:00 - Constitutional Appears: Non-toxic, No Acute Distress - Eye Exam Eye Exam: EOMI, PERRL - ENT Exam ENT Exam: Mucous Membranes Moist - Respiratory Exam Respiratory Exam: Clear to Ausculation Bilateral. absent: Rales, Rhonchi, Wheezes - Cardiovascular Exam Cardiovascular Exam: RRR, +S1, +S2 - GI/Abdominal Exam GI & Abdominal Exam: Soft, Tenderness (diffusely, improved), Normal Bowel Sounds. absent: Distended, Firm, Guarding, Rigid, Organomegaly - Extremities Exam Extremities Exam: Normal Inspection. absent: Pedal Edema - Neurological Exam Neurological Exam: Alert, Awake, Oriented x3 - Psychiatric Exam Psychiatric exam: Normal Affect, Normal Mood - Skin Skin Exam: Dry, Warm Assessment and Plan - Assessment and Plan (Free Text) Assessment: Patient is a 58yo female with PMHx significant for chronic back pain following numerous spinal surgeries on chronic opioid therapy, chronic abdominal pain, suspected gastroparesis 2/2 opiate use, HTN, anemia who presented to the ED with abdominal pain, nausea and vomiting -Abdominal pain, suspect exacerbation of underlying gastroparesis -Chronic opioid use Plan: -Diet as tolerated - goal low fat/low fiber, small meals -Zofran and Simethicone PRN -Patient has not tested positive for Celiac serologies and biopsies have been unremarkable - unable to assess HLA testing as report unavailable - may require repeat outpatient for confirmation -Outpatient EGD/Colonoscopy recommended and patient agrees to follow up and schedule tests -OK for D/C from GI standpoint if tolerating diet adequately <Corrie Thao V - Last Filed: 08/09/18 22:52> Objective - Vital Signs/Intake and Output Vital Signs (last 24 hours): Temp Pulse Resp BP Pulse Ox 97.8 F 65 20 125/80 96 08/09/18 06:00 08/09/18 06:00 08/09/18 06:00 08/09/18 06:00 08/09/18 06:00 - Labs Labs: 08/09/18 06:00 08/09/18 06:00 Attending/Attestation - Attestation I have personally seen and examined this patient.: Yes I have fully participated in the care of the patient.: Yes I have reviewed all pertinent clinical information, including history, physical exam and plan: Yes Notes (Text): This is an addendum to GI progress report dictated by the GI Fellow. The patient was seen and examined earlier. Medical records, lab studies, imagings were reviewed. Last 24 hours events reviewed. Agreed with the above treatment plan as outlined in GI Fellow 's notes with the addition of the following Tolerating diet Patient was feeling better Once again I told her the importance of outpatient follow-up for and advised to call our office to have EGD and colonoscopy scheduled. Questionable history of celiac disease , reviewed previous workup was not suggestive In view of the epigastric pain she would benefit from the EGDas an outpatient 08/09/18 22:49
--- NOTE | 2018-08-09 18:26 | CP.PCM.DIS ---
<Dylan Nick - Last Filed: 08/09/18 18:36> Provider - Provider Date of Admission: 08/07/18 09:22 Attending physician: Celeste Nick DO Primary care physician: Dr. Landen Angulo Consults: 08/07/18 10:51 Physician Consult Routine Comment: Consulting Provider: Corrie Thao V Consulting Physician: Corrie Thao V Reason for Consult: gastroparesis, abd pain Time Spent in preparation of Discharge (in minutes): 45 Diagnosis - Discharge Diagnosis (1) Gastroparesis Status: Acute Priority: High (2) Abdominal pain Status: Acute Priority: High (3) Chronic prescription opiate use Status: Chronic Hospital Course - Lab Results Lab Results: Most Recent Lab Values WBC 4.3 10^3/uL (4.5-11.0) L 08/09/18 06:00 RBC 3.86 10^6/uL (3.5-6.1) 08/09/18 06:00 Hgb 9.0 g/dL (12.0-16.0) L 08/09/18 06:00 Hct 30.6 % (36.0-48.0) L 08/09/18 06:00 MCV 79.3 fl (80.0-105.0) L 08/09/18 06:00 MCH 23.3 pg (25.0-35.0) L 08/09/18 06:00 MCHC 29.4 g/dl (31.0-37.0) L 08/09/18 06:00 RDW 20.2 % (11.5-14.5) H 08/09/18 06:00 Plt Count 251 10^3/uL (120.0-450.0) 08/09/18 06:00 MPV 8.8 fl (7.0-11.0) 08/09/18 06:00 Gran % 51.3 % (50.0-68.0) 08/09/18 06:00 Lymph % (Auto) 32.6 % (22.0-35.0) 08/09/18 06:00 [place] % (Auto) 6.3 % (1.0-6.0) H 08/09/18 06:00 Eos % (Auto) 9.1 % (1.5-5.0) H 08/09/18 06:00 Baso % (Auto) 0.7 % (0.0-3.0) 08/09/18 06:00 Gran # 2.21 (1.4-6.5) 08/09/18 06:00 Lymph # (Auto) 1.4 (1.2-3.4) 08/09/18 06:00 [place] # (Auto) 0.3 (0.1-0.6) 08/09/18 06:00 Eos # (Auto) 0.4 (0.0-0.7) 08/09/18 06:00 Baso # (Auto) 0.03 K/mm3 (0.0-2.0) 08/09/18 06:00 Sodium 138 mmol/L (132-148) 08/09/18 06:00 Potassium 4.5 mmol/L (3.6-5.0) 08/09/18 06:00 Chloride 108 mmol/L (98-107) H 08/09/18 06:00 Carbon Dioxide 26 mmol/L (21-33) 08/09/18 06:00 Anion Gap 9 (10-20) L 08/09/18 06:00 BUN 16 mg/dL (7-21) 08/09/18 06:00 Creatinine 1.1 mg/dl (0.7-1.2) 08/09/18 06:00 Est GFR ( Amer) > 60 08/09/18 06:00 Est GFR (Non-Af Amer) 51 08/09/18 06:00 Random Glucose 134 mg/dL (70-110) H 08/09/18 06:00 Calcium 9.0 mg/dL (8.4-10.5) 08/09/18 06:00 Total Bilirubin 0.2 mg/dL (0.2-1.3) 08/09/18 06:00 AST 20 U/L (14-36) 08/09/18 06:00 ALT 18 U/L (7-56) 08/09/18 06:00 Alkaline Phosphatase 77 U/L (38-126) 08/09/18 06:00 Total Protein 7.6 g/dL (5.8-8.3) 08/09/18 06:00 Albumin 3.4 g/dL (3.0-4.8) 08/09/18 06:00 Globulin 4.2 gm/dL 08/09/18 06:00 Albumin/Globulin Ratio 0.8 (1.1-1.8) L 08/09/18 06:00 Lipase 169 U/L (23-300) 08/07/18 05:50 Urine Color Light yellow (YELLOW) 08/07/18 11:00 Urine Appearance Cloudy (CLEAR) 08/07/18 11:00 Urine pH 7.5 (4.7-8.0) 08/07/18 11:00 Ur Specific [place] 1.015 (1.005-1.035) 08/07/18 11:00 Urine Protein Negative mg/dL (<30 mg/dL) 08/07/18 11:00 Urine Glucose (UA) Negative mg/dL (NEGATIVE) 08/07/18 11:00 Urine Ketones Negative mg/dL (NEGATIVE) 08/07/18 11:00 Urine Blood Negative (NEGATIVE) 08/07/18 11:00 Urine Nitrate Negative (NEGATIVE) 08/07/18 11:00 Urine Bilirubin Negative (NEGATIVE) 08/07/18 11:00 Urine Urobilinogen 0.2 E.U./dL (<1 E.U./dL) 08/07/18 11:00 Ur Leukocyte Esterase Moderate Kiana/uL (NEGATIVE) H 08/07/18 11:00 Urine RBC Negative /hpf (0-2) 08/07/18 11:00 Urine WBC 5 - 10 /hpf (0-6) 08/07/18 11:00 Ur Epithelial Cells 4 - 5 /hpf (0-5) 08/07/18 11:00 Urine Bacteria Many (NEG) 08/07/18 11:00 - Hospital Course Hospital Course: Dylan Nick DO PGY1 - Internal Medicine Stock Shipper - Medicine Discharge Summary 58F w/ a PMH of Chronic pack pain on daily dilaudid, multiple laminectomy/ fusion surgeries, opiate induced gastroparesis, chronic anemia admitted to [facility] ED on 08/07 w/ a CC of abd pain, N/V x2 days. Patient was recently DC from [facility] 2/2 opiate induced constipation/ medicaiton induced pancreatitis. She reported non compliance w/ dietary recommendations shortly after previous discharge. She was subsequently admitted for management of opiate induced gastroparesis. Patient was initially trialed on liquid diet and started on maintenance IVF. GI was consulted who recommended Zofran and Simethicone PRN, as well as advancing the patient's diet as tolerated. She was recommended to have further workup of ceiliac serolgies, colonoscopy, and endoscopy as outpatient. During admission, as diet was advanced patient was closely monitored, and found to tolerate diet well. Prior to discharge patient patient was evaluated at bedside. She had tolerated smaller portion heart healthy low fat/ fiber diet well. Patient was moving her bowels, and voiding appropriately. She voiced no other complaints at bedside during evaluation. Disclaimer: This is a brief synopsis of patient's hospitalization; for full hospital course please refer to EMR. Discharge Exam - Head Exam Head Exam: ATRAUMATIC, NORMOCEPHALIC - Eye Exam Eye Exam: EOMI, Normal appearance, PERRL Pupil Exam: PERRL - Respiratory Exam Respiratory Exam: Clear to PA & Lateral, NORMAL BREATHING PATTERN, UNREMARKABLE - Cardiovascular Exam Cardiovascular Exam: RRR, +S1, +S2 - GI/Abdominal Exam GI & Abdominal Exam: Normal Bowel Sounds, Soft, Unremarkable. absent: Tenderness - Extremities Exam Extremities exam: pedal pulses present - Neurological Exam Neurological exam: Alert, CN II-XII Intact, Oriented x3 - Psychiatric Exam Psychiatric exam: Normal Affect, Normal Mood - Skin Skin Exam: Dry, Intact, Normal Color, Warm Discharge Plan - Follow Up Plan Condition: STABLE Disposition: HOME/ ROUTINE Instructions: Low Cholesterol, Saturated Fat, and Trans Fat Diet , Acute Abdomen (Belly Pain), Adult (DC) Additional Instructions: Please follow up with Dr. Angulo, primary medical doctor, within 3-5 days. Recommend soft low fat, low residual diet with 6 SMALL meals per day. Continue home medication. You can follow up with Dr. Thao as outpatient for endoscopy and possible colonoscopy within 7 days of discharge. If your symptoms worsen, please go to the nearest emergency department. Referrals: Landen Angulo MD [Family Provider] - Corrie Thao MD [Medical Doctor] - <Celeste Nick - Last Filed: 08/11/18 14:48> Provider - Provider Date of Admission: 08/07/18 09:22 Attending physician: Celeste Nick DO Consults: 08/07/18 10:51 Physician Consult Routine Comment: Consulting Provider: Corrie Thao V Consulting Physician: Corrie Thao V Reason for Consult: gastroparesis, abd pain Hospital Course - Lab Results Lab Results: Most Recent Lab Values WBC 4.3 10^3/uL (4.5-11.0) L 08/09/18 06:00 RBC 3.86 10^6/uL (3.5-6.1) 08/09/18 06:00 Hgb 9.0 g/dL (12.0-16.0) L 08/09/18 06:00 Hct 30.6 % (36.0-48.0) L 08/09/18 06:00 MCV 79.3 fl (80.0-105.0) L 08/09/18 06:00 MCH 23.3 pg (25.0-35.0) L 08/09/18 06:00 MCHC 29.4 g/dl (31.0-37.0) L 08/09/18 06:00 RDW 20.2 % (11.5-14.5) H 08/09/18 06:00 Plt Count 251 10^3/uL (120.0-450.0) 08/09/18 06:00 MPV 8.8 fl (7.0-11.0) 08/09/18 06:00 Gran % 51.3 % (50.0-68.0) 08/09/18 06:00 Lymph % (Auto) 32.6 % (22.0-35.0) 08/09/18 06:00 Jennings % (Auto) 6.3 % (1.0-6.0) H 08/09/18 06:00 Eos % (Auto) 9.1 % (1.5-5.0) H 08/09/18 06:00 Baso % (Auto) 0.7 % (0.0-3.0) 08/09/18 06:00 Gran # 2.21 (1.4-6.5) 08/09/18 06:00 Lymph # (Auto) 1.4 (1.2-3.4) 08/09/18 06:00 Jennings # (Auto) 0.3 (0.1-0.6) 08/09/18 06:00 Eos # (Auto) 0.4 (0.0-0.7) 08/09/18 06:00 Baso # (Auto) 0.03 K/mm3 (0.0-2.0) 08/09/18 06:00 Sodium 138 mmol/L (132-148) 08/09/18 06:00 Potassium 4.5 mmol/L (3.6-5.0) 08/09/18 06:00 Chloride 108 mmol/L (98-107) H 08/09/18 06:00 Carbon Dioxide 26 mmol/L (21-33) 08/09/18 06:00 Anion Gap 9 (10-20) L 08/09/18 06:00 BUN 16 mg/dL (7-21) 08/09/18 06:00 Creatinine 1.1 mg/dl (0.7-1.2) 08/09/18 06:00 Est GFR ( Amer) > 60 08/09/18 06:00 Est GFR (Non-Af Amer) 51 08/09/18 06:00 Random Glucose 134 mg/dL (70-110) H 08/09/18 06:00 Calcium 9.0 mg/dL (8.4-10.5) 08/09/18 06:00 Total Bilirubin 0.2 mg/dL (0.2-1.3) 08/09/18 06:00 AST 20 U/L (14-36) 08/09/18 06:00 ALT 18 U/L (7-56) 08/09/18 06:00 Alkaline Phosphatase 77 U/L (38-126) 08/09/18 06:00 Total Protein 7.6 g/dL (5.8-8.3) 08/09/18 06:00 Albumin 3.4 g/dL (3.0-4.8) 08/09/18 06:00 Globulin 4.2 gm/dL 08/09/18 06:00 Albumin/Globulin Ratio 0.8 (1.1-1.8) L 08/09/18 06:00 Lipase 169 U/L (23-300) 08/07/18 05:50 Urine Color Light yellow (YELLOW) 08/07/18 11:00 Urine Appearance Cloudy (CLEAR) 08/07/18 11:00 Urine pH 7.5 (4.7-8.0) 08/07/18 11:00 Ur Specific [place] 1.015 (1.005-1.035) 08/07/18 11:00 Urine Protein Negative mg/dL (<30 mg/dL) 08/07/18 11:00 Urine Glucose (UA) Negative mg/dL (NEGATIVE) 08/07/18 11:00 Urine Ketones Negative mg/dL (NEGATIVE) 08/07/18 11:00 Urine Blood Negative (NEGATIVE) 08/07/18 11:00 Urine Nitrate Negative (NEGATIVE) 08/07/18 11:00 Urine Bilirubin Negative (NEGATIVE) 08/07/18 11:00 Urine Urobilinogen 0.2 E.U./dL (<1 E.U./dL) 08/07/18 11:00 Ur Leukocyte Esterase Moderate Kiana/uL (NEGATIVE) H 08/07/18 11:00 Urine RBC Negative /hpf (0-2) 08/07/18 11:00 Urine WBC 5 - 10 /hpf (0-6) 08/07/18 11:00 Ur Epithelial Cells 4 - 5 /hpf (0-5) 08/07/18 11:00 Urine Bacteria Many (NEG) 08/07/18 11:00 Attending/Attestation - Attestation I have personally seen and examined this patient.: Yes I have fully participated in the care of the patient.: Yes I have reviewed all pertinent clinical information, including history, physical exam and plan: Yes Notes (Text): Patient seen and examined by me with resident 10:15 AM on 08/09/18. Case including discharge plan discussed with resident. Agree with above with following additions/corrections. 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 Please see H&P for full details. Patient was admitted with abdominal pain, nausea and vomiting, chronic anemia, chronic back pain, and history of HTN. Patient with suspected narcotic gastroparesis. Patient has history of gastritis and recent pancreatitis. Distribution Warehouse Manager was consulted. Patient was put on a liquid diet with diet advancement as tolerated towards a goal of 6 meals that are low-fat/low fiber per GI. Patient was continued on IV fluids and Protonix. Patient was continued on Zofran as needed for nausea and vomiting. H&H improved from previous. Hemoglobin 9 on discharge. Patient remained afebrile. No leukocytosis. No signs of acute bleeding. Patient was continued on Dilaudid for chronic back pain. Patient has a history of hypertension however is not on any home medications. Patient was normotensive in the hospital. Abdominal pain improved. Nausea and vomiting resolved. Patient was able to tolerate diet. Patient was cleared for discharge by sling operator. Patient was discharged home. On day of discharge, patient stated she was feeling much better. Abdominal pain improved. Abdominal bloating improved with walking. Patient is having bowel movements and passing gas. Patient tolerating diet. No nausea or vomiting. No chest pain or palpitations. No headaches or dizziness. No change in vision. No fevers or chills. No dysuria. Physical exam: General: Awake and alert lying in bed in no acute distress HEENT: Normocephalic, atraumatic. Extraocular muscles intact, pupils equal and reactive, no scleral icterus. Oropharynx is pink and moist. Neck is supple. Cardiovascular: Regular rhythm. Normal S1 and S2.No murmurs, rubs, or gallops appreciated Pulmonary: Normal respiratory effort. No rhonchi, rales, or wheezing appreciated. Gastrointestinal: Soft, nondistended. Mild epigastric and left upper quadrant tenderness. Positive bowel sounds all 4 quadrants. No guarding. Musculoskeletal: Moves all extremities. No edema appreciated. No CVA tenderness. No calf tenderness. Central nervous system: AAO 3. Cranial nerves 2-12 grossly intact. 5/5 muscle strength all extremities. Dermatologic: Skin warm and dry. Please see chart for full details. Follow up instructions: Patient to follow-up with primary care doctor within 3-5 days. Soft low fat, low residual diet with 6 small meals per day was recommended. Patient to continue all medications. Patient to follow-up with sling operator within 7 days of discharge. All instructions explained to the patient in detail. Patient both understands and agrees to all instructions. Written instructions also given. Time spent in discharging the patient including chart review, medication reconciliation, discussion with the patient, medical van driver, consultants, and nursing staff was approximately 40 minutes.
== END 2018-08-09 11:00 | disposition home or self-care (01) ==
LOC: ED 05:22 → ERH 09:22 → 3RSO 11:08
PROVIDERS: ADMIT Hospitalist; ATTEND Hospitalist
DX: K31.84 Gastroparesis (principal); K90.0 Celiac disease; D64.9 Anemia, unspecified; I10 Essential (primary) hypertension; K21.9 Gastro-esophageal reflux disease without esophagitis; K59.03 Drug induced constipation; K76.0 Fatty (change of) liver, not elsewhere classified; G89.29 Other chronic pain; K76.6 Portal hypertension; Z79.891 Long term (current) use of opiate analgesic; Z87.891 Personal history of nicotine dependence
CPT/HCPCS: 36415; 71045; 80053; 81001; 83690; 85025; 85027; 93005; 96374; 96375; 96376; 99285; G0378; J1170; J2270; J2405; J7030